=== PATIENT | male | born 1955 | race Caucasian/White ===

== ENCOUNTER 2021-01-31 15:08 | Inpatient (IN) | payer MEDICARE, MEDICAID, SELFPAY ==
[2021-01-31] VITALS (23 sets, daily range): BP systolic 93–140; BP diastolic 60–86; PULSE 80–113; RESP 17–23; TEMP 36.5–36.7; O2SAT 96–100; BMI 35.9
--- NOTE | 2021-01-31 15:14 | XRR_ITS ---
PROCEDURE INFORMATION: Exam: XR Chest Exam date and time: 01/31/2021 3:14 PM Age: 65 years old Clinical indication: Other: Nausea; Additional info: Weakness, nausea TECHNIQUE: Imaging protocol: XR of the chest. Views: 1 view. Total images: 1 COMPARISON: No relevant prior studies available. FINDINGS: Lungs: No visible active interstitial or alveolar airspace disease. Pleural spaces: Unremarkable. No pleural effusion. No pneumothorax. Heart/Mediastinum: Cardiac structures and configuration unremarkable for age. Bones/joints: Mild scoliotic curvature of the spine with degenerative disease and degenerative disc disease of mild severity. XR/XR chest 1V portable [id number] IMPRESSION: Nonacute.
--- NOTE | 2021-01-31 15:15 | ECG_ITS ---
[facility] Test Date: 2021-01-31 Pat Name: Andrew Pabon Department: Room: Gender: Male Continuity Manager: : 1955 Requested By: Mavis Herrera Order Number: [id number] Claudette MD: Luis E Hooks M.D. Measurements Intervals [place] Rate: 113 P: 43 WY: 172 QRS: -71 QRSD: 120 T: 74 QT: 344 QTc: 472 Interpretive Statements SINUS TACHYCARDIA POSSIBLE LEFT ATRIAL ENLARGEMENT [-0.1mV P WAVE IN V1/V2] POSSIBLE RIGHT VENTRICULAR CONDUCTION DELAY [RSR (QR) IN V1/V2] LEFT ANTERIOR FASCICULAR BLOCK [QRS AXIS <= -45, QR IN I, RS IN II] LEFT VENTRICULAR HYPERTROPHY AND ST-T CHANGE [VOLTAGE CRITERIA PLUS ST/T ABNORMALITY] POSSIBLE SEPTAL MYOCARDIAL INFARCTION [30 ms Q WAVE IN V1/V2], OF INDETERMINATE AGE No previous ECG available for comparison Electronically Signed On 02-02-2021 17:16:53 CDT by Luis E Hooks M.D. [id number]
[2021-01-31 15:42] LABS: Glucose Point of Care > 600 mg/dL (70-110)
--- NOTE | 2021-01-31 15:54 | ED_ITS ---
HPI - Male Genitourinary General: Chief complaint: Urogenital-Male Stated complaint: Weakness, N/V Time Seen by Provider: 01/31/21 15:43 Source: patient Mode of arrival: ambulatory Limitations: no limitations History of Present Illness: HPI Narrative: Patient is a 65-year-old male who presents to the emergency department with his . Neither of them is a good historian and it is difficult to obtain an accurate history from them. As far as I can gather he has had scrotal swelling for several months that they want evaluated. They states that it is getting worse. also states that he has been running a fever although they cannot tell me how high. She also states that he has urinary incontinence and is being managed for a urinary tract infection. He was initially given nitrofurantoin and it has been changed to Augmentin. He also has some fluconazole on topical antifungal and topical steroids to be applied to his scrotum. The patient is a diabetic, however the states that he was taken off his antidiabetic medications and only restarted yesterday. They have not picked up the prescription. MD Complaint: testicle swelling Onset (ago): month(s) (2) Duration: constant Location: penis, right testicle and left testicle Associated symptoms: Reports fevers/chills and urinary incontinence; Deny discharge, dysuria, hematuria, nausea, rash, swelling, urinary retention, mass or vomiting Review of Systems General: Reports: 10 or more systems reviewed and unremarkable except in HPI and below GI: Denies: nausea or vomiting : Reports: urinary incontinence; Denies: dysuria or hematuria [facility] ED PFSH: Medical History (Updated 01/31/21 @ 20:20 by Esthela Salcedo MD, [facility] [place]) Diabetes Hypertension Obesity Surgical History Status post hernia repair Family History Other CAD (coronary artery disease) Cancer Denies family history of Anesthesia complication Bleeding disorder Social History (Updated 01/31/21 @ 20:02 by Lynnette Moya MD) Smoking and tobacco status: former smoker Alcohol intake: never Substance/Drug Use: never Household members: spouse Physical Exam Const: COMMON NORMALS: no acute distress, average body habitus, patient oriented x3, no limitations, healthy appearing, alert and well nourished Neck/C-Spine: COMMON NORMALS: full ROM, supple, no meningeal signs, no JVD and No carotid bruits Resp: COMMON NORMALS: normal respiratory effort, No retractions, No use of accessory muscles, clear to auscultation bilaterally and percussion normal EFFORT & INSPECTION: Yes abnormal respiratory pattern Kussmaul breathing and Yes tachypneic AUSCULTATION: clear to auscultation bilaterally PERCUSSION: percussion normal Cardio: COMMON NORMALS: no JVD, regular rate, regular rhythm, S1 normal heart sound present, S2 normal heart sound present, No gallops present (Cardio), No clicks present (Cardio), No murmurs present (Cardio), No rub (Cardio) and Peripheral pulses 2+ throughout RATE: regular rate RHYTHM: regular rhythm HEART SOUNDS: S1 normal heart sound present and S2 normal heart sound present PERIPHERAL PULSES: Peripheral pulses 2+ throughout GI: COMMON NORMALS: Normal to inspection, nondistended, normoactive bowel sounds present, Soft to palpation, non-tender, No hepatosplenomegaly present, no masses and no bruits PALPATION: Yes Soft to palpation and Yes No hepatosplenomegaly present : COMMON NORMALS: Yes no CVA tenderness BLADDER/KIDNEY EXAM: Yes no CVA tenderness SCROTUM: Yes erythematous and Yes scrotal swelling Back/Pelvis: COMMON NORMALS: no CVA tenderness Extremity: COMMON NORMALS: normal to inspection, full ROM, capillary refill normal and no calf tenderness OTHER: left leg swelling. and patient state that this is chronic Neuro: COMMON NORMALS: patient oriented x3 SENSORIUM/ORIENTATION: Yes alert MENINGEAL SIGNS: Yes no meningeal signs Skin: COMMON NORMALS: no rashes or lesions noted, no wounds, turgor normal, no jaundice, no petechiae and no mottling GENERAL SKIN EXAM: no rashes or lesions noted and turgor normal Course Consultations: Consultation #1: Discussed the patient with Dr. Moreau, urologist. He will take the patient to the OR emergently. Time: 18:40 Consultation #2: Discussed the patient with Dr. Ruiz, hospitalist and she kindly accepted the patient to her service. Time: 19:05 Vital Signs: Vital signs: Vital Signs Temperature 98 F 01/31/21 19:48 Pulse Rate 80 07/09/21 19:48 Respiratory Rate 18 01/31/21 19:48 Blood Pressure 140/86 01/31/21 19:48 Pulse Oximetry 98 01/31/21 19:48 MDM - Male MDM Narrative: Medical decision making narrative: 65-year-old male diabetic who is currently not on any medication for diabetes, presents to the emergency department with a 2-month history of scrotal swelling. Evaluation in the emergency department shows that the patient is in diabetic ketoacidosis, has a Yovanny's gangrene and also has a urinary tract infection. He will be taken emergently to the OR for surgical debridement and then will be admitted to the intensive care unit following this. He also has some hyperkalemia which is likely secondary to DKA and hyponatremia, corrected sodium is still mildly low. He was given calcium gluconate in the emergency department and started on an insulin drip. He was also given IV fluids and IV antibiotics. Medical Records: Attestation: I reviewed the patient's medical records. Lab Data: Attestation: I reviewed the patient's lab results. Labs: Lab Results 01/31/21 01/31/21 01/31/21 Range/Units 15:39 16:36 16:46 WBC (4.0-10.0) 10^3/ uL RBC (4.1-5.3) 10^6/u L Hgb (11.7-16.6) g/dL Hct (42.0-52.0) % MCV (80-94) fL MCH (28.0-34.0) pg MCHC (30.0-36.0) g/dL RDW (12.1-15.1) % Plt Count (130-400) 10^3/c mm MPV (7.4-10.4) fL Neut % (Auto) % Lymph % (Auto) % [place] % (Auto) % Eos % (Auto) % Baso % (Auto) % Neut # (Auto) (1.8-7.7) 10^3/u L Lymph # (Auto) (0.8-4.8) 10^3/u L [place] # (Auto) (0.2-0.9) 10^3/u L Eos # (Auto) (0.0-0.8) 10^3/u L Baso # (Auto) (0.0-0.1) 10^3/u L Nucleated RBC % (a uto) % Nucleated RBCs # /100WBC Specimen Type Arterial Sample Site Radial, right ABG pH 7.42 (7.35-7.45) ABG pCO2 15.6 L* (35-45) mmHg ABG pO2 108.0 H (80.0-100.0) mmH g ABG HCO3 10.0 L (22-26) mmol/L ABG Base Excess -11.8 L (-2.0-2.0) mmol/ L Jann Test Pos Hematocrit 39.1 L (42-52) % O2 Delivery Device Room air FiO2 21.0 % Supervisor [employer] ID glc Sodium (136-145) mmol/L Potassium (3.5-5.1) mmol/L Chloride (98-107) mmol/L Carbon Dioxide (22-29) mmol/L Anion Gap (5-19) BUN (8-23) mg/dL Creatinine (0.7-1.2) mg/dL GFR Calculation (90-130) mL/min Glucose (65-115) mg/dL POC Glucose > 600 H* (70-110) mg/dL Calculated Osmolal ity (285-295) mOsm/k g Calcium (8.5-10.5) mg/dL Total Bilirubin (0.15-1.2) mg/dL AST (0-40) U/L ALT (0-41) U/L Alkaline Phosphata se (40-130) IU/L Troponin T Baselin e (0-15) ng/L Troponin T 120 Min [facility] (0-15) ng/L Delta Troponin T (0-10) ABS# Total Protein (6.6-8.7) g/dL Albumin (3.5-5.2) g/dL Globulin (1.3-4.6) g/dL Urine Color (Yellow) Urine Appearance (CLEAR) Urine pH (5-7) Ur Specific Gravit y (1.005-1.030) Urine Protein (Negative) Urine Glucose (UA) (Normal) Urine Ketones (Negative) Urine Blood (Negative) Urine Nitrate (Negative) Urine Bilirubin (Negative) Urine Urobilinogen (Negative) mg/dL Ur Leukocyte Kristen ase (Negative) Urine RBC (0-2) /hpf Urine WBC (0-5) /hpf Ur Squamous Epith Cells (0-5) /hpf Amorphous Sediment Urine Bacteria (NONE) /hpf Urine Yeast /hpf Serum Ketones Positive H (Negative) 01/31/21 01/31/21 01/31/21 Range/Units 16:56 16:56 16:56 WBC 18.1 H (4.0-10.0) 10^3/ uL RBC 4.69 (4.1-5.3) 10^6/u L Hgb 12.5 (11.7-16.6) g/dL Hct 40.9 L (42.0-52.0) % MCV 87.2 (80-94) fL MCH 26.7 L (28.0-34.0) pg MCHC 30.6 (30.0-36.0) g/dL RDW 13.3 (12.1-15.1) % Plt Count 465 H (130-400) 10^3/c mm MPV 9.0 (7.4-10.4) fL Neut % (Auto) 85.7 % Lymph % (Auto) 7.4 % [place] % (Auto) 4.3 % Eos % (Auto) 0.1 % Baso % (Auto) 0.4 % Neut # (Auto) 15.50 H (1.8-7.7) 10^3/u L Lymph # (Auto) 1.3 (0.8-4.8) 10^3/u L [place] # (Auto) 0.8 (0.2-0.9) 10^3/u L Eos # (Auto) 0.0 (0.0-0.8) 10^3/u L Baso # (Auto) 0.1 (0.0-0.1) 10^3/u L Nucleated RBC % (a uto) 0 % Nucleated RBCs # 0.0 /100WBC Specimen Type Sample Site ABG pH (7.35-7.45) ABG pCO2 (35-45) mmHg ABG pO2 (80.0-100.0) mmH g ABG HCO3 (22-26) mmol/L ABG Base Excess (-2.0-2.0) mmol/ L Jann Test Hematocrit (42-52) % O2 Delivery Device FiO2 % [employer] ID Sodium 110 L* (136-145) mmol/L Potassium 6.6 H* (3.5-5.1) mmol/L Chloride 71 L (98-107) mmol/L Carbon Dioxide 12 L (22-29) mmol/L Anion Gap 33.6 H (5-19) BUN 51 H (8-23) mg/dL Creatinine 1.9 H (0.7-1.2) mg/dL GFR Calculation 35.5 L (90-130) mL/min Glucose 836 H* (65-115) mg/dL POC Glucose (70-110) mg/dL Calculated Osmolal ity 285 (285-295) mOsm/k g Calcium 8.9 (8.5-10.5) mg/dL Total Bilirubin 0.3 (0.15-1.2) mg/dL AST 10 (0-40) U/L ALT 11 (0-41) U/L Alkaline Phosphata se 190 H (40-130) IU/L Troponin T Baselin e 21 H (0-15) ng/L Troponin T 120 Min [facility] (0-15) ng/L Delta Troponin T (0-10) ABS# Total Protein 7.3 (6.6-8.7) g/dL Albumin 3.0 L (3.5-5.2) g/dL Globulin 4.3 (1.3-4.6) g/dL Urine Color (Yellow) Urine Appearance (CLEAR) Urine pH (5-7) Ur Specific Gravit y (1.005-1.030) Urine Protein (Negative) Urine Glucose (UA) (Normal) Urine Ketones (Negative) Urine Blood (Negative) Urine Nitrate (Negative) Urine Bilirubin (Negative) Urine Urobilinogen (Negative) mg/dL Ur Leukocyte Kristen ase (Negative) Urine RBC (0-2) /hpf Urine WBC (0-5) /hpf Ur Squamous Epith Cells (0-5) /hpf Amorphous Sediment Urine Bacteria (NONE) /hpf Urine Yeast /hpf Serum Ketones (Negative) 01/31/21 01/31/21 01/31/21 Range/Units 17:42 18:52 19:56 WBC (4.0-10.0) 10^3/ uL RBC (4.1-5.3) 10^6/u L Hgb (11.7-16.6) g/dL Hct (42.0-52.0) % MCV (80-94) fL MCH (28.0-34.0) pg MCHC (30.0-36.0) g/dL RDW (12.1-15.1) % Plt Count (130-400) 10^3/c mm MPV (7.4-10.4) fL Neut % (Auto) % Lymph % (Auto) % [place] % (Auto) % Eos % (Auto) % Baso % (Auto) % Neut # (Auto) (1.8-7.7) 10^3/u L Lymph # (Auto) (0.8-4.8) 10^3/u L [place] # (Auto) (0.2-0.9) 10^3/u L Eos # (Auto) (0.0-0.8) 10^3/u L Baso # (Auto) (0.0-0.1) 10^3/u L Nucleated RBC % (a uto) % Nucleated RBCs # /100WBC Specimen Type Sample Site ABG pH (7.35-7.45) ABG pCO2 (35-45) mmHg ABG pO2 (80.0-100.0) mmH g ABG HCO3 (22-26) mmol/L ABG Base Excess (-2.0-2.0) mmol/ L Jann Test Hematocrit (42-52) % O2 Delivery Device FiO2 % Super[employer] ID Sodium (136-145) mmol/L Potassium (3.5-5.1) mmol/L Chloride (98-107) mmol/L Carbon Dioxide (22-29) mmol/L Anion Gap (5-19) BUN (8-23) mg/dL Creatinine (0.7-1.2) mg/dL GFR Calculation (90-130) mL/min Glucose (65-115) mg/dL POC Glucose > 600 H* (70-110) mg/dL Calculated Osmolal ity (285-295) mOsm/k g Calcium (8.5-10.5) mg/dL Total Bilirubin (0.15-1.2) mg/dL AST (0-40) U/L ALT (0-41) U/L Alkaline Phosphata se (40-130) IU/L Troponin T Baselin e (0-15) ng/L Troponin T 120 Min [facility] 20.70 H (0-15) ng/L Delta Troponin T -0.30 L (0-10) ABS# Total Protein (6.6-8.7) g/dL Albumin (3.5-5.2) g/dL Globulin (1.3-4.6) g/dL Urine Color Straw (Yellow) Urine Appearance Cloudy (CLEAR) Urine pH 5 (5-7) Ur Specific Gravit y 1.005 (1.005-1.030) Urine Protein 1+ H (Negative) Urine Glucose (UA) 4+ H (Normal) Urine Ketones 1+ H (Negative) Urine Blood 3+ H (Negative) Urine Nitrate Negative (Negative) Urine Bilirubin Neg (Negative) Urine Urobilinogen Norm (Negative) mg/dL Ur Leukocyte Kristen ase 2+ H (Negative) Urine RBC 5-10 H (0-2) /hpf Urine WBC 55-80 H (0-5) /hpf Ur Squamous Epith Cells 0-4 H (0-5) /hpf Amorphous Sediment Not Reportable Urine Bacteria 1+ H (NONE) /hpf Urine Yeast 3+ H /hpf Serum Ketones (Negative) Critical Care Time Critical Care Time: Critical Care Time: Yes Total Critical Care Time: 60 Attestation: This case had a high probability of a clinically significant, sudden, or life threatening deterioration of this patient's condition which required my full and direct attention, intervention and personal management. Discharge Plan Discharge Patient Disposition: Admitted As Inpatient Clinical Impression: Yovanny's gangrene of scrotum, Diabetic ketoacidosis, UTI (urinary tract infection), Acute hyperkalemia, Hyponatremia Condition: Stable Coding Level of Care Code ED Grill Associate for Dean Fwd Exam Comprehensive
[2021-01-31 16:58] LABS: ABG PH Result 7.42 (7.35-7.45); Arterial Blood Gas Hematocrit 39.1 % (42-52); Base Excess ABG -11.8 mmol/L (-2.0-2.0); Blood Gas Allen Test Pos; Blood Gas Operator Identificat glc; Blood Gas Sample Site Radial, right; Blood Gas Sample Type Arterial; Oxygen Device ROOM AIR
[2021-01-31 16:59] LABS: ABG PCO2 15.6 mmHg (35-45)
--- NOTE | 2021-01-31 17:17 | CTR_ITS ---
PROCEDURE INFORMATION: Exam: CT Abdomen And Pelvis With Contrast Exam date and time: 01/31/2021 5:17 PM Age: 65 years old Clinical indication: Abdominal pain; Generalized; Prior surgery; Surgery type: Hernia; Additional info: Abdominal pain, scrotal swelling, fever TECHNIQUE: Imaging protocol: Computed tomography of the abdomen and pelvis with contrast. Total images: 301 Radiation optimization: All CT scans at this facility use at least one of these dose optimization techniques: automated exposure control; mA and/or kV adjustment per patient size (includes targeted exams where dose is matched to clinical indication); or iterative reconstruction. Contrast material: VISI 320; Contrast volume: 95 ml; Contrast route: INTRAVENOUS (IV); COMPARISON: CR XR chest 1V portable [id number] 01/31/2021 4:34 PM RADIATION DOSE METRICS: Total DLP (mGy-cm): 2388.89 FINDINGS: Lungs: Limited assessment of the lung bases fails to reveal evidence for active cardiopulmonary process. Liver: No visible hepatic mass or cystic structure. Gallbladder and bile ducts: Unremarkable. No calcified stones. No ductal dilation. Pancreas: Pancreas is unremarkable. No visible pancreatic ductal ectasia. Spleen: Rare calcified splenic granuloma. Tiny splenule. Spleen otherwise unremarkable. Adrenal glands: Adrenal glands unremarkable. Kidneys and ureters: Bilateral moderate severe hydronephrosis and hydroureter to the urinary bladder without visible ureterolithiasis. Solitary tiny focus of nonobstructing calyceal nephrolithiasis inferior pole left kidney measuring under 2 mm. No nephrolithiasis right kidney. Small 13 mm simple cyst superior pole right kidney. No follow-up recommended. Stomach and bowel: Diverticulosis coli without visible evidence for acute diverticulitis. Nonobstructive bowel pattern. No visible adynamic or reactive ileus. Appendix: The appendix is visualized and appears noninflamed. Intraperitoneal space: No visible pneumoperitoneum or intraperitoneal ascites. Vasculature: The abdominal aorta is nonaneurysmal. Mild arterial sclerotic disease. Lymph nodes: No visible enlarged lymph nodes. Urinary bladder: Markedly distended urinary bladder measuring 18.7 cm x 10.5 cm x 11.6 cm. Free air within the lumen the urinary bladder. No visible bladder stone. Reproductive: Prostate hypertrophy. Marked scrotal edema with evidence of extensive and advanced diffuse emphysema tracking along the base of the penis to the level of the prostate. Cellulitis and soft tissue emphysema of the right perineum. Soft tissue emphysema extends into the right inguinal canal to the level of the inguinal ligament. Small amount of emphysema left distal inguinal canal. Free air within the urinary bladder. Findings consistent with severe Yovanny's gangrene. Bilateral hydroceles, right volume greater than left. Bones/joints: No visible acute osseous abnormality. Advanced degenerative disc disease of the lumbosacral spine most advanced L4/L5 with complete disc space height loss. Facet arthrosis. No visible osteolytic or osteoblastic destructive process. Levoscoliosis of the lumbar spine. Soft tissues: Severe and extensive Yovanny's gangrene. Other findings: Marked obesity. Motion artifact CT/CT abdomen pelvis w con* [id number] IMPRESSION: 1. Severe and extensive Yovanny's gangrene as detailed in text above. 2. Free air within a distended urinary bladder. 3. Bilateral moderate severe hydronephrosis and hydroureter to the urinary bladder without visible ureterolithiasis. 4. Solitary tiny focus of nephrolithiasis left kidney. 5. Other nonurgent, nonemergent, chronic, and age related findings as detailed in text above. COMMENTS: Consistent with the [employer]'s Incidental Findings Committee white paper (J Am Hebert Radiol 2018): Any incidental renal lesion less than 1 cm or classified as too small to characterize, or any incidental cystic renal lesion characterized as simple-appearing, is likely benign. No follow-up imaging is recommended for these lesions per consensus recommendations based on imaging criteria. Radiation Dose CTDIVOL = (mGy): DLP = 2388.89 (mGy-cm)
[2021-01-31 17:23] LABS: Basophils # 0.1 10^3/uL (0.0-0.1); Basophils % 0.4 %; Eosinophils % 0.1 %; Hematocrit 40.9 % (42.0-52.0); Hemoglobin 12.5 g/dL (11.7-16.6); Lymphocytes # 1.3 10^3/uL (0.8-4.8); Lymphocytes % 7.4 %; Mean Corpuscular HGB Conc 30.6 g/dL (30.0-36.0); Mean Corpuscular Hemoglobin 26.7 pg (28.0-34.0); Mean Corpuscular Volume 87.2 fL (80-94); Monocytes # 0.8 10^3/uL (0.2-0.9); Monocytes % 4.3 %; Neutrophils % 85.7 %; Nucleated Red Blood Cells % 0 %; Platelet Count 465 10^3/cmm (130-400); Red Blood Count 4.69 10^6/uL (4.1-5.3); Red Cell Distribution Width 13.3 % (12.1-15.1); White Blood Count 18.1 10^3/uL (4.0-10.0)
[2021-01-31 17:34] LABS: Ketone (Acetest) Serum Positive (Negative)
[2021-01-31] MEDS: sodium chloride 0.9% 1,000 ML 999 ML IV (17:45)
[2021-01-31 17:49] LABS: Troponin(5th) Baseline 21 ng/L (0-15)
[2021-01-31 17:50] LABS: Alanine Aminotransferase 11 U/L (0-41); Alkaline Phosphatase 190 IU/L (40-130); Anion Gap 33.6 (5-19); Aspartate Amino Transferase 10 U/L (0-40); Blood Urea Nitrogen 51 mg/dL (8-23); Calcium 8.9 mg/dL (8.5-10.5); Carbon Dioxide 12 mmol/L (22-29); Chloride 71 mmol/L (98-107); Globulin 4.3 g/dL (1.3-4.6); Glomerular Filtration Rate 35.5 mL/min (90-130); Total Bilirubin 0.3 mg/dL (0.15-1.2); Total Protein 7.3 g/dL (6.6-8.7)
--- NOTE | 2021-01-31 17:54 | PC.NURSE ---
upon admission to ED, triage nurse noticed a sweet smell and kussmaul breathing. upon BG test, meter just read HI.
[2021-01-31 17:56] LABS: Sodium 110 mmol/L (136-145)
[2021-01-31 17:57] LABS: Potassium 6.6 mmol/L (3.5-5.1)
[2021-01-31 18:06] LABS: Osmolality Calculated 285 mOsm/kg (285-295)
[2021-01-31 18:07] LABS: Glucose 836 mg/dL (65-115)
[2021-01-31] MEDS: iodixanol 320 mg/mL 100mL Btl IV (18:11)
[2021-01-31 18:19] LABS: Add Urine Microscopic? YES; Bilirubin Urine Neg (Negative); Blood Urine 3+ (Negative); Glucose Urine UA 4+ (Normal); Ketones Urine 1+ (Negative); Leukocyte Esterase Urine 2+ (Negative); Nitrate Urine Negative (Negative); Protein Urine 1+ (Negative); Specific Gravity, Urine 1.005 (1.005-1.030); Urine Appearance Cloudy (CLEAR); Urine Color Straw (Yellow); Urobilinogen Urine Norm (Negative); pH Urine 5 (5-7)
[2021-01-31 18:20] LABS: Add Urine Culture? Yes; Bacteria Urine 1+ /hpf; Squamous Epithelial Cell Urine 0-4 /hpf (0-5); WBC Urine 55-80 /hpf (0-5)
[2021-01-31] MEDS: calcium gluconate 0.1 gm/mL 10% SDV 10mL 1 GM IVP (19:17)
[2021-01-31] MEDS: piperacillin-tazobactam 3.375 GM in sodium chloride 0.9% (plus) 50 ML IV (19:18)
--- NOTE | 2021-01-31 19:21 | PM.CONSULT ---
Providers/Reason For Consult Consulting Physician/Specialty*: Urology/Lizzeth Reason for Consult*: Yovanny's/necrotizing fasciitis Attending Physician: Tom Moreau MD Primary Care Provider: Dr. Irizarry History of Present Illness History of Present Illness Andrew Pabon is a 65 year old male first evaluated by me wallis in the emergency department at [facility] for what appears to be necrotizing fasciitis complicated by DKA. Noncompliant with healthcare but was recently seen at [facility]. Has not filled his prescriptions yet for his diabetic treatment. Complains of apparently longstanding scrotal swelling with much worsening of swelling and pain over the last several days. Subjective fever. Some somnolence. Reports a longstanding rash in the lower abdomen and groin. CT scan demonstrated extensive air in the scrotal tissues and skin extending into the perineum and toward the base of the penis. Bladder was distended. He has bilateral hydroureteronephrosis with some focal renal cortical atrophy. There is also air in the bladder but there does not appear to be any interstitial air in the bladder wall. There does appear to be air extending down toward the rectum in the deep perineum, up toward the groins and it also appears that there is a tracking of air along the anterior abdominal wall close to the junction of his pannus and lower abdominal wall which measures out at about 6 cm above the symphysis pubis in a cephalad direction. Urinalysis showed 55-80 white cells. 5-10 RBCs. Nitrite negative. White count was elevated 18,000 Blood gas showed a pH of 7.42, CO2 of 15.6, PO2 of 108. Chemistry showed a sodium of 110, potassium 6.6, glucose of 836, creatinine 1.9. Hospitalist service has been consulted for preop evaluation. Anesthesia consult has been made as well. Plan will be to taken to the operating room emergently as soon as he is stable enough to undergo the procedure. We will speak with general surgery for their opinion regarding the findings outside of the genitourinary area. Reviewed with the family that he is at extraordinarily high risk for mortality from multiple sources as described above. Broad-spectrum antibiotics have been ordered. Dr. Moya and Dr. Bee are assessing him for medical management preop, Intra-Op, and postop. Review of Systems Const: Reports: fever(s), chills and malaise Eyes: Denies: change in vision or blurry vision Card: Denies: chest pain or palpitations Resp: Denies: productive cough GI: Denies: hematemesis : Reports: difficulty urinating, urinary dribbling and urinary incontinence Musc: Reports: extremity swelling Skin/Breast: Reports: rash, skin pain and changes in skin color Neuro: Denies: Slurred speech present or seizure-like activity Psych: Reports: depression Endo: Denies: excessive sweating Haroldo/Lymph: Denies: easy bruising or easy bleeding All/Imm: Denies: acute wheezing Meds/Allergies Home Medications and Allergies Home Medications Medication Instructions Recorded Confirmed Last Taken Type amoxicillin-pot clavulanate 1 tab PO BID 01/31/21 01/31/21 Unknown History [Augmentin] fluconazole [Diflucan] 200 mg PO DAILY 01/31/21 01/31/21 Unknown History ketoconazole See Rx Instructions .ROUTE .COMPLEX 01/31/21 01/31/21 01/31/21 History lisinopril 5 mg PO DAILY 01/31/21 01/31/21 01/31/21 History metformin 500 mg PO BID 01/31/21 01/31/21 01/30/21 History nystatin See Rx Instructions .ROUTE .COMPLEX 01/31/21 01/31/21 Unknown History sulfamethoxazole-trimethoprim 1 tab PO BID 01/31/21 01/31/21 01/31/21 History triamcinolone acetonide See Rx Instructions .ROUTE .COMPLEX 01/31/21 01/31/21 01/31/21 History Allergies Allergy/AdvReac Type Severity Reaction Status Date / Time nitrofurantoin Allergy Unknown Verified 01/31/21 16:16 PFSH Acute PFSH: Medical History (Updated 01/31/21 @ 20:55 by Lynnette Moya MD) Diabetes Hypertension Obesity Surgical History Status post hernia repair Family History Other CAD (coronary artery disease) Cancer Denies family history of Anesthesia complication Bleeding disorder Social History (Updated 01/31/21 @ 20:02 by Lynnette Moya MD) Smoking and tobacco status: former smoker Alcohol intake: never Substance/Drug Use: never Household members: spouse Supplemental [facility] Information: He denies any knowledge of cardiac disease or respiratory disease. Has been previously on diabetic meds but quit because the doctor said he did not need them any longer Vitals/I&O/Wt Last Vital Signs Temp 98.1 F 01/31/21 15:19 Pulse 112 H 01/31/21 15:19 Resp 17 01/31/21 15:19 BP 135/80 01/31/21 15:19 Pulse Ox 96 01/31/21 15:19 Weight last 48 hrs Weight 250 lb Physical Exam Const: COMMON NORMALS: no acute distress, alert and well nourished GENERAL APPEARANCE: well developed HENMT: COMMON NORMALS: normocephalic and atraumatic HEAD & SCALP: normocephalic and atraumatic Neck/C-Spine: COMMON NORMALS: full ROM Resp: COMMON NORMALS: normal respiratory effort EFFORT & INSPECTION: No labored and No Actively coughing GI: COMMON NORMALS: Soft to palpation, non-tender and no masses PALPATION: Yes Soft to palpation : OTHER: Grossly abnormal exam with scrotal enlargement, extending up into the groin or significant changes of erythema. He has draining urine from the urethra. The swelling extends down into the perineum as well. I could not feel any obvious crepitus there is no eschar that I could see. Could not palpate his testicles due to the degree of swelling Neuro: SENSORIUM/ORIENTATION: Yes alert Psych: ATTITUDE: Yes calm Skin: COMMON NORMALS: no jaundice NARRATIVE SKIN EXAM: Extensive rash in his lower abdomen extending down his his groins. Scrotal and genital skin is erythematous. A&P Assessment and plan (1) Yovanny's gangrene of scrotum: To the operating room emergently after evaluation by hospitalist service and anesthesia. Status: Acute (2) Diabetic ketoacidosis: Status: Acute (3) Diabetes: Status: Chronic (4) Obesity: Status: Chronic Consult Attestations Medical Necessity Statement: Critically ill patient. High mortality risk for multiple reasons including infectious as well as the uncontrolled diabetes. ICU care planned postoperatively if he survives. Coding Level of Care Code Acute [employer] Machine [employer]eder for [facility] Fwd Exam Detailed Diagnoses Yovanny's gangrene of scrotum N49.3 Diabetic ketoacidosis E11.10 Diabetes E11.9 Obesity E66.9
[2021-01-31] MEDS: insulin regular-human 250 UNIT in sodium chloride 0.9% 250 ML 23.28 UNIT IV (19:22)
--- NOTE | 2021-01-31 19:38 | ANES.PREANE2 ---
Pre-Anesthetic Assessment Pre-Anesthetic Assessment: Height/Weight: Height 1.78 m Weight 113.398 kg Temp Pulse Resp BP Pulse Ox 98.1 F 112 H 17 135/80 96 01/31/21 15:19 01/31/21 15:19 01/31/21 15:19 01/31/21 15:19 01/31/21 15:19 Preop Diagnosis: Necrotizing fasciiitis Proposed Procedure: Operation Date: 01/31/21 19:30 Proposed Procedures p Incision And Drainage(Not Applicable) - Tom Moreau MD Familial anesthetic complications: none Last intake: SOlids > 8 hrs Seven up 1-2 hrs ago Social: Social History: No alcohol and No tobacco Exam: Pre-Anes Outpt Exam: alert, oriented x 3, clear to auscultation bilaterally and regular rate & rhythm Airway: Cervical ROM: WNL Dentition: False CV/HEM: CV/HEM: HTN Metabolic: Metabolic: DM and Morbid obesity Comments: DKA Anesthetic Plan: ASA status: 4E Anesthesia: General Risk of > 500 ml blood loss (7ml/kg in children): No Meds/Allergies Current Medications: Current Medications Generic Name Dose Route Start Last Admin Trade Name Freq PRN Reason Stop Dose Admin Insulin Human Regu lar 250 unit 252.5 mls @ 0 mls /hr 01/31/21 18:30 01/31/21 19:22 / Sodium Chlorid e IV 23.28 ml/hr .Q0M JENISE 23.28 mls/hr Administration Protocol Per Protocol PFSH Anesthesia PFSH: Surgical History (Updated 01/31/21 @ 19:35 by Tom Moreau MD) Status post hernia repair Family History (Updated 01/31/21 @ 19:36 by Tom Moreau MD) Other CAD (coronary artery disease) Cancer Denies family history of Anesthesia complication Bleeding disorder Data Anesthesia CBC & Chem 7: 01/31/21 16:56 01/31/21 16:56 Other Labs: Laboratory Results - last 48 hr 01/31/21 01/31/21 01/31/21 15:39 16:36 16:46 WBC RBC Hgb Hct MCV MCH MCHC RDW Plt Count MPV Neut % (Auto) Lymph % (Auto) Sebastian % (Auto) Eos % (Auto) Baso % (Auto) Neut # (Auto) Lymph # (Auto) Sebastian # (Auto) Eos # (Auto) Baso # (Auto) Nucleated RBC % (auto) Nucleated RBCs # Specimen Type Arterial Sample Site Radial, right ABG pH 7.42 ABG pCO2 15.6 L* ABG pO2 108.0 H ABG HCO3 10.0 L ABG Base Excess -11.8 L Jann Test Pos Hematocrit 39.1 L O2 Delivery Device Room air FiO2 21.0 Petrophysical Engineer ID glc Sodium Potassium Chloride Carbon Dioxide Anion Gap BUN Creatinine GFR Calculation Glucose POC Glucose > 600 H* Calculated Osmolality Calcium Total Bilirubin AST ALT Alkaline Phosphatase Troponin T Baseline Troponin T 120 Minute Delta Troponin T Total Protein Albumin Globulin Urine Color Urine Appearance Urine pH Ur Specific [place] Urine Protein Urine Glucose (UA) Urine Ketones Urine Blood Urine Nitrate Urine Bilirubin Urine Urobilinogen Ur Leukocyte Esterase Urine RBC Urine WBC Ur Squamous Epith Cells Amorphous Sediment Urine Bacteria Urine Yeast Serum Ketones Positive H 01/31/21 01/31/21 01/31/21 16:56 16:56 16:56 WBC 18.1 H RBC 4.69 Hgb 12.5 Hct 40.9 L MCV 87.2 MCH 26.7 L MCHC 30.6 RDW 13.3 Plt Count 465 H MPV 9.0 Neut % (Auto) 85.7 Lymph % (Auto) 7.4 Sebastian % (Auto) 4.3 Eos % (Auto) 0.1 Baso % (Auto) 0.4 Neut # (Auto) 15.50 H Lymph # (Auto) 1.3 Sebastian # (Auto) 0.8 Eos # (Auto) 0.0 Baso # (Auto) 0.1 Nucleated RBC % (auto) 0 Nucleated RBCs # 0.0 Specimen Type Sample Site ABG pH ABG pCO2 ABG pO2 ABG HCO3 ABG Base Excess Jann Test Hematocrit O2 Delivery Device FiO2 Petrophysical Engineer ID Sodium 110 L* Potassium 6.6 H* Chloride 71 L Carbon Dioxide 12 L Anion Gap 33.6 H BUN 51 H Creatinine 1.9 H GFR Calculation 35.5 L Glucose 836 H* POC Glucose Calculated Osmolality 285 Calcium 8.9 Total Bilirubin 0.3 AST 10 ALT 11 Alkaline Phosphatase 190 H Troponin T Baseline 21 H Troponin T 120 Minute Delta Troponin T Total Protein 7.3 Albumin 3.0 L Globulin 4.3 Urine Color Urine Appearance Urine pH Ur Specific [place] Urine Protein Urine Glucose (UA) Urine Ketones Urine Blood Urine Nitrate Urine Bilirubin Urine Urobilinogen Ur Leukocyte Esterase Urine RBC Urine WBC Ur Squamous Epith Cells Amorphous Sediment Urine Bacteria Urine Yeast Serum Ketones 01/31/21 01/31/21 17:42 18:52 WBC RBC Hgb Hct MCV MCH MCHC RDW Plt Count MPV Neut % (Auto) Lymph % (Auto) Sebastian % (Auto) Eos % (Auto) Baso % (Auto) Neut # (Auto) Lymph # (Auto) Sebastian # (Auto) Eos # (Auto) Baso # (Auto) Nucleated RBC % (auto) Nucleated RBCs # Specimen Type Sample Site ABG pH ABG pCO2 ABG pO2 ABG HCO3 ABG Base Excess Jann Test Hematocrit O2 Delivery Device FiO2 Petrophysical Engineer ID Sodium Potassium Chloride Carbon Dioxide Anion Gap BUN Creatinine GFR Calculation Glucose POC Glucose Calculated Osmolality Calcium Total Bilirubin AST ALT Alkaline Phosphatase Troponin T Baseline Troponin T 120 Minute 20.70 H Delta Troponin T -0.30 L Total Protein Albumin Globulin Urine Color Straw Urine Appearance Cloudy Urine pH 5 Ur Specific [place] 1.005 Urine Protein 1+ H Urine Glucose (UA) 4+ H Urine Ketones 1+ H Urine Blood 3+ H Urine Nitrate Negative Urine Bilirubin Neg Urine Urobilinogen Norm Ur Leukocyte Esterase 2+ H Urine RBC 5-10 H Urine WBC 55-80 H Ur Squamous Epith Cells 0-4 H Amorphous Sediment Not Reportable Urine Bacteria 1+ H Urine Yeast 3+ H Serum Ketones Cardiac Studies: No Data to Display
--- NOTE | 2021-01-31 19:46 | P.HP_ITS ---
Providers/Chief Complaint Admitting Physician: Lynnette Moya MD Primary Care Provider: Dr. Merritt Irizarry Chief Complaint: Weakness, N/V History of Present Illness Andrew Pabon is a 65 year old male who presented to the emergency room with increasing weakness to the point that he was not able to move around. He has a history of diabetes and hypertension but some time ago a doctor took him off of his medications saying that he did not need it anymore, according to the . A month or so ago he started having swelling and rash in his groin. He saw somebody who gave him a prescription for Macrobid and some creams. Despite this the swelling and rash continued. He saw a new doctor thisweek who started him on lisinopril and Metformin. In addition to this he was given fluconazole, Bactrim, nystatin and triamcinolone cream, or amoxicillin. A couple of the medications were actually filled today and he has not taken them yet. Over the last 48 hours or so he has become so weak that he cannot move around, he has been urinating frequently. He has been very thirsty but not feeling like drinking very much. He has had incontinence and increased swelling and pain in the groin extending to his scrotum. Describes the pain as severe. His rash is also extended to cover the entire genital area. No bleeding has been noted. Over the last few months he has had increasing edema. He has some dyspnea with exertion. He has had some episodes of chest pain. The dyspnea and chest pain is not escalated today. Prior to the onset of overall issues a month or 2 ago he states that he was able to ambulate without dyspnea and chest pain. He has had prior inguinal hernia repairs without any anesthesia complications. Denies any chronic lung disease or smoking. No history of bleeding disorders. No known history of coronary artery disease. 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 In addition he has respiratorily compensated metabolic acidosis and multiple laboratory abnormalities consistent with DKA. Measured sodium is 110, corrected to the 120s based on glucose of 800s. His potassium is 6.7. Twelve- lead EKG shows sinus tachycardia, peaked T waves and nonspecific changes. 2- hour troponin delta is unremarkable. Chest x-ray shows no acute cardiopulmonary process. He received some calcium, initiation of insulin drip, IV fluids, Zosyn, vancomycin, Rocephin and clindamycin. Dr. Moreau was consulted the [facility] to take patient emergently to surgery this evening. I have conferred with both Dr. Moreau and Dr. Bee on plan of care. History is obtained predominantly from the with the patient answering some review of systems questions. Review of Systems Const: Reports: fever(s) (Subjective), chills, change in appetite, change in weight (Weight gain), fatigue and malaise Eyes: Reports: blurry vision ENMT: Reports: dry mouth; Denies: throat pain or nasal congestion Card: Reports: chest pain, edema and dyspnea on exertion; Denies: palpitations or orthopnea Resp: Denies: productive cough or non-productive cough GI: Reports: abdominal pain, nausea, vomiting and other (last BM this am no blood); Denies: diarrhea or constipation : Reports: urinary frequency, urinary dribbling, urinary incontinence, testicular pain and scrotal swelling; Denies: hematuria Musc: Reports: back pain and extremity pain Skin/Breast: Reports: rash (groin) and skin pain; Denies: sores (Other than what is in the groin) Neuro: Reports: numbness in extremities (Numbness and tingling upper since Macrodantin started), weakness in extremities (Generalized generalized) and difficulty walking (Due to weakness) Endo: Reports: polyuria, polydipsia and tired all the time Haroldo/Lymph: Denies: easy bruising or easy bleeding Medications/Allergies Home Medications Medication Instructions Recorded Confirmed Last Taken Type amoxicillin-pot clavulanate 1 tab PO BID 01/31/21 01/31/21 Unknown History [Augmentin] fluconazole [Diflucan] 200 mg PO DAILY 01/31/21 01/31/21 Unknown History ketoconazole See Rx Instructions .ROUTE .COMPLEX 01/31/21 01/31/21 01/31/21 History lisinopril 5 mg PO DAILY 01/31/21 01/31/21 01/31/21 History metformin 500 mg PO BID 01/31/21 01/31/21 01/30/21 History nystatin See Rx Instructions .ROUTE .COMPLEX 01/31/21 01/31/21 Unknown History sulfamethoxazole-trimethoprim 1 tab PO BID 01/31/21 01/31/21 01/31/21 History triamcinolone acetonide See Rx Instructions .ROUTE .COMPLEX 01/31/21 01/31/21 01/31/21 History Allergies Allergy/AdvReac Type Severity Reaction Status Date / Time nitrofurantoin Allergy Unknown Verified 01/31/21 16:16 PFSH Acute PFSH: Medical History (Updated 01/31/21 @ 20:55 by Lynnette Moya MD) Diabetes Hypertension Obesity Surgical History Status post hernia repair Family History Other CAD (coronary artery disease) Cancer Denies family history of Anesthesia complication Bleeding disorder Social History (Updated 01/31/21 @ 20:02 by Lynnette Moya MD) Smoking and tobacco status: former smoker Alcohol intake: never Substance/Drug Use: never Household members: spouse Vitals/I&O/Wt Last Vital Signs Temp 98.1 F 01/31/21 15:19 Pulse 112 H 01/31/21 15:19 Resp 17 01/31/21 15:19 BP 135/80 01/31/21 15:19 Pulse Ox 96 01/31/21 15:19 Weight last 48 hrs Weight 113.398 kg Physical Exam Narrative: EXAM NARRATIVE: Constitutional: awake, able to answer questions but quite ill-appearing HEENT: normocephalic, pupils equal, oropharyn dry, dentures noted Neck: large but supple Respiratory: tachypnic, clear, decreased chest expansion Cardiovascular: regular rhythm, distant heart sounds, cap refill 3 seconds Abdomen: soft, rotund, tender lower quadrants, decreased bowel sounds : extensive excoriation, swelling and intense erythema of scrotum, intertriginous areas, dribbling clear urine, satellite lesions to thighs Extremities: 3+ edema, chronic stasis changes Skin: dry, chronic changes, beyond the groin do not see other acute skin changes but have not examined back or feet at this time Neuro:oriented to person and place, situation, speech clear, face symmetric, moves all extremities Psych: cooperative Data : 01/31/21 16:56 01/31/21 16:56 Other data: Laboratory Results WBC 18.1 10^3/uL (4.0-10.0) H 01/31/21 16:56 RBC 4.69 10^6/uL (4.1-5.3) 01/31/21 16:56 Hgb 12.5 g/dL (11.7-16.6) 01/31/21 16:56 Hct 40.9 % (42.0-52.0) L 01/31/21 16:56 MCV 87.2 fL (80-94) 01/31/21 16:56 MCH 26.7 pg (28.0-34.0) L 01/31/21 16:56 MCHC 30.6 g/dL (30.0-36.0) 01/31/21 16:56 RDW 13.3 % (12.1-15.1) 01/31/21 16:56 Plt Count 465 10^3/cmm (130-400) H 01/31/21 16:56 MPV 9.0 fL (7.4-10.4) 01/31/21 16:56 Neut % (Auto) 85.7 % 01/31/21 16:56 Lymph % (Auto) 7.4 % 01/31/21 16:56 Bacon % (Auto) 4.3 % 01/31/21 16:56 Eos % (Auto) 0.1 % 01/31/21 16:56 Baso % (Auto) 0.4 % 01/31/21 16:56 Neut # (Auto) 15.50 10^3/uL (1.8-7.7) H 01/31/21 16:56 Lymph # (Auto) 1.3 10^3/uL (0.8-4.8) 01/31/21 16:56 Bacon # (Auto) 0.8 10^3/uL (0.2-0.9) 01/31/21 16:56 Eos # (Auto) 0.0 10^3/uL (0.0-0.8) 01/31/21 16:56 Baso # (Auto) 0.1 10^3/uL (0.0-0.1) 01/31/21 16:56 Nucleated RBC % (auto) 0 % 01/31/21 16:56 Nucleated RBCs # 0.0 /100WBC 01/31/21 16:56 Specimen Type Arterial 01/31/21 16:46 Sample Site Radial, right 01/31/21 16:46 ABG pH 7.42 (7.35-7.45) 01/31/21 16:46 ABG pCO2 15.6 mmHg (35-45) L* 01/31/21 16:46 ABG pO2 108.0 mmHg (80.0-100.0) H 01/31/21 16:46 ABG HCO3 10.0 mmol/L (22-26) L 01/31/21 16:46 ABG Base Excess -11.8 mmol/L (-2.0-2.0) L 01/31/21 16:46 Jann Test Pos 01/31/21 16:46 Hematocrit 39.1 % (42-52) L 01/31/21 16:46 O2 Delivery Device Room air 01/31/21 16:46 FiO2 21.0 % 01/31/21 16:46 Stripper And Taper ID glc 01/31/21 16:46 Sodium 110 mmol/L (136-145) L* 01/31/21 16:56 Potassium 6.6 mmol/L (3.5-5.1) H* 01/31/21 16:56 Chloride 71 mmol/L (98-107) L 01/31/21 16:56 Carbon Dioxide 12 mmol/L (22-29) L 01/31/21 16:56 Anion Gap 33.6 (5-19) H 01/31/21 16:56 BUN 51 mg/dL (8-23) H 01/31/21 16:56 Creatinine 1.9 mg/dL (0.7-1.2) H 01/31/21 16:56 GFR Calculation 35.5 mL/min (90-130) L 01/31/21 16:56 Glucose 836 mg/dL (65-115) H* 01/31/21 16:56 POC Glucose > 600 mg/dL (70-110) H* 01/31/21 19:56 Calculated Osmolality 285 mOsm/kg (285-295) 01/31/21 16:56 Calcium 8.9 mg/dL (8.5-10.5) 01/31/21 16:56 Total Bilirubin 0.3 mg/dL (0.15-1.2) 01/31/21 16:56 AST 10 U/L (0-40) 01/31/21 16:56 ALT 11 U/L (0-41) 01/31/21 16:56 Alkaline Phosphatase 190 IU/L (40-130) H 01/31/21 16:56 Troponin T Baseline 21 ng/L (0-15) H 01/31/21 16:56 Troponin T 120 Minute 20.70 ng/L (0-15) H 01/31/21 18:52 Delta Troponin T -0.30 ABS# (0-10) L 01/31/21 18:52 Total Protein 7.3 g/dL (6.6-8.7) 01/31/21 16:56 Albumin 3.0 g/dL (3.5-5.2) L 01/31/21 16:56 Globulin 4.3 g/dL (1.3-4.6) 01/31/21 16:56 Urine Color Straw (Yellow) 01/31/21 17:42 Urine Appearance Cloudy (CLEAR) 01/31/21 17:42 Urine pH 5 (5-7) 01/31/21 17:42 Ur Specific [place] 1.005 (1.005-1.030) 01/31/21 17:42 Urine Protein 1+ (Negative) H 01/31/21 17:42 Urine Glucose (UA) 4+ (Normal) H 01/31/21 17:42 Urine Ketones 1+ (Negative) H 01/31/21 17:42 Urine Blood 3+ (Negative) H 01/31/21 17:42 Urine Nitrate Negative (Negative) 01/31/21 17:42 Urine Bilirubin Neg (Negative) 01/31/21 17:42 Urine Urobilinogen Norm mg/dL (Negative) 01/31/21 17:42 Ur Leukocyte Esterase 2+ (Negative) H 01/31/21 17:42 Urine RBC 5-10 /hpf (0-2) H 01/31/21 17:42 Urine WBC 55-80 /hpf (0-5) H 01/31/21 17:42 Ur Squamous Epith Cells 0-4 /hpf (0-5) H 01/31/21 17:42 Amorphous Sediment Not Reportable 01/31/21 17:42 Urine Bacteria 1+ /hpf (NONE) H 01/31/21 17:42 Urine Yeast 3+ /hpf H 01/31/21 17:42 Serum Ketones Positive (Negative) H 01/31/21 16:36 Impressions Chest X-Ray 01/31/21 15:14 IMPRESSION: Nonacute. Abdomen/Pelvis CT 01/31/21 17:17 FINDINGS: Lungs: Limited assessment of the lung bases fails to reveal evidence for active cardiopulmonary process. Liver: No visible hepatic mass or cystic structure. Gallbladder and bile ducts: Unremarkable. No calcified stones. No ductal dilation. Pancreas: Pancreas is unremarkable. No visible pancreatic ductal ectasia. Spleen: Rare calcified splenic granuloma. Tiny splenule. Spleen otherwise unremarkable. Adrenal glands: Adrenal glands unremarkable. Kidneys and ureters: Bilateral moderate severe hydronephrosis and hydroureter to the urinary bladder without visible ureterolithiasis. Solitary tiny focus of nonobstructing calyceal nephrolithiasis inferior pole left kidney measuring under 2 mm. No nephrolithiasis right kidney. Small 13 mm simple cyst superior pole right kidney. No follow-up recommended. Stomach and bowel: Diverticulosis coli without visible evidence for acute diverticulitis. Nonobstructive bowel pattern. No visible adynamic or reactive ileus. Appendix: The appendix is visualized and appears noninflamed. Intraperitoneal space: No visible pneumoperitoneum or intraperitoneal ascites. Vasculature: The abdominal aorta is nonaneurysmal. Mild arterial sclerotic disease. Lymph nodes: No visible enlarged lymph nodes. Urinary bladder: Markedly distended urinary bladder measuring 18.7 cm x 10.5 cm x 11.6 cm. Free air within the lumen the urinary bladder. No visible bladder stone. Reproductive: Prostate hypertrophy. Marked scrotal edema with evidence of extensive and advanced diffuse emphysema tracking along the base of the penis to the level of the prostate. Cellulitis and soft tissue emphysema of the right perineum. Soft tissue emphysema extends into the right inguinal canal to the level of the inguinal ligament. Small amount of emphysema left distal inguinal canal. Free air within the urinary bladder. Findings consistent with severe Yovanny's gangrene. Bilateral hydroceles, right volume greater than left. Bones/joints: No visible acute osseous abnormality. Advanced degenerative disc disease of the lumbosacral spine most advanced L4/L5 with complete disc space height loss. Facet arthrosis. No visible osteolytic or osteoblastic destructive process. Levoscoliosis of the lumbar spine. Soft tissues: Severe and extensive Yovanny's gangrene. Other findings: Marked obesity. Motion artifact IMPRESSION: 1. Severe and extensive Yovanny's gangrene as detailed in text above. 2. Free air within a distended urinary bladder. 3. Bilateral moderate severe hydronephrosis and hydroureter to the urinary bladder without visible ureterolithiasis. 4. Solitary tiny focus of nephrolithiasis left kidney. 5. Other nonurgent, nonemergent, chronic, and age related findings as detailed in text above. COMMENTS: Consistent with the [employer]'s Incidental Findings Committee white paper (J Am Hebert Radiol 2018): Any incidental renal lesion less than 1 cm or classified as too small to characterize, or any incidental cystic renal lesion characterized as simple-appearing, is likely benign. No follow-up imaging is recommended for these lesions per consensus recommendations based on imaging criteria. Radiation Dose CTDIVOL = (mGy): DLP = 2388.89 (mGy-cm) ADDENDUM: 01/31/211922 THIS REPORT CONTAINS FINDINGS THAT MAY BE CRITICAL TO PATIENT CARE. The findings were verbally communicated via telephone conference with DONALD SAMANO at 7:15 PM CDT on 01/31/2021. The findings were acknowledged and understood. Radiation Dose CTDIVOL = (mGy): DLP = 2388.89 (mGy-cm) A&P Assessment and plan (1) Yovanny's gangrene of scrotum: Has what sounds like a yeast infection in the groin area for some time leading to opening from skin wounds for infection, ultimately stemming from untreated diabetes. Has associated leukocytosis, mild tachycardia that thus far has responded to fluids and currently maintaining pressures. Status: Acute (2) Diabetic ketoacidosis: In a patient with untreated diabetes, suspect type II. Currently has hyponatremia measuring markedly lower due to hyperglycemia, hyperkalemia, elevated BUN and creatinine, serum ketones, metabolic acidosis with respiratory compensation Status: Acute Qualifiers: Diabetes mellitus complication detail: without coma Diabetes mellitus type: type 2 Qualified Code(s): E11.10 - Type 2 diabetes mellitus with ketoacidosis without coma (3) Acute kidney injury: Multifactorial DKA, infection, potentially also from lisinopril and Bact rim recently prescribed Status: Acute (4) Hypertension: Recently started on lisinopril Status: Chronic (5) Obesity: BMI of 35.9 Status: Chronic Additional A&P Information Edema Tinea corporis Chest pain and dyspnea on exertion Inpatient admission Emergent OR Broad-spectrum antibiotics to include anaerobic coverage Antifungal IV fluids Insulin drip Serial laboratory studies Address electrolytes as needed Repeat EKGs and 6 hr troponin Maintain Campuzano catheter secondary to surgery and need to keep groin dry on top of monitoring close urine output Get blood cultures and lactic acid prior to surgery Monitor blood pressures Strict I&Os Echo in am PPI Lactobacillus Discussed with anesthesia possibility of maintaining ventilator, arterial and central line placement - reviewed all of this with , risks and benefits related to need to aggressively treat current condition. She was given an opportunity to ask focused questions regarding these procedures Supportive care otherwise Consultants: Dr. Moreau Pending/ordered tests/procedures to follow:blood cultures, urine cultures, wound cultures Lines/tubes: will have campuzano, possible central line, arterial line and ETT post op DVT prophylaxis: SCD Plans, findings and concerns discussed with and she was given an opportunity to ask questions. Anticipated Disposition: Ultimately depends on clinical course, but anticipate need for skilled placement Code Status: Full code Attestations Medical Necessity Statement*: Anticipated stay greater than two midnights in critically ill patient with DKA and Yovanny's gangrene. Requiring emergent surgery, DKA management and ICU admission for close monitoring and treamtent. At high risk of rapid clinical decline and without aggressive intervention. Critical Care Time: The high probability of a clinically significant, sudden or life threatening deterioration of the patient's renal, endocrine, genitourinary and cardiovascular system(s) in the setting of acute organ threatening infection required my full and direct attention, intervention and personal management. The critical care time is as shown. This time is in addition to time spent performing any reported procedures but includes the following: [x] Data and vital sign review and interpretation [x] Patient assessment, examination and intervention [x] Documentation [x] Medication orders and management [x] Discussing with ER, urology, anesthesia and patient's Critical Care Time (min): 65 Coding Level of Care Code Acute Hvac Project Manager for g Fwd Diagnoses Yovanny's gangrene of scrotum N49.3 Diabetic ketoacidosis E11.10 Diabetes mellitus complication detail: without coma Diabetes mellitus type: type 2 Acute kidney injury N17.9 Hypertension I10 Obesity E66.9
[2021-01-31 20:03] LABS: Glucose Point of Care > 600 mg/dL (70-110)
[2021-01-31 21:27] LABS: Blood Urea Nitrogen 52 mg/dL (8-23); Calcium 7.9 mg/dL (8.5-10.5); Carbon Dioxide 12 mmol/L (22-29); Chloride 82 mmol/L (98-107); Glomerular Filtration Rate 37.8 mL/min (90-130); Magnesium 1.8 mg/dL (1.7-2.3); Osmolality Calculated 293 mOsm/kg (285-295); Phosphorus 3.5 mg/dL (2.5-4.5); Sodium 121 mmol/L (136-145); Uric Acid 11.2 mg/dL (3.4-7.0)
[2021-01-31 21:28] LABS: Anion Gap 32.1 (5-19); Potassium 5.1 mmol/L (3.5-5.1)
[2021-01-31 21:29] LABS: Lactic Sepsis W/Reflex 2.4 mmol/L (0.5-2.2)
[2021-01-31 21:36] LABS: Glucose 587 mg/dL (65-115)
--- NOTE | 2021-01-31 21:53 | XRR_ITS ---
PROCEDURE INFORMATION: Exam: XR Chest Exam date and time: 01/31/2021 9:53 PM Age: 65 years old Clinical indication: Device placement; Other: Central line; Additional info: Post-intubation TECHNIQUE: Imaging protocol: XR of the chest. Views: 1 view. Total images: 1 COMPARISON: CR XR chest 1V portable [id number] 01/31/2021 4:34 PM FINDINGS: Tubes, catheters and devices: Interval placement of an endotracheal tube with tip in satisfactory position above the lucy. Right jugular central venous catheter tip right atrium. Lungs: No visible active interstitial or alveolar airspace disease. Pleural spaces: No pleural effusion. No pneumothorax. Heart/Mediastinum: Cardiac structures and configuration unremarkable for age. Bones/joints: Mild scoliotic curvature of the spine with degenerative disease and degenerative disc disease of mild severity. XR/XR chest 1V portable [id number] IMPRESSION: 1. Interval placement of an endotracheal tube with tip in satisfactory position above the lucy. 2. Right jugular central venous catheter tip right atrium. 3. No radiographic evidence of complicating features.
--- NOTE | 2021-01-31 21:56 | P.OP_ITS ---
Operative Report Date of procedure: January 31, 2021 Pre-op Diagnosis: Yovanny's gangrene/necrotizing fasciiitis Post-op diagnosis: same Procedure Done: 1. Incision and drainage of multiple deep scrotal abscesses 2. Partial scrotectomy 3. Debridement of necrotic intrascrotal, inguinal canal, perianal, perineum tissue 4. Dorsal slit circumcision Specimens removed/disposition: 1. Deep scrotal necrotic tissue 2. Scrotal wall Pathology: See above Surgeon: Lizzeth Industrial Ecologist: Pako Anesthesia: General Estimated blood loss: 250 cc estimated Urine output: Approximately 600 cc of urine drained with Stovall catheter placement Complications: None Findings: 1. Approximately 6 inch diameter plus scrotal wall with necrosis. Excised 2. Multiple layered deep scrotal tissue necrosis with extension into the perineum and into the perianal tissues bilaterally. 3. Extension of necrosis and abscesses posterior to the root of the penis and into the inguinal canal on the right. 4. Tight phimosis requiring dorsal slit circumcision for exposure of the meatus Condition: critical Disposition: ICU Brief History: Mr. Pabon is a 65-year-old man who I evaluated for the first time tonight in the emergency department for suspicion of Yovanny's gangrene. CT scan showed multiple air pockets and tissue interstitial air. Infection extended into the right groin along the inguinal canal onto the anterior abdominal wall above the right inguinal canal, down into the perianal space bila terally, posterior to the root of the penis, and diffuse throughout both hemiscrotal spaces. Clinical evidence supported necrotizing fasciitis and he was taken to the operating room emergently for surgical debridement. Complicating this was severe DKA which required some degree of resuscitation prior to surgical intervention. Procedure: After emergent evaluation examination and obtaining of informed consent he was taken to the operating suite on 01/31/2021 where general anesthesia was administered without difficulty. He was hemodynamically stable but did require some pressure support throughout the procedure. Examination under anesthesia revealed a tense erythematous scrotum with poor perfusion of the skin and beginning of skin breakdown mostly posteriorly. There is induration extending down into the perineum and then down primarily on the right side of the perianal area. I could not feel any crepitus in the groin. A vertical incision was made in the scrotum and the skin itself looked very poorly perfused and there was distinctly necrotic tissue underneath. The incision was extended widely including the followin. Into the right inguinal area following the cord and extending the incision as far as purulence was determined. Mild debridement was conducted in that area. 2. Extending down into the perineum and in the right perianal space and into the left perianal area as well as far as the purulence extended. 3. The initial incision extended into the right hemiscrotum and the testicle was dissected free from the adhesion on the tunica vaginalis to the surrounding tissue. The left hemiscrotum was then entered sharply in the same kind of findings seen in the right with necrosis involving essentially all of the inter nal tissues of the left hemiscrotum other than the testicle itself were discovered. This incision extended further as well toward the extension of the proximal left spermatic cord but did not extend as far as on the right side regarding the degree of purulence. 4. Blunt dissection continued along the base of the penis into the purulent pockets identified on the CT scan. Necrotic tissue was debrided from all of these areas. It was fairly extensive. 5. All pockets of purulence were bluntly and sharply as well as electrocautery unroofed and debridement conducted to the extent of necrotic tissue identified. A power lavage was then utilized with 6 L of saline solution to further clean out the wound and all the different areas described above. Electrocautery was utilized where appropriate to control hemostasis. Attention was directed to the penis in order to place a catheter. Despite multiple blunt and clamp stretching the meatus could not be identified due to tight phimosis and a dorsal slit circumcision was performed with a crush clamp on the 12 o'clock position and electrocautery incision extending to the henriquez on the internal aspect of the preputial skin and to just below the henriquez on the external aspect of the preputial skin. Pinpoint hemostasis was obtained on the incision and the lateral wings were approximated to create a break in the tight fibrotic band and easily exposing the head of the penis. The skin edges were approximated loosely with 3-0 chromic. Functional result was good An 18 [place] Stovall catheter was then placed in about 600 cc of yellow urine was drained. This was estimated by merrily based on the findings on the CT scan. He had a very distended bladder on the CT scan along with bilateral hydroureteronephrosis presumed from bladder obstruction versus diabetic cystopathy. Prior to placing a dressing electrocautery was utilized multiple areas for hemostasis. Surgicel was then applied to the base of the wound and covered with rolled moist Kerlix x2 extending and packing deeply into the wounds and the cavities created in the dissection above. Multiple ABD pads were placed over the Kerlix and a maternity brief was placed over that. Stovall catheter was placed to dependent drainage. He remained stable throughout the procedure. He was taken to the ICU intubated with plans for keeping him on the ventilator overnight. Dr. Moya was briefed on the findings and she had already begun plans for ICU critical care. Family was updated as well. TENTATIVE PLANS: 1. If he remains stable with no significant deterioration we will plan our first wound exploration on Wednesday the in the morning for further excision is indicated. 2. He will be an inpatient ICU status presumably for an extended period
--- NOTE | 2021-01-31 22:21 | ANES.PROC ---
Anesthesia Procedures Procedure/Date: 01/31/21 Arterial Line: Time Out Performed: Yes Consent: risks and benefits reviewed and patient agrees to proceed Size (Gauge): 20 Technique Used: guide wire technique Post-Procedure: dry sterile dressing placed Patient Tolerated Procedure: well and no complications Complications: none Site: right and radial Central Venous Insert: Central Venous Line: R IJ Time Out Performed: Yes Consent: requested by attending/covering physician, from patient and risks and benefits reviewed Central Line: New Anesthesia monitors: pulse oximetry, EKG, BP cuff and oxygen Vein cannulated: right internal jugular Ultrasound used: to identify patency to vessel and to visualize needle entry to vein Post procedure: Obtain Chest X-Ray
--- NOTE | 2021-01-31 22:30 | PC.NURSE ---
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 patient is currently intubated, a central line is present with IVF and insulin running, and an ART line is present at this time. The patient seems mildly agitated and unable to be reoriented, Orders received for sedation. A BSG was obtained, physician notified of results. all vital signs appear within normal limits upon admission. physician at bedside. plan of care discussed. orders received.
[2021-01-31] MEDS: propofol 1,000 MG/100 ML INJ 3.4 MG IV (22:45)
--- NOTE | 2021-01-31 23:00 | PC.NURSE ---
at bedside for update at this time. All belongings, including dentures and medications, sent home at this time. patients stated she will be back during visiting hours tomorrow.
[2021-01-31 23:02] LABS: Reflex Lactate Order REFLEX LACTIC ORDERD
[2021-01-31 23:07] LABS: Basophils # 0.2 10^3/uL (0.0-0.1); Basophils % 0.7 %; Hemoglobin 10.8 g/dL (11.7-16.6); Lymphocytes # 1.8 10^3/uL (0.8-4.8); Lymphocytes % 7.9 %; Mean Corpuscular HGB Conc 32.7 g/dL (30.0-36.0); Mean Corpuscular Hemoglobin 26.8 pg (28.0-34.0); Mean Corpuscular Volume 81.9 fL (80-94); Mean Platelet Volume 9.2 fL (7.4-10.4); Monocytes # 1.5 10^3/uL (0.2-0.9); Monocytes % 6.7 %; Neutrophils # 18.39 10^3/uL (1.8-7.7); Neutrophils % 82.3 %; Nucleated Red Blood Cells % 0 %; Platelet Count 473 10^3/cmm (130-400); Red Blood Count 4.03 10^6/uL (4.1-5.3); Red Cell Distribution Width 13.1 % (12.1-15.1); White Blood Count 22.4 10^3/uL (4.0-10.0)
--- NOTE | 2021-01-31 23:22 | PC.PHAR ---
Vancomycin is dosed at 1500mg IVPB every 24 hours to produce a predicted trough level of 12.48 (population based pharmacokinetic analysis). A trough level has been ordered from the lab to be obtained before the fourth dose to confirm and adjust if needed.
[2021-01-31 23:26] LABS: Blood Urea Nitrogen 51 mg/dL (8-23); Calcium 8.2 mg/dL (8.5-10.5); Carbon Dioxide 13 mmol/L (22-29); Chloride 85 mmol/L (98-107); Glomerular Filtration Rate 33.5 mL/min (90-130); Glucose 468 mg/dL (65-115); Magnesium 1.7 mg/dL (1.7-2.3); Osmolality Calculated 282 mOsm/kg (285-295)
[2021-01-31 23:30] LABS: Sodium 119 mmol/L (136-145)
[2021-01-31 23:43] LABS: Troponin 5 6HR 26.43 ng/L (0-15); Troponin 5 6HR Delta 5.43 ng/L (0-12)
[2021-01-31 23:48] LABS: Lactic Acid level (Lactate) 1.8 mmol/L (0.5-2.2)
[2021-01-31] MEDS: sodium chloride 0.9% 1,000 ML 150 ML IV (23:51)
[2021-01-31] MEDS: fluconazole premix 200 MG/100 ML PREMIX 100 MG IV (23:57)
[2021-02-01] VITALS (125 sets, daily range): BP systolic 67–134; BP diastolic 41–84; PULSE 64–101; RESP 18–27; TEMP 36.6–37.1; O2SAT 75–100
[2021-02-01 00:51] LABS: ABG PCO2 24.5 mmHg (35-45); ABG PH Result 7.38 (7.35-7.45); Arterial Blood Gas Hematocrit 33.3 % (42-52); Blood Gas Sample Type Arterial; HCO3 ABG 14.6 mmol/L (22-26)
[2021-02-01 00:53] LABS: Glucose Point of Care 596 mg/dL (70-110)
[2021-02-01 00:53] LABS: Glucose Point of Care 515 mg/dL (70-110)
[2021-02-01 00:53] LABS: Oxygen Device VENT
--- NOTE | 2021-02-01 02:25 | XRR_ITS ---
PROCEDURE INFORMATION: Exam: XR Chest Exam date and time: 02/01/2021 2:25 AM Age: 65 years old Clinical indication: Device placement; Ng tube; Patient HX: Check for ng placement; Additional info: Ngt placement TECHNIQUE: Imaging protocol: XR of the chest. Views: 1 view. COMPARISON: CR XR chest 1V portable [id number] 01/31/2021 10:39 PM FINDINGS: Tubes, catheters and devices: An endotracheal tube is placed with its tip approximately 3.6 cm from lucy. Right internal jugular vein central venous line is placed with its tip at the level of the right atrium. Lungs: Unremarkable. No consolidation. Pleural spaces: Unremarkable. No pleural effusion. No pneumothorax. Heart/Mediastinum: A nasogastric tube is present, its tip is at the gastroesophageal junction and the proximal side port is within the distal esophagus. Bones/joints: Unremarkable. XR/XR chest 1V portable [id number] IMPRESSION: 1. Nasogastric tube tip is at the gastroesophageal junction with the proximal side port seen within the distal esophagus. 2. Endotracheal tube tip 3.6 cm from the lucy. 3. Right internal jugular vein central venous line placed with tip in right atrium.
[2021-02-01] MEDS: piperacillin-tazobactam 3.375 GM in sodium chloride 0.9% (plus) 50 ML IV ×3 (03:07→18:04)
[2021-02-01 04:56] LABS: Basophils # 0.1 10^3/uL (0.0-0.1); Basophils % 0.6 %; Hematocrit 29.9 % (42.0-52.0); Hemoglobin 9.9 g/dL (11.7-16.6); Lymphocytes # 2.3 10^3/uL (0.8-4.8); Lymphocytes % 10.8 %; Mean Corpuscular HGB Conc 33.1 g/dL (30.0-36.0); Mean Corpuscular Hemoglobin 26.8 pg (28.0-34.0); Mean Platelet Volume 8.9 fL (7.4-10.4); Monocytes # 1.3 10^3/uL (0.2-0.9); Neutrophils # 17.49 10^3/uL (1.8-7.7); Neutrophils % 81.3 %; Nucleated Red Blood Cells % 0 %; Platelet Count 349 10^3/cmm (130-400); Red Blood Count 3.69 10^6/uL (4.1-5.3); Red Cell Distribution Width 12.9 % (12.1-15.1); White Blood Count 21.5 10^3/uL (4.0-10.0)
[2021-02-01 05:00] LABS: INR 1.21 (0.8-1.2)
[2021-02-01 05:09] LABS: Lactate (Lactic Acid level) 2.3 mmol/L (0.5-2.2)
[2021-02-01 05:11] LABS: Alanine Aminotransferase 9 U/L (0-41); Albumin Level 2.1 g/dL (3.5-5.2); Alkaline Phosphatase 130 IU/L (40-130); Aspartate Amino Transferase 13 U/L (0-40); Blood Urea Nitrogen 59 mg/dL (8-23); Calcium 7.7 mg/dL (8.5-10.5); Carbon Dioxide 19 mmol/L (22-29); Chloride 88 mmol/L (98-107); Chol HDL Ratio 5.56 mg/dL (1.0-5.00); Cholesterol 100 mg/dL (0-200); Globulin 3.6 g/dL (1.3-4.6); Glomerular Filtration Rate 28.5 mL/min (90-130); Glucose 192 mg/dL (65-115); HDL Cholesterol 18 mg/dL (60-100); LDL Cholesterol Calculated 41 mg/dL (50-129); LDL HDL Ratio 2.28 RATIO (0.00-3.22); Magnesium 1.7 mg/dL (1.7-2.3); Osmolality Calculated 276 mOsm/kg (285-295); Phosphorus 3.4 mg/dL (2.5-4.5); Sodium 122 mmol/L (136-145); Total Bilirubin 0.2 mg/dL (0.15-1.2); Total Protein 5.7 g/dL (6.6-8.7); Triglycerides 204 mg/dL (0-150)
[2021-02-01] MEDS: propofol 1,000 MG/100 ML INJ 13.61 MG IV (05:11)
[2021-02-01 05:22] LABS: Estmated Average Glucose 458; Hemoglobin A1C 17.6 % (4.0-6.0)
[2021-02-01] MEDS: midazolam 1 mg/mL INJ 5 ML 5 MG (05:23)
[2021-02-01] MEDS: dextrose 5%-sod chloride 0.45% 1,000 ML 125 ML IV ×2 (05:32→15:54)
[2021-02-01 05:58] LABS: Glucose Point of Care 193 mg/dL (70-110)
[2021-02-01 05:58] LABS: Glucose Point of Care 421 mg/dL (70-110)
[2021-02-01 05:58] LABS: Glucose Point of Care 330 mg/dL (70-110)
[2021-02-01 05:58] LABS: Glucose Point of Care 282 mg/dL (70-110)
[2021-02-01 05:58] LABS: Glucose Point of Care 166 mg/dL (70-110)
[2021-02-01 05:58] LABS: Glucose Point of Care 216 mg/dL (70-110)
[2021-02-01] MEDS: clindamycin 900 MG/50 ML PREMIX 100 MG IV ×2 (06:00→15:10)
--- NOTE | 2021-02-01 06:00 | USCV_ITS ---
Andrew Pabon Age: 65 Gender: M : 1955 Exam Date: 02/01/2021 10:00 Ordering Phys: Lynnette Moya MD Technologist: Cheyenne Saha [place] [facility] [place]: Untreated HTN, DM, edema BP: 90 / 44 HR: 89 Rhythm: Sinus Technical Quality: Very technically difficult study MEASUREMENTS (Male / Female) Normal Values 2D ECHO LV Chamber Size 4.3 cm RV Chamber Size 2.4 cm LVOT Diameter 2.0 cm LA Diameter 3.1 cm LA Width 2.9 cm LA Height 4.4 cm RA Width 2.5 cm RA Height 5.1 cm Aorta at Sinotubular Diameter 3.2 cm DOPPLER AV Peak Velocity 120.0 cm/s LVOT Peak Velocity 79.0 cm/s AV Area Cont Eq vti 2.1 cm squared AV Area Cont Eq pk 2.1 cm squared MV Area PHT 3.1 cm squared Mitral E to A Ratio 0.7 MV E' Velocity 55.0 cm/s TV Peak E Velocity 45.0 cm/s Right Atrial Pressure 3.0 mmHg FINDINGS Left Ventricle Limited echocardiogram because of poor ultrasonic windows. Can not assess LV systolic function. Right Ventricle Grossly RV function is normal Right Atrium Left Atrium Mitral Valve Aortic Valve Tricuspid Valve Pulmonic Valve Pericardium Aorta Ascending aorta appears to be normal in size CONCLUSIONS This is a limited quality echocardiogram. Cardiac structures are not well visualized because of poor ultrasonic windows. Cannot assess LV function and valves Grossly RV function is normal Recommend repeating study with contrast to assess for LV function Luis E Hooks MD (Electronically Signed) Final Date: 01 February 2021 15:29 S
--- NOTE | 2021-02-01 06:09 | PC.NURSE ---
Shift summary: patient received from OR last night post I&D. Patient was and is currently still in DKA on an insulin gtt. patient remains intubated and on the ventilator at this time-weaned to minimal settings. patient restrained and remains on fent and propofol gtts. patient does continue to be agitated at times, requiring a one time dose of versed. patients blood pressure continues to be map of 60 to 65. will continue to monitor. increased bleeding of OGT and campuzano catheter, findings reported to physician. obtained a PT/PTT this AM. minimal UOP noted and relayed to physician. OR dressing remains in place. lines and tubes include: ETT, central line, Arterial line, OGT, and campuzano catheter gtts include: prop, fent, insulin, d51/2ns will continue BSG checks q1H will continue to monitor surgical dressing and change as needed.
[2021-02-01] MEDS: midazolam 1 mg/mL INJ 2 mL IVP ×2 (08:02→13:29)
[2021-02-01] MEDS: sodium chloride 0.9% 250 ML 999 ML IV (08:03)
[2021-02-01 08:46] LABS: Glucose Point of Care 188 mg/dL (70-110)
--- NOTE | 2021-02-01 09:00 | PC.NURSE ---
Patient has been hooked up to low intermittent suction since returning from surgery. Large amounts of gastric content in canister.
--- NOTE | 2021-02-01 09:35 | P.PN_ITS ---
Subjective Subjective: Interval history: Urology follow-up: Postop day #1 Genital, perineal, abdominal wall debridement for Yovanny's gangrene Drainage of multiple scrotal and deep tissue abscesses Dorsal slit circumcision Ventilated. Labs reviewed. Discussed with hospitalist regarding expectations and plans. Nothing more to add at this point. Plan for repeat surgical debridement wound exploration potentially partial approximation of edges tomorrow morning at 8:00. Medications: Reviewed: Yes Vitals/I&O/Wt Last Vital Signs Temp 97.9 F 02/01/21 04:05 Pulse 88 02/01/21 06:00 Resp 20 H 02/01/21 08:55 BP 90/44 02/01/21 06:00 Pulse Ox 98 02/01/21 08:55 01/31/21 02/01/21 02/01/21 22:59 06:59 14:59 Intake Total 2433.670 / 2433.670 71.864 / 71.864 Output Total 700 / 700 Balance 1733.670 / 1733.670 71.864 / 71.864 Weight last 48 hrs Weight 271 lb 1 oz Weight 250 lb Physical Exam Const: OTHER: Intubated. Sedated. Nonresponsive GI: COMMON NORMALS: Soft to palpation and no masses PALPATION: Yes Soft to palpation : OTHER: No evidence of any significant bleeding. The ABD pads are moist. No foul smell. Skin edges look good. Reviewed wound care with nursing staff. Hematuria. Likely multifactorial: Post drainage of distended bladder, UTI, catheter irritation. 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 Status post extensive debridement of all of these areas Status: Acute (2) Necrotizing fasciitis of multiple sites: Reviewed with nursing staff. Moist Kerlix around the skin edges to prevent drying. Change out ABD pads as needed Surgical debridement again tomorrow and as needed thereafter. Status: Acute (3) Scrotal abscess: Status: Acute (4) Gross hematuria: Manually irrigate as needed. Status: Acute (5) Phimosis: Required emergent dorsal slit circumcision to access urethral meatus for Stovall catheter placement. Instructed to dress the incision site with Vaseline gauze Status: Acute (6) Urinary retention: Demonstrated on CT scan with distended bladder resulting in bilateral hydronephrosis. Maintain Stovall catheter. Likely will require BPH type medications later Status: Acute (7) Bilateral hydronephrosis: Consistent with bladder outlet obstruction secondary complication. No evidence of ureteral intraluminal process. Status: Acute (8) Diabetic ketoacidosis: Status: Acute Qualifiers: Diabetes mellitus complication detail: without coma Diabetes mellitus type: type 2 Qualified Code(s): E11.10 - Type 2 diabetes mellitus with ketoacidosis without coma (9) Diabetes: Status: Chronic (10) Fungal rash of torso: Status: Acute Attestations Medical Necessity Statement*: Critically ill. 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
[2021-02-01 12:07] LABS: Glucose Point of Care 175 mg/dL (70-110)
[2021-02-01] MEDS: pantoprazole DR 40 mg Tablet PO (12:18)
[2021-02-01] MEDS: docusate sodium 100 mg Capsule PO ×2 (12:18→17:48)
[2021-02-01] MEDS: nystatin cream 30 gm 1 APPLIC TOPICAL ×2 (12:21→18:03)
[2021-02-01] MEDS: insulin glargine 100 units/1 mL 10 UNIT SUBCUT (12:21)
[2021-02-01] MEDS: lactobacillus 1 Tablet 1 TAB PO ×2 (12:21→17:48)
[2021-02-01] MEDS: dexmedetomidine 400 MCG in sodium chloride 0.9% (100 ml) 100 ML IV (13:29)
[2021-02-01 14:16] LABS: Blood Gas Sample Site ART
--- NOTE | 2021-02-01 14:54 | PC.NURSE ---
Rounding was done with all physicians this shift. Dr. Moreau gave verbal orders to reinforce dressing on scrotum and flush catheter as needed for clots. Flushing has been done once this shift with cloudy, red drainage and few clots were noted. Dr. Ware came by and gave new orders to shut off insulin drip,start sliding scale and keep d5% running at 50ml/hr.
--- NOTE | 2021-02-01 15:27 | P.PN_ITS ---
Subjective Subjective: Interval history: Patient was seen and examined this morning . currently he is intubated and sedated, off sedation GCS is 10 T . He has remained afebrile, anion gap has closed, other Vitals and labs have been reviewed. Medications: Reviewed: Yes Vitals/I&O/Wt Last Vital Signs Temp 98.7 F 02/01/21 08:30 Pulse 94 02/01/21 14:00 Resp 21 H 02/01/21 14:58 BP 125/65 02/01/21 14:00 Pulse Ox 98 02/01/21 14:58 02/01/21 02/01/21 02/01/21 06:59 14:59 22:59 Intake Total 2433.670 / 2433.670 141.034 / 141.034 0.541 / 141.575 Output Total 700 / 700 350 / 350 Balance 1733.670 / 1733.670 -208.966 / -208.966 0.541 / -208.425 Weight last 48 hrs Weight 122.952 kg Weight 113.398 kg Physical Exam Narrative: EXAM NARRATIVE: Intubated and sedated. Off sedation GCS is 10 T HENMT: COMMON NORMALS: normocephalic and atraumatic HEAD & SCALP: normocephalic and atraumatic Chest: CHEST: Yes Symmetrical chest wall rise Resp: COMMON NORMALS: clear to auscultation bilaterally AUSCULTATION: clear to auscultation bilaterally Cardio: COMMON NORMALS: regular rate, regular rhythm, S1 normal heart sound present, S2 normal heart sound present, No gallops present (Cardio), No murmurs present (Cardio), No rub (Cardio) and Peripheral pulses 2+ throughout RATE: regular rate RHYTHM: regular rhythm HEART SOUNDS: S1 normal heart sound present and S2 normal heart sound present PERIPHERAL PULSES: Peripheral pulses 2+ throughout GI: COMMON NORMALS: Normal to inspection, nondistended, normoactive bowel umberto nds present, Soft to palpation, non-tender, No hepatosplenomegaly present and no masses AUSCULTATION: Yes normoactive bowel sounds PALPATION: Yes Soft to palpation and Yes No hepatosplenomegaly present RECTAL EXAM: Yes deferred : OTHER: ABD pads are moist. No Foul smell. Groin erythema noted. Extremity: COMMON NORMALS: no clubbing, cyanosis or edema and no pedal edema Urinary Catheter Management^: Campuzano: Cath Placed During This Visit: yes Reason for Continuing Indwelling Catheter: Accurate Measurement of Urinary Output in Critically Ill Patients Urinary Catheter Date of Insertion: 01/31/21 Data : 02/01/21 04:25 02/01/21 16:24 Micro: Microbiology 01/31/21 20:36 Gram Stain - Final Scrotum 01/31/21 20:36 Gram Stain - Final Scrotum 02/01/21 00:50 Gram Stain - Final Sputum - Endotracheal Tube Aspirate 02/01/21 00:45 Blood Culture - Preliminary Blood SPECIMEN COLLECTED 01/31/21 23:25 Blood Culture - Preliminary Blood SPECIMEN COLLECTED A&P Assessment and plan (1) Yovanny's gangrene of scrotum: Has what sounds like a yeast infection in the groin area for some time leading to opening from skin wounds for infection, ultimately stemming from untreated diabetes. Has associated leukocytosis, mild tachycardia that thus far has responded to fluids and currently maintaining pressures. Status: Deleted (2) Diabetic ketoacidosis: Anion GAP has closed. Switched to Lantus 15 U SC at night LDSSI Monitor FSG Status: Acute Qualifiers: Diabetes mellitus complication detail: without coma Diabetes mellitus type: type 2 Qualified Code(s): E11.10 - Type 2 diabetes mellitus with ketoacidosis without coma (3) Acute kidney injury: Multifactorial DKA, infection, potentially also from lisinopril and Bactrim recently prescribed Status: Acute (4) Hypertension: Recently started on lisinopril Status: Chronic (5) Obesity: BMI of 35.9 Status: Chronic Additional A&P Information Edema Tinea corporis Chest pain and dyspnea on exertion Inpatient admission Emergent OR Broad-spectrum antibiotics to include anaerobic coverage Antifungal IV fluids Insulin drip Serial laboratory studies Address electrolytes as needed Repeat EKGs and 6 hr troponin Maintain Campuzano catheter secondary to surgery and need to keep groin dry on top of monitoring close urine output Get blood cultures and lactic acid prior to surgery Monitor blood pressures Strict I&Os Echo in am PPI Lactobacillus Discussed with anesthesia possibility of maintaining ventilator, arterial and central line placement - reviewed all of this with , risks and benefits related to need to aggressively treat current condition. She was given an opportunity to ask focused questions regarding these procedures Supportive care otherwise Consultants: Dr. Moreau Pending/ordered tests/procedures to follow:blood cultures, urine cultures, wound cultures Lines/tubes: will have campuzano, possible central line, arterial line and ETT post op DVT prophylaxis: SCD Plans, findings and concerns discussed with and she was given an opportunity to ask questions. Anticipated Disposition: Ultimately depends on clinical course, but anticipate need for skilled placement Code Status: Full code Attestations Medical Necessity Statement*: Patient needs to be in hospital for the armando gment of DKA, Fourniers Gangrene of scrotum. Procedures Arterial Line Size (Gauge): 20 Coding Level of Care Code Acute Client Manager for g Fwd Diagnoses Yovanny's gangrene of scrotum N49.3 Diabetic ketoacidosis E11.10 Diabetes mellitus complication detail: without coma Diabetes mellitus type: type 2 Acute kidney injury N17.9 Hypertension I10 Obesity E66.9
[2021-02-01 16:52] LABS: Anion Gap 18.5 (5-19); Blood Urea Nitrogen 60 mg/dL (8-23); Calcium 7.3 mg/dL (8.5-10.5); Carbon Dioxide 21 mmol/L (22-29); Chloride 90 mmol/L (98-107); Glomerular Filtration Rate 33.5 mL/min (90-130); Glucose 312 mg/dL (65-115); Osmolality Calculated 289 mOsm/kg (285-295); Potassium 4.5 mmol/L (3.5-5.1); Sodium 125 mmol/L (136-145)
[2021-02-01 17:54] LABS: Glucose Point of Care 302 mg/dL (70-110)
[2021-02-01] MEDS: sodium chloride 0.9% 1,000 ML 100 ML IV (20:10)
[2021-02-01] MEDS: vancomycin 1,500 MG/300 ML PIGGYBACK 150 MG IV (20:11)
[2021-02-01 22:01] LABS: Glucose Point of Care 322 mg/dL (70-110)
[2021-02-01] MEDS: insulin glargine 100 units/1 mL 15 UNIT SUBCUT (22:06)
[2021-02-01] MEDS: fluconazole premix 200 MG/100 ML PREMIX 100 MG IV (22:30)
[2021-02-02] VITALS (77 sets, daily range): BP systolic 83–136; BP diastolic 44–113; PULSE 61–96; RESP 16–21; TEMP 36.6–37.7; O2SAT 96–100
[2021-02-02] MEDS: dexmedetomidine 400 MCG in sodium chloride 0.9% (100 ml) 100 ML 12.79 MCG IV (02:02)
[2021-02-02 04:36] LABS: Basophils % 0.3 %; Eosinophils # 0.1 10^3/uL (0.0-0.8); Eosinophils % 0.5 %; Hematocrit 28.2 % (42.0-52.0); Hemoglobin 9.3 g/dL (11.7-16.6); Lymphocytes % 14.3 %; Mean Corpuscular Hemoglobin 27.2 pg (28.0-34.0); Mean Corpuscular Volume 82.5 fL (80-94); Mean Platelet Volume 8.8 fL (7.4-10.4); Monocytes # 0.7 10^3/uL (0.2-0.9); Monocytes % 4.9 %; Neutrophils % 78.6 %; Nucleated Red Blood Cells % 0 %; Platelet Count 295 10^3/cmm (130-400); Red Blood Count 3.42 10^6/uL (4.1-5.3); Red Cell Distribution Width 13.2 % (12.1-15.1); White Blood Count 14.1 10^3/uL (4.0-10.0)
[2021-02-02 04:59] LABS: Anion Gap 16.4 (5-19); Blood Urea Nitrogen 51 mg/dL (8-23); Calcium 7.2 mg/dL (8.5-10.5); Carbon Dioxide 23 mmol/L (22-29); Chloride 96 mmol/L (98-107); Glomerular Filtration Rate 43.3 mL/min (90-130); Glucose 274 mg/dL (65-115); Magnesium 1.7 mg/dL (1.7-2.3); Osmolality Calculated 295 mOsm/kg (285-295); Potassium 4.4 mmol/L (3.5-5.1); Sodium 131 mmol/L (136-145)
[2021-02-02] MEDS: sodium chloride 0.9% 1,000 ML 100 ML IV (06:06)
--- NOTE | 2021-02-02 06:22 | PC.NURSE ---
Shift Summary Patient wakes up to stimulation follows all commands, is in a lot of pain with repositioning so have the fentanyl still on. Patient is NPO for surgery today and not on any blood thinners, at [address] Dubois about low blood pressure and art line not working she gave me orders for levo, and to pull the art line. Patient has rested well throughout the night, he is on minimal vent settings and received a bath with linen change last night. Patient also self dieresed and had over 3L out of his Stovall last night.
--- NOTE | 2021-02-02 07:25 | PM.PN ---
Subjective Subjective: Interval history: Urology follow-up: Postop day #2 excision of Yovanny's gangrene involving abdominal wall, scrotal structures, perineum as well as drainage of multiple deep tissue abscesses and dorsal slit circumcision. White count is improved this morning. Creatinine has decreased. Did require Levophed restarting last night. Temperature has been about 99.3 this morning. Plan has been to taken back this morning for wound debridement as indicated possibly partial closure. Patient is intubated and sedated. I reviewed the procedure in detail with the . She has given informed consent to proceed. Witnessed by nurse. Consent is obtained for ongoing debridement sessions. Vitals/I&O/Wt Last Vital Signs Temp 98.4 F 02/02/21 04:15 Pulse 63 02/02/21 06:00 Resp 19 H 02/02/21 06:45 BP 114/63 02/02/21 06:00 Pulse Ox 99 02/02/21 06:45 02/01/21 02/02/21 02/02/21 22:59 06:59 14:59 Intake Total 525.289 / 9559.864 2923.414 / 3108.737 Output Total 1700 / 0 1999 / 4050 Balance -1174.711 / -383.677 -557.586 / -941.263 Weight last 48 hrs Weight 262 lb Weight 271 lb 1 oz Weight 250 lb Physical Exam Narrative: EXAM NARRATIVE: Intubated, sedated. Abdomen is soft. Wounds to be examined in the operating room. 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 Status post extensive debridement of all of these areas To the operating room this morning for further debridement possible partial closure Status: Acute (2) Necrotizing fasciitis of multiple sites: Surgical debridement this morning Status: Acute (3) Gross hematuria: Still pink. No progression Status: Acute (4) Scrotal abscess: Status: Acute (5) UTI (urinary tract infection): Status: Acute Qualifiers: Hematuria presence: without hematuria Urinary tract infection type: acute cystitis Qualified Code(s): N30.00 - Acute cystitis without hematuria Attestations Medical Necessity Statement*: Critically ill in ICU with life-threatening illness. Not an option for anything other than inpatient care. 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
--- NOTE | 2021-02-02 07:50 | ANES.PAUD2 ---
Pre-Anesthetic Update Pre-Anesthetic Assessment: Date of Surgery/Procedure: 02/02/21 Preop Diagnosis: Necrotizing fasciiitis Proposed Procedure: Operation Date: 01/31/21 19:30 Proposed Procedures p Incision And Drainage(Not Applicable) - Tom Moreau MD Operation Date: 02/02/21 08:20 Proposed Procedures p Wound Exploration(Not Applicable) - Anjum Min MD Any changes to Pre-Anesthetic Assessment?: Yes Changes from Pre-Anesthetic Assessment: Resolving DKA, on levo gtt Last Intake: > 8 hrs Labs Last 48hrs: Laboratory Results - last 48 hr 01/31/21 01/31/21 01/31/21 15:39 16:36 16:46 WBC RBC Hgb Hct MCV MCH MCHC RDW Plt Count MPV Neut % (Auto) Lymph % (Auto) [place] % (Auto) Eos % (Auto) Baso % (Auto) Neut # (Auto) Lymph # (Auto) [place] # (Auto) Eos # (Auto) Baso # (Auto) Nucleated RBC % (a uto) Nucleated RBCs # PT INR Specimen Type Arterial Sample Site Radial, right ABG pH 7.42 ABG pCO2 15.6 L* ABG pO2 108.0 H ABG HCO3 10.0 L ABG Base Excess -11.8 L Jann Test Pos Hematocrit 39.1 L O2 Delivery Device Room air FiO2 21.0 Tidal Volume PEEP Mill[employer] Supervisor ID glc Sodium Potassium Chloride Carbon Dioxide Anion Gap BUN Creatinine GFR Calculation Glucose POC Glucose > 600 H* Estimat Average Gl ucose Hemoglobin A1c Calculated Osmolal ity Lactic Acid Lactic Acid (Sepsi s) Lactate Uric Acid Calcium Phosphorus Magnesium Total Bilirubin AST ALT Alkaline Phosphata se Troponin T Baselin e Troponin T 120 Min [place] Troponin T Troponin T Hi Sens 6Hr Troponin T Hi Sens 6Hr Delta Total Protein Albumin Globulin Triglycerides Cholesterol LDL Cholesterol, C alc HDL Cholesterol LDL/HDL Ratio Cholesterol/HDL Ra dominic Urine Color Urine Appearance Urine pH Ur Specific Gravit y Urine Protein Urine Glucose (UA) Urine Ketones Urine Blood Urine Nitrate Urine Bilirubin Urine Urobilinogen Ur Leukocyte Kristen ase Urine RBC Urine WBC Ur Squamous Epith Cells Amorphous Sediment Urine Bacteria Urine Yeast Serum Ketones Positive H Blood Type Rho(D) Type Antibody Screen 01/31/21 01/31/21 01/31/21 16:56 16:56 16:56 WBC 18.1 H RBC 4.69 Hgb 12.5 Hct 40.9 L MCV 87.2 MCH 26.7 L MCHC 30.6 RDW 13.3 Plt Count 465 H MPV 9.0 Neut % (Auto) 85.7 Lymph % (Auto) 7.4 [place] % (Auto) 4.3 Eos % (Auto) 0.1 Baso % (Auto) 0.4 Neut # (Auto) 15.50 H Lymph # (Auto) 1.3 [place] # (Auto) 0.8 Eos # (Auto) 0.0 Baso # (Auto) 0.1 Nucleated RBC % (a uto) 0 Nucleated RBCs # 0.0 PT INR Specimen Type Sample Site ABG pH ABG pCO2 ABG pO2 ABG HCO3 ABG Base Excess Jann Test Hematocrit O2 Delivery Device FiO2 Tidal Volume PEEP [employer] Supervisor ID Sodium 110 L* Potassium 6.6 H* Chloride 71 L Carbon Dioxide 12 L Anion Gap 33.6 H BUN 51 H Creatinine 1.9 H GFR Calculation 35.5 L Glucose 836 H* POC Glucose Estimat Average Gl ucose Hemoglobin A1c Calculated Osmolal ity 285 Lactic Acid Lactic Acid (Sepsi s) Lactate Uric Acid Calcium 8.9 Phosphorus Magnesium Total Bilirubin 0.3 AST 10 ALT 11 Alkaline Phosphata se 190 H Troponin T Baselin e 21 H Troponin T 120 Min [place] Troponin T Troponin T Hi Sens 6Hr Troponin T Hi Sens 6Hr [place] Total Protein 7.3 Albumin 3.0 L Globulin 4.3 Triglycerides Cholesterol LDL Cholesterol, C alc HDL Cholesterol LDL/HDL Ratio Cholesterol/HDL Ra dominic Urine Color Urine Appearance Urine pH Ur Specific Gravit y Urine Protein Urine Glucose (UA) Urine Ketones Urine Blood Urine Nitrate Urine Bilirubin Urine Urobilinogen Ur Leukocyte Kristen ase Urine RBC Urine WBC Ur Squamous Epith Cells Amorphous Sediment Urine Bacteria Urine Yeast Serum Ketones Blood Type Rho(D) Type Antibody Screen 01/31/21 01/31/21 01/31/21 17:42 18:52 19:56 WBC RBC Hgb Hct MCV MCH MCHC RDW Plt Count MPV Neut % (Auto) Lymph % (Auto) [place] % (Auto) Eos % (Auto) Baso % (Auto) Neut # (Auto) Lymph # (Auto) [place] # (Auto) Eos # (Auto) Baso # (Auto) Nucleated RBC % (a uto) Nucleated RBCs # PT INR Specimen Type Sample Site ABG pH ABG pCO2 ABG pO2 ABG HCO3 ABG Base Excess Jann Test Hematocrit O2 Delivery Device FiO2 Tidal Volume PEEP [place] Supervisor ID Sodium Potassium Chloride Carbon Dioxide Anion Gap BUN Creatinine GFR Calculation Glucose POC Glucose > 600 H* Estimat Average Gl ucose Hemoglobin A1c Calculated Osmolal ity Lactic Acid Lactic Acid (Sepsi s) Lactate Uric Acid Calcium Phosphorus Magnesium Total Bilirubin AST ALT Alkaline Phosphata se Troponin T Baselin e Troponin T 120 Min [place] 20.70 H Delta Troponin T -0.30 L Troponin T Hi Sens 6Hr Troponin T Hi Sens 6Hr [place] Total Protein Albumin Globulin Triglycerides Cholesterol LDL Cholesterol, C alc HDL Cholesterol LDL/HDL Ratio Cholesterol/HDL Ra dominic Urine Color Straw Urine Appearance Cloudy Urine pH 5 Ur Specific Gravit y 1.005 Urine Protein 1+ H Urine Glucose (UA) 4+ H Urine Ketones 1+ H Urine Blood 3+ H Urine Nitrate Negative Urine Bilirubin Neg Urine Urobilinogen Norm Ur Leukocyte Kristen ase 2+ H Urine RBC 5-10 H Urine WBC 55-80 H Ur Squamous Epith Cells 0-4 H Amorphous Sediment Not Reportable Urine Bacteria 1+ H Urine Yeast 3+ H Serum Ketones Blood Type Rho(D) Type Antibody Screen 01/31/21 01/31/21 01/31/21 20:34 20:34 20:34 WBC RBC Hgb Hct MCV MCH MCHC RDW Plt Count MPV Neut % (Auto) Lymph % (Auto) [place] % (Auto) Eos % (Auto) Baso % (Auto) Neut # (Auto) Lymph # (Auto) [place] # (Auto) Eos # (Auto) Baso # (Auto) Nucleated RBC % (a uto) Nucleated RBCs # PT INR Specimen Type Sample Site ABG pH ABG pCO2 ABG pO2 ABG HCO3 ABG Base Excess Jann Test Hematocrit O2 Delivery Device FiO2 Tidal Volume PEEP [place] Supervisor ID Sodium 121 L Potassium 5.1 Chloride 82 L Carbon Dioxide 12 L Anion Gap 32.1 H BUN 52 H Creatinine 1.8 H GFR Calculation 37.8 L Glucose 587 H* POC Glucose Estimat Average Gl ucose Hemoglobin A1c Calculated Osmolal ity 293 Lactic Acid 2.4 H Lactic Acid (Sepsi s) Lactate Uric Acid 11.2 H Calcium 7.9 L Phosphorus 3.5 Magnesium 1.8 Total Bilirubin AST ALT Alkaline Phosphata se Troponin T Baselin e Troponin T 120 Min [place] Troponin T Troponin T Hi Sens 6Hr Troponin T Hi Sens 6Hr [place] Total Protein Albumin Globulin Triglycerides Cholesterol LDL Cholesterol, C alc HDL Cholesterol LDL/HDL Ratio Cholesterol/HDL Ra dominic Urine Color Urine Appearance Urine pH Ur Specific Gravit y Urine Protein Urine Glucose (UA) Urine Ketones Urine Blood Urine Nitrate Urine Bilirubin Urine Urobilinogen Ur Leukocyte Kristen ase Urine RBC Urine WBC Ur Squamous Epith Cells Amorphous Sediment Urine Bacteria Urine Yeast Serum Ketones Blood Type A Positive Rho(D) Type Positive / 4+ Antibody Screen Negative 01/31/21 01/31/21 01/31/21 22:58 23:00 23:00 WBC 22.4 H RBC 4.03 L Hgb 10.8 L Hct 33.0 L MCV 81.9 D MCH 26.8 L MCHC 32.7 D RDW 13.1 Plt Count 473 H MPV 9.2 Neut % (Auto) 82.3 Lymph % (Auto) 7.9 [place] % (Auto) 6.7 Eos % (Auto) 0.0 Baso % (Auto) 0.7 Neut # (Auto) 18.39 H Lymph # (Auto) 1.8 [place] # (Auto) 1.5 H Eos # (Auto) 0.0 Baso # (Auto) 0.2 H Nucleated RBC % (a uto) 0 Nucleated RBCs # 0.0 PT INR Specimen Type Sample Site ABG pH ABG pCO2 ABG pO2 ABG HCO3 ABG Base Excess Jann Test Hematocrit O2 Delivery Device FiO2 Tidal Volume PEEP [place] Supervisor ID Sodium Potassium Chloride Carbon Dioxide Anion Gap BUN Creatinine GFR Calculation Glucose POC Glucose 596 H* Estimat Average Gl ucose Hemoglobin A1c Calculated Osmolal ity Lactic Acid Lactic Acid (Sepsi s) Lactate Uric Acid Calcium Phosphorus Magnesium Total Bilirubin AST ALT Alkaline Phosphata se Troponin T Baselin e Troponin T 120 Min [place] Troponin T Troponin T Hi Sens 6Hr 26.43 H Troponin T Hi Sens 6Hr Delta 5.43 Total Protein Albumin Globulin Triglycerides Cholesterol LDL Cholesterol, C alc HDL Cholesterol LDL/HDL Ratio Cholesterol/HDL Ra dominic Urine Color Urine Appearance Urine pH Ur Specific Gravit y Urine Protein Urine Glucose (UA) Urine Ketones Urine Blood Urine Nitrate Urine Bilirubin Urine Urobilinogen Ur Leukocyte Kristen ase Urine RBC Urine WBC Ur Squamous Epith Cells Amorphous Sediment Urine Bacteria Urine Yeast Serum Ketones Blood Type Rho(D) Type Antibody Screen 01/31/21 01/31/21 02/01/21 23:00 23:25 00:02 WBC RBC Hgb Hct MCV MCH MCHC RDW Plt Count MPV Neut % (Auto) Lymph % (Auto) [place] % (Auto) Eos % (Auto) Baso % (Auto) Neut # (Auto) Lymph # (Auto) [place] # (Auto) Eos # (Auto) Baso # (Auto) Nucleated RBC % (a uto) Nucleated RBCs # PT INR Specimen Type Sample Site ABG pH ABG pCO2 ABG pO2 ABG HCO3 ABG Base Excess Jann Test Hematocrit O2 Delivery Device FiO2 Tidal Volume PEEP [employer] Supervisor ID Sodium 119 L* Potassium 6.0 H Chloride 85 L Carbon Dioxide 13 L Anion Gap 27.0 H BUN 51 H Creatinine 2.0 H GFR Calculation 33.5 L Glucose 468 H POC Glucose 515 H* Estimat Average Gl ucose Hemoglobin A1c Calculated Osmolal ity 282 L Lactic Acid Lactic Acid (Sepsi s) 1.8 Lactate Uric Acid Calcium 8.2 L Phosphorus Magnesium 1.7 Total Bilirubin AST ALT Alkaline Phosphata se Troponin T Baselin e Troponin T 120 Min [place] Troponin T Troponin T Hi Sens 6Hr Troponin T Hi Sens 6Hr [place] Total Protein Albumin Globulin Triglycerides Cholesterol LDL Cholesterol, C alc HDL Cholesterol LDL/HDL Ratio Cholesterol/HDL Ra dominic Urine Color Urine Appearance Urine pH Ur Specific Gravit y Urine Protein Urine Glucose (UA) Urine Ketones Urine Blood Urine Nitrate Urine Bilirubin Urine Urobilinogen Ur Leukocyte Kristen ase Urine RBC Urine WBC Ur Squamous Epith Cells Amorphous Sediment Urine Bacteria Urine Yeast Serum Ketones Blood Type Rho(D) Type Antibody Screen 02/01/21 02/01/21 02/01/21 00:50 00:59 01:58 WBC RBC Hgb Hct MCV MCH MCHC RDW Plt Count MPV Neut % (Auto) Lymph % (Auto) [place] % (Auto) Eos % (Auto) Baso % (Auto) Neut # (Auto) Lymph # (Auto) [place] # (Auto) Eos # (Auto) Baso # (Auto) Nucleated RBC % (a uto) Nucleated RBCs # PT INR Specimen Type Arterial Sample Site Art ABG pH 7.38 ABG pCO2 24.5 L ABG pO2 191.0 H ABG HCO3 14.6 L ABG Base Excess -9.0 L Jann Test N/a Hematocrit 33.3 L O2 Delivery Device Vent FiO2 45.0 Tidal Volume 0.50 PEEP 6.0 [place] Supervisor ID Hinja Sodium Potassium Chloride Carbon Dioxide Anion Gap BUN Creatinine GFR Calculation Glucose POC Glucose 421 H 330 H Estimat Average Gl ucose Hemoglobin A1c Calculated Osmolal ity Lactic Acid Lactic Acid (Sepsi s) Lactate Uric Acid Calcium Phosphorus Magnesium Total Bilirubin AST ALT Alkaline Phosphata se Troponin T Baselin e Troponin T 120 Min [place] Troponin T Troponin T Hi Sens 6Hr Troponin T Hi Sens 6Hr [place] Total Protein Albumin Globulin Triglycerides Cholesterol LDL Cholesterol, C alc HDL Cholesterol LDL/HDL Ratio Cholesterol/HDL Ra dominic Urine Color Urine Appearance Urine pH Ur Specific Gravit y Urine Protein Urine Glucose (UA) Urine Ketones Urine Blood Urine Nitrate Urine Bilirubin Urine Urobilinogen Ur Leukocyte Kristen ase Urine RBC Urine WBC Ur Squamous Epith Cells Amorphous Sediment Urine Bacteria Urine Yeast Serum Ketones Blood Type Rho(D) Type Antibody Screen 02/01/21 02/01/21 02/01/21 03:02 04:05 04:25 WBC 21.5 H RBC 3.69 L Hgb 9.9 L Hct 29.9 L MCV 81.0 MCH 26.8 L MCHC 33.1 RDW 12.9 Plt Count 349 MPV 8.9 Neut % (Auto) 81.3 Lymph % (Auto) 10.8 [place] % (Auto) 6.0 Eos % (Auto) 0.0 Baso % (Auto) 0.6 Neut # (Auto) 17.49 H Lymph # (Auto) 2.3 [place] # (Auto) 1.3 H Eos # (Auto) 0.0 Baso # (Auto) 0.1 Nucleated RBC % (a uto) 0 Nucleated RBCs # 0.0 PT INR Specimen Type Sample Site ABG pH ABG pCO2 ABG pO2 ABG HCO3 ABG Base Excess Jann Test Hematocrit O2 Delivery Device FiO2 Tidal Volume PEEP [employer] Supervisor ID Sodium Potassium Chloride Carbon Dioxide Anion Gap BUN Creatinine GFR Calculation Glucose POC Glucose 282 H 216 H Estimat Average Gl ucose Hemoglobin A1c Calculated Osmolal ity Lactic Acid Lactic Acid (Sepsi s) Lactate Uric Acid Calcium Phosphorus Magnesium Total Bilirubin AST ALT Alkaline Phosphata se Troponin T Baselin e Troponin T 120 Min [place] Troponin T Troponin T Hi Sens 6Hr Troponin T Hi Sens 6Hr [place] Total Protein Albumin Globulin Triglycerides Cholesterol LDL Cholesterol, C alc HDL Cholesterol LDL/HDL Ratio Cholesterol/HDL Ra dominic Urine Color Urine Appearance Urine pH Ur Specific Gravit y Urine Protein Urine Glucose (UA) Urine Ketones Urine Blood Urine Nitrate Urine Bilirubin Urine Urobilinogen Ur Leukocyte Kristen ase Urine RBC Urine WBC Ur Squamous Epith Cells Amorphous Sediment Urine Bacteria Urine Yeast Serum Ketones Blood Type Rho(D) Type Antibody Screen 02/01/21 02/01/21 02/01/21 04:25 04:25 04:25 WBC RBC Hgb Hct MCV MCH MCHC RDW Plt Count MPV Neut % (Auto) Lymph % (Auto) [place] % (Auto) Eos % (Auto) Baso % (Auto) Neut # (Auto) Lymph # (Auto) [place] # (Auto) Eos # (Auto) Baso # (Auto) Nucleated RBC % (a uto) Nucleated RBCs # PT INR Specimen Type Sample Site ABG pH ABG pCO2 ABG pO2 ABG HCO3 ABG Base Excess Jann Test Hematocrit O2 Delivery Device FiO2 Tidal Volume PEEP [employer] Supervisor ID Sodium 122 L Potassium 5.0 Chloride 88 L Carbon Dioxide 19 L Anion Gap 20.0 H BUN 59 H Creatinine 2.3 H GFR Calculation 28.5 L Glucose 192 H POC Glucose Estimat Average Gl ucose 458 Hemoglobin A1c 17.6 H Calculated Osmolal ity 276 L Lactic Acid Lactic Acid (Sepsi s) Lactate 2.3 H Uric Acid Calcium 7.7 L Phosphorus 3.4 Magnesium 1.7 Total Bilirubin 0.2 AST 13 ALT 9 Alkaline Phosphata se 130 Troponin T Baselin e Troponin T 120 Min [place] Troponin T Troponin T Hi Sens 6Hr Troponin T Hi Sens 6Hr [place] Total Protein 5.7 L D Albumin 2.1 L Globulin 3.6 Triglycerides 204 H Cholesterol 100 LDL Cholesterol, C alc 41 L HDL Cholesterol 18 L LDL/HDL Ratio 2.28 Cholesterol/HDL Ra dominic 5.56 H Urine Color Urine Appearance Urine pH Ur Specific Gravit y Urine Protein Urine Glucose (UA) Urine Ketones Urine Blood Urine Nitrate Urine Bilirubin Urine Urobilinogen Ur Leukocyte Kristen ase Urine RBC Urine WBC Ur Squamous Epith Cells Amorphous Sediment Urine Bacteria Urine Yeast Serum Ketones Blood Type Rho(D) Type Antibody Screen 02/01/21 02/01/21 02/01/21 04:25 04:57 05:56 WBC RBC Hgb Hct MCV MCH MCHC RDW Plt Count MPV Neut % (Auto) Lymph % (Auto) [place] % (Auto) Eos % (Auto) Baso % (Auto) Neut # (Auto) Lymph # (Auto) [place] # (Auto) Eos # (Auto) Baso # (Auto) Nucleated RBC % (a uto) Nucleated RBCs # PT 15.60 H INR 1.21 H Specimen Type Sample Site ABG pH ABG pCO2 ABG pO2 ABG HCO3 ABG Base Excess Jann Test Hematocrit O2 Delivery Device FiO2 Tidal Volume PEEP [employer] Supervisor ID Sodium Potassium Chloride Carbon Dioxide Anion Gap BUN Creatinine GFR Calculation Glucose POC Glucose 193 H 166 H Estimat Average Gl ucose Hemoglobin A1c Calculated Osmolal ity Lactic Acid Lactic Acid (Sepsi s) Lactate Uric Acid Calcium Phosphorus Magnesium Total Bilirubin AST ALT Alkaline Phosphata se Troponin T Baselin e Troponin T 120 Min [place] Troponin T Troponin T Hi Sens 6Hr Troponin T Hi Sens 6Hr [place] Total Protein Albumin Globulin Triglycerides Cholesterol LDL Cholesterol, C alc HDL Cholesterol LDL/HDL Ratio Cholesterol/HDL Ra dominic Urine Color Urine Appearance Urine pH Ur Specific Gravit y Urine Protein Urine Glucose (UA) Urine Ketones Urine Blood Urine Nitrate Urine Bilirubin Urine Urobilinogen Ur Leukocyte Kristen ase Urine RBC Urine WBC Ur Squamous Epith Cells Amorphous Sediment Urine Bacteria Urine Yeast Serum Ketones Blood Type Rho(D) Type Antibody Screen 02/01/21 02/01/21 02/01/21 08:43 12:04 16:24 WBC RBC Hgb Hct MCV MCH MCHC RDW Plt Count MPV Neut % (Auto) Lymph % (Auto) [place] % (Auto) Eos % (Auto) Baso % (Auto) Neut # (Auto) Lymph # (Auto) [place] # (Auto) Eos # (Auto) Baso # (Auto) Nucleated RBC % (a uto) Nucleated RBCs # PT INR Specimen Type Sample Site ABG pH ABG pCO2 ABG pO2 ABG HCO3 ABG Base Excess Jann Test Hematocrit O2 Delivery Device FiO2 Tidal Volume PEEP [employer] Supervisor ID Sodium 125 L Potassium 4.5 Chloride 90 L Carbon Dioxide 21 L Anion Gap 18.5 BUN 60 H Creatinine 2.0 H GFR Calculation 33.5 L Glucose 312 H POC Glucose 188 H 175 H Estimat Average Gl ucose Hemoglobin A1c Calculated Osmolal ity 289 Lactic Acid Lactic Acid (Sepsi s) Lactate Uric Acid Calcium 7.3 L Phosphorus Magnesium Total Bilirubin AST ALT Alkaline Phosphata se Troponin T Baselin e Troponin T 120 Min [place] Troponin T Troponin T Hi Sens 6Hr Troponin T Hi Sens 6Hr [place] Total Protein Albumin Globulin Triglycerides Cholesterol LDL Cholesterol, C alc HDL Cholesterol LDL/HDL Ratio Cholesterol/HDL Ra dominic Urine Color Urine Appearance Urine pH Ur Specific Gravit y Urine Protein Urine Glucose (UA) Urine Ketones Urine Blood Urine Nitrate Urine Bilirubin Urine Urobilinogen Ur Leukocyte Kristen ase Urine RBC Urine WBC Ur Squamous Epith Cells Amorphous Sediment Urine Bacteria Urine Yeast Serum Ketones Blood Type Rho(D) Type Antibody Screen 02/01/21 02/01/21 02/02/21 17:50 21:57 04:20 WBC 14.1 H RBC 3.42 L Hgb 9.3 L Hct 28.2 L MCV 82.5 MCH 27.2 L MCHC 33.0 RDW 13.2 Plt Count 295 MPV 8.8 Neut % (Auto) 78.6 Lymph % (Auto) 14.3 [place] % (Auto) 4.9 Eos % (Auto) 0.5 Baso % (Auto) 0.3 Neut # (Auto) 11.10 H Lymph # (Auto) 2.0 [place] # (Auto) 0.7 Eos # (Auto) 0.1 Baso # (Auto) 0.0 Nucleated RBC % (a uto) 0 Nucleated RBCs # 0.0 PT INR Specimen Type Sample Site ABG pH ABG pCO2 ABG pO2 ABG HCO3 ABG Base Excess Jann Test Hematocrit O2 Delivery Device FiO2 Tidal Volume PEEP [employer] Supervisor ID Sodium Potassium Chloride Carbon Dioxide Anion Gap BUN Creatinine GFR Calculation Glucose POC Glucose 302 H 322 H Estimat Average Gl ucose Hemoglobin A1c Calculated Osmolal ity Lactic Acid Lactic Acid (Sepsi s) Lactate Uric Acid Calcium Phosphorus Magnesium Total Bilirubin AST ALT Alkaline Phosphata se Troponin T Baselin e Troponin T 120 Min [place] Troponin T Troponin T Hi Sens 6Hr Troponin T Hi Sens 6Hr [place] Total Protein Albumin Globulin Triglycerides Cholesterol LDL Cholesterol, C alc HDL Cholesterol LDL/HDL Ratio Cholesterol/HDL Ra dominic Urine Color Urine Appearance Urine pH Ur Specific Gravit y Urine Protein Urine Glucose (UA) Urine Ketones Urine Blood Urine Nitrate Urine Bilirubin Urine Urobilinogen Ur Leukocyte Kristen ase Urine RBC Urine WBC Ur Squamous Epith Cells Amorphous Sediment Urine Bacteria Urine Yeast Serum Ketones Blood Type Rho(D) Type Antibody Screen 02/02/21 02/02/21 04:20 07:48 WBC RBC Hgb Hct MCV MCH MCHC RDW Plt Count MPV Neut % (Auto) Lymph % (Auto) [place] % (Auto) Eos % (Auto) Baso % (Auto) Neut # (Auto) Lymph # (Auto) [place] # (Auto) Eos # (Auto) Baso # (Auto) Nucleated RBC % (a uto) Nucleated RBCs # PT INR Specimen Type Sample Site ABG pH ABG pCO2 ABG pO2 ABG HCO3 ABG Base Excess Jann Test Hematocrit O2 Delivery Device FiO2 Tidal Volume PEEP Millwright Supervisor ID Sodium 131 L Potassium 4.4 Chloride 96 L Carbon Dioxide 23 Anion Gap 16.4 BUN 51 H Creatinine 1.6 H GFR Calculation 43.3 L Glucose 274 H POC Glucose 321 H Estimat Average Gl ucose Hemoglobin A1c Calculated Osmolal ity 295 Lactic Acid Lactic Acid (Sepsi s) Lactate Uric Acid Calcium 7.2 L Phosphorus Magnesium 1.7 Total Bilirubin AST ALT Alkaline Phosphata se Troponin T Baselin e Troponin T 120 Min [place] Troponin T Troponin T Hi Sens 6Hr Troponin T Hi Sens 6Hr [place] Total Protein Albumin Globulin Triglycerides Cholesterol LDL Cholesterol, C alc HDL Cholesterol LDL/HDL Ratio Cholesterol/HDL Ra dominic Urine Color Urine Appearance Urine pH Ur Specific Gravit y Urine Protein Urine Glucose (UA) Urine Ketones Urine Blood Urine Nitrate Urine Bilirubin Urine Urobilinogen Ur Leukocyte Kristen ase Urine RBC Urine WBC Ur Squamous Epith Cells Amorphous Sediment Urine Bacteria Urine Yeast Serum Ketones Blood Type Rho(D) Type Antibody Screen Vitals: Temperature 98.4 F 02/02/21 04:15 Temperature Source Oral 02/02/21 04:15 Pulse Rate 63 02/02/21 06:00 Pulse Rhythm 02/02/21 04:00 Pulse Strength 2+ Slightly Dimin ished 02/02/21 04:00 Respiratory Rate 16 02/02/21 07:52 Respiratory Effort 02/02/21 04:00 Respiratory Depth Normal 02/02/21 04:00 Respiratory Patter n 01/31/21 22:35 Blood Pressure 114/63 02/02/21 06:00 Blood Pressure Nathalia n 80 02/02/21 06:00 Blood Pressure Pos ition Semi Fowlers 02/01/21 08:30 Pulse Oximetry 97 02/02/21 07:52 Oxygen Delivery Me thod 02/01/21 08:30 Fraction of Inspir ed Oxygen 35 02/02/21 07:52 Sepsis Recent Feve r Within 48 Hours Yes 01/31/21 15:19 Sepsis New/Unexpla ined Change in Men evonne Status Yes 01/31/21 15:19 Sepsis Action Take n by Nursing Physician Notifie d 01/31/21 15:19 Exam: Pre-Anes Outpt Exam: regular rate & rhythm Cardiac Studies: Echocardiogram 02/01/21
[2021-02-02 07:52] LABS: Glucose Point of Care 321 mg/dL (70-110)
--- NOTE | 2021-02-02 08:05 | PC.NURSE ---
Patient left with OR staff at 0800 with levophed running at 4. All other drips left in room.
--- NOTE | 2021-02-02 10:04 | P.OP_ITS ---
Operative Report Date of procedure: February 02, 2021 Pre-op Diagnosis: Necrotizing fasciiitis Post-op diagnosis: same Procedure Done: 1. Debridement of necrotic tissue (scrotum/genitalia/perineum) 2. Delayed closure of the large groin, perineal, scrotal wounds Pathology: none sent Surgeon: Lizzeth Anesthesia: General Estimated blood loss: Less than 25 cc Urine output: Not measured Complications: None Findings: 1. Overall the base of the wound looked very healthy. There was some scattered necrotic tissue that was debrided from multiple areas within the wound. There was no further fluctuance or purulence. Surfaces that remained were appropriately friable. 2. The wound was loosely closed with 2-0 Prolene approximating several flaps to reconstruct the scrotum. 3. A deep [place] drain was left in place beneath the closure and multiple small ribbon gauze strips were placed in between sutures to help whisk away any accumulated fluid or purulence. 4. Stovall catheter replaced at the completion of procedure with clear urine obtained Condition: critical Disposition: ICU Brief History: Mr. 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 He also had multiple levels of deep abscess in the scrotum and perineal areas extending into the groin. He underwent extensive debridement, packing of the wound, and is back now for wound inspection, debridement as necessary, possible closure. Procedure: After routine preoperative evaluation examination and obtaining of informed consent he was taken to the operating suite on 02/02/2021 where general anesthesia was administered without difficulty. He was already intubated from his ICU care. The Stovall catheter was removed and the wound exposed with the patient in dorsolithotomy position. There were multiple areas of relatively thin necrosis. A couple strips of skin appeared to be devascularized. There was no purulence noted. No foul smell. All the previously defined pockets of purulence were inspected with no reaccumulation. After extensive debridement of necrotic tissue the wound was treated with lavage therapy with the power lavage. This exposed a few more areas of less than adequate vascularized tissue and these were trimmed as necessary. Flap advancement was then conducted in order to reconstruct the scrotum with the remaining tissue. Both testicles were brought down into anatomic position within the reconstructed scrotum and it appeared that everything would close well enough with loosely approximated permanent sutures. Several tacking sutures were utilized to bring the flaps together and appropriate repeat constructed position. Multiple vertical mattress sutures with the same suture o f 2-0 Prolene were loosely placed in order to approximate the incision from the groin all the way down to the wings of the incision lateral to the anus. A large [place] drain was split in the proximal end and passed into the 2 hemiscrotal areas. It was exited through the lowest aspect of the right perianal incision line. Roughly 3/4 to 1 inch spacing was utilized for the remainder of the sutures. Prior to the final placement of sutures the wound was lavaged yet again. 1 inch ribbon gauze strips were made and these were passed in between most of the sutures to allow adequate drainage. All edges brought together appeared to be healthy. There was an area of probable partially devascularized tissue on the skin of the penis near the dorsal slit circumcision. This was left intact and will be treated with wound care as appropriate. Stovall catheter (16 [place]ese) was placed without difficulty with clear drainage. He tolerated procedure well without complications and was awakened in the ope rating room and then transported to ICU intubated PLANS: 1. Continue critical care via hospitalist 2. Hopefully can avoid repeat surgical intervention if the wound maintains healthy edges and no recurrent purulence 3. Continue IV antibiotics
--- NOTE | 2021-02-02 10:30 | PC.NURSE ---
Patient returned to ICU at 1004 with OR staff with with levophed running. Patient sedated and on ventilator. Dressing on groin is dry and intact. Fentanyl and precedex started upon assessing patient along with with levophed running. Stovall patent and draining.
[2021-02-02 11:40] LABS: Glucose Point of Care 265 mg/dL (70-110)
[2021-02-02] MEDS: lactobacillus 1 Tablet 1 TAB PO ×2 (11:43→17:33)
[2021-02-02] MEDS: docusate sodium 100 mg Capsule PO ×2 (11:43→17:33)
[2021-02-02] MEDS: pantoprazole DR 40 mg Tablet PO (11:43)
[2021-02-02] MEDS: nystatin cream 30 gm 1 APPLIC TOPICAL ×2 (11:43→17:33)
[2021-02-02] MEDS: midazolam 1 mg/mL INJ 2 mL IVP ×2 (12:42→14:56)
[2021-02-02] MEDS: sodium chloride 0.9% 1,000 ML 125 ML IV ×2 (13:26→21:18)
--- NOTE | 2021-02-02 14:25 | ANE.PACU2 ---
Inpatient post-anesthesia follow up: Airway intact: Yes Vital signs: Temperature 97.8 F Pulse Rate [Monito r] 112 Pulse Rate 88 Respiratory Rate 19 Blood Pressure [Le ft Arm] 135/80 Blood Pressure 106/75 Pulse Oximetry 97 Oxygen Delivery Me thod Mechanical Ventila tion Oxygen Flow Rate Fraction of Inspir ed Oxygen 35 Hydration adequate: Yes Nausea and vomiting: No Pain level: 2 Mental status: Baseline
[2021-02-02] MEDS: propofol 1,000 MG/100 ML INJ 6.8 MG IV ×2 (15:55→22:33)
--- NOTE | 2021-02-02 16:07 | P.PN_ITS ---
Subjective Subjective: Interval history: Patient was seen and examined this morning .Currently he is intubated and sedated, off sedation GCS is 10 T . He has remained afebrile. WBC count is trending down, BUN and serum creatinine is improving. He is a still requiring little bit of Levophed. Medications: Reviewed: Yes Vitals/I&O/Wt Last Vital Signs Temp 97.8 F 02/02/21 12:30 Pulse 87 02/02/21 15:30 Resp 19 H 02/02/21 11:41 BP 84/57 02/02/21 15:30 Pulse Ox 99 02/02/21 15:30 02/02/21 02/02/21 02/02/21 06:59 14:59 22:59 Intake Total 1542.414 / 3208.737 980.945 / 980.945 Output Total 1999 / 4050 800 / 800 Balance -457.586 / -841.263 180.945 / 180.945 Weight last 48 hrs Weight 118.841 kg Weight 122.952 kg Physical Exam Narrative: EXAM NARRATIVE: Intubated and sedated. Off sedation GCS is 10 T HENMT: COMMON NORMALS: normocephalic and atraumatic HEAD & SCALP: normocephalic and atraumatic Chest: CHEST: Yes Symmetrical chest wall rise Resp: COMMON NORMALS: clear to auscultation bilaterally AUSCULTATION: clear to auscultation bilaterally Cardio: COMMON NORMALS: regular rate, regular rhythm, S1 normal heart sound present, S2 normal heart sound present, No gallops present (Cardio), No murmurs present (Cardio), No rub (Cardio) and Peripheral pulses 2+ throughout RATE: regular rate RHYTHM: regular rhythm HEART SOUNDS: S1 normal heart sound present and S2 normal heart sound present PERIPHERAL PULSES: Peripheral pulses 2+ throughout GI: COMMON NORMALS: Normal to inspection, nondistended, normoactive bowel sounds present, Soft to palpation, non-tender, No hepatosplenomegaly present and no masses AUSCULTATION: Yes normoactive bowel sounds PALPATION: Yes Soft to palpation and Yes No hepatosplenomegaly present RECTAL EXAM: Yes deferred : OTHER: ABD pads are moist. No Foul smell. Groin erythema noted. Extremity: COMMON NORMALS: no clubbing, cyanosis or edema and no pedal edema Urinary Catheter Management^: Campuzano: Cath Placed During This Visit: yes, but has since been removed by the nurse Reason for Continuing Indwelling Catheter: Accurate Measurement of Urinary Output in Critically Ill Patients Urinary Catheter Date of Insertion: 01/31/21 Date Urinary Catheter Removed: 02/02/21 Time Urinary Catheter Discontinued: 08:27 Campuzano Latex: Cath Placed During This Visit: yes Urinary Catheter Date of Insertion: 02/02/21 Urinary Catheter Time of Insertion: 08:35 Data : 02/02/21 04:20 02/02/21 04:20 Micro: Microbiology 01/31/21 20:36 Anaerobic Culture - Preliminary Groin 02/01/21 00:50 Gram Stain - Final Sputum - Endotracheal Tube Aspirate Sputum Culture - Preliminary Yeast 01/31/21 20:36 Gram Stain - Final Scrotum Abscess Culture - Preliminary 01/31/21 20:36 Gram Stain - Final Scrotum Tissue Culture - Preliminary 01/31/21 17:42 Urine Culture - Preliminary Urine,Clean Catch 02/01/21 00:45 Blood Culture - Preliminary Blood NEGATIVE TO DATE 01/31/21 23:25 Blood Culture - Preliminary Blood NEGATIVE TO DATE A&P Assessment and plan (1) Septic shock: Septic shock secondary to Yovanny's gangrene of scrotum: As evidenced by, leukocytosis, hypotension, MIRYAM, elevated lactic acid, need for pressors, following adequate IV resuscitation. Follow blood culture: Urine culture: Scrotal abscess culture Anaerobic culture. MRSA PCR. CT abdomen and pelvis without contrast:Severe and extensive Yovanny's gangrene.Bilateral moderate severe hydronephrosis and hydroureter to the urinary bladder without visible ureterolithiasis. On Primaxin On vancomycin Status: Acute (2) Yovanny's gangrene of scrotum: For his gangrene of scrotum in the presence of uncontrolled diabetes. S/p: excision of Yovanny's gangrene involving abdominal wall, scrotal s tructures, perineum as well as drainage of multiple deep tissue abscesses and dorsal slit circumcision. Urology on board Status: Deleted (3) Diabetic ketoacidosis: Anion GAP has closed. Switched to Lantus 15 U SC at night LDSSI HbA1c:17.6 Monitor FSG Status: Acute Qualifiers: Diabetes mellitus complication detail: without coma Diabetes mellitus type: type 2 Qualified Code(s): E11.10 - Type 2 diabetes mellitus with k etoacidosis without coma (4) Acute kidney injury: Acute kidney injury: Multifactorial: Prerenal as well as ATN: Baseline serum creatinine: Unknown Admission serum creatinine 1.9 Current serum creatinine is 1.6 Monitor BMP Monitor intake output Continue IV hydration with normal saline 125 cc an hour Renally dose medication Avoid nephrotoxic's Status: Acute (5) Hypertension: Recently started on lisinopril Status: Chronic (6) Obesity: BMI of 35.9 Status: Chronic Additional A&P Information Edema Tinea corporis Chest pain and dyspnea on exertion Inpatient admission Emergent OR Broad-spectrum antibiotics to include anaerobic coverage Antifungal IV fluids Insulin drip Serial laboratory studies Address electrolytes as needed Repeat EKGs and 6 hr troponin Maintain Campuzano catheter secondary to surgery and need to keep groin dry on top of monitoring close urine output Get blood cultures and lactic acid prior to surgery Monitor blood pressures Strict I&Os Echo in am PPI Lactobacillus Discussed with anesthesia possibility of maintaining ventilator, arterial and central line placement - reviewed all of this with , risks and benefits related to need to aggressively treat current condition. She was given an opportunity to ask focused questions regarding these procedures Supportive care otherwise Consultants: Dr. Moreau Pending/ordered tests/procedures to follow:blood cultures, urine cultures, wound cultures Lines/tubes: will have campuzano, possible central line, arterial line and ETT post op DVT prophylaxis: SCD Plans, findings and concerns discussed with and she was given an opportunit y to ask questions. Anticipated Disposition: Ultimately depends on clinical course, but anticipate need for skilled placement Code Status: Full code Attestations Medical Necessity Statement*: Patient needs to be in the hospital for management of septic shock. 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
[2021-02-02] MEDS: dexmedetomidine 400 MCG in sodium chloride 0.9% (100 ml) 100 ML IV (17:32)
[2021-02-02 20:19] LABS: Glucose Point of Care 297 mg/dL (70-110)
[2021-02-02 21:16] LABS: Glucose Point of Care 234 mg/dL (70-110)
[2021-02-02] MEDS: vancomycin 1,500 MG/300 ML PIGGYBACK 150 MG IV (21:17)
[2021-02-02] MEDS: insulin glargine 100 units/1 mL 15 UNIT SUBCUT (21:18)
[2021-02-02] MEDS: fluconazole premix 200 MG/100 ML PREMIX 100 MG IV (22:31)
[2021-02-03] VITALS (66 sets, daily range): BP systolic 81–142; BP diastolic 52–79; PULSE 60–92; RESP 15–19; TEMP 36.7–37.2; O2SAT 92–100
[2021-02-03] MEDS: dexmedetomidine 400 MCG in sodium chloride 0.9% (100 ml) 100 ML 12.79 MCG IV ×3 (02:24→20:59)
[2021-02-03 03:39] LABS: Basophils % 0.2 %; Eosinophils # 0.1 10^3/uL (0.0-0.8); Eosinophils % 0.9 %; Hematocrit 31.1 % (42.0-52.0); Hemoglobin 9.6 g/dL (11.7-16.6); Lymphocytes # 1.8 10^3/uL (0.8-4.8); Lymphocytes % 14.3 %; Mean Corpuscular HGB Conc 30.9 g/dL (30.0-36.0); Mean Corpuscular Hemoglobin 26.8 pg (28.0-34.0); Mean Corpuscular Volume 86.9 fL (80-94); Mean Platelet Volume 8.7 fL (7.4-10.4); Monocytes # 0.6 10^3/uL (0.2-0.9); Neutrophils # 9.88 10^3/uL (1.8-7.7); Neutrophils % 78.2 %; Nucleated Red Blood Cells % 0.2 %; Platelet Count 262 10^3/cmm (130-400); Red Blood Count 3.58 10^6/uL (4.1-5.3); Red Cell Distribution Width 13.8 % (12.1-15.1); White Blood Count 12.6 10^3/uL (4.0-10.0)
[2021-02-03 04:05] LABS: Anion Gap 15.2 (5-19); Blood Urea Nitrogen 28 mg/dL (8-23); Carbon Dioxide 24 mmol/L (22-29); Chloride 108 mmol/L (98-107); Glomerular Filtration Rate 74.5 mL/min (90-130); Glucose 249 mg/dL (65-115); Magnesium 1.6 mg/dL (1.7-2.3); Osmolality Calculated 310 mOsm/kg (285-295); Potassium 4.2 mmol/L (3.5-5.1); Sodium 143 mmol/L (136-145)
--- NOTE | 2021-02-03 06:10 | PC.NURSE ---
Shift Summaryi Patient is sedated and on vent, had surgery yesterday and everything went well, patient is still on levo, and sedated, he wakes up and reaches for ET tube when not sedated well, patient has stable vital signs and had an uneventful night, still on low vent settings.
[2021-02-03] MEDS: sodium chloride 0.9% 1,000 ML 125 ML IV ×3 (06:19→21:06)
--- NOTE | 2021-02-03 07:40 | P.PN_ITS ---
Subjective Subjective: Interval history: Urology follow-up: Postop day #3 and #1 for debridement related to Yovanny's gangrene of the abdominal wall, genitalia, perineum. Yesterday surgery went well with most of the debridement being in the genital and perineal areas Loosely approximated closure with [place] drain placement and intermittent wick drains between sutures. No temperature spike overnight. Hemodynamically stable. Still on the ventilator but appears to be easily wean able. No additional issues. White count has decreased further to 12.6. Creatinine now is normal. Stovall functioning well. Vitals/I&O/Wt Last Vital Signs Temp 98.1 F 02/03/21 04:00 Pulse 75 02/03/21 06:00 Resp 18 02/03/21 07:27 BP 103/58 02/03/21 06:00 Pulse Ox 99 02/03/21 07:27 02/02/21 02/03/21 02/03/21 22:59 06:59 14:59 Intake Total 1308.513 / 2289.458 1612.207 / 3901.665 Output Total 3000 / 3800 1800 / 5600 Balance -1691.487 / -1510.542 -187.793 / -1698.335 Weight last 48 hrs Weight 263 lb Weight 262 lb Physical Exam Narrative: EXAM NARRATIVE: Intubated, minimally responsive due to propofol. Abdomen is soft. Dressings show no blood or drainage other than serous. No foul odor. Urinary Catheter Management^: Stovall: Cath Placed During This Visit: yes, but has since been removed by the nurse Reason for Continuing Indwelling Catheter: Accurate Measurement of Urinary Output in Critically Ill Patients Urinary Catheter Date of Insertion: 01/31/21 Date Urinary Catheter Removed: 02/02/21 Time Urinary Catheter Discontinued: 08:27 Stovall Latex: Cath Placed During This Visit: yes Reason for Continuing Indwelling Catheter: Accurate Measurement of Urinary Output in Critically Ill Patients Urinary Catheter Date of Insertion: 02/02/21 Urinary Catheter Time of Insertion: 08:35 Data : 02/03/21 03:25 02/03/21 03:25 Micro: Microbiology 01/31/21 20:36 Gram Stain - Final Scrotum Tissue Culture - Preliminary Yeast 01/31/21 20:36 Gram Stain - Final Scrotum Abscess Culture - Preliminary Yeast 01/31/21 20:36 Anaerobic Culture - Preliminary Groin 02/01/21 00:50 Gram Stain - Final Sputum - Endotracheal Tube Aspirate Sputum Culture - Preliminary Yeast 01/31/21 17:42 Urine Culture - Preliminary Urine,Clean Catch A&P Assessment and plan (1) 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 Groins look clear. Partial closure. Lennox drain left in multiple ana Cultures grew only yeast so far. He is covered with broad-spectrum antibiotics as well as fluconazole. Status: Acute (2) Necrotizing fasciitis of multiple sites: Surgical debridement this morning Status: Acute (3) Gross hematuria: Clearing Status: Acute (4) Scrotal abscess: No evidence of reaccumulation on examination yesterday. No foul odor today. 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
[2021-02-03 07:42] LABS: Glucose Point of Care 309 mg/dL (70-110)
[2021-02-03] MEDS: midazolam 1 mg/mL INJ 2 mL IVP (08:05)
[2021-02-03] MEDS: docusate sodium 100 mg Capsule PO ×2 (08:20→17:52)
[2021-02-03] MEDS: lactobacillus 1 Tablet 1 TAB PO ×2 (08:21→17:52)
[2021-02-03] MEDS: nystatin cream 30 gm 1 APPLIC TOPICAL ×2 (08:21→18:13)
[2021-02-03] MEDS: pantoprazole DR 40 mg Tablet PO (08:21)
[2021-02-03] MEDS: propofol 1,000 MG/100 ML INJ 13.61 MG IV (09:40)
--- NOTE | 2021-02-03 09:58 | PM.PN ---
Subjective Subjective: Interval history: Overnight, according to the patient's nurse, the patient was in so much pain, that he woke up while intubated and on defibrillator and sedated with propofol. He required Versed pushes to calm him down. Otherwise no other acute events overnight. ROS: The patient remains intubated and sedated Vitals/I&O/Wt Last Vital Signs Temp 98.8 F 02/03/21 08:00 Pulse 66 02/03/21 09:00 Resp 18 02/03/21 09:12 BP 100/62 02/03/21 09:00 Pulse Ox 99 02/03/21 09:12 02/02/21 02/03/21 02/03/21 22:59 06:59 14:59 Intake Total 1308.513 / 2289.458 1612.207 / 3901.665 544.343 / 544.343 Output Total 3000 / 3800 1800 / 5600 Balance -1691.487 / -1510.542 -187.793 / -1698.335 544.343 / 544.343 Weight last 48 hrs Weight 119.295 kg Weight 118.841 kg Physical Exam HENMT: COMMON NORMALS: normocephalic, atraumatic, external ears normal and Normal external nose present HEAD & SCALP: normocephalic and atraumatic FACE & SINUS: normal facial exam NOSE: Normal external nose present EXTERNAL EAR: Yes external ears normal Eye: PUPIL: Yes Pinpoint pupils bilaterally (on fentanyl) Resp: COMMON NORMALS: clear to auscultation bilaterally AUSCULTATION: clear to auscultation bilaterally GI: COMMON NORMALS: Soft to palpation PALPATION: Yes Soft to palpation, No Tenderness to palpation present (GI), No Guarding due to palpation present (GI) and No Rigid due to palpation : MALE GROIN/PERINEUM EXAM: Yes other (s/p I&D due to everton's gangrene) Extremity: GENERAL: No clubbing, No cyanosis and No edema Neuro: DEEPAK COMA SCALE: document GCS findings (3T - he is intubated and sedated) Deepak coma scale eye opening: None [place] coma scale verbal response: None [place]ak coma scale motor response: None [place] coma scale total score: 3 Psych: OTHER: Unable to assess given that he is intubated and sedated. Skin: WOUNDS: Yes surgical site (To be evaluated with Urology on 02/04. ) Urinary Catheter Management^: Stovall: Cath Placed During This Visit: yes, but has since been removed by the nurse Reason for Continuing Indwelling Catheter: Accurate Measurement of Urinary Output in Critically Ill Patients Urinary Catheter Date of Insertion: 01/31/21 Date Urinary Catheter Removed: 02/02/21 Time Urinary Catheter Discontinued: 08:27 Stovall Latex: Cath Placed During This Visit: yes Reason for Continuing Indwelling Catheter: Accurate Measurement of Urinary Output in Critically Ill Patients Urinary Catheter Date of Insertion: 02/02/21 Urinary Catheter Time of Insertion: 08:35 Data : 02/03/21 03:25 02/03/21 03:25 Micro: Microbiology 02/01/21 00:45 Blood Culture - Preliminary Blood 01/31/21 17:42 Urine Culture - Preliminary Urine,Clean Catch Yeast species 01/31/21 20:36 Gram Stain - Final Scrotum Tissue Culture - Preliminary Yeast 01/31/21 20:36 Gram Stain - Final Scrotum Abscess Culture - Preliminary Yeast 01/31/21 20:36 Anaerobic Culture - Preliminary Groin 02/01/21 00:50 Gram Stain - Final Sputum - Endotracheal Tube Aspirate Sputum Culture - Preliminary Yeast A&P Assessment and plan (1) Septic shock: Status: Acute (2) Necrotizing fasciitis of multiple sites: Status: Acute (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 (4) Urinary retention: Status: Acute (5) Acute kidney injury: Status: Acute (6) UTI (urinary tract infection): Status: Acute Qualifiers: Hematuria presence: without hematuria Urinary tract infection type: acute cystitis Qualified Code(s): N30.00 - Acute cystitis without hematuria (7) Hypertension: Status: Chronic (8) Diabetes: Status: Chronic (9) Diabetic ketoacidosis: Status: Acute Qualifiers: Diabetes mellitus complication detail: without coma Diabetes mellitus type: type 2 Qualified Code(s): E11.10 - Type 2 diabetes mellitus with ketoacidosis without coma (10) Scrotal abscess: Status: Acute (11) Bilateral hydronephrosis: Status: Acute Mr. Morales is a 65yo man w/ HTN, DM, who was admitted on 01/31/2021 for Septic shock, necrotizing gascitis, everton's gangrene of the scrotum, genitalia and perineum, diabetic ketoacidosis. He remains intubated. There is plans to do a wound change on 02/04/2021. Neuro/Psych: Intubated and Sedated on Propofol, Versed pushes. Will wean. CV: HTN- Monitor BP. Requiring Levophed - goal is to wean. Maintain MAPS > 65. Respiratory: Wean vent settings on 02/03. GI: NGT. PPI Renal/ID:On Vanc/Imipenem for UTI, Necrotizing fascitis, everton's gangrene. He needs to complete 14 days. Replace abnormal electrolytes. On systemic fluconzaole. F/u Cx. Endo: Diabetic ketoacidosis resolved. Increased Lantus. : Urology to change wounds. DVT ppx: Will discuss w/ surgery and likely start 02/04. Attestations Medical Necessity Statement*: Patient requires continued hospitalization due to still remaining intubated and sedated. 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
[2021-02-03] MEDS: magnesium sulfate premix 4 GM/100 ML PREMIX IV (10:19)
--- NOTE | 2021-02-03 10:39 | PC.SOCIAL ---
IMM Update Pg. 2 of IMM updated and reviewed with patient's at bedside, who verbalized understanding. Copy provided.
[2021-02-03 11:02] LABS: Phosphorus 2.1 mg/dL (2.5-4.5)
[2021-02-03 12:04] LABS: Glucose Point of Care 239 mg/dL (70-110)
[2021-02-03 12:55] LABS: SARS Covid-2 Antigen Negative (Negative)
--- NOTE | 2021-02-03 15:21 | PC.NURSE ---
Dressing was changed per orders. Moderate amounts of serosanguineous drainage was noted. Some skin around modified circumcision is espinal and slough was noted. Dr. Lizzeth sahu.
[2021-02-03 17:45] LABS: Glucose Point of Care 211 mg/dL (70-110)
[2021-02-03] MEDS: propofol 1,000 MG/100 ML INJ 15 MG IV ×2 (18:44→23:27)
[2021-02-03 20:08] LABS: Glucose Point of Care 218 mg/dL (70-110)
[2021-02-03] MEDS: insulin glargine 100 units/1 mL 15 UNIT SUBCUT (20:22)
[2021-02-03 20:55] LABS: Vancomycin Trough 9.6 ug/mL (10-15)
[2021-02-03] MEDS: vancomycin 1,500 MG/300 ML PIGGYBACK 150 MG IV (21:02)
[2021-02-03] MEDS: fluconazole premix 200 MG/100 ML PREMIX 100 MG IV (21:52)
[2021-02-03] MEDS: insulin glargine 100 units/1 mL 5 UNIT SUBCUT (22:49)
[2021-02-04] VITALS (62 sets, daily range): BP systolic 91–168; BP diastolic 51–97; PULSE 50–87; RESP 12–53; TEMP 35.7–36.4; O2SAT 94–100
--- NOTE | 2021-02-04 00:36 | PC.PHAR ---
Pharmacokinetic dosing service Date: 02/04/21 Time: 29 Patient: Floor: Weight: 119.295 Kilograms Vancomycin single level analysis: Current dose being given: mg Current dosing interval: hrs Current infusion time (hrs): 1 Single level Trough Data: Trough level obtained: 9.6 mcg/ml Timing of trough - # of hrs before next dose: 0.75 Hrs Desired peak: 40 mcg/ml Desired trough: 15 mcg/ml Diagnosis: Relevant medical/social history: Cultures and sensitivities: Other labs: Estimated PK Parameters: New rate constant (yoana): 0.039 hr-1 Half-life: 17.77 Hours Vd from levels: 107.37 Liters (0.7 L/kg) CLvanco= 4.187 L/hr Estimated New Dose and Interval Recommended dose: 2796.7 mg Recommended interval: 26.1 Hrs Patient response: Patient is responding to treatment [yes/no] wbc decreasing, S/SX reduced [yes/no] Renal function is stable/unstable Recommendations: Give Vancomycin 1500 mg q 18 hrs. Infuse over 1.5 hrs Expected Cpeak: 26.9 mcg/mL Expected Ctrough: 14.1 mcg/mL AUC 0-24 /RG Data: RG 0.5 mcg/mL: AUC/RG: 955.3 RG 1.0 mcg/mL: AUC/RG: 477.7 Recommended labs and intervals: Measure Bun and Scr 3 times/week. Renal dosing of other antibiotics (review renal dosing of other medications and list guidelines here): Thank you for the consult, will continue to follow. Signature:
Jessica Ocasio [facility]
[2021-02-04] MEDS: norepinephrine 8 MG in dextrose 5 % 500 ML 15.24 MG IV (02:42)
[2021-02-04] MEDS: propofol 1,000 MG/100 ML INJ 15 MG IV (03:31)
[2021-02-04 04:04] LABS: Basophils % 0.4 %; Eosinophils # 0.3 10^3/uL (0.0-0.8); Eosinophils % 2.3 %; Hematocrit 30.7 % (42.0-52.0); Hemoglobin 9.3 g/dL (11.7-16.6); Lymphocytes # 2.6 10^3/uL (0.8-4.8); Lymphocytes % 23.1 %; Mean Corpuscular HGB Conc 30.3 g/dL (30.0-36.0); Mean Corpuscular Hemoglobin 26.8 pg (28.0-34.0); Mean Corpuscular Volume 88.5 fL (80-94); Mean Platelet Volume 8.8 fL (7.4-10.4); Monocytes # 0.6 10^3/uL (0.2-0.9); Monocytes % 5.2 %; Neutrophils # 7.52 10^3/uL (1.8-7.7); Neutrophils % 67.2 %; Nucleated Red Blood Cells % 0 %; Platelet Count 241 10^3/cmm (130-400); Red Blood Count 3.47 10^6/uL (4.1-5.3); Red Cell Distribution Width 14.5 % (12.1-15.1); White Blood Count 11.2 10^3/uL (4.0-10.0)
[2021-02-04 04:35] LABS: Anion Gap 13.9 (5-19); Blood Urea Nitrogen 19 mg/dL (8-23); Calcium 7.2 mg/dL (8.5-10.5); Carbon Dioxide 23 mmol/L (22-29); Chloride 115 mmol/L (98-107); Glomerular Filtration Rate 84.2 mL/min (90-130); Glucose 184 mg/dL (65-115); Magnesium 2.1 mg/dL (1.7-2.3); Osmolality Calculated 313 mOsm/kg (285-295); Potassium 3.9 mmol/L (3.5-5.1); Sodium 148 mmol/L (136-145)
[2021-02-04] MEDS: sodium chloride 0.9% 1,000 ML 125 ML IV ×2 (04:49→11:53)
[2021-02-04] MEDS: dexmedetomidine 400 MCG in sodium chloride 0.9% (100 ml) 100 ML IV (05:31)
[2021-02-04 07:44] LABS: Glucose Point of Care 206 mg/dL (70-110)
--- NOTE | 2021-02-04 08:47 | P.PN_ITS ---
Subjective Subjective: Interval history: No acute events overnight. This morning, the urologist saw the patient, and evaluated his surgical incisions and sutures. The surgical site in the groin and perineum looked clean dry and intact. Efforts to wean the patient from the ventilator settings has been initiated, but the patient is in a lot of pain, and due to the pain, he becomes tachypneic. When the propofol was decreased, the patient immediately awakened, and responded to commands, and indicated that he was in a lot of pain. The anesthesiologist public information relations manager was consulted, and bupivacaine/ropivacaine was suggested, but it is contraindicated, because it will require an epidural which is contraindicated in this patient at this time, given the perineal surgery that he has had. Low doses of ketamine was suggested on the patient. Vitals/I&O/Wt Last Vital Signs Temp 96.3 F L 02/04/21 08:00 Pulse 56 L 02/04/21 08:00 Resp 12 02/04/21 08:00 BP 98/61 02/04/21 08:00 Pulse Ox 100 02/04/21 07:46 02/03/21 02/04/21 02/04/21 22:59 06:59 14:59 Intake Total 1508.714 / 2542.063 2213.747 / 4755.810 Output Total 1000 / 1850 2000 / 3850 Balance 508.714 / 692.063 213.747 / 905.810 Weight last 48 hrs Weight 119.89 kg Weight 119.295 kg Physical Exam HENMT: COMMON NORMALS: normocephalic, atraumatic, external ears normal and Normal external nose present HEAD & SCALP: normocephalic and atraumatic FACE & SINUS: normal facial exam NOSE: Normal external nose present EXTERNAL EAR: Yes external ears normal MOUTH: Normal oral and palatal mucosa present Eye: COMMON NORMALS: conjunctivae normal CONJUNCTIVA: Yes conjunctivae normal PUPIL: Yes Pinpoint pupils EOM: No EOM abnormal Resp: COMMON NORMALS: clear to auscultation bilaterally AUSCULTATION: clear to auscultation bilaterally, no rales, no rhonchi and no wheezes Cardio: COMMON NORMALS: regular rate and regular rhythm RATE: regular rate RHYTHM: regular rhythm GI: COMMON NORMALS: Soft to palpation AUSCULTATION: Yes normoactive bowel sounds PALPATION: Yes Soft to palpation, No Tenderness to palpation present (GI), No Guarding due to palpation present (GI) and No Rigid due to palpation : MALE GROIN/PERINEUM EXAM: Yes other (s/p I&D due to everton's gangrene) Extremity: COMMON NORMALS: negative for no clubbing, cyanosis or edema GENERAL: No clubbing, No cyanosis and No edema Neuro: DEEPAK COMA SCALE: document GCS findings [place] coma scale eye opening: Spontaneous [place] coma scale verbal response: Sounds [place] coma scale motor response: Obey commands [place] coma scale total score: 12 Psych: OTHER: Unable to assess given that the patient is intubated. Skin: WOUNDS: Yes surgical site (Clean dry and intact) Urinary Catheter Management^: Stovall: Cath Placed During This Visit: yes, but has since been removed by the nurse Reason for Continuing Indwelling Catheter: Accurate Measurement of Urinary Output in Critically Ill Patients Urinary Catheter Date of Insertion: 01/31/21 Date Urinary Catheter Removed: 02/02/21 Time Urinary Catheter Discontinued: 08:27 Stovall Latex: Cath Placed During This Visit: yes Reason for Continuing Indwelling Catheter: Accurate Measurement of Urinary Output in Critically Ill Patients Urinary Catheter Date of Insertion: 02/02/21 Urinary Catheter Time of Insertion: 08:35 Data : 02/04/21 03:25 02/04/21 03:25 Micro: Microbiology 01/31/21 20:36 Anaerobic Culture - Preliminary Groin 02/02/21 18:45 MRSA Culture - Final Nose 01/31/21 20:36 Gram Stain - Final Scrotum Abscess Culture - Preliminary Yeast 01/31/21 20:36 Gram Stain - Final Scrotum Tissue Culture - Preliminary Yeast 02/01/21 00:45 Blood Culture - Preliminary Blood 01/31/21 17:42 Urine Culture - Preliminary Urine,Clean Catch Yeast species A&P Assessment and plan (1) Septic shock: Status: Acute (2) Necrotizing fasciitis of multiple sites: Status: Acute (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 (4) Urinary retention: Status: Acute (5) Acute kidney injury: Status: Acute (6) UTI (urinary tract infection): Status: Acute Qualifiers: Hematuria presence: without hematuria Urinary tract infection type: acute cystitis Qualified Code(s): N30.00 - Acute cystitis without hematuria (7) Hypertension: Status: Chronic (8) Diabetes: Status: Chronic (9) Diabetic ketoacidosis: Status: Acute Qualifiers: Diabetes mellitus complication detail: without coma Diabetes mellitus type: type 2 Qualified Code(s): E11.10 - Type 2 diabetes mellitus with ketoacidosis without coma (10) Scrotal abscess: Status: Acute (11) Bilateral hydronephrosis: Status: Acute Mr. Morales is a 65yo man w/ HTN, DM, who was admitted on 01/31/2021 for Septic shock, necrotizing gascitis, everton's gangrene of the scrotum, genitalia and perineum, diabetic ketoacidosis. He remains intubated. The wounds were evaluated by Urology on 02/04/2021. At this time, the barrier to extubation is pain control. Without adequate pain control, he breathes 50times a minute and becomes hypoxic. Neuro/Psych: Intubated and Sedated on Propofol, Dexmedetomidine, Versed pushes. Will wean Propofol and attempt versed drip. Also ordered Ketamine 10mg IVP and Dilaudid 1mg q4h prn in anticipation of extubation. CV: Septic shock: Requiring low dose Levophed - goal is to wean. Maintain MAPS > 65. HTN- Monitor BP. Respiratory: #Acute hypoxic respiratory failure - Wean vent settings on 02/03. GI: NGT. PPI Renal/ID: #Necrotizing fascitis, everton's gangrene. - On Vanc/Imipenem for UTI. He needs to complete 14 days.On systemic fluconzaole also for 14 days. Continued Cx. #Abnormal electrolytes - replace prn. Endo: #Diabetic ketoacidosis resolved. Increased Lantus. #Diabetes : Urology to change wounds. DVT ppx: Start Lovenox Attestations Medical Necessity Statement*: The patient requires continued hospitalization, because he is intubated, and there is difficulty in extubating due to difficult pain control. 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
--- NOTE | 2021-02-04 09:40 | PC.NURSE ---
PO medication not given due to OG tube being pulled out. Planning to extubate this shift so will not replace at this time. Will inform Dr. Parker.
[2021-02-04 11:26] LABS: Glucose Point of Care 245 mg/dL (70-110)
[2021-02-04] MEDS: clotrimazole 1% cream 30 gm 1 APPLIC TOPICAL ×2 (11:52→17:49)
[2021-02-04] MEDS: enoxaparin 40 mg/0.4 mL Syringe SUBCUT (11:52)
[2021-02-04] MEDS: HYDROmorphone 1 mg/mL INJ 1 mL IVP ×2 (12:12→17:22)
[2021-02-04] MEDS: vancomycin 1,500 MG/300 ML PIGGYBACK 150 MG IV (14:33)
[2021-02-04] MEDS: LORazepam 2 mg/mL INJ 1 mL 1 MG IVP (14:33)
[2021-02-04 17:34] LABS: Glucose Point of Care 190 mg/dL (70-110)
--- NOTE | 2021-02-04 17:39 | XRR_ITS ---
PROCEDURE INFORMATION: Exam: XR Chest Exam date and time: 02/04/2021 5:39 PM Age: 65 years old Clinical indication: Device placement; Ng tube; Additional info: Og placement TECHNIQUE: Imaging protocol: XR of the chest. Views: 1 view. COMPARISON: CR (CHEST, ) 02/01/2021 2:25 AM FINDINGS: Tubes, catheters and devices: Right neck central venous catheter terminates distal superior vena cava. Endotracheal tube terminates 5.5 cm above lucy. NG tube terminates gastric fundus. Lungs: Unremarkable. No consolidation. Pleural spaces: Unremarkable. No pleural effusion. No pneumothorax. Heart/Mediastinum: Unremarkable. No cardiomegaly. Bones/joints: Unremarkable. XR/XR chest 1V portable [id number] IMPRESSION: Proximal stomach position of the enteric tube. Tube is advanced about 7 cm since prior.
[2021-02-04] MEDS: lactobacillus 1 Tablet 1 TAB PO (18:34)
[2021-02-04] MEDS: docusate sodium 100 mg Capsule PO (18:34)
--- NOTE | 2021-02-04 18:46 | PC.NURSE ---
Patient remains intubated this shift. multiple episodes of tachypnea noted. Patient continues to get Dilaudid and Ativan pushes per orders and is now resting comfortably. Respirations at 16.
[2021-02-04 22:14] LABS: Glucose Point of Care 146 mg/dL (70-110)
[2021-02-04] MEDS: insulin glargine 100 units/1 mL 25 UNIT SUBCUT (22:14)
[2021-02-04] MEDS: fluconazole premix 200 MG/100 ML PREMIX 100 MG IV (22:16)
--- NOTE | 2021-02-04 23:38 | PC.PHAR ---
renal dosing for Vancomycin, changed dose to q12h based on continual improvement of crcl
[2021-02-05] VITALS (57 sets, daily range): BP systolic 86–169; BP diastolic 50–115; PULSE 53–123; RESP 8–55; TEMP 36.7–37.2; O2SAT 82–100
[2021-02-05] MEDS: dexmedetomidine 400 MCG in sodium chloride 0.9% (100 ml) 100 ML 9.59 MCG IV (01:23)
[2021-02-05] MEDS: vancomycin 1,500 MG/300 ML PIGGYBACK 150 MG IV ×2 (03:39→14:10)
--- NOTE | 2021-02-05 04:00 | XR_ITS ---
WS: [id number] Portable AP semiupright chest, 02/05/2021 Clinical Data: hypoxia Comparison: Portable chest, 02/04/2021 Findings: The endotracheal tube, nasogastric tube and right subclavian catheter remain in good positi on. No nodules, masses or effusions are seen. The heart is normal. No pneumonia or pneumothorax is pr esent. The aortic arch and descending aorta are tortuous. Monitor leads are on the chest wall. XR/XR chest 1V portable [id number] Impression: 1. No change in position of multiple tubes. 2. Atherosclerosis.
[2021-02-05 04:54] LABS: ABG PCO2 37.1 mmHg (35-45); ABG PH Result 7.41 (7.35-7.45); Alveolar-Arterial Oxygen Gradi 5.5 mmHg (5-10); Base Excess ABG -0.8 mmol/L (-2.0-2.0); Blood Gas Allen Test Pos; Blood Gas Sample Site Radial, right; Blood Gas Sample Type Arterial; Blood Gas Tidal Volume 0.45; Carboxyhemoglobin 0.8 %THgb (0.4-20.1); HCO3 ABG 23.6 mmol/L (22-26); HGB O2 Sat 99.2 % (95-100); Ionized Calcium Level - ABG 1.1 mmol/L (1.1-1.4); Methemoglobin < 0.0 % (0.4-1.5); Oxygen Device VENT; Oxygen Saturation ABG 99.7; Potassium Level - ABG 3.9 mmol/L (3.5-5.0); Total Hemoglobin 9.4 g/dL (14-18)
[2021-02-05 05:29] LABS: Basophils % 0.3 %; Eosinophils # 0.2 10^3/uL (0.0-0.8); Eosinophils % 2.6 %; Hematocrit 30.3 % (42.0-52.0); Hemoglobin 8.8 g/dL (11.7-16.6); Lymphocytes # 2.2 10^3/uL (0.8-4.8); Lymphocytes % 24.9 %; Mean Corpuscular Hemoglobin 26.6 pg (28.0-34.0); Mean Corpuscular Volume 91.5 fL (80-94); Mean Platelet Volume 8.9 fL (7.4-10.4); Monocytes # 0.5 10^3/uL (0.2-0.9); Monocytes % 5.7 %; Neutrophils # 5.82 10^3/uL (1.8-7.7); Neutrophils % 65.6 %; Nucleated Red Blood Cells % 0 %; Platelet Count 227 10^3/cmm (130-400); Red Blood Count 3.31 10^6/uL (4.1-5.3); Red Cell Distribution Width 15.1 % (12.1-15.1); White Blood Count 8.9 10^3/uL (4.0-10.0)
--- NOTE | 2021-02-05 05:45 | PC.NURSE ---
Dr. Moctezuma called and gave orders to turn precedex off, wean fentanyl down, and have RT place patient on breathing trail for extubation today.
[2021-02-05 05:48] LABS: Alanine Aminotransferase 7 U/L (0-41); Albumin Level 2.2 g/dL (3.5-5.2); Alkaline Phosphatase 100 IU/L (40-130); Aspartate Amino Transferase 15 U/L (0-40); Blood Urea Nitrogen 17 mg/dL (8-23); Calcium 7.2 mg/dL (8.5-10.5); Carbon Dioxide 24 mmol/L (22-29); Chloride 121 mmol/L (98-107); Globulin 2.9 g/dL (1.3-4.6); Glomerular Filtration Rate 84.2 mL/min (90-130); Glucose 131 mg/dL (65-115); Magnesium 1.9 mg/dL (1.7-2.3); Osmolality Calculated 319 mOsm/kg (285-295); Phosphorus 2.7 mg/dL (2.5-4.5); Sodium 153 mmol/L (136-145); Total Bilirubin 0.2 mg/dL (0.15-1.2); Total Protein 5.1 g/dL (6.6-8.7)
[2021-02-05 06:20] LABS: NT Pro B Type Natriuretic Pept 407 pg/mL (0-125)
[2021-02-05] MEDS: HYDROmorphone 1 mg/mL INJ 1 mL IVP ×6 (07:26→23:59)
--- NOTE | 2021-02-05 07:31 | PC.NURSE ---
Report received, pt lying in bed. ETT remains in place, vent settings per flowsheet. PT follows commands. Fentanyl at 75mcg/hr and NS at 125ml/h. Pt tachypneic and hypertensive. C/O pain. Dilaudid given per orders. MD at bedside. Stovall cath draining freely to BSD. Dressings to groin C/D/I. Will monitor.
[2021-02-05 07:34] LABS: Glucose Point of Care 134 mg/dL (70-110)
[2021-02-05] MEDS: lactobacillus 1 Tablet 1 TAB PO (08:12)
[2021-02-05] MEDS: pantoprazole DR 40 mg Tablet PO (08:12)
[2021-02-05] MEDS: clotrimazole 1% cream 30 gm 1 APPLIC TOPICAL ×2 (08:12→18:01)
[2021-02-05] MEDS: docusate sodium 100 mg Capsule PO (08:12)
[2021-02-05] MEDS: lactulose oral liq 20 gm/30 mL UDC 30 GM PO (08:56)
--- NOTE | 2021-02-05 09:08 | PM.CONSULT ---
Providers/Reason For Consult Consulting Physician/Specialty*: Jose Moctezuma MD/ Pulmonary Critical Care Reason for Consult*: Difficulty extubation Requesting Physician: Eunice Barrett MD Attending Physician: uEnice Barrett MD Primary Care Provider: Franklin Aguilar MD History of Present Illness History of Present Illness Andrew Pabon is a 65 year old male w/ HTN, DM, who was admitted on 01/31/2021 for Septic shock, necrotizing gascitis, everton's gangrene of the scrotum, genitalia and perineum, diabetic ketoacidosis. Dr. Moreau was consulted the plan to take patient emergently the same evening and underwent excision of Everton's gangrene involving abdominal wall, scrotal structures, perineum as well as drainage of multiple deep tissue abscesses and dorsal slit circumcision.and later repeat surgical debridement wound exploration potentially partial approximation of edges. On post op day 3 underwent more debridement of necrotic tissue (scrotum/genitalia/perineum) and delayed closure of the large groin, perineal, scrotal wounds. Attempts to wean the patient from the ventilator complicated by severe pain and resulting tachypnea. Pulmonary consult to evaluate for possible extubation. -Seen patient at bedside today morning -Following commands appropriately -currently only on fentanyl 75 MCG per hour and Dilaudid 1 mg every 4 as needed for pain -Held propofol and Precedex -ABG reviewed 7.4 137/125/23/99% saturation on PEEP 5 FiO2 30% and tidal volume 450 on CMV -Chest x-ray is normal -Proceed with extubation and currently patient is on 3 L saturating 100% -Had episodes of tachypnea especially when pain medication wears off -plan is to continue Dilaudid 1 mg every 4 as needed and taper down fentanyl - start Wilmore 10-325 every 6 hour as needed once patient starts tolerating oral feeds -My understanding the anesthesiologist x ray control equipment repairer was consulted, and bupivacaine/ropivacaine was suggested, but it is contraindicated, because it will require an epidural which is contraindicated in this patient at this time, given the perineal surgery that he has had. Review of Systems General: Reports: 10 or more systems reviewed and unremarkable except in HPI and below, ROS unobtainable due to medical condition and ROS unobtainable due to mental status Meds/Allergies Home Medications and Allergies Home Medications Medication Instructions Recorded Confirmed Last Taken Type amoxicillin-pot clavulanate 1 tab PO BID 01/31/21 01/31/21 Unknown History [Augmentin] fluconazole [Diflucan] 200 mg PO DAILY 01/31/21 01/31/21 Unknown History ketoconazole See Rx Instructions .ROUTE .COMPLEX 01/31/21 01/31/21 01/31/21 History lisinopril 5 mg PO DAILY 01/31/21 01/31/21 01/31/21 History metformin 500 mg PO BID 01/31/21 01/31/21 01/30/21 History nystatin See Rx Instructions .ROUTE .COMPLEX 01/31/21 01/31/21 Unknown History sulfamethoxazole-trimethoprim 1 tab PO BID 01/31/21 01/31/21 01/31/21 History triamcinolone acetonide See Rx Instructions .ROUTE .COMPLEX 01/31/21 01/31/21 01/31/21 History Allergies Allergy/AdvReac Type Severity Reaction Status Date / Time nitrofurantoin Allergy Unknown Verified 01/31/21 16:16 Current Medications Current Medications Generic Name Dose Route Start Last Admin Trade Name Freq PRN Reason Stop Dose Admin Clotrimazole 1 applic 02/04/21 09:00 02/05/21 08:12 Clotrimazole 1% Cream 30 Gm TOPICAL 1 applic BID JENISE Administration Docusate Sodium 100 mg 02/01/21 09:00 02/05/21 08:12 Docusate Sodium 100 Mg Capsule PO 100 mg BID JENISE Administration Enoxaparin Sodium 40 mg 02/04/21 09:45 02/04/21 11:52 Enoxaparin 40 Mg/0.4 Ml Syringe SUBCUT 40 mg Q24H JENISE Administration Hydromorphone HCl 1 mg 02/04/21 08:50 02/05/21 07:26 Hydromorphone 1 Mg/Ml Inj 1 Ml IVP 1 mg Q4H PRN Administration PAIN Insulin Human Regular 250 unit 252.5 mls @ 0 mls/hr 01/31/21 18:30 02/01/21 15:08 / Sodium Chloride IV Infused .Q0M JENISE Titration Protocol Per Protocol Fluconazole 200 mg in 100 mls @ 100 mls/hr 01/31/21 22:37 02/05/21 01:24 Diflucan Premix IV Infused Q24H JENISE Infusion Propofol 1,000 mg in 100 mls @ 0 mls/hr 01/31/21 22:37 02/04/21 14:00 Diprivan IV Infused .Q0M JENISE Titration Protocol Per Protocol Dexmedetomidine HCl 400 mcg/ 104 mls @ 0 mls/hr 02/01/21 13:00 02/05/21 06:15 Sodium Chloride IV 0 mcg/kg/hr .Q0M JENISE 0 mls/hr Titration Protocol Per Protocol Imipenem/Cilastatin Sodium 500 100 mls @ 200 mls/hr 02/01/21 19:15 02/05/21 06:17 mg/ Sodium Chloride IV 200 mls/hr Q6H JENISE Administration Protocol Norepinephrine Bitartrate 4 mg 254 mls @ 0 mls/hr 02/01/21 22:15 02/04/21 03:23 / Dextrose IV Infused .Q0M JENISE Titration Protocol Per Protocol Vancomycin/PEG/NADA/Lysine/Water 1,500 mg in 300 mls @ 150 mls/hr 02/05/21 03:00 02/05/21 06:15 Vancocin IV Infused Q12H JENISE Infusion Fentanyl 1,000 mcg/ Sodium 100 mls @ 0 mls/hr 02/05/21 04:15 02/05/21 06:00 Chloride IV 75 mcg/hr .Q0M JENISE 7.5 mls/hr Titration Protocol Per Protocol Insulin Aspart 0 unit 02/01/21 12:00 02/05/21 07:36 Insulin Aspart 100 Unit/1 Ml SUBCUT Not Given WM&BEDTIME JENISE Protocol Insulin Glargine 25 unit 02/04/21 21:00 02/04/21 22:14 Insulin Glargine 100 Units/1 Ml SUBCUT 25 unit BEDTIME JENISE Administration Lactobacillus Acidophilus 1 tab 02/01/21 09:00 02/05/21 08:12 Lactobacillus 1 Tablet PO 1 tab BID JENISE Administration Lorazepam 1 mg 02/04/21 13:42 02/04/21 14:33 Lorazepam 2 Mg/Ml Inj 1 Ml IVP 1 mg Q2H PRN Administration ANXIETY Pantoprazole Sodium 40 mg 02/01/21 09:00 02/05/21 08:[address] 40 Mg Tablet PO 40 mg DAILY JENISE Administration PFSH Acute PFSH: Medical History Diabetes Hypertension Necrotizing fasciitis of multiple sites Obesity Surgical History Status post hernia repair Family History Other CAD (coronary artery disease) Cancer Denies family history of Anesthesia complication Bleeding disorder Social History Smoking and tobacco status: former smoker Alcohol intake: never Substance/Drug Use: never Household members: spouse Vitals/I&O/Wt Last Vital Signs Temp 98.9 F 02/05/21 08:00 Pulse 99 02/05/21 08:00 Resp 52 H 02/05/21 08:31 BP 123/76 02/05/21 08:00 Pulse Ox 82 L 02/05/21 08:00 02/04/21 02/05/21 02/05/21 22:59 06:59 14:59 Intake Total 500 / 1700.175 724.454 / 2424.629 Output Total 1100 / 2700 Balance 500 / 100.175 -375.546 / -275.371 Weight last 48 hrs Weight 264 lb 5 oz Physical Exam Narrative: EXAM NARRATIVE: General: alert, NAD HEENT: conj clear, EOMI, PERRL, mmm, Neck: supple, no meningismus Heme: no cervical LAP Pulmonary: CTAB, no wheezing, rhonchi, crackles Cardiovascular: rrr, nl s1s2, no mrg Abdomen: soft, nt, nd, no r/g, bs+ Extremities: pulses +, no edema, no c/c : no CVA tenderness Skin: intact, no rash MSK: no back or neck pain Neurologic: grossly intact Urinary Catheter Management^: Stovall: Cath Placed During This Visit: yes, but has since been removed by the nurse Reason for Continuing Indwelling Catheter: Accurate Measurement of Urinary Output in Critically Ill Patients Urinary Catheter Date of Insertion: 01/31/21 Date Urinary Catheter Removed: 02/02/21 Time Urinary Catheter Discontinued: 08:27 Stovall Latex: Cath Placed During This Visit: yes Reason for Continuing Indwelling Catheter: Accurate Measurement of Urinary Output in Critically Ill Patients Urinary Catheter Date of Insertion: 02/02/21 Urinary Catheter Time of Insertion: 08:35 Data Labs: Other Labs: Laboratory Results WBC 8.9 10^3/uL (4.0- 10.0) 02/05/21 05:02 RBC 3.31 10^6/uL (4.1 -5.3) L 02/05/21 05:02 Hgb 8.8 g/dL (11.7-16 .6) L 02/05/21 05:02 Hct 30.3 % (42.0-52.0 ) L 02/05/21 05:02 MCV 91.5 fL (80-94) 02/05/21 05:02 MCH 26.6 pg (28.0-34. 0) L 02/05/21 05:02 MCHC 29.0 g/dL (30.0-3 6.0) L 02/05/21 05:02 RDW 15.1 % (12.1-15.1 ) 02/05/21 05:02 Plt Count 227 10^3/cmm (130 -400) 02/05/21 05:02 MPV 8.9 fL (7.4-10.4) 02/05/21 05:02 Neut % (Auto) 65.6 % 02/05/21 05:02 Lymph % (Auto) 24.9 % 02/05/21 05:02 [place] % (Auto) 5.7 % 02/05/21 05:02 Eos % (Auto) 2.6 % 02/05/21 05:02 Baso % (Auto) 0.3 % 02/05/21 05:02 Neut # (Auto) 5.82 10^3/uL (1.8 -7.7) 02/05/21 05:02 Lymph # (Auto) 2.2 10^3/uL (0.8- 4.8) 02/05/21 05:02 [place] # (Auto) 0.5 10^3/uL (0.2- 0.9) 02/05/21 05:02 Eos # (Auto) 0.2 10^3/uL (0.0- 0.8) 02/05/21 05:02 Baso # (Auto) 0.0 10^3/uL (0.0- 0.1) 02/05/21 05:02 Nucleated RBC % (a uto) 0 % 02/05/21 05:02 Nucleated RBCs # 0.0 /100WBC 02/05/21 05:02 PT 15.60 SECONDS (12 .1-14.9) H 02/01/21 04:25 INR 1.21 (0.8-1.2) H 02/01/21 04:25 Specimen Type Arterial 02/05/21 04:50 Sample Site Radial, right 02/05/21 04:50 ABG pH 7.41 (7.35-7.45) 02/05/21 04:50 ABG pCO2 37.1 mmHg (35-45) 02/05/21 04:50 ABG pO2 125.0 mmHg (80.0- 100.0) H 02/05/21 04:50 ABG HCO3 23.6 mmol/L (22-2 6) 02/05/21 04:50 ABG O2 Saturation 99.7 02/05/21 04:50 ABG Base Excess -0.8 mmol/L (-2.0 -2.0) 02/05/21 04:50 Jann Test Pos 02/05/21 04:50 A-a O2 Gradient 5.5 mmHg (5-10) 02/05/21 04:50 Hematocrit 29.0 % (42-52) L 02/05/21 04:50 Hgb O2 Saturation 99.2 % (95-100) 02/05/21 04:50 Carboxyhemoglobin 0.8 %THgb (0.4-20 .1) 02/05/21 04:50 Methemoglobin < 0.0 % (0.4-1.5) L 02/05/21 04:50 Total Hemoglobin 9.4 g/dL (14-18) L 02/05/21 04:50 Sodium 154.0 mmol/L (131 -143) H 02/05/21 04:50 Potassium 3.9 mmol/L (3.5-5 .0) 02/05/21 04:50 Glucose 140.0 mg/dL (70-1 15) H 02/05/21 04:50 Ionized Calcium 1.1 mmol/L (1.1-1 .4) 02/05/21 04:50 O2 Delivery Device Vent 02/05/21 04:50 FiO2 30.0 % 02/05/21 04:50 Tidal Volume 0.45 02/05/21 04:50 PEEP 5.0 cmH20 02/05/21 04:50 Is Support Analyst ID Asher 02/05/21 04:50 Sodium 153 mmol/L (136-1 45) H 02/05/21 05:02 Potassium 4.0 mmol/L (3.5-5 .1) 02/05/21 05:02 Chloride 121 mmol/L (98-10 7) H 02/05/21 05:02 Carbon Dioxide 24 mmol/L (22-29) 02/05/21 05:02 Anion Gap 12.0 (5-19) 02/05/21 05:02 BUN 17 mg/dL (8-23) 02/05/21 05:02 Creatinine 0.9 mg/dL (0.7-1. 2) 02/05/21 05:02 GFR Calculation 84.2 mL/min (90-1 30) L 02/05/21 05:02 Glucose 131 mg/dL (65-115 ) H 02/05/21 05:02 POC Glucose 224 mg/dL (70-110 ) H 02/05/21 10:55 Estimat Average Gl ucose 458 02/01/21 04:25 Hemoglobin A1c 17.6 % (4.0-6.0) H 02/01/21 04:25 Calculated Osmolal ity 319 mOsm/kg (285- 295) H 02/05/21 05:02 Lactic Acid 2.4 mmol/L (0.5-2 .2) H 01/31/21 20:34 Lactic Acid (Sepsi s) 1.8 mmol/L (0.5-2 .2) 01/31/21 23:25 Lactate 2.3 mmol/L (0.5-2 .2) H 02/01/21 04:25 Uric Acid 11.2 mg/dL (3.4-7 .0) H 01/31/21 20:34 Calcium 7.2 mg/dL (8.5-10 .5) L 02/05/21 05:02 Phosphorus 2.7 mg/dL (2.5-4. 5) 02/05/21 05:02 Magnesium 1.9 mg/dL (1.7-2. 3) 02/05/21 05:02 Total Bilirubin 0.2 mg/dL (0.15-1 .2) 02/05/21 05:02 AST 15 U/L (0-40) 02/05/21 05:02 ALT 7 U/L (0-41) 02/05/21 05:02 Alkaline Phosphata se 100 IU/L (40-130) 02/05/21 05:02 Troponin T Baselin e 21 ng/L (0-15) H 01/31/21 16:56 Troponin T 120 Min [place] 20.70 ng/L (0-15) H 01/31/21 18:52 Delta Troponin T -0.30 ABS# (0-10) L 01/31/21 18:52 Troponin T Hi Sens 6Hr 26.43 ng/L (0-15) H 01/31/21 23:00 Troponin T Hi Sens 6Hr Delta 5.43 ng/L (0-12) 01/31/21 23:00 NT-Pro-B Natriuret Pep 407 pg/mL (0-125) H 02/05/21 05:02 Total Protein 5.1 g/dL (6.6-8.7 ) L 02/05/21 05:02 Albumin 2.2 g/dL (3.5-5.2 ) L 02/05/21 05:02 Globulin 2.9 g/dL (1.3-4.6 ) 02/05/21 05:02 Triglycerides 204 mg/dL (0-150) H 02/01/21 04:25 Cholesterol 100 mg/dL (0-200) 02/01/21 04:25 LDL Cholesterol, C alc 41 mg/dL (50-129) L 02/01/21 04:25 HDL Cholesterol 18 mg/dL (60-100) L 02/01/21 04:25 LDL/HDL Ratio 2.28 RATIO (0.00- 3.22) 02/01/21 04:25 Cholesterol/HDL Ra dominic 5.56 mg/dL (1.0-5 .00) H 02/01/21 04:25 Urine Color Straw (Yellow) 01/31/21 17:42 Urine Appearance Cloudy (CLEAR) 01/31/21 17:42 Urine pH 5 (5-7) 01/31/21 17:42 Ur Specific Gravit y 1.005 (1.005-1.0 30) 01/31/21 17:42 Urine Protein 1+ (Negative) H 01/31/21 17:42 Urine Glucose (UA) 4+ (Normal) H 01/31/21 17:42 Urine Ketones 1+ (Negative) H 01/31/21 17:42 Urine Blood 3+ (Negative) H 01/31/21 17:42 Urine Nitrate Negative (Negati ve) 01/31/21 17:42 Urine Bilirubin Neg (Negative) 01/31/21 17:42 Urine Urobilinogen Norm mg/dL (Negat deric) 01/31/21 17:42 Ur Leukocyte Kristen ase 2+ (Negative) H 01/31/21 17:42 Urine RBC 5-10 /hpf (0-2) H 01/31/21 17:42 Urine WBC 55-80 /hpf (0-5) H 01/31/21 17:42 Ur Squamous Epith Cells 0-4 /hpf (0-5) H 01/31/21 17:42 Amorphous Sediment Not Reportable 01/31/21 17:42 Urine Bacteria 1+ /hpf (NONE) H 01/31/21 17:42 Urine Yeast 3+ /hpf H 01/31/21 17:42 Vancomycin Trough 9.6 ug/mL (10-15) L 02/03/21 20:10 Serum Ketones Positive (Negati ve) H 01/31/21 16:36 SARS-CoV-2 Ag (Rap id) Negative (Negati ve) 02/03/21 11:20 Blood Type A Positive 01/31/21 20:34 Rho(D) Type Positive / 4+ 01/31/21 20:34 Antibody Screen Negative 01/31/21 20:34 Impressions Abdomen/Pelvis CT 01/31/21 17:17 IMPRESSION: 1. Severe and extensive Everton's gangrene as detailed in text above. 2. Free air within a distended urinary bladder. 3. Bilateral moderate severe hydronephrosis and hydroureter to the urinary bladder without visible ureterolithiasis. 4. Solitary tiny focus of nephrolithiasis left kidney. 5. Other nonurgent, nonemergent, chronic, and age related findings as detailed in text above. COMMENTS: Consistent with the [employer]'s Incidental Findings Committee white paper (J Am Hebert Radiol 2018): Any incidental renal lesion less than 1 cm or classified as too small to characterize, or any incidental cystic renal lesion characterized as simple-appearing, is likely benign. No follow-up imaging is recommended for these lesions per consensus recommendations based on imaging criteria. Radiation Dose CTDIVOL = (mGy): DLP = 2388.89 (mGy-cm) ADDENDUM: 01/31/21 192 THIS REPORT CONTAINS FINDINGS THAT MAY BE CRITICAL TO PATIENT CARE. The findings were verbally communicated via telephone conference with DONALD SAMANO at 7:15 PM CDT on 01/31/2021. The findings were acknowledged and understood. Radiation Dose CTDIVOL = (mGy): DLP = 2388.89 (mGy-cm) Chest X-Ray 02/05/21 04:00 Impression: 1. No change in position of multiple tubes. 2. Atherosclerosis. Micro: Micro: Microbiology 01/31/21 20:36 Gram Stain - Final Scrotum Tissue Culture - F inal Yessenia glabrat a 02/01/21 00:50 Gram Stain - Final Sputum - Endotrac heal Tube Aspirate Sputum Culture - F inal Yessenia glabrat a 01/31/21 20:36 Gram Stain - Final Scrotum Abscess Culture - Final Yessenia glabrat a 01/31/21 20:36 Anaerobic Culture - Preliminary Groin A&P Assessment and plan (1) Difficult ventilator weaning: Status: Acute (2) Septic shock: Status: Acute (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 (4) Necrotizing fasciitis of multiple sites: Status: Acute (5) Diabetic ketoacidosis: Status: Acute Qualifiers: Diabetes mellitus complication detail: without coma Diabetes mellitus type: type 2 Qualified Code(s): E11.10 - Type 2 diabetes mellitus with ketoacidosis without coma (6) Postoperative pain: Status: Acute (7) Hypernatremia: Status: Acute (8) Yessenia glabrata infection: Status: Acute #Consulted to help with extubation #Acute respiratory failure secondary to septic shock due to Everton's gangrene and necrotizing fasciitis-intubated on the day of admission 01/31/2021 #Septic shock-resolved #DKA on admission-resolved #Postoperative pain #Hypernatremia 153- On admission hyponatremia and patient was on NS -ABG today morning 7.4 1/37/125/20 3/99% on CMV 450/5/30 percent FiO2 -Chest x-ray: Unremarkable lungs -Extubated successfully to 3 L nasal cannula -Still has intermittent episodes of tachypnea secondary to postop pain -My understanding the anesthesiologist x ray control equipment repairer was consulted, and bupivacaine/ropivacaine was suggested, but it is contraindicated, because it will require an epidural which is contraindicated in this patient at this time, given the perineal surgery that he has had. -currently only on fentanyl 75 MCG per hour and Dilaudid 1 mg every 4 as needed for pain -plan is to continue Dilaudid 1 mg every 4 as needed and taper down fentanyl drip - start [place] 10-325 every 6 hour as needed once patient starts tolerating oral feeds -Afebrile, normal WBC; off pressor, hemodynamically stable -Urine culture, scrotum abscess culture, scrotum tissue culture, sputum Gram stain culture, all positive for Yessenia glabrata -blood culture positive for yeast species-identification pending -MRSA nares positive -Place patient on contact isolation -Currently on vancomycin, imipenem, fluconazole, clotrimazole topical -recommended to DC fluconazole and start on micafungin -DKA resolved; sugars controlled with Lantus 25 units at bedtime and scale coverage -On Colace 100 mg p.o. twice daily -Discontinue normal saline and repeat BMP in the evening if sodium still high-recommended D51/2 NS with target sodium 145 in 24 hours; monitor sugars while on D51\2NS -Renal functions and electrolytes are normal Recommendations conveyed to hospitalist, RN, RT covering the patient I will sign off the case at this point as I was consulted to help with extubation. Thank you for the consult and please feel free to reconsult if you need me. Procedures Arterial Line Size (Gauge): 20 Coding Level of Care Code Acute Robotics Mechanic for Chg Fwd Diagnoses Difficult ventilator weaning Z99.11 Septic shock A41.9; R65.21 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 N49.3 Necrotizing fasciitis of multiple sites M72.6 Diabetic ketoacidosis E11.10 Diabetes mellitus complication detail: without coma Diabetes mellitus type: type 2 Postoperative pain G89.18 Hypernatremia E87.0 Yessenia glabrata infection B37.9
--- NOTE | 2021-02-05 09:25 | PC.CHAP ---
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 roller print tender visit [] Patient/Family/Request visit [] Outpatient visit [] Follow-up visit [] Physician referral [] Code/Alert [x] Routine visit [] Staff referral [] Actively dying [] Patient sleeping [x] Family support [] [] Out of room [] Palliative care [] [] Receiving care in room [] Pre-surgical visit [] Trauma [] Long length of stay [x] ICU visit [x] Other: ventilator Relational/Emotional Strength [] Patient feels connected with others/family/visitors/staff [] Distress [] Loneliness/isolation [] Abandonment Spirituality of Patient [] Person of [place] [] Attends Mu-Ism of their [place] [] Believes in Prayer [] Reads Bible or Adventist materials [] There are Spiritual issues to be addressed Grade Tamper Interventions [x] Prayer [x] Active listening [x] Non-anxious presence [x] Spiritual/emotional support [] Crisis/trauma care [] Spiritual counseling [] Bereavement support [] Provided bereavement packet [] Provided Bible/devotional materials [] Provided toy/stuffed animal, coloring book to patient or family member [] Provided Communion [] Anointing/[place] [] Salvation [x] Completed spiritual assessment [] Other: Impact on Illness or Injury [] Angry [] Fearful [] Anxious [] Often cries [] Exhaustion [] Unable to work [] Unable to attend religious [] Unable to walk/stand [] Unable to read [] Unable to drive [] Unable to eat/drink [] Unable to sleep [] Unable to be with family [] Patient intubated [] Other: Summary sets 12 hours a day with patient... so very tired.. prayed with her for strength and his healing.. offered roller print tender services 15/02 just request... Time spent with patient 10 min
[2021-02-05] MEDS: enoxaparin 40 mg/0.4 mL Syringe SUBCUT (09:35)
--- NOTE | 2021-02-05 09:42 | PC.NURSE ---
RT extubated Pt to 3LNC per MD order. Tolerated well. Pain management seems to be main issue. Dilaudid 1mg given x3 doses this AM. Will monitor.
--- NOTE | 2021-02-05 09:43 | PC.RESP ---
extubated pt extubated and placed on 3lpm nc
--- NOTE | 2021-02-05 10:08 | PC.SOCIAL ---
IMM UPDATED Gave patient's IMM update at bedside. She verbalized understanding. 02/05/21 @ 0856. Initialed, dated, timed and placed in chart.
[2021-02-05] MEDS: LORazepam 2 mg/mL INJ 1 mL 1 MG IVP ×3 (10:16→20:34)
--- NOTE | 2021-02-05 10:17 | PC.NURSE ---
Pt unwilling to speak, refuses to follow my commands. Will leave wrist restraints in place until pt cooperative and does not pose risk of pulling out CVL.
[2021-02-05 11:07] LABS: Glucose Point of Care 224 mg/dL (70-110)
--- NOTE | 2021-02-05 11:08 | PC.NUTR ---
Nutrition assessment completed for LOS. Recommend advance diet as tolerated pending REFRIGERATOR REPAIRMAN evaluation of swallowing ability. If unable to consume oral diet with 3-5 more days (10 days total), recommend consideration of nutrition support if consistent with pt's plan of care. Nutrition support recommendations as follows: TPN: Clinimix 5/20, start at 10 ml/hr and increase by 10 ml/hr q 8 hours to goal rate of 83 ml/hr with 250 ml lipids per day, to provide 2260 kcal, 100 g protein. Consider addition of insulin to TPN. Tube feeding: Glucerna 1.2, start at 10 ml/hr and increase by 10 ml/hr q6 hours to goal rate of 80 ml/hr, with 100 ml H2O flushes q 4 hours to provide 2304 kcal, 116 g protein, 2146 ml H2O. Flushes to be adjusted per MD discretion given other fluid provision. Noted recommendations to be adjusted if re-intubation is required, as estimated needs will change. See RD assessment for further details.
[2021-02-05 17:01] LABS: ABG PCO2 32.7 mmHg (35-45); ABG PH Result 7.43 (7.35-7.45); Alveolar-Arterial Oxygen Gradi 14.3 mmHg (5-10); Arterial Blood Gas Hematocrit 32.7 % (42-52); Base Excess ABG -2.2 mmol/L (-2.0-2.0); Blood Gas Allen Test Pos; Blood Gas Operator Identificat MONRO; Blood Gas Sample Site Radial, right; Blood Gas Sample Type Arterial; Carboxyhemoglobin 1.1 %THgb (0.4-20.1); HCO3 ABG 21.6 mmol/L (22-26); HGB O2 Sat 95.7 % (95-100); Ionized Calcium Level - ABG 1.1 mmol/L (1.1-1.4); Methemoglobin 0.7 % (0.4-1.5); Oxygen Device NC; Oxygen Saturation ABG 97.4; PO2 ABG 77.2 mmHg (80.0-100.0); Potassium Level - ABG 3.7 mmol/L (3.5-5.0); Total Hemoglobin 10.7 g/dL (14-18)
[2021-02-05 18:11] LABS: Blood Urea Nitrogen 19 mg/dL (8-23); Calcium 7.7 mg/dL (8.5-10.5); Carbon Dioxide 22 mmol/L (22-29); Chloride 121 mmol/L (98-107); Glomerular Filtration Rate 74.5 mL/min (90-130); Glucose 148 mg/dL (65-115); Osmolality Calculated 325 mOsm/kg (285-295); Sodium 155 mmol/L (136-145)
--- NOTE | 2021-02-05 18:25 | PC.NURSE ---
PT lying in bed, still wont answer questions appropriately. Pain management has been difficult, unable to perform bedside swallow study. Will notify oncoming nurse. Fentanyl decreased to 50mcg. Will monitor.
[2021-02-05 18:26] LABS: Glucose Point of Care 161 mg/dL (70-110)
--- NOTE | 2021-02-05 19:00 | PC.NURSE ---
ASSUMING CARE Patient resting in bed on 3L nasal cannula. is at bedside. Patient will nod head appropriately and follow simple commands, but does not verbally respond. Fentanyl drip is running at 50 mcg/hour, per report, to begin decreasing fentanyl rate throughout the night. Stovall catheter in place and draining. Sutures and perineum packing in place. Right IJ CVL in place with blood return.
--- NOTE | 2021-02-05 20:38 | P.PN_ITS ---
Subjective Subjective: Interval history: Urology follow-up postoperative day #4 and #2 Patient was extubated today. No respiratory compromise since that time. He has been quite weak and sedated. Does respond to some commands but is been nonverbal. White count has normalized Creatinine is well at 1.0 He is hypernatremic. Hemoglobin 8.8 with no active bleeding. Wound inspection: No purulence draining. Skin edges look good with no necrosis. 3 of the ana were removed all of them advanced slightly. No accumulated fluid behind. Redressed with dry gauze sponges on top of the incision line. Wet to dry dressing ordered for penile skin. Reposition Stovall with catheter going toward the abdomen. Plan will be to continue removal of the wick dressings slowly, maintain Lennox for now. Chart reviewed. Appreciate hospitalist and critical care corporate bond trader assistance Vitals/I&O/Wt Last Vital Signs Temp 98.1 F 02/05/21 16:00 Pulse 112 H 02/05/21 18:00 Resp 19 H 02/05/21 19:37 BP 153/89 02/05/21 18:00 Pulse Ox 100 02/05/21 19:37 02/05/21 02/05/21 02/05/21 06:59 14:59 22:59 Intake Total 724.454 / 2424.629 186.125 / 186.125 516.50 / 702.625 Output Total 1100 / 2700 850 / 850 Balance -375.546 / -275.371 -663.875 / -663.875 516.50 / -147.375 Weight last 48 hrs Weight 264 lb 5 oz Physical Exam Narrative: EXAM NARRATIVE: Lethargic. Heavily sedated appearance Abdomen is soft. No palpable masses. Lower abdominal skin rash appears to be improving. Incision line looks healthy. A few of the ana were removed others advanced. No apparent skin breakdown on flap repair. Urinary Catheter Management^: Stovall: Cath Placed During This Visit: yes, but has since been removed by the nurse Reason for Continuing Indwelling Catheter: Accurate Measurement of Urinary Output in Critically Ill Patients Urinary Catheter Date of Insertion: 01/31/21 Date Urinary Catheter Removed: 02/02/21 Time Urinary Catheter Discontinued: 08:27 Stovall Latex: Cath Placed During This Visit: yes Reason for Continuing Indwelling Catheter: Accurate Measurement of Urinary Output in Critically Ill Patients Urinary Catheter Date of Insertion: 02/02/21 Urinary Catheter Time of Insertion: 08:35 Data : 02/05/21 05:02 02/05/21 17:28 Micro: Microbiology 01/31/21 20:36 Anaerobic Culture - Preliminary Groin 02/01/21 00:45 Blood Culture - Preliminary Blood Yeast species 01/31/21 17:42 Urine Culture - Final Urine,Clean Catch Yessenia glabrata 01/31/21 20:36 Gram Stain - Final Scrotum Tissue Culture - Final Yessenia glabrata 02/01/21 00:50 Gram Stain - Final Sputum - Endotracheal Tube Aspirate Sputum Culture - Final Yessenia glabrata 01/31/21 20:36 Gram Stain - Final Scrotum Abscess Culture - Final Yessenia glabrata A&P Assessment and plan (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 Wound closure looks good. Week dressings being slowly withdrawn. Status: Acute (2) Necrotizing fasciitis of multiple sites: Surgical debridement this morning Status: Acute (3) Gross hematuria: Resolved Status: Acute (4) Scrotal abscess: No evidence of reaccumulation on examination ye today sterday. 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
--- NOTE | 2021-02-05 20:45 | PC.NURSE ---
DR. MARTINES AT BEDSIDE Dr. Martines at bedside assessing perineal wound and redressing. Sutures in place and packing in place. Clean 4x4 placed over wound and to put wet to dry around head of penis. Physician to pull out some packing and reassess on 02/06.
[2021-02-05] MEDS: insulin glargine 100 units/1 mL 25 UNIT SUBCUT (21:11)
--- NOTE | 2021-02-05 23:12 | PM.PN ---
Subjective Subjective: Interval history: The patient was extubated today w/ Pulm/Crit's assistance. Pain control remains difficult to achieve. His blood cultures are positive for Yessenia Glabrata. Medications: Reviewed: Yes Vitals/I&O/Wt Last Vital Signs Temp 98.1 F 02/05/21 16:00 Pulse 112 H 02/05/21 18:00 Resp 19 H 02/05/21 19:37 BP 153/89 02/05/21 18:00 Pulse Ox 100 02/05/21 19:37 02/05/21 02/05/21 02/06/21 14:59 22:59 06:59 Intake Total 186.125 / 186.125 516.50 / 702.625 Output Total 850 / 850 Balance -663.875 / -663.875 516.50 / -147.375 Weight last 48 hrs Weight 119.89 kg Physical Exam HENMT: COMMON NORMALS: normocephalic, atraumatic, external ears normal and Normal external nose present HEAD & SCALP: normocephalic and atraumatic FACE & SINUS: normal facial exam NOSE: Normal external nose present EXTERNAL EAR: Yes external ears normal MOUTH: Normal oral and palatal mucosa present Eye: COMMON NORMALS: conjunctivae normal CONJUNCTIVA: Yes conjunctivae normal PUPIL: Yes Pinpoint pupils bilaterally (on fentanyl) EOM: No EOM abnormal Resp: COMMON NORMALS: clear to auscultation bilaterally AUSCULTATION: clear to auscultation bilaterally, no rales, no rhonchi and no wheezes Cardio: COMMON NORMALS: regular rate and regular rhythm RATE: regular rate RHYTHM: regular rhythm GI: COMMON NORMALS: Soft to palpation AUSCULTATION: Yes normoactive bowel sounds PALPATION: Yes Soft to palpation, No Tenderness to palpation present (GI), No Guarding due to palpation present (GI) and No Rigid due to palpation : MALE GROIN/PERINEUM EXAM: Yes other (s/p I&D due to everton's gangrene) Extremity: COMMON NORMALS: negative for no clubbing, cyanosis or edema GENERAL: No clubbing, No cyanosis and No edema Neuro: HENRI COMA SCALE: document GCS findings Henri coma scale eye opening: Spontaneous Henri coma scale verbal response: Sounds Henri coma scale motor response: Obey commands Henri coma scale total score: 12 Psych: OTHER: Unable to assess given that the patient is intubated. Urinary Catheter Management^: Stovall: Cath Placed During This Visit: yes, but has since been removed by the nurse Reason for Continuing Indwelling Catheter: Accurate Measurement of Urinary Output in Critically Ill Patients Urinary Catheter Date of Insertion: 01/31/21 Date Urinary Catheter Removed: 02/02/21 Time Urinary Catheter Discontinued: 08:27 Stovall Latex: Cath Placed During This Visit: yes Reason for Continuing Indwelling Catheter: Accurate Measurement of Urinary Output in Critically Ill Patients Urinary Catheter Date of Insertion: 02/02/21 Urinary Catheter Time of Insertion: 08:35 Data : 02/05/21 05:02 02/05/21 17:28 Micro: Microbiology 01/31/21 20:36 Anaerobic Culture - Preliminary Groin 02/01/21 00:45 Blood Culture - Preliminary Blood Yeast species 01/31/21 17:42 Urine Culture - Final Urine,Clean Catch Yessenia glabrata A&P Assessment and plan (1) Septic shock: Status: Acute (2) Necrotizing fasciitis of multiple sites: Status: Acute (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 (4) Urinary retention: Status: Acute (5) Acute kidney injury: Status: Acute (6) UTI (urinary tract infection): Status: Acute Qualifiers: Hematuria presence: without hematuria Urinary tract infection type: acute cystitis Qualified Code(s): N30.00 - Acute cystitis without hematuria (7) Hypertension: Status: Chronic (8) Diabetes: Status: Chronic (9) Diabetic ketoacidosis: Status: Acute Qualifiers: Diabetes mellitus complication detail: without coma Diabetes mellitus type: type 2 Qualified Code(s): E11.10 - Type 2 diabetes mellitus with ketoacidosis without coma (10) Scrotal abscess: Status: Acute (11) Bilateral hydronephrosis: Status: Acute Mr. Morales is a 65yo man w/ HTN, DM, who was admitted on 01/31/2021 for Septic shock, necrotizing gascitis, everton's gangrene of the scrotum, genitalia and perineum, diabetic ketoacidosis. He remains intubated. The wounds were evaluated by Urology on 02/04/2021. At this time, the barrier to extubation is pain control. Without adequate pain control, he breathes 50times a minute and becomes hypoxic. Neuro/Psych: Intubated and Sedated on Propofol, Dexmedetomidine, Versed pushes. Will wean Propofol and attempt versed drip. Also ordered Ketamine 10mg IVP and Dilaudid 1mg q4h prn in anticipation of extubation. CV: Septic shock: Off Levophed on 02/04 - goal is to wean. Maintain MAPS > 65. HTN- Monitor BP. Respiratory: #Acute hypoxic respiratory failure - Extubated GI: NGT. PPI. Roll Trucker consult in the AM. Renal/ID: #Necrotizing fascitis, everton's gangrene. - On Vanc/Imipenem for UTI. He needs to complete 14 days. # Candidemia: - Yessenia glabrata. ID consulted - Appreciate involvement. Caspofungin started 02/04. #Abnormal electrolytes - replace prn. # Hypernatremia: Will consider d5W in the AM vs having him drink water. Endo: #Diabetic ketoacidosis resolved. Increased Lantus. #Diabetes : Urology to change wounds. DVT ppx: Start Lovenox Attestations Medical Necessity Statement*: Continued hospitalization required for patient's septic shock, candidemia, necrotizing fasciitis and Everton's gangrene. 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
[2021-02-06] VITALS (49 sets, daily range): BP systolic 109–175; BP diastolic 64–131; PULSE 69–122; RESP 10–51; TEMP 36.6–36.9; O2SAT 88–100
[2021-02-06 02:37] LABS: Basophils # 0.1 10^3/uL (0.0-0.1); Basophils % 0.4 %; Eosinophils # 0.3 10^3/uL (0.0-0.8); Eosinophils % 2.2 %; Hematocrit 33.4 % (42.0-52.0); Hemoglobin 9.7 g/dL (11.7-16.6); Lymphocytes # 2.1 10^3/uL (0.8-4.8); Mean Corpuscular Hemoglobin 26.8 pg (28.0-34.0); Mean Corpuscular Volume 92.3 fL (80-94); Mean Platelet Volume 8.5 fL (7.4-10.4); Monocytes # 0.7 10^3/uL (0.2-0.9); Monocytes % 6.3 %; Neutrophils # 8.02 10^3/uL (1.8-7.7); Neutrophils % 71.7 %; Nucleated Red Blood Cells % 0 %; Platelet Count 246 10^3/cmm (130-400); Red Blood Count 3.62 10^6/uL (4.1-5.3); Red Cell Distribution Width 15.8 % (12.1-15.1); White Blood Count 11.2 10^3/uL (4.0-10.0)
[2021-02-06 03:09] LABS: Alanine Aminotransferase 10 U/L (0-41); Albumin Level 2.3 g/dL (3.5-5.2); Alkaline Phosphatase 162 IU/L (40-130); Aspartate Amino Transferase 22 U/L (0-40); Blood Urea Nitrogen 20 mg/dL (8-23); Calcium 7.5 mg/dL (8.5-10.5); Carbon Dioxide 23 mmol/L (22-29); Chloride 123 mmol/L (98-107); Globulin 3.2 g/dL (1.3-4.6); Glomerular Filtration Rate 66.8 mL/min (90-130); Glucose 136 mg/dL (65-115); Osmolality Calculated 329 mOsm/kg (285-295); Sodium 157 mmol/L (136-145); Total Bilirubin 0.2 mg/dL (0.15-1.2); Total Protein 5.5 g/dL (6.6-8.7)
[2021-02-06 03:10] LABS: Phosphorus 3.5 mg/dL (2.5-4.5)
[2021-02-06] MEDS: LORazepam 2 mg/mL INJ 1 mL 1 MG IVP ×2 (03:34→08:28)
--- NOTE | 2021-02-06 03:45 | PC.PHAR ---
RENAL DOSING FOR VANCOMYCIN, CRITICAL TROUGH 31, HOLD DOSE FOR 12 MORE HOURS AND DECREASE TO Q18H.
[2021-02-06] MEDS: HYDROmorphone 1 mg/mL INJ 1 mL IVP ×2 (05:54→12:58)
--- NOTE | 2021-02-06 06:55 | PC.NURSE ---
SHIFT SUMMARY Patients pain difficult to control throughout the night. Fentanyl drip slowly decreased to 20 mcg/hour and dilaudid and ativan given throughout the night. 1400 mL urine output.
--- NOTE | 2021-02-06 07:57 | PM.PN ---
Subjective Subjective: Interval history: Patient's pain was very difficult to control despite the Ativan pushes and Dilaudid pushes. The decision was made to try Precedex and gabapentin. Patient was also increasingly hypernatremic, and a form of feeding him was also a challenge. I consulted nutrition who put in recommendations for TPN, PPN and tube feeds. He was started on PPN. NGT was placed. He was also hyperglycemic and needed initiation of an insulin drip. Vitals/I&O/Wt Last Vital Signs Temp 98.5 F 02/06/21 06:25 Pulse 101 H 02/06/21 06:00 Resp 20 H 02/06/21 05:54 BP 140/86 02/06/21 04:30 Pulse Ox 95 02/06/21 05:54 02/05/21 02/06/21 02/06/21 22:59 06:59 14:59 Intake Total 766.50 / 952.625 140.183 / 1092.808 Output Total 1400 / 2250 Balance 766.50 / 102.625 -1259.817 / -1157.192 Weight last 48 hrs Weight 113.988 kg Physical Exam Const: GENERAL APPEARANCE: anxious, ill appearing and other (Distressed and uncomfortable due to pain) NUTRITIONAL APPEARANCE: overweight ORIENTATION/CONSCIOUSNESS: Yes Other orientation findings (Sedated but easily arousable) HENMT: COMMON NORMALS: normocephalic, atraumatic, hearing grossly normal bilaterally, external ears normal, moist oral mucous membranes and oropharynx normal HEAD & SCALP: normocephalic and atraumatic EXTERNAL EAR: Yes external ears normal THROAT: posterior oropharynx normal Eye: COMMON NORMALS: Equal, round and reactive pupils present, conjunctivae normal and no scleral icterus CONJUNCTIVA: Yes conjunctivae normal PUPIL: Yes Equal, round and reactive pupils present Neck/C-Spine: COMMON NORMALS: no lymphadenopathy, Thyroid normal and No carotid bruits GENERAL: No anterior neck swelling THYROID: Thyroid normal Resp: AUSCULTATION: crackles, no rales, no rhonchi and no wheezes Cardio: COMMON NORMALS: regular rate and regular rhythm RATE: regular rate RHYTHM: regular rhythm HEART SOUNDS: no click, no gallops, no murmurs and no rubs GI: COMMON NORMALS: Soft to palpation, non-tender, No hepatosplenomegaly present, no masses and no bruits PALPATION: Yes Soft to palpation, No Firmness to palpation present (GI), No Guarding due to palpation present (GI), No Rigid due to palpation, Yes No hepatosplenomegaly present and No Rebound tenderness present : OTHER: Surgical incision on the scrotum penis and perineum. Extremity: COMMON NORMALS: normal to inspection and full ROM GENERAL: No clubbing, No cyanosis and Yes edema (mild b/l pedal edema) Neuro: HENRI COMA SCALE: document GCS findings Henri coma scale eye opening: Spontaneous Henri coma scale verbal response: Confused [place] coma scale motor response: Obey commands [place] coma scale total score: 14 Urinary Catheter Management^: Stovall: Cath Placed During This Visit: yes, but has since been removed by the nurse Reason for Continuing Indwelling Catheter: Accurate Measurement of Urinary Output in Critically Ill Patients Urinary Catheter Date of Insertion: 01/31/21 Date Urinary Catheter Removed: 02/02/21 Time Urinary Catheter Discontinued: 08:27 Stovall Latex: Cath Placed During This Visit: yes Reason for Continuing Indwelling Catheter: Assist healing open wound Urinary Catheter Date of Insertion: 02/02/21 Urinary Catheter Time of Insertion: 08:35 Data : 02/07/21 08:29 02/07/21 08:29 Micro: Microbiology 01/31/21 23:25 Blood Culture - Final Blood NO GROWTH AFTER 5 DAYS 01/31/21 20:36 Anaerobic Culture - Preliminary Groin 02/01/21 00:45 Blood Culture - Preliminary Blood Yeast species 01/31/21 17:42 Urine Culture - Final Urine,Clean Catch Yessenia glabrata A&P Assessment and plan (1) Septic shock: Status: Acute (2) Necrotizing fasciitis of multiple sites: Status: Acute (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 (4) Urinary retention: Status: Acute (5) Acute kidney injury: Status: Acute (6) UTI (urinary tract infection): Status: Acute Qualifiers: Hematuria presence: without hematuria Urinary tract infection type: acute cystitis Qualified Code(s): N30.00 - Acute cystitis without hematuria (7) Hypertension: Status: Chronic (8) Diabetes: Status: Chronic (9) Diabetic ketoacidosis: Status: Acute Qualifiers: Diabetes mellitus complication detail: without coma Diabetes mellitus type: type 2 Qualified Code(s): E11.10 - Type 2 diabetes mellitus with ketoacidosis without coma (10) Scrotal abscess: Status: Acute (11) Bilateral hydronephrosis: Status: Acute Mr. Morales is a 65yo man w/ HTN, DM, who was admitted on 01/31/2021 for Septic shock, necrotizing gascitis, everton's gangrene of the scrotum, genitalia and perineum, diabetic ketoacidosis. He remains intubated. The wounds were evaluated by Urology on 02/04/2021. At this time, the barrier to extubation is pain control. Without adequate pain control, he breathes 50times a minute and becomes hypoxic. Neuro/Psych: Extubated on 02/05/2021. On Dexmedetomidine, fentanyl and gabapentin for pain. d/c'ed Ketamine 10mg IVP, Dilaudid 1mg q4h prn in anticipation of extubation. CV: Septic shock: Off Levophed on 02/04. Maintain MAPS > 65. HTN- Monitor BP. Respiratory: #Acute hypoxic respiratory failure - Extubated GI: NGT. PPI. Residential Field Manager consulted who placed, PPN and tube feed recs. Renal/ID: #Necrotizing fascitis, everton's gangrene. - On Vanc/Imipenem for UTI. He needs to complete 14 days. - Wound changes per Urology # Candidemia: - Yessenia glabrata. ID consulted - Appreciate involvement. Caspofungin started 02/04. - Remove R. IJ central line. #Abnormal electrolytes - replace prn. # Hypernatremia: On D5W w/ insulin drip initiated . Endo: #Diabetic ketoacidosis resolved. #Diabetes - On Insulin drip : Urology to change wounds. DVT ppx: Start Lovenox Attestations Medical Necessity Statement*: Patient requires continued hospitalization in the ICU due to electrolyte abnormalities that include hyponatremia, hyperglycemia, candidemia, in the setting of pain that is difficult to control due to his surgery. Critical Care Time: Greater than 60minutes of face to face time was spent taking care of this patient. 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
[2021-02-06] MEDS: dextrose 5% 1,000 ML 125 ML IV ×2 (08:38→16:53)
[2021-02-06] MEDS: insulin regular-human 250 UNIT in sodium chloride 0.9% 250 ML IV (08:50)
--- NOTE | 2021-02-06 09:07 | XR_ITS ---
WS: [id number] Portable AP semiupright chest, 02/06/2021 Clinical Data: NGT placement Comparison: Portable chest, 02/05/2021 Findings: The right subclavian catheter and nasogastric tube are in good position. The nasogastric tu be ends in the body of stomach. The endotracheal tube has been removed. There is minimal atelectasis over the surface of the left diaphragm. No nodules, masses or effusions are seen. The heart size is t he same. The aortic arch and descending aorta show tortuosity. XR/XR chest 1V portable [id number] Impression: 1. Satisfactory position of right subclavian catheter and nasogastric tube. 2. Atherosclerosis and minimal atelectasis in the left lower lobe.
[2021-02-06 09:12] LABS: Glucose Point of Care 143 mg/dL (70-110)
--- NOTE | 2021-02-06 09:15 | PM.CONSULT ---
Providers/Reason For Consult Consulting Physician/Specialty*: Anusha Booth MD/Infectious disease Reason for Consult*: Candidemia Attending Physician: Eunice Barrett MD Primary Care Provider: Franklin Aguilar MD History of Present Illness History of Present Illness Andrew Pabon is a 65 year old male who presented to the emergency room on January 31, 2021 with chief complains of fatigue lethargy, groin rash that he had been trying to treat for the past 1 month with topical antifungals and antibacterial agents and also p.o. Bactrim. He became weak to the point that he could not move around and was very dehydrated. 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 He also developed severe metabolic complications as a result of diabetic ketoacidosis. He was taken urgently to the OR on the same day for debridement of necrotizing fasciitis involving the genitalia perineum and abdominal wall. He underwent incision and drainage of multiple deep scrotal perineal perianal and inguinal abscesses. Taken back to the OR on February 02, 2021 for wound recheck at which point the base looked healthy. No further fluctuance or purulence was noted on this date. Scrotum was reconstructed using several flaps. Postop course was notable for prolonged intubation, ultimately extubated on February 05 with input from pulmonary. Since debridement his white blood cell count has trended down from 22-11. He has remained afebrile. Currently off pressors. Microbiology data significant for urine and wound cultures with Yessenia glabrata. Additionally blood culture from February 01, 2021 also resulted with Yessenia glabrata. Patient is currently on treatment with imipenem, vancomycin and caspofungin. Since extubation yesterda he remains lethargic, somnolent. RIJ catheter placed 01/31 Caspofungin started 02/05- current Imipenem 02/01-current vancomycin 02/01-current Review of Systems General: Reports: ROS unobtainable due to mental status Meds/Allergies Home Medications and Allergies Home Medications Medication Instructions Recorded Confirmed Last Taken Type amoxicillin-pot clavulanate 1 tab PO BID 01/31/21 01/31/21 Unknown History [Augmentin] fluconazole [Diflucan] 200 mg PO DAILY 01/31/21 01/31/21 Unknown History ketoconazole See Rx Instructions .ROUTE .COMPLEX 01/31/21 01/31/2121 History lisinopril 5 mg PO DAILY 01/31/21 01/31/21 01/31/21 History metformin 500 mg PO BID 01/31/21 01/31/21 01/30/21 History nystatin See Rx Instructions .ROUTE .COMPLEX 01/31/21 01/31/21 Unknown History sulfamethoxazole-trimethoprim 1 tab PO BID 01/31/21 01/31/21 01/31/21 History triamcinolone acetonide See Rx Instructions .ROUTE .COMPLEX 01/31/21 01/31/21 01/31/21 History Allergies Allergy/AdvReac Type Severity Reaction Status Date / Time nitrofurantoin Allergy Unknown Verified 01/31/21 16:16 Current Medications Current Medications Generic Name Dose Route Start Last Admin Trade Name Freq PRN Reason Stop Dose Admin Clotrimazole 1 applic 02/04/21 09:00 02/05/21 18:01 Clotrimazole 1% Cream 30 Gm TOPICAL 1 applic BID JENISE Administration Docusate Sodium 100 mg 02/01/21 09:00 02/05/21 17:09 Docusate Sodium 100 Mg Capsule PO Not Given BID JENISE Enoxaparin Sodium 40 mg 02/04/21 09:45 02/05/21 09:35 Enoxaparin 40 Mg/0.4 Ml Syringe SUBCUT 40 mg Q24H JENISE Administration Hydromorphone HCl 1 mg 02/04/21 08:50 02/06/21 05:54 Hydromorphone 1 Mg/Ml Inj 1 Ml IVP 1 mg Q4H PRN Administration PAIN Fentanyl 1,000 mcg/ Sodium 100 mls @ 0 mls/hr 02/05/21 04:15 02/06/21 06:06 Chloride IV 20 mcg/hr .Q0M JENISE 2 mls/hr Titration Protocol Per Protocol Insulin Human Regular 250 unit 252.5 mls @ 0 mls/hr 02/06/21 08:00 02/06/21 08:50 / Sodium Chloride IV 2.8 unit/hr .Q0M JENISE 2.83 mls/hr Administration Protocol Per Protocol Dextrose 1,000 mls @ 125 mls/hr 02/06/21 08:00 02/06/21 08:38 D5w IV 125 mls/hr .Q8H JENISE Administration Ketamine HCl 10 mg 02/04/21 09:00 07/14/21 10:10 Ketamine 50 Mg/Ml Inj 10 Ml IV 10 mg Q4H PRN Administration SEVERE ACUTE BREAKTHROUGH PAIN Lactobacillus Acidophilus 1 tab 02/01/21 09:00 02/05/21 17:10 Lactobacillus 1 Tablet PO Not Given BID JENISE Lorazepam 1 mg 02/04/21 13:42 02/06/21 08:28 Lorazepam 2 Mg/Ml Inj 1 Ml IVP 1 mg Q2H PRN Administration ANXIETY Pantoprazole Sodium 40 mg 02/01/21 09:00 02/05/21 08:[address] 40 Mg Tablet PO 40 mg DAILY JENISE Administration PFSH Acute PFSH: Medical History Diabetes Hypertension Necrotizing fasciitis of multiple sites Obesity Surgical History Status post hernia repair Family History Other CAD (coronary artery disease) Cancer Denies family history of Anesthesia complication Bleeding disorder Social History Smoking and tobacco status: former smoker Alcohol intake: never Substance/Drug Use: never Household members: spouse Vitals/I&O/Wt Last Vital Signs Temp 98.5 F 02/06/21 06:25 Pulse 101 H 02/06/21 06:00 Resp 20 H 02/06/21 05:54 BP 140/86 02/06/21 04:30 Pulse Ox 95 02/06/21 05:54 02/05/21 02/06/21 02/06/21 22:59 06:59 14:59 Intake Total 766.50 / 952.625 140.183 / 1092.808 Output Total 1400 / 2250 Balance 766.50 / 102.625 -1259.817 / -1157.192 Weight last 48 hrs Weight 113.988 kg Physical Exam Narrative: EXAM NARRATIVE: GEN: somnolent, lethargic, follows commands to information technology intern fingers, move fingers and toes CVS: S1S2 N, no MRG RS: CTA B/L anteriorly Abd: Soft, nt/nd , bs+ CUFF FOLDER: no focal neuro deficits Urinary Catheter Management^: Stovall: Cath Placed During This Visit: yes, but has since been removed by the nurse Reason for Continuing Indwelling Catheter: Accurate Measurement of Urinary Output in Critically Ill Patients Urinary Catheter Date of Insertion: 01/31/21 Date Urinary Catheter Removed: 02/02/21 Time Urinary Catheter Discontinued: 08:27 Stovall Latex: Cath Placed During This Visit: yes Reason for Continuing Indwelling Catheter: Assist healing open wound Urinary Catheter Date of Insertion: 02/02/21 Urinary Catheter Time of Insertion: 08:35 Data Micro: Micro: Microbiology 01/31/21 23:25 Blood Culture - Fi nal Blood NO GROWTH AFTER 5 DAYS 01/31/21 20:36 Anaerobic Culture - Preliminary Groin 02/01/21 00:45 Blood Culture - Pr eliminary Blood Yeast species 01/31/21 17:42 Urine Culture - Fi nal Urine,Clean Catch Yessenia glabrat a Other Data: Attestation for Other Data: I personally reviewed and interpreted the following: Other data: Laboratory Results WBC 11.2 10^3/uL (4.0 -10.0) H 02/06/21 02:21 RBC 3.62 10^6/uL (4.1 -5.3) L 02/06/21 02:21 Hgb 9.7 g/dL (11.7-16 .6) L 02/06/21 02:21 Hct 33.4 % (42.0-52.0 ) L 02/06/21 02:21 MCV 92.3 fL (80-94) 02/06/21 02:21 MCH 26.8 pg (28.0-34. 0) L 02/06/21 02:21 MCHC 29.0 g/dL (30.0-3 6.0) L 02/06/21 02:21 RDW 15.8 % (12.1-15.1 ) H 02/06/21 02:21 Plt Count 246 10^3/cmm (130 -400) 02/06/21 02:21 MPV 8.5 fL (7.4-10.4) 02/06/21 02:21 Neut % (Auto) 71.7 % 02/06/21 02:21 Lymph % (Auto) 19.0 % 02/06/21 02:21 Oliver % (Auto) 6.3 % 02/06/21 02:21 Eos % (Auto) 2.2 % 02/06/21 02:21 Baso % (Auto) 0.4 % 02/06/21 02:21 Neut # (Auto) 8.02 10^3/uL (1.8 -7.7) H 02/06/21 02:21 Lymph # (Auto) 2.1 10^3/uL (0.8- 4.8) 02/06/21 02:21 Oliver # (Auto) 0.7 10^3/uL (0.2- 0.9) 02/06/21 02:21 Eos # (Auto) 0.3 10^3/uL (0.0- 0.8) 02/06/21 02:21 Baso # (Auto) 0.1 10^3/uL (0.0- 0.1) 02/06/21 02:21 Nucleated RBC % (a uto) 0 % 02/06/21 02:21 Nucleated RBCs # 0.0 /100WBC 02/06/21 02:21 PT 15.60 SECONDS (12 .1-14.9) H 02/01/21 04:25 INR 1.21 (0.8-1.2) H 02/01/21 04:25 Specimen Type Arterial 02/05/21 16:49 Sample Site Radial, right 02/05/21 16:49 ABG pH 7.43 (7.35-7.45) 02/05/21 16:49 ABG pCO2 32.7 mmHg (35-45) L 02/05/21 16:49 ABG pO2 77.2 mmHg (80.0-1 00.0) L 02/05/21 16:49 ABG HCO3 21.6 mmol/L (22-2 6) L 02/05/21 16:49 ABG O2 Saturation 97.4 02/05/21 16:49 ABG Base Excess -2.2 mmol/L (-2.0 -2.0) L 02/05/21 16:49 Jann Test Pos 02/05/21 16:49 A-a O2 Gradient 14.3 mmHg (5-10) H 02/05/21 16:49 Hematocrit 32.7 % (42-52) L 02/05/21 16:49 Hgb O2 Saturation 95.7 % (95-100) 02/05/21 16:49 Carboxyhemoglobin 1.1 %THgb (0.4-20 .1) 02/05/21 16:49 Methemoglobin 0.7 % (0.4-1.5) 02/05/21 16:49 Total Hemoglobin 10.7 g/dL (14-18) L 02/05/21 16:49 Sodium 157.0 mmol/L (131 -143) H 02/05/21 16:49 Potassium 3.7 mmol/L (3.5-5 .0) 02/05/21 16:49 Glucose 149.0 mg/dL (70-1 15) H 02/05/21 16:49 Ionized Calcium 1.1 mmol/L (1.1-1 .4) 02/05/21 16:49 O2 Delivery Device Nc 02/05/21 16:49 O2 Liters/Min 3.0 % 02/05/21 16:49 FiO2 32.0 % 02/05/21 16:49 Tidal Volume 0.45 02/05/21 04:50 PEEP 5.0 cmH20 02/05/21 04:50 Switch Inspector ID Monro 02/05/21 16:49 Sodium 154 mmol/L (136-1 45) H 02/06/21 15:01 Potassium 4.0 mmol/L (3.5-5 .1) 02/06/21 15:01 Chloride 123 mmol/L (98-10 7) H 02/06/21 15:01 Carbon Dioxide 19 mmol/L (22-29) L 02/06/21 15:01 Anion Gap 16.0 (5-19) 02/06/21 15:01 BUN 18 mg/dL (8-23) 02/06/21 15:01 Creatinine 1.0 mg/dL (0.7-1. 2) 02/06/21 15:01 GFR Calculation 74.5 mL/min (90-1 30) L 02/06/21 15:01 Glucose 131 mg/dL (65-115 ) H 02/06/21 15:01 POC Glucose 121 mg/dL (70-110 ) H 02/06/21 20:34 Estimat Average Gl ucose 458 02/01/21 04:25 Hemoglobin A1c 17.6 % (4.0-6.0) H 02/01/21 04:25 Calculated Osmolal ity 322 mOsm/kg (285- 295) H 02/06/21 15:01 Lactic Acid 2.4 mmol/L (0.5-2 .2) H 01/31/21 20:34 Lactic Acid (Sepsi s) 1.8 mmol/L (0.5-2 .2) 01/31/21 23:25 Lactate 2.3 mmol/L (0.5-2 .2) H 02/01/21 04:25 Uric Acid 11.2 mg/dL (3.4-7 .0) H 01/31/21 20:34 Calcium 7.5 mg/dL (8.5-10 .5) L 02/06/21 15:01 Phosphorus 3.5 mg/dL (2.5-4. 5) 02/06/21 02:21 Magnesium 2.0 mg/dL (1.7-2. 3) 02/06/21 02:21 Total Bilirubin 0.2 mg/dL (0.15-1 .2) 02/06/21 02:21 AST 22 U/L (0-40) 02/06/21 02:21 ALT 10 U/L (0-41) 02/06/21 02:21 Alkaline Phosphata se 162 IU/L (40-130) H 02/06/21 02:21 Troponin T Baselin e 21 ng/L (0-15) H 01/31/21 16:56 Troponin T 120 Min irvin 20.70 ng/L (0-15) H 01/31/21 18:52 Delta Troponin T -0.30 ABS# (0-10) L 01/31/21 18:52 Troponin T Hi Sens 6Hr 26.43 ng/L (0-15) H 01/31/21 23:00 Troponin T Hi Sens 6Hr Delta 5.43 ng/L (0-12) 01/31/21 23:00 NT-Pro-B Natriuret Pep 407 pg/mL (0-125) H 02/05/21 05:02 Total Protein 5.5 g/dL (6.6-8.7 ) L 02/06/21 02:21 Albumin 2.3 g/dL (3.5-5.2 ) L 02/06/21 02:21 Globulin 3.2 g/dL (1.3-4.6 ) 02/06/21 02:21 Triglycerides 204 mg/dL (0-150) H 02/01/21 04:25 Cholesterol 100 mg/dL (0-200) 02/01/21 04:25 LDL Cholesterol, C alc 41 mg/dL (50-129) L 02/01/21 04:25 HDL Cholesterol 18 mg/dL (60-100) L 02/01/21 04:25 LDL/HDL Ratio 2.28 RATIO (0.00- 3.22) 02/01/21 04:25 Cholesterol/HDL Ra dominic 5.56 mg/dL (1.0-5 .00) H 02/01/21 04:25 Urine Color Straw (Yellow) 01/31/21 17:42 Urine Appearance Cloudy (CLEAR) 01/31/21 17:42 Urine pH 5 (5-7) 01/31/21 17:42 Ur Specific Gravit y 1.005 (1.005-1.0 30) 01/31/21 17:42 Urine Protein 1+ (Negative) H 01/31/21 17:42 Urine Glucose (UA) 4+ (Normal) H 01/31/21 17:42 Urine Ketones 1+ (Negative) H 01/31/21 17:42 Urine Blood 3+ (Negative) H 01/31/21 17:42 Urine Nitrate Negative (Negati ve) 01/31/21 17:42 Urine Bilirubin Neg (Negative) 01/31/21 17:42 Urine Urobilinogen Norm mg/dL (Negat deric) 01/31/21 17:42 Ur Leukocyte Kristen ase 2+ (Negative) H 01/31/21 17:42 Urine RBC 5-10 /hpf (0-2) H 01/31/21 17:42 Urine WBC 55-80 /hpf (0-5) H 01/31/21 17:42 Ur Squamous Epith Cells 0-4 /hpf (0-5) H 01/31/21 17:42 Amorphous Sediment Not Reportable 01/31/21 17:42 Urine Bacteria 1+ /hpf (NONE) H 01/31/21 17:42 Urine Yeast 3+ /hpf H 01/31/21 17:42 Vancomycin Trough 31.0 ug/mL (10-15 ) H* 02/06/21 02:21 Serum Ketones Positive (Negati ve) H 01/31/21 16:36 SARS-CoV-2 Ag (Rap id) Negative (Negati ve) 02/03/21 11:20 Blood Type A Positive 01/31/21 20:34 Rho(D) Type Positive / 4+ 01/31/21 20:34 Antibody Screen Negative 01/31/21 20:34 Impressions Abdomen/Pelvis CT 01/31/21 17:17 IMPRESSION: 1. Severe and extensive Yovanny's gangrene as detailed in text above. 2. Free air within a distended urinary bladder. 3. Bilateral moderate severe hydronephrosis and hydroureter to the urinary bladder without visible ureterolithiasis. 4. Solitary tiny focus of nephrolithiasis left kidney. 5. Other nonurgent, nonemergent, chronic, and age related findings as detailed in text above. Chest X-Ray 02/06/21 09:07 Impression: 1. Satisfactory position of right subclavian catheter and nasogastric tube. 2. Atherosclerosis and minimal atelectasis in the left lower lobe. 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 (3) Necrotizing fasciitis of multiple sites: Status: Acute (4) UTI (urinary tract infection): Status: Acute Qualifiers: Hematuria presence: without hematuria Urinary tract infection type: acute cystitis Qualified Code(s): N30.00 - Acute cystitis without hematuria (5) Diabetes: Status: Chronic (6) Scrotal abscess: Status: Acute (7) Candidemia: Status: Acute (8) Intertrigo: Status: Acute Additional A&P Information 65-year-old male admitted on January 31, 2021 after presenting with DKA and Yovanny's gangrene likely precipitated by severe intertrigo which she had been trying to treat as outpatient for the past several weeks. CT upon admission consistent with severe emphysematous changes involving the soft tissues of the scrotum extending up to the level of the prostate. Multiple abscesses encountered intraoperatively. He is status post I&D on 01/31 and closure on . As of the most recent OR wound bed appeared to be clean. Urine, wound,respiratory cultures with Yessenia glabrata. Blood culture additionally positive for yeast, most likely to be Yessenia glabrata. #Septic shock as a result of Yovanny's gangrene, shock now resolved #Severe intertrigo #Candidemia/disseminated candidiasis Continue caspofungin, received 70 mg loading dose on February 05, now currently on 50 mg IV every 24 hours. Blood isolate identified as the species, presumably also Yessenia glabrata given colonization at all other sites. Discussed with micro lab to send out susceptibilities to outside lab. Recommend to continue caspofungin until susceptibilities are available as glabrata species may have variable susceptibility to fluconazole. Recheck blood culture today and tomorrow. Recommend removal of right IJ CVC and switch to peripheral access. Hold off on any PICC line or midlines until blood culture clearance demonstrated for at least 72 to 96 hours. Yovanny's gangrene most often tends to be a polymicrobial infection therefore recommend continuing antibiotics. Absence of bacterial growth from wound cultures may be as a result of outpatient antibiotic use prior to admission. Patient was on Bactrim and per H&P also possibly a beta-lactam. Vancomycin trough at 31, hold for today, recheck trough with a.m. labs and redose. MRSA nasal screen is positive. Change imipenem to piperacillin tazobactam as no evidence of ESBL bacteria on cultures. Continue to monitor fever curve, leukocytosis Patient appears to be clinically improving Recommend ophthalmology exam in about 2 weeks to rule out fungal endophthalmitis. His exam to be completed sooner if patient starts developing visual disturbances. Altered mental status most likely related to metabolic encephalopathy which is multifactorial from sepsis, hypernatremia, recent intubation. If continues to be encephalopathic in another 48 hours, recommend obtaining CT head to rule out septic embolization. 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
--- NOTE | 2021-02-06 09:24 | PC.CHAP ---
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 cardiology technologist visit [] Patient/Family/Request visit [] Outpatient visit [] Follow-up visit [] Physician referral [] Code/Alert [x] Routine visit [] Staff referral [] Actively dying [] Patient sleeping [x] Family support [] [] Out of room [] Palliative care [] [x] Receiving care in room [] Pre-surgical visit [] Trauma [] Long length of stay [x] ICU visit [] Other: Relational/Emotional Strength [] Patient feels connected with others/family/visitors/staff [] Distress [] Loneliness/isolation [] Abandonment Spirituality of Patient [] Person of [place] [] Attends Religious of their [place] [] Believes in Prayer [] Reads Bible or Yazdanism materials [] There are Spiritual issues to be addressed Hook And Eye Machine Operator Interventions [x] Prayer [x] Active listening [x] Non-anxious presence [x] Spiritual/emotional support [] Crisis/trauma care [] Spiritual counseling [] Bereavement support [] Provided bereavement packet [] Provided Bible/devotional materials [] Provided toy/stuffed animal, coloring book to patient or family member [] Provided Communion [] Anointing/[place] [] Salvation [x] Completed spiritual assessment [] Other: Impact on Illness or Injury [] Angry [] Fearful [] Anxious [] Often cries [] Exhaustion [] Unable to work [] Unable to attend mormon [] Unable to walk/stand [] Unable to read [] Unable to drive [] Unable to eat/drink [] Unable to sleep [] Unable to be with family [] Patient intubated [] Other: Summary patient not able to respond to conversation, but coloring was better today ... spoke with ... prayed for strength Time spent with patient 10 mn
[2021-02-06 10:09] LABS: Glucose Point of Care 152 mg/dL (70-110)
[2021-02-06 10:13] LABS: Glucose Point of Care 171 mg/dL (70-110)
--- NOTE | 2021-02-06 10:13 | PC.NUTR ---
PPN consult: Recommend Clinimix 4.25/10, start at 10 ml/hr and increase by 10 ml/hr q 8 hours until goal rate of 83 ml/hr, with 125 ml lipids per day, to provide 1270 kcal, 85 g protein, 200 g dextrose. Will not add insulin at this time per MD. Recommend gradually decrease D5W per MD discretion with increase in PPN for glucose control, as current D5W providing 510 kcal and 150 g CHO. Noted PPN will not meet estimated nutritional needs. If to be received greater than 3-5 days, recommend consideration of TPN for increased kcal/protein provision. See RD assessment for further details.
[2021-02-06] MEDS: clotrimazole 1% cream 30 gm 1 APPLIC TOPICAL ×2 (10:17→18:43)
[2021-02-06] MEDS: enoxaparin 40 mg/0.4 mL Syringe SUBCUT (10:31)
[2021-02-06 11:06] LABS: Glucose Point of Care 197 mg/dL (70-110)
[2021-02-06 12:19] LABS: Glucose Point of Care 142 mg/dL (70-110)
[2021-02-06 13:23] LABS: Glucose Point of Care 144 mg/dL (70-110)
[2021-02-06 14:26] LABS: Glucose Point of Care 142 mg/dL (70-110)
[2021-02-06] MEDS: HYDROcodone-acetaminophen 10-325 mg Tablet PO (14:40)
[2021-02-06 15:31] LABS: Blood Urea Nitrogen 18 mg/dL (8-23); Calcium 7.5 mg/dL (8.5-10.5); Carbon Dioxide 19 mmol/L (22-29); Chloride 123 mmol/L (98-107); Glomerular Filtration Rate 74.5 mL/min (90-130); Glucose 131 mg/dL (65-115); Osmolality Calculated 322 mOsm/kg (285-295); Sodium 154 mmol/L (136-145)
[2021-02-06 15:34] LABS: Glucose Point of Care 152 mg/dL (70-110)
--- NOTE | 2021-02-06 17:30 | PC.NURSE ---
call placed to Dr lees about patients increased respirations at bedside verbal instructions to start precedex per protocol and gabapentin 300 mg TID
[2021-02-06 17:58] LABS: Glucose Point of Care 102 mg/dL (70-110)
[2021-02-06 17:58] LABS: Glucose Point of Care 120 mg/dL (70-110)
[2021-02-06] MEDS: dexmedetomidine 400 MCG in sodium chloride 0.9% (100 ml) 100 ML IV (18:42)
[2021-02-06] MEDS: nystatin powder 15 gm Btl 1 APPLIC TOPICAL (18:43)
--- NOTE | 2021-02-06 19:07 | P.PN_ITS ---
Subjective Subjective: Interval history: Urology follow-up. More arousable today. Confused. Responds to stimuli. Wound check: A few more ana were removed. Skin looks healthy. There was some purulence in the very distal/posterior portion of the incision with pressure on the wound. [place] drain in place. Reviewed dressing and protection technique with nursing staff. Will replace the maternity briefs. Vitals/I&O/Wt Last Vital Signs Temp 98.5 F 02/06/21 06:25 Pulse 98 02/06/21 18:00 Resp 19 H 02/06/21 18:00 BP 170/118 02/06/21 18:00 Pulse Ox 93 02/06/21 18:00 02/06/21 02/06/21 02/06/21 06:59 14:59 22:59 Intake Total 140.183 / 1092.808 119.646 / 983.122 7480.261 / 2247.907 Output Total 1400 / 2250 900 / 900 Balance -1259.817 / -1157.192 119.646 / 191.775 6468.261 / 1347.907 Weight last 48 hrs Weight 251 lb 4.8 oz Physical Exam Narrative: EXAM NARRATIVE: Altered mental status. Lymph: LYMPHATIC: no lymphadenopathy noted : OTHER: Skin margins look healthy. No purulence in the upper portion of the wound. There is some in the lower portion. Urinary Catheter Management^: Stovall: Cath Placed During This Visit: yes, but has since been removed by the nurse Reason for Continuing Indwelling Catheter: Accurate Measurement of Urinary Output in Critically Ill Patients Urinary Catheter Date of Insertion: 01/31/21 Date Urinary Catheter Removed: 02/02/21 Time Urinary Catheter Discontinued: 08:27 Stovall Latex: Cath Placed During This Visit: yes Reason for Continuing Indwelling Catheter: Accurate Measurement of Urinary Output in Critically Ill Patients Urinary Catheter Date of Insertion: 02/02/21 Urinary Catheter Time of Insertion: 08:35 Data : 02/06/21 02:21 02/06/21 15:01 Micro: Microbiology 01/31/21 20:36 Anaerobic Culture - Preliminary Groin 02/01/21 00:45 Blood Culture - Preliminary Blood Yessenia glabrata 02/06/21 10:15 Blood Culture - Preliminary Blood SPECIMEN COLLECTED 02/06/21 10:15 Blood Culture - Preliminary Blood SPECIMEN COLLECTED 01/31/21 23:25 Blood Culture - Final Blood NO GROWTH AFTER 5 DAYS A&P Assessment and plan (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 Wound closure looks good. A couple more wick dressings removed. [place] drain in place. Some purulence from the lower aspect of the wound. Skin edges look good Status: Acute (2) Necrotizing fasciitis of multiple sites: Surgical debridement this morning Status: Acute (3) Gross hematuria: Resolved Status: Acute (4) Scrotal abscess: No evidence of reaccumulation on examination ye today sterday. Some purulent drainage today from the most posterior aspect of the incision. 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
[2021-02-06 20:04] LABS: Glucose Point of Care 112 mg/dL (70-110)
[2021-02-06 21:14] LABS: Glucose Point of Care 121 mg/dL (70-110)
[2021-02-06] MEDS: gabapentin 300 mg Capsule PO (22:24)
[2021-02-06 23:21] LABS: Glucose Point of Care 124 mg/dL (70-110)
[2021-02-06 23:21] LABS: Glucose Point of Care 118 mg/dL (70-110)
[2021-02-07] VITALS (48 sets, daily range): BP systolic 83–155; BP diastolic 46–111; PULSE 59–92; RESP 7–38; TEMP 36.5–36.8; O2SAT 92–100; BMI 36.0
[2021-02-07 01:15] LABS: Glucose Point of Care 134 mg/dL (70-110)
[2021-02-07 01:15] LABS: Glucose Point of Care 113 mg/dL (70-110)
[2021-02-07 01:15] LABS: Glucose Point of Care 253 mg/dL (70-110)
[2021-02-07] MEDS: dextrose 5% 1,000 ML 125 ML IV ×2 (01:44→09:49)
[2021-02-07 03:09] LABS: Glucose Point of Care 108 mg/dL (70-110)
[2021-02-07 04:22] LABS: Glucose Point of Care 119 mg/dL (70-110)
[2021-02-07 06:26] LABS: Glucose Point of Care 106 mg/dL (70-110)
[2021-02-07] MEDS: dexmedetomidine 400 MCG in sodium chloride 0.9% (100 ml) 100 ML IV (07:26)
[2021-02-07 08:29] LABS: Glucose Point of Care 100 mg/dL (70-110)
[2021-02-07 08:46] LABS: Basophils % 0.3 %; Eosinophils # 0.2 10^3/uL (0.0-0.8); Eosinophils % 2.1 %; Hematocrit 27.6 % (42.0-52.0); Hemoglobin 8.1 g/dL (11.7-16.6); Lymphocytes % 22.4 %; Mean Corpuscular HGB Conc 29.3 g/dL (30.0-36.0); Mean Corpuscular Hemoglobin 27.2 pg (28.0-34.0); Mean Corpuscular Volume 92.6 fL (80-94); Monocytes # 0.4 10^3/uL (0.2-0.9); Monocytes % 4.9 %; Neutrophils # 6.12 10^3/uL (1.8-7.7); Neutrophils % 69.8 %; Nucleated Red Blood Cells % 0 %; Platelet Count 166 10^3/cmm (130-400); Red Blood Count 2.98 10^6/uL (4.1-5.3); Red Cell Distribution Width 15.5 % (12.1-15.1); White Blood Count 8.8 10^3/uL (4.0-10.0)
[2021-02-07 09:01] LABS: Magnesium 2.3 mg/dL (1.7-2.3); Phosphorus 2.3 mg/dL (2.5-4.5)
[2021-02-07 09:17] LABS: Vancomycin Random 12.7 ug/mL (20.0-40.0)
[2021-02-07] MEDS: docusate sodium 100 mg Capsule PO (09:17)
[2021-02-07] MEDS: gabapentin 300 mg Capsule PO ×3 (09:17→20:43)
[2021-02-07] MEDS: lactobacillus 1 Tablet 1 TAB PO ×2 (09:17→18:11)
[2021-02-07] MEDS: enoxaparin 40 mg/0.4 mL Syringe SUBCUT (09:17)
[2021-02-07] MEDS: pantoprazole DR 40 mg Tablet PO (09:17)
--- NOTE | 2021-02-07 09:41 | PC.SOCIAL ---
IMM UPDATE Gave patient's IMM update. Left copy of pg 2 at bedside. 02/07/21 @ 0935. Initialed, dated, timed, and placed in chart.
[2021-02-07 11:03] LABS: Anion Gap 10.4 (5-19); Blood Urea Nitrogen 16 mg/dL (8-23); Calcium 7.1 mg/dL (8.5-10.5); Carbon Dioxide 22 mmol/L (22-29); Chloride 112 mmol/L (98-107); Glomerular Filtration Rate 74.5 mL/min (90-130); Glucose 93 mg/dL (65-115); Osmolality Calculated 293 mOsm/kg (285-295); Potassium 3.4 mmol/L (3.5-5.1); Sodium 141 mmol/L (136-145)
[2021-02-07 11:12] LABS: Glucose Point of Care 95 mg/dL (70-110)
[2021-02-07 11:12] LABS: Glucose Point of Care 111 mg/dL (70-110)
--- NOTE | 2021-02-07 11:52 | PC.NURSE ---
[id number]. calm with precedex. at bedside.
[2021-02-07] MEDS: potassium chloride premix 100 ML 25 MEQ IV (12:39)
[2021-02-07] MEDS: dextrose 5%-sod chloride 0.9% 1,000 ML 125 ML IV ×2 (12:40→20:53)
--- NOTE | 2021-02-07 13:53 | PC.NURSE ---
1045 pt. name called , opened eyes. pt shaved with wifes permission.
--- NOTE | 2021-02-07 16:09 | PC.PT ---
PT note; discussed patient with referring physician, Eunice Parker, physician recommends hold physical therapy until patient lethargy improves and patient able to participate; will follow
[2021-02-07 16:16] LABS: Blood Urea Nitrogen 16 mg/dL (8-23); Calcium 7.3 mg/dL (8.5-10.5); Carbon Dioxide 22 mmol/L (22-29); Chloride 111 mmol/L (98-107); Glomerular Filtration Rate 74.5 mL/min (90-130); Glucose 113 mg/dL (65-115); Osmolality Calculated 294 mOsm/kg (285-295); Sodium 141 mmol/L (136-145)
--- NOTE | 2021-02-07 16:29 | PM.PN ---
Subjective Subjective: Interval history: Case mgmt is concerned that the patient's wants to take the patient home instead of going to a [facility] facility. Reason, physical therapy was consulted to evaluate him. Upon speaking with the patient's , the patient's states that she would like to take him home with her. She states that she believes that she has a help in her [id number], to help her with the patient. She states that the patient would not be happy with her if she sent him to a [facility]. I was very clear in explaining that the [facility] stay is not a permanent situation, but a temporary situation for wound care until he is able to return home to her. Patient is easily arousable, and will respond to questions, such as endorsing that he is in pain.. Medications: Reviewed: Yes Vitals/I&O/Wt Last Vital Signs Temp 97.8 F 02/07/21 09:00 Pulse 72 02/07/21 13:30 Resp 14 02/07/21 13:30 BP 93/46 02/07/21 13:30 Pulse Ox 95 02/07/21 13:30 02/07/21 02/07/21 02/07/21 06:59 14:59 22:59 Intake Total 1467.2 / 4015.107 1088.990 / 1088.990 Output Total 850 / 3750 Balance 617.2 / 685.967 9873.990 / 1088.990 Weight last 48 hrs Weight 113.988 kg Weight 113.988 kg Physical Exam Const: GENERAL APPEARANCE: anxious, ill appearing and other (Distressed and uncomfortable due to pain) NUTRITIONAL APPEARANCE: overweight ORIENTATION/CONSCIOUSNESS: Yes Other orientation findings (Sedated but easily arousable) HENMT: COMMON NORMALS: normocephalic, atraumatic, hearing grossly normal bilaterally, external ears normal, moist oral mucous membranes and oropharynx normal HEAD & SCALP: normocephalic and atraumatic EXTERNAL EAR: Yes external ears normal THROAT: posterior oropharynx normal Eye: COMMON NORMALS: Equal, round and reactive pupils present, conjunctivae normal and no scleral icterus CONJUNCTIVA: Yes conjunctivae normal PUPIL: Yes Equal, round and reactive pupils present Neck/C-Spine: COMMON NORMALS: no lymphadenopathy, Thyroid normal and No carotid bruits GENERAL: No anterior neck swelling THYROID: Thyroid normal Resp: AUSCULTATION: crackles, no rales, no rhonchi and no wheezes Cardio: COMMON NORMALS: regular rate and regular rhythm RATE: regular rate RHYTHM: regular rhythm HEART SOUNDS: no click, no gallops, no murmurs and no rubs GI: COMMON NORMALS: Soft to palpation, non-tender, No hepatosplenomegaly present, no masses and no bruits PALPATION: Yes Soft to palpation, No Firmness to palpation present (GI), No Guarding due to palpation present (GI), No Rigid due to palpation, Yes No hepatosplenomegaly present and No Rebound tenderness present : OTHER: Surgical incision on the scrotum penis and perineum. Extremity: COMMON NORMALS: normal to inspection and full ROM GENERAL: No clubbing, No cyanosis and Yes edema (mild b/l pedal edema) Neuro: HENRI COMA SCALE: document GCS findings Henri coma scale eye opening: Spontaneous [place] coma scale verbal response: Confused [place] coma scale motor response: Obey commands [place] coma scale total score: 14 Urinary Catheter Management^: Stovall: Cath Placed During This Visit: yes, but has since been removed by the nurse Reason for Continuing Indwelling Catheter: Accurate Measurement of Urinary Output in Critically Ill Patients Urinary Catheter Date of Insertion: 01/31/21 Date Urinary Catheter Removed: 02/02/21 Time Urinary Catheter Discontinued: 08:27 Stovall Latex: Cath Placed During This Visit: yes Reason for Continuing Indwelling Catheter: Accurate Measurement of Urinary Output in Critically Ill Patients Urinary Catheter Date of Insertion: 02/02/21 Urinary Catheter Time of Insertion: 08:35 Data : 02/07/21 08:29 02/07/21 14:54 Micro: Microbiology 02/01/21 00:45 Blood Culture - Final Blood Yessenia glabrata 02/06/21 10:15 Blood Culture - Preliminary Blood NEGATIVE TO DATE 02/06/21 10:15 Blood Culture - Preliminary Blood NEGATIVE TO DATE 02/07/21 08:20 Blood Culture - Preliminary Blood SPECIMEN COLLECTED 02/07/21 08:29 Blood Culture - Preliminary Blood SPECIMEN COLLECTED 01/31/21 20:36 Anaerobic Culture - Preliminary Groin A&P Assessment and plan (1) Septic shock: Status: Acute (2) Necrotizing fasciitis of multiple sites: Status: Acute (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 (4) Urinary retention: Status: Acute (5) Acute kidney injury: Status: Acute (6) UTI (urinary tract infection): Status: Acute Qualifiers: Hematuria presence: without hematuria Urinary tract infection type: acute cystitis Qualified Code(s): N30.00 - Acute cystitis without hematuria (7) Hypertension: Status: Chronic (8) Diabetes: Status: Chronic (9) Diabetic ketoacidosis: Status: Acute Qualifiers: Diabetes mellitus complication detail: without coma Diabetes mellitus type: type 2 Qualified Code(s): E11.10 - Type 2 diabetes mellitus with ketoacidosis without coma (10) Scrotal abscess: Status: Acute (11) Bilateral hydronephrosis: Status: Acute Mr. Morales is a 65yo man w/ HTN, DM, who was admitted on 01/31/2021 for Septic shock, necrotizing gascitis, everton's gangrene of the scrotum, genitalia and perineum, diabetic ketoacidosis. He remains intubated. The wounds were evaluated by Urology on 02/04/2021. At this time, the barrier to extubation is pain control. Without adequate pain control, he breathes 50times a minute and becomes hypoxic. Neuro/Psych: Extubated on 02/05/2021. On Dexmedetomidine, fentanyl and gabapentin for pain. D/c'ed Ketamine 10mg IVP, Dilaudid 1mg q4h prn in anticipation of extubation. CV: Septic shock: Off Levophed on 02/04. Maintain MAPS > 65. HTN- Monitor BP. Respiratory: #Acute hypoxic respiratory failure - Extubated GI: NGT. PPI. Patient is on PPN, but also has Tube feed recs. Renal ID: #Abnormal electrolytes - replace prn. # Acute Hypernatremia: On D5W w/ insulin drip w/ free water flushes initiated on 02/06, but patient corrected, so d/c'ed D5W and started . #Necrotizing fascitis, everton's gangrene. - On Vanc/Imipenem for UTI since admission. Imipenem was switched to Zosyn on 02/06. He needs to complete 14 days for the Everton's Gangrene. - Wound changes per Urology # Candidemia: - Yessenia glabrata on all 4 sets of BCx as well as wound cx. - ID consulted - Appreciate involvement. Caspofungin started 02/04. - Left EJ peripheral IV to be placed on 02/07 by Anesthesiology then remove R. IJ central line. Endo: #Diabetic ketoacidosis resolved. #Diabetes - On Insulin drip started on 02/06. To be d/c'ed and switched to insulin glargine. : Urology to change wounds. DVT ppx: Start Lovenox Attestations Medical Necessity Statement*: The patient requires continued hospitalization for his candidemia, surgical wounds, and septic shock. Critical Care Time: critical care acute I focused on GI, Renal, ID, and Neurological organs. I spent > 40minutes of face to fact time with this patient. 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
[2021-02-07] MEDS: magnesium citrate Btl 296 mL PO (16:36)
[2021-02-07] MEDS: bisacodyl 5 mg Tablet 10 MG PO (16:36)
[2021-02-07] MEDS: clotrimazole 1% cream 30 gm 1 APPLIC TOPICAL (16:39)
--- NOTE | 2021-02-07 17:53 | PM.PN ---
Subjective Subjective: Interval history: Urology follow-up: Patient is more alert. Responds more appropriately. Having less pain apparently. White count is up slightly. Chart reviewed. Hospitalist plans reviewed as well. Physical findings show that the wound has less purulence today. I could not get any express purulence by pressing on the lower portion of the incision. Lennox drain had some drainage but not severe. All the skin edges look healthy. The remaining ana were removed today. Dressings reapplied over the incision. Reviewed with nursing staff expectations regarding wound care. Patient can be submitted to what ever care is currently necessary regarding PT, sitting up etc. At this point wound care is going to be minimized to a [place] drain which will start removing soon. No indications for exploration etc. Vitals/I&O/Wt Last Vital Signs Temp 97.8 F 02/07/21 09:00 Pulse 81 02/07/21 16:30 Resp 16 02/07/21 16:30 BP 118/53 02/07/21 14:30 Pulse Ox 94 02/07/21 16:30 02/07/21 02/07/21 02/07/21 06:59 14:59 22:59 Intake Total 1467.2 / 4015.107 1088.990 / 1088.990 140.083 / 1229.073 Output Total 850 / 3750 Balance 617.2 / 059.348 1597.990 / 1088.990 140.083 / 1229.073 Weight last 48 hrs Weight 251 lb 4.8 oz Weight 251 lb 4.8 oz Physical Exam Narrative: EXAM NARRATIVE: Looks sedated but is responsive. Abdomen is soft. Urine is clearing Wound inspection shows healthy edges of the skin. There is no purulence draining from the upper portion of the wound the only area that shows a little bit of purulence is the very distal posterior aspect with a [place] drain. Could not express any more purulence as I did yesterday with pressure on the lower half of the incision. The final 2 ana removed. Urinary Catheter Management^: Stovall: Cath Placed During This Visit: yes, but has since been removed by the nurse Reason for Continuing Indwelling Catheter: Accurate Measurement of Urinary Output in Critically Ill Patients Urinary Catheter Date of Insertion: 01/31/21 Date Urinary Catheter Removed: 02/02/21 Time Urinary Catheter Discontinued: 08:27 Stovall Latex: Cath Placed During This Visit: yes Reason for Continuing Indwelling Catheter: Accurate Measurement of Urinary Output in Critically Ill Patients Urinary Catheter Date of Insertion: 02/02/21 Urinary Catheter Time of Insertion: 08:35 Data : 02/07/21 08:29 02/07/21 14:54 Micro: Microbiology 01/31/21 20:36 Anaerobic Culture - Preliminary Groin 02/01/21 00:45 Blood Culture - Final Blood Yessenia glabrata 02/06/21 10:15 Blood Culture - Preliminary Blood NEGATIVE TO DATE 02/06/21 10:15 Blood Culture - Preliminary Blood NEGATIVE TO DATE 02/07/21 08:20 Blood Culture - Preliminary Blood SPECIMEN COLLECTED 02/07/21 08:29 Blood Culture - Preliminary Blood SPECIMEN COLLECTED A&P Assessment and plan (1) 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 There is less purulence. The final ana were removed. Has now only a [place] drain. Drainage has decreased from that as well Status: Acute (2) Necrotizing fasciitis of multiple sites: No further resection necessary. 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
[2021-02-07] MEDS: docusate sodium 10 mg/mL (5ml) Liq 100 MG PO (18:42)
[2021-02-07 18:58] LABS: Glucose Point of Care 136 mg/dL (70-110)
[2021-02-07 18:58] LABS: Glucose Point of Care 102 mg/dL (70-110)
[2021-02-07 20:05] LABS: Glucose Point of Care 126 mg/dL (70-110)
[2021-02-07 22:19] LABS: Glucose Point of Care 153 mg/dL (70-110)
[2021-02-08] VITALS (51 sets, daily range): BP systolic 94–163; BP diastolic 56–117; PULSE 73–106; RESP 8–52; TEMP 36.1–37.7; O2SAT 91–100; BMI 36.0
[2021-02-08 00:06] LABS: Glucose Point of Care 190 mg/dL (70-110)
[2021-02-08 00:06] LABS: Glucose Point of Care 124 mg/dL (70-110)
[2021-02-08 00:06] LABS: Glucose Point of Care 205 mg/dL (70-110)
[2021-02-08 01:22] LABS: Glucose Point of Care 122 mg/dL (70-110)
[2021-02-08 02:07] LABS: Glucose Point of Care 103 mg/dL (70-110)
[2021-02-08 03:05] LABS: Glucose Point of Care 100 mg/dL (70-110)
[2021-02-08] MEDS: dexmedetomidine 400 MCG in sodium chloride 0.9% (100 ml) 100 ML 5.93 MCG IV (03:22)
[2021-02-08 04:10] LABS: Glucose Point of Care 84 mg/dL (70-110)
[2021-02-08 04:23] LABS: Magnesium 1.8 mg/dL (1.7-2.3); Phosphorus 2.7 mg/dL (2.5-4.5)
[2021-02-08 07:58] LABS: Glucose Point of Care 115 mg/dL (70-110)
--- NOTE | 2021-02-08 08:10 | PM.PN ---
Subjective Subjective: Interval history: Urology follow-up: No significant changes overnight. Wound inspected. No increase purulence. Dressings changed. Reviewed with nursing staff for appropriate management. Patient still sedated. No particular urologic reason especially related to the wound to avoid routine patient care activities including physical therapy up in chair etc. Would push toward resumption of as much normal activity as possible. Vitals/I&O/Wt Last Vital Signs Temp 97.7 F 02/08/21 06:00 Pulse 92 02/08/21 06:00 Resp 13 02/08/21 06:00 BP 94/60 02/08/21 06:00 Pulse Ox 95 02/08/21 06:00 02/07/21 02/08/21 02/08/21 22:59 06:59 14:59 Intake Total 1440.083 / 2529.073 253.951 / 2783.024 Output Total 2850 / 2850 1800 / 4650 Balance -1409.917 / -320.927 -1546.049 / -1866.976 Weight last 48 hrs Weight 251 lb 4.8 oz Weight 251 lb 4.8 oz Physical Exam Narrative: EXAM NARRATIVE: Sedated. Abdomen is soft. Skin condition is improving on the lower abdomen with routine care. Incision and hand skin edges look healthy. There is some mild amount of purulence in the posterior aspect of the incision but nothing significant. Dressings are changed today. Urinary Catheter Management^: Stovall: Cath Placed During This Visit: yes, but has since been removed by the nurse Reason for Continuing Indwelling Catheter: Accurate Measurement of Urinary Output in Critically Ill Patients Urinary Catheter Date of Insertion: 01/31/21 Date Urinary Catheter Removed: 02/02/21 Time Urinary Catheter Discontinued: 08:27 Stovall Latex: Cath Placed During This Visit: yes Reason for Continuing Indwelling Catheter: Accurate Measurement of Urinary Output in Critically Ill Patients Urinary Catheter Date of Insertion: 02/02/21 Urinary Catheter Time of Insertion: 08:35 Data : 02/07/21 08:29 02/07/21 14:54 Micro: Microbiology 01/31/21 20:36 Anaerobic Culture - Preliminary Groin 02/01/21 00:45 Blood Culture - Final Blood Yessenia glabrata 02/06/21 10:15 Blood Culture - Preliminary Blood NEGATIVE TO DATE 02/06/21 10:15 Blood Culture - Preliminary Blood NEGATIVE TO DATE 02/07/21 08:20 Blood Culture - Preliminary Blood SPECIMEN COLLECTED 02/07/21 08:29 Blood Culture - Preliminary Blood SPECIMEN COLLECTED A&P Assessment and plan (1) 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 Skin edges look healthy. No further loss of tissue Status: Acute (2) Necrotizing fasciitis of multiple sites: No further resection necessary. 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
--- NOTE | 2021-02-08 08:39 | XRR_ITS ---
PROCEDURE INFORMATION: Exam: XR Chest Exam date and time: 02/08/2021 8:39 AM Age: 65 years old Clinical indication: Tachypnea; Additional info: Tachypnic TECHNIQUE: Imaging protocol: XR of the chest. Views: 1 view. COMPARISON: CR XR chest 1V portable [id number] 02/06/2021 9:20 AM FINDINGS: Tubes, catheters and devices: A nasogastric tube extends down to the stomach. The tip of a right internal jugular venous catheter projects on the SVC. Lungs: There is improving minimal atelectasis along the left hemidiaphragm. The right lung is clear. Pleural spaces: Unremarkable. No pleural effusion. No pneumothorax. Heart/Mediastinum: Unremarkable. No cardiomegaly. Bones/joints: Unremarkable. XR/XR chest 1V portable [id number] IMPRESSION: There is minimal remaining atelectasis along the left hemidiaphragm.
--- NOTE | 2021-02-08 08:40 | PC.NURSE ---
Nishant in this a.m.
[2021-02-08] MEDS: docusate sodium 10 mg/mL (5ml) Liq 100 MG PO ×2 (09:06→19:03)
[2021-02-08] MEDS: lactobacillus 1 Tablet 1 TAB PO ×2 (09:06→18:21)
[2021-02-08] MEDS: gabapentin 300 mg Capsule PO ×3 (09:06→20:53)
[2021-02-08] MEDS: pantoprazole DR 40 mg Tablet PO (09:07)
[2021-02-08] MEDS: clotrimazole 1% cream 30 gm 1 APPLIC TOPICAL (09:07)
[2021-02-08] MEDS: enoxaparin 40 mg/0.4 mL Syringe SUBCUT (09:07)
[2021-02-08] MEDS: dextrose 5%-sod chloride 0.9% 1,000 ML 125 ML IV (09:08)
[2021-02-08 09:43] LABS: Basophils # 0.1 10^3/uL (0.0-0.1); Basophils % 0.6 %; Eosinophils # 0.2 10^3/uL (0.0-0.8); Eosinophils % 1.4 %; Hematocrit 29.1 % (42.0-52.0); Hemoglobin 8.9 g/dL (11.7-16.6); Lymphocytes # 2.3 10^3/uL (0.8-4.8); Lymphocytes % 20.8 %; Mean Corpuscular HGB Conc 30.6 g/dL (30.0-36.0); Mean Corpuscular Hemoglobin 27.2 pg (28.0-34.0); Mean Platelet Volume 8.9 fL (7.4-10.4); Monocytes # 0.6 10^3/uL (0.2-0.9); Monocytes % 5.4 %; Neutrophils # 7.78 10^3/uL (1.8-7.7); Neutrophils % 71.3 %; Nucleated Red Blood Cells % 0 %; Platelet Count 182 10^3/cmm (130-400); Red Blood Count 3.27 10^6/uL (4.1-5.3); Red Cell Distribution Width 15.3 % (12.1-15.1); White Blood Count 10.9 10^3/uL (4.0-10.0)
[2021-02-08 10:02] LABS: D Dimer 18.33 ug/mIFEU (0-0.59)
--- NOTE | 2021-02-08 10:55 | PC.NURSE ---
nystatin powder not used d/t using creams
--- NOTE | 2021-02-08 11:36 | PC.NURSE ---
0800. precedex to 0.1 in attempt to get pt more awake. does respond to commands at 0.2
--- NOTE | 2021-02-08 11:41 | PC.NURSE ---
0830. dr. bull in, dressing change done. pt denies pain, but c/o not getting enough air resp. rate up to 80 bpm. encouraged to slow breathing down.
--- NOTE | 2021-02-08 11:43 | PC.NURSE ---
0900 continue to enc. to slow breathing down. precedex back to 0.2
--- NOTE | 2021-02-08 11:44 | PC.NURSE ---
0930 resting quieter now. at bedside.
--- NOTE | 2021-02-08 11:59 | PM.PN ---
Subjective Subjective: Interval history: Infectious disease progress note. Mental status slightly better compared to last exam. Per his at bedside she reports patient has been more awake, speaks few short sentences that make sense. Has not been out of bed yet. Medications: Reviewed: Yes Vitals/I&O/Wt Last Vital Signs Temp 97 F L 02/08/21 08:00 Pulse 80 02/08/21 11:11 Resp 33 H 02/08/21 08:30 BP 143/77 02/08/21 08:30 Pulse Ox 96 02/08/21 11:11 02/07/21 02/08/21 02/08/21 22:59 06:59 14:59 Intake Total 1690.083 / 2779.073 1253.951 / 4033.024 143.783 / 143.783 Output Total 2850 / 2850 1800 / 4650 Balance -1159.917 / -70.927 -546.049 / -616.976 143.783 / 143.783 Weight last 48 hrs Weight 113.988 kg Weight 113.988 kg Physical Exam Narrative: EXAM NARRATIVE: GEN: somnolent, lethargic, speaks few short sentences CVS: S1S2 N, no MRG RS: CTA B/L anteriorly Abd: Soft, nt/nd , bs+ ROAD CONTRACTOR: no focal neuro deficits Urinary Catheter Management^: Stovall: Cath Placed During This Visit: yes, but has since been removed by the nurse Reason for Continuing Indwelling Catheter: Accurate Measurement of Urinary Output in Critically Ill Patients Urinary Catheter Date of Insertion: 01/31/21 Date Urinary Catheter Removed: 02/02/21 Time Urinary Catheter Discontinued: 08:27 Stovall Latex: Cath Placed During This Visit: yes Reason for Continuing Indwelling Catheter: Accurate Measurement of Urinary Output in Critically Ill Patients Urinary Catheter Date of Insertion: 02/02/21 Urinary Catheter Time of Insertion: 08:35 Data : 02/08/21 09:32 02/07/21 14:54 Micro: Microbiology 02/07/21 08:20 Blood Culture - Preliminary Blood NEGATIVE TO DATE 02/07/21 08:29 Blood Culture - Preliminary Blood NEGATIVE TO DATE 01/31/21 20:36 Anaerobic Culture - Preliminary Groin 02/01/21 00:45 Blood Culture - Final Blood Yessenia glabrata 02/06/21 10:15 Blood Culture - Preliminary Blood NEGATIVE TO DATE 02/06/21 10:15 Blood Culture - Preliminary Blood NEGATIVE TO DATE 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 (3) Necrotizing fasciitis of multiple sites: Status: Acute (4) UTI (urinary tract infection): Status: Acute Qualifiers: Hematuria presence: without hematuria Urinary tract infection type: acute cystitis Qualified Code(s): N30.00 - Acute cystitis without hematuria (5) Diabetes: Status: Chronic (6) Scrotal abscess: Status: Acute (7) Candidemia: Status: Acute (8) Intertrigo: Status: Acute Additional A&P Information 65-year-old male admitted on January 31, 2021 after presenting with DKA and Yovanny's gangrene likely precipitated by severe intertrigo which she had been trying to treat as outpatient for the past several weeks. CT upon admission consistent with severe emphysematous changes involving the soft tissues of the scrotum extending up to the level of the prostate. Multiple abscesses encountered intraoperatively. He is status post I&D on 01/31 and closure on . As of the most recent OR wound bed appeared to be clean. Blood, urine, wound,respiratory cultures with Yessenia glabrata. #Septic shock as a result of Yovanny's gangrene, shock now resolved #Severe intertrigo #Candidemia/disseminated candidiasis Continue caspofungin, received 70 mg loading dose on February 05, now currently on 50 mg IV every 24 hours. Blood isolate identified as Yessenia glabrata from 02/01, blood cx 02/06 thus far negative Discussed with micro lab to send out susceptibilities to outside lab. Recommend to continue caspofungin until susceptibilities are available as glabrata species may have variable susceptibility to fluconazole. Right IJ CVC has been removed. Continue peripheral access for now Yovanny's gangrene most often tends to be a polymicrobial infection therefore recommend continuing antibiotics. Absence of bacterial growth from wound cultures may be as a result of outpatient antibiotic use prior to admission. Patient was on Bactrim and per H&P also possibly a beta-lactam. Continue Zosyn, resume vancomycin MRSA nasal screen is positive. Continue to monitor fever curve, leukocytosis Patient appears to be clinically improving Recommend ophthalmology exam in about 2 weeks to rule out fungal endophthalmitis. His exam to be completed sooner if patient starts developing visual disturbances. TTE was unable to be completed due to poor ultrasonic windows. Defer BARI for now given that patient is showing clinical improvement, blood cultures appear to have cleared thus far from 02/06. If remains persistently candidemia, may need BARI. Otherwise we will plan to treat with at least 4 weeks of antifungals. Altered mental status most likely related to metabolic encephalopathy which is multifactorial from sepsis, hypernatremia, recent intubation. 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
--- NOTE | 2021-02-08 14:49 | CTR_ITS ---
PROCEDURE INFORMATION: Exam: CTA Chest With Contrast Exam date and time: 02/08/2021 2:49 PM Age: 65 years old Clinical indication: Tachypnea; Patient HX: Tachy w elev d-dimer and known ble dvts S/P orchiectomy for nec fasciitis; Additional info: Tachycardia and rr 30s TECHNIQUE: Imaging protocol: Computed tomographic angiography of the chest with contrast. 3D rendering (Not supervised by radiologist): MIP and/or 3D reconstructed images were created by the technologist. Radiation optimization: All CT scans at this facility use at least one of these dose optimization techniques: automated exposure control; mA and/or kV adjustment per patient size (includes targeted exams where dose is matched to clinical indication); or iterative reconstruction. Contrast material: OMNI 350; Contrast volume: 78 ml; Contrast route: INTRAVENOUS (IV); COMPARISON: CR (CHEST, ) 02/08/2021 9:21 AM RADIATION DOSE METRICS: Total DLP (mGy-cm): 617.12 FINDINGS: Tubes, catheters and devices: NG tube with tip in the mid stomach. Pulmonary arteries: No filling defects identified within the pulmonary arteries. Evaluation of the smaller arteries is limited by breathing motion artifact. Aorta: Unremarkable. No aortic aneurysm. No aortic dissection. Lungs: Calcified granuloma in the lower lobes.. Small ground-glass opacities in the right lung apex and anterior left upper lobe. Dependent atelectasis in the lower lobes. 4 mm left upper lobe nodule, image 136. Pleural spaces: Unremarkable. No pneumothorax. No pleural effusion. Heart: Unremarkable. No cardiomegaly. No pericardial effusion. Lymph nodes: Unremarkable. No enlarged lymph nodes. Bones/joints: Unremarkable. No acute fracture. Soft tissues: Unremarkable. CT/CT angio chest PE protcl [id number] IMPRESSION: 1. No evidence for pulmonary embolus. Evaluation of the smaller arteries is limited by breathing motion artifact. 2. Ground-glass opacities in the upper lobes is suspicious for pneumonia. 3. 4 mm left pulmonary nodule. For patients at low risk (minimal or absent history of smoking and of other known risk factors), no routine follow-up is indicated. For patients at high risk (history of smoking or of other known risk factors), consider optional CT Chest at 12 months. (Reference: Sanjuana) References: Sanjuana Arias et al. Guidelines for Management of Incidental Pulmonary Nodules Detected on CT Images: From the Fleischner Society 2017. Radiology. 2017;284(1):228-243. Radiation Dose CTDIVOL = (mGy): DLP = 617.12 (mGy-cm)
--- NOTE | 2021-02-08 14:50 | USR_ITS ---
PROCEDURE INFORMATION: Exam: US Duplex Lower Extremity Veins, Bilateral Exam date and time: 02/08/2021 2:50 PM Age: 65 years old Clinical indication: Swelling (edema) of limb; Lower extremity, bilateral TECHNIQUE: Imaging protocol: Real-time duplex ultrasound of the extremities with 2-D maria scale, color Doppler flow and spectral waveform analysis with image documentation. Complete exam focused on the bilateral lower extremity veins. COMPARISON: CT abdomen pelvis w con* [id number] 01/31/2021 6:10 PM FINDINGS: Right deep veins: Partial thrombus in the right common femoral vein. Near occlusive thrombus in the right profunda femoral vein. No thrombus visible in the femoral, popliteal, peroneal, or posterior tibial veins. Right superficial veins: The greater saphenous vein is not visualized. Left deep veins: Occlusive thrombus in the left common femoral, profunda femoral, femoral, popliteal, and proximal peroneal veins. The left posterior tibial vein is free of clot. Left superficial veins: The greater saphenous vein is not visualized. Soft tissues: Unremarkable. US/CV venous duplex [facility] [id number] IMPRESSION: 1. Bilateral lower extremity deep vein thrombosis. 2. The bilateral greater saphenous veins were not well visualized. Thrombus within the superficial veins is not excluded.
[2021-02-08] MEDS: vancomycin 1,500 MG/300 ML PIGGYBACK 200 MG IV (15:07)
--- NOTE | 2021-02-08 15:20 | PC.NURSE ---
2nd dressing change for today. more drainage from posterior incisions. dr. bull did first change. kaity. fair. note jerking type movements with arms. responds appropriately. seems to happen with any exertion.
[2021-02-08] MEDS: dextrose 5%-sod chloride 0.9% 1,000 ML 60 ML IV (15:44)
[2021-02-08] MEDS: iohexol 350 mg/mL 100 mL Btl IV (17:47)
[2021-02-08 17:51] LABS: Glucose Point of Care 160 mg/dL (70-110)
[2021-02-08] MEDS: apixaban 5 mg Tablet 10 MG PO (18:21)
--- NOTE | 2021-02-08 18:31 | P.PN_ITS ---
Subjective Subjective: Interval history: No overnight event, patient was tachypneic and tachycardic when I evaluated him noticed left lower extremity swelling requested Doppler D-dimer which came back extremely high Requested CTA chest He was on fentanyl and Precedex for his analgesia Prior to my evaluation Dr. Moreau evaluated him as well, patient experienced a lot of pain during manipulation of his Stovall catheter Later on patient did work with physical therapy and got out of bed to chair Vitals/I&O/Wt Last Vital Signs Temp 97 F L 02/08/21 08:00 Pulse 85 02/08/21 16:30 Resp 13 02/08/21 16:30 BP 118/89 02/08/21 16:30 Pulse Ox 100 02/08/21 16:30 02/08/21 02/08/21 02/08/21 06:59 14:59 22:59 Intake Total 1253.951 / 4033.024 152.663 / 397.741 3931.583 / 1217.246 Output Total 1800 / 4650 1900 / 1900 Balance -546.049 / -616.976 -1747.337 / -3833.613 1734.583 / -682.754 Weight last 48 hrs Weight 113.988 kg Weight 113.988 kg Physical Exam Narrative: EXAM NARRATIVE: Patient was awake verbally redirectable was not e ndorsing active pain on Precedex and fentanyl drip Tachycardic sinus tachycardia Tachypneic in 30s Skin moist Not endorsing any active chest pain S1, S2 sinus tachycardia systolic murmur Abdomen soft nontender bowel sounds sluggish Bilateral breath sounds with rhonchi diminished on left as compared to right Left lower extremity swelling noticed as compared to right Pedal edema 3+ left side Stovall catheter draining yellow urine with presentations Urinary Catheter Management^: Stovall: Cath Placed During This Visit: yes, but has since been removed by the nurse Reason for Continuing Indwelling Catheter: Accurate Measurement of Urinary Output in Critically Ill Patients Urinary Catheter Date of Insertion: 01/31/21 Date Urinary Catheter Removed: 02/02/21 Time Urinary Catheter Discontinued: 08:27 Stovall Latex: Cath Placed During This Visit: yes Reason for Continuing Indwelling Catheter: Accurate Measurement of Urinary Output in Critically Ill Patients Urinary Catheter Date of Insertion: 02/02/21 Urinary Catheter Time of Insertion: 08:35 Data : 02/08/21 09:32 02/07/21 14:54 Micro: Microbiology 01/31/21 20:36 Anaerobic Culture - Final Groin 02/07/21 08:20 Blood Culture - Preliminary Blood NEGATIVE TO DATE 02/07/21 08:29 Blood Culture - Preliminary Blood NEGATIVE TO DATE A&P Assessment and plan (1) Septic shock: Status: Acute (2) Hypernatremia: Status: Acute (3) Yessenia glabrata infection: Status: Acute (4) Candidemia: Status: Acute (5) Intertrigo: Status: Acute (6) Scrotal abscess: Status: Acute (7) Diabetic ketoacidosis: Status: Acute Qualifiers: Diabetes mellitus complication detail: without coma Diabetes mellitus type: type 2 Qualified Code(s): E11.10 - Type 2 diabetes mellitus with ketoacidosis without coma Additional A&P Information Mr. Morales is a 65yo man w/ HTN, DM, who was admitted on 01/31/2021 for Septic shock, necrotizing gascitis, everton's gangrene of the scrotum, genitalia and perineum, diabetic ketoacidosis. Status post intervention 01/31, clinical course notable for difficult extubation secondary to intractable pain, extubated on 02/05 Necrotizing fasciitis status post debridement with delayed closure of large groin/perineal/scrotal wound Septic shock: Resolved, not requiring any vasopressor Continue broad-spectrum antibiotics and caspofungin Unfortunately patient has very poor IV access, we are still waiting on sensitivities to decide long-term antifungal regimen, depending upon his RG will devise a plan to place a midline after discussion with ID, Dr. Booth's recommendation appreciate He will also need outpatient ophthalmology exam to rule out fungal endophthalmitis We will remove central line once we have adequate peripheral IV access DKA: Resolved Most likely a contributing factor towards immunocompromise state and candidemia Acute hypoxic respiratory failure: Extubated on 02/05, currently requiring 2 L nasal cannula to keep O2 saturation above 95% OT/PT Tube feeds on hold secondary to increased gastric residual Full code Acute DVT Unfortunately because of poor IV access we cannot monitor APTT, I would avoid heparin GTT and use Eliquis loading dose for now CTA to rule out PE Keep an eye on platelet count as there is a downward trend from his day of admission, send HIT panel Attestations Medical Necessity Statement*: Continue ICU management for acute DVT, necrotizing fasciitis, candidemia Time Spent in Patient Care: 35mins Procedures Arterial Line Size (Gauge): 20 Coding Level of Care Code Acute Conference Concierge for Chg Fwd Diagnoses Septic shock A41.9; R65.21 Hypernatremia E87.0 Yessenia glabrata infection B37.9 Candidemia B37.7 Intertrigo L30.4 Scrotal abscess N49.2 Diabetic ketoacidosis E11.10 Diabetes mellitus complication detail: without coma Diabetes mellitus type: type 2
[2021-02-08 18:47] LABS: Glucose Point of Care 174 mg/dL (70-110)
[2021-02-08 20:59] LABS: Glucose Point of Care 169 mg/dL (70-110)
[2021-02-09] VITALS (25 sets, daily range): BP systolic 94–145; BP diastolic 60–88; PULSE 85–106; RESP 10–28; TEMP 36.7–37.1; O2SAT 95–99
--- NOTE | 2021-02-09 00:31 | PC.NURSE ---
Wasted 13mL of Fentanyl witnessed by Rosangela Jones RN.
[2021-02-09] MEDS: dextrose 5%-sod chloride 0.9% 1,000 ML 60 ML IV (02:50)
[2021-02-09] MEDS: vancomycin 1,500 MG/300 ML PIGGYBACK 200 MG IV (05:11)
[2021-02-09 05:31] LABS: Basophils % 0.5 %; Eosinophils # 0.1 10^3/uL (0.0-0.8); Eosinophils % 1.5 %; Hematocrit 29.5 % (42.0-52.0); Hemoglobin 8.7 g/dL (11.7-16.6); Lymphocytes # 2.2 10^3/uL (0.8-4.8); Lymphocytes % 25.5 %; Mean Corpuscular HGB Conc 29.5 g/dL (30.0-36.0); Mean Corpuscular Hemoglobin 27.1 pg (28.0-34.0); Mean Corpuscular Volume 91.9 fL (80-94); Mean Platelet Volume 9.1 fL (7.4-10.4); Monocytes # 0.6 10^3/uL (0.2-0.9); Monocytes % 6.6 %; Neutrophils # 5.57 10^3/uL (1.8-7.7); Neutrophils % 65.7 %; Nucleated Red Blood Cells % 0 %; Platelet Count 186 10^3/cmm (130-400); Red Blood Count 3.21 10^6/uL (4.1-5.3); Red Cell Distribution Width 15.9 % (12.1-15.1); White Blood Count 8.5 10^3/uL (4.0-10.0)
[2021-02-09 05:54] LABS: Anion Gap 12.9 (5-19); Blood Urea Nitrogen 16 mg/dL (8-23); Calcium 7.8 mg/dL (8.5-10.5); Carbon Dioxide 23 mmol/L (22-29); Chloride 115 mmol/L (98-107); Glomerular Filtration Rate 60.4 mL/min (90-130); Glucose 181 mg/dL (65-115); Osmolality Calculated 310 mOsm/kg (285-295); Potassium 3.9 mmol/L (3.5-5.1); Sodium 147 mmol/L (136-145)
[2021-02-09 07:38] LABS: Glucose Point of Care 215 mg/dL (70-110)
[2021-02-09] MEDS: HYDROmorphone 1 mg/mL INJ 1 mL IVP ×2 (08:47→16:47)
--- NOTE | 2021-02-09 08:48 | P.PN_ITS ---
Subjective Subjective: Interval history: Urology follow-up: More alert today. Still having some pain in his genital area. Low-grade temperature spike and increased tachycardia today. Reviewed with Dr. Booth and Dr. Dillard. Plans are to move him up to the floor and continue antifungal and antibacterial coverage. Wound inspection: Still some purulence from the posterior aspect of the incision. Top has healed well. Dressings changed on the external aspect. We will plan on advancing the [place] drain tomorrow. May need inspection under anesthesia with washout of lower aspect possibly packing. Vitals/I&O/Wt Last Vital Signs Temp 98.0 F 02/09/21 08:00 Pulse 97 02/09/21 08:00 Resp 28 H 02/09/21 08:00 BP 115/66 02/09/21 08:00 Pulse Ox 95 02/09/21 08:00 02/08/21 02/09/21 02/09/21 22:59 06:59 14:59 Intake Total 2260.916 / 2413.579 1066 / 3479.579 0 / 0 Output Total 300 / 2200 1200 / 3400 Balance 1960.916 / 213.579 -134 / 79.579 0 / 0 Weight last 48 hrs Weight 256 lb 8 oz Weight 251 lb 4.8 oz Physical Exam Narrative: EXAM NARRATIVE: More alert today. Responds appropriately. Still very ill appearing Abdomen soft nontender. Upper aspect of wounds look healthy with continued closure and healthy skin edges. Lower aspect still with some purulent discharge. Urinary Catheter Management^: Stovall: Cath Placed During This Visit: yes, but has since been removed by the nurse Reason for Continuing Indwelling Catheter: Accurate Measurement of Urinary Output in Critically Ill Patients Urinary Catheter Date of Insertion: 01/31/21 Date Urinary Catheter Removed: 02/02/21 Time Urinary Catheter Discontinued: 08:27 Stovall Latex: Cath Placed During This Visit: yes Reason for Continuing Indwelling Catheter: Accurate Measurement of Urinary Output in Critically Ill Patients Urinary Catheter Date of Insertion: 02/02/21 Urinary Catheter Time of Insertion: 08:35 Data : 02/09/21 04:14 02/09/21 04:14 Micro: Microbiology 01/31/21 20:36 Anaerobic Culture - Final Groin 02/07/21 08:20 Blood Culture - Preliminary Blood NEGATIVE TO DATE 02/07/21 08:29 Blood Culture - Preliminary Blood NEGATIVE TO DATE A&P Assessment and plan (1) 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 Skin edges look healthy. No further loss of tissue Status: Acute (2) Scrotal abscess: Begin backing out the [place] drain tomorrow. May explore the inferior aspect of the wound if he has increased drainage or evidence of progression of infection. Status: Acute (3) Necrotizing fasciitis of multiple sites: No further resection necessary. 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
[2021-02-09] MEDS: gabapentin 300 mg Capsule PO ×2 (09:11→16:16)
[2021-02-09] MEDS: pantoprazole DR 40 mg Tablet PO (09:11)
[2021-02-09] MEDS: lactobacillus 1 Tablet 1 TAB PO (09:11)
[2021-02-09] MEDS: docusate sodium 100 mg Capsule PO (09:11)
[2021-02-09] MEDS: apixaban 5 mg Tablet 10 MG PO (09:11)
[2021-02-09] MEDS: clotrimazole 1% cream 30 gm 1 APPLIC TOPICAL ×2 (10:37→18:20)
[2021-02-09] MEDS: nystatin powder 15 gm Btl 1 APPLIC TOPICAL ×2 (10:38→18:20)
[2021-02-09] MEDS: docusate sodium 10 mg/mL (5ml) Liq 100 MG PO (11:07)
--- NOTE | 2021-02-09 12:11 | PC.SOCIAL ---
IMM UPDATE Gave patient and family at bedside IMM update. Left copy of pg 2 at bedside. Initialed, dated, timed, and placed in chart.
[2021-02-09 12:30] LABS: Glucose Point of Care 232 mg/dL (70-110)
--- NOTE | 2021-02-09 16:25 | P.PN_ITS ---
Subjective Subjective: Interval history: Patient was seen at the bedside along Dr. Moreau Dressing was removed from scrotal area, mild yellow exudative discharge noticed from the inferior pole of the scrotum otherwise wound looks to be showing signs of healing, [place] drain in situ Consulted cardiology for IVC filter evaluation Plan to transfer him out of ICU to medical floor Remove NG tube and start speech evaluation Vitals/I&O/Wt Last Vital Signs Temp 98.2 F 02/09/21 12:00 Pulse 87 02/09/21 16:00 Resp 19 H 02/09/21 16:00 BP 102/60 02/09/21 16:00 Pulse Ox 97 02/09/21 16:00 02/09/21 02/09/21 02/09/21 06:59 14:59 22:59 Intake Total 1066 / 3479.579 255.625 / 255.625 Output Total 1200 / 3400 Balance -134 / 79.579 255.625 / 255.625 Weight last 48 hrs Weight 116.346 kg Weight 113.988 kg Physical Exam Narrative: EXAM NARRATIVE: Patient was laying in his bed without any active discomfort Scrotal area dressing were removed, noticed exudative purulent drainage from inferior pole of the scrotum otherwise wound showing signs of healing with pink granulation tissue, tender on palpation Stovall catheter draining concentrated yellow urine with sediments S1, S2 sinus rhythm Multiple skin tattoos Abdomen soft no signs of peritonitis Bilateral diminished breath sounds left greater than right EOMI, PERRLA patient is able to answer my questions appropriately, no new neurological deficits noted Bilateral lower extremity edema left greater than right No active hematuria noted Urinary Catheter Management^: Stovall: Cath Placed During This Visit: yes, but has since been removed by the nurse Reason for Continuing Indwelling Catheter: Accurate Measurement of Urinary Output in Critically Ill Patients Urinary Catheter Date of Insertion: 01/31/21 Date Urinary Catheter Removed: 02/02/21 Time Urinary Catheter Discontinued: 08:27 Stovall Latex: Cath Placed During This Visit: yes Reason for Continuing Indwelling Catheter: Accurate Measurement of Urinary Output in Critically Ill Patients Urinary Catheter Date of Insertion: 02/02/21 Urinary Catheter Time of Insertion: 08:35 Data : 02/09/21 04:14 02/09/21 04:14 Micro: Microbiology 01/31/21 20:36 Anaerobic Culture - Final Groin A&P Assessment and plan (1) Intertrigo: Status: Acute (2) Candidemia: Status: Acute (3) Yessenia glabrata infection: Status: Acute (4) Hypernatremia: Status: Acute (5) Scrotal abscess: Status: Acute (6) 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: Acute (7) Necrotizing fasciitis of multiple sites: Status: Acute (8) Diabetic ketoacidosis: Status: Acute Qualifiers: Diabetes mellitus complication detail: without coma Diabetes mellitus type: type 2 Qualified Code(s): E11.10 - Type 2 diabetes mellitus with ketoacidosis without coma (9) Acute kidney injury: Status: Acute Additional A&P Information Necrotizing fasciitis status post intervention [place] drain in situ Septic shock improved Currently on broad-spectrum antibiotics and antifungal, awaiting RG for antifungal before placement of PICC line Has been afebrile, low-grade temperature noted with tachypnea Dr. Moreau might advance [place] drain tomorrow, would hold off on Eliquis dose tonight and tomorrow morning dose Will need outpatient ophthalmology follow-up as well because of candidemia New onset DVT Bilateral extensive clot burden noted in lower extremities Requested cardiology consult for IVC filter evaluation No signs of PE on CTA however he is at high risk for development of PE considering clot burden, not a candidate to be on heparin products because of thrombocytopenia and poor IV access, HIT panel sent yesterday Started on Eliquis loading dose on 02/08 Acute hypernatremia: 3 L water deficit, NG tube to be removed and start his diet we will continue him on IV fluids as well and monitor sodium DKA and septic shock: Resolved PT/OT evaluation Hypoxic respiratory failure requiring 2.5 L nasal cannula which I believe is secondary to hypoventilation due to excessive pain no signs of PE or consolidation on chest imaging Full code Hemoglobin has stayed stable Transferring out of ICU to cardiac stepdown unit Attestations Medical Necessity Statement*: Anticipating prolonged hospitalization Time Spent in Patient Care: 35mins Procedures Arterial Line Size (Gauge): 20 Coding Level of Care Code Acute Security Systems Integrator for g Fwd Diagnoses Intertrigo L30.4 Candidemia B37.7 Yessenia glabrata infection B37.9 Hypernatremia E87.0 Scrotal abscess N49.2 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
[2021-02-09 19:46] LABS: Glucose Point of Care 256 mg/dL (70-110)
[2021-02-09 22:11] LABS: Glucose Point of Care 261 mg/dL (70-110)
[2021-02-10] VITALS (10 sets, daily range): BP systolic 111–135; BP diastolic 65–74; PULSE 78–87; RESP 12–18; TEMP 36.6–37.7; O2SAT 94–99; BMI 37.7
[2021-02-10] MEDS: ondansetron 2 mg/ML SDV 2 mL 4 MG IVP ×4 (00:25→19:03)
[2021-02-10] MEDS: HYDROmorphone 1 mg/mL INJ 1 mL IVP ×3 (00:26→16:57)
[2021-02-10] MEDS: vancomycin 1,500 MG/300 ML PIGGYBACK 200 MG IV ×2 (02:00→19:07)
[2021-02-10] MEDS: dextrose 5%-sod chloride 0.45% 1,000 ML 75 ML IV (02:00)
[2021-02-10 07:22] LABS: Glucose Point of Care 204 mg/dL (70-110)
--- NOTE | 2021-02-10 08:41 | PC.NURSE ---
Pain/Nausea Pt did not complain of pain last night, received a single dose of his pain medication at 0026 Dilaudid 1mg IVP, pt did have 2 episodes of vomiting, he received 2 doses of Zofran 4mg IVP throughout the night. Pts IV on the left side AC space became infiltrated, fluid filled tissue of the arm, IV removed from Left AC. Venagaurd reinforced he AC IV space on right side. Pt has had a weight gain of 4 lbs over night, both of his IV Fluids were stopped to ensure he would not become fluid ovreloaded. Jugular is NOT distended but his bilateral breath sounds are diminished. nausea directly followed ingestion of water each time, pt backed down to ice chips until Zofran, calms his stomach. Pt slept most of the night without any outward sign or pain or anxiety. Will continue to observe until the end of shift. At end of shift, pt has had an episode of pasty brown diarrhea, wound site, drain assessed, and campuzano drained. Pt did receive a dose of his pain medication, Dilauded 1mg IVP, prior to bed change to ensure pt comfort. Passed this information to dayshift.
[2021-02-10 11:15] LABS: Basophils % 0.5 %; Eosinophils # 0.1 10^3/uL (0.0-0.8); Eosinophils % 1.7 %; Hematocrit 26.1 % (42.0-52.0); Hemoglobin 7.8 g/dL (11.7-16.6); Lymphocytes # 1.7 10^3/uL (0.8-4.8); Lymphocytes % 21.2 %; Mean Corpuscular HGB Conc 29.9 g/dL (30.0-36.0); Mean Corpuscular Hemoglobin 27.3 pg (28.0-34.0); Mean Corpuscular Volume 91.3 fL (80-94); Mean Platelet Volume 9.1 fL (7.4-10.4); Monocytes # 0.4 10^3/uL (0.2-0.9); Monocytes % 5.3 %; Neutrophils # 5.52 10^3/uL (1.8-7.7); Nucleated Red Blood Cells % 0 %; Platelet Count 169 10^3/cmm (130-400); Red Blood Count 2.86 10^6/uL (4.1-5.3); Red Cell Distribution Width 15.9 % (12.1-15.1); White Blood Count 7.8 10^3/uL (4.0-10.0)
[2021-02-10] MEDS: docusate sodium 100 mg Capsule PO (11:29)
[2021-02-10] MEDS: pantoprazole DR 40 mg Tablet PO (11:31)
[2021-02-10] MEDS: nystatin powder 15 gm Btl 1 APPLIC TOPICAL ×2 (11:37→19:30)
[2021-02-10 11:46] LABS: Anion Gap 12.9 (5-19); Blood Urea Nitrogen 12 mg/dL (8-23); Calcium 7.7 mg/dL (8.5-10.5); Carbon Dioxide 23 mmol/L (22-29); Chloride 105 mmol/L (98-107); Glomerular Filtration Rate 66.8 mL/min (90-130); Glucose 249 mg/dL (65-115); Osmolality Calculated 292 mOsm/kg (285-295); Potassium 3.9 mmol/L (3.5-5.1); Sodium 137 mmol/L (136-145)
[2021-02-10 12:01] LABS: Glucose Point of Care 276 mg/dL (70-110)
[2021-02-10] MEDS: clotrimazole 1% cream 30 gm 1 APPLIC TOPICAL ×2 (12:15→19:30)
--- NOTE | 2021-02-10 16:13 | P.PN_ITS ---
Subjective Subjective: Interval history: Patient was seen and examined on medical floor, endorsing feeling better, tolerating solid diet, had 1 bowel movement, pain under control Talked with Dr. Hooks who is planning for IVC filter placement via IJ on Wednesday, Eliquis does not need to be held Vitals/I&O/Wt Last Vital Signs Temp 98.8 F 02/10/21 14:00 Pulse 87 02/10/21 14:00 Resp 12 02/10/21 14:00 BP 112/71 02/10/21 14:00 Pulse Ox 94 02/10/21 14:00 02/10/21 02/10/21 02/10/21 06:59 14:59 22:59 Intake Total 800 / 3817.292 1048.75 / 1048.75 1260.476 / 2309.226 Output Total 1950 / 1950 Balance 800 / -282.708 -901.25 / -901.25 1260.476 / 359.226 Weight last 48 hrs Weight 119.34 kg Weight 116.346 kg Physical Exam Narrative: EXAM NARRATIVE: Patient was laying comfortably in his bed at the bedside Scrotal dressing soaked with yellow-colored discharge No active bleeding Left extremity swollen as compared to right 2+ Awake alert oriented x3 GCS 15 Abdomen distended bowel sound present No acute respiratory distress S1, S2 No active signs of clinical dehydration Urinary Catheter Management^: Stovall: Cath Placed During This Visit: yes, but has since been removed by the nurse Reason for Continuing Indwelling Catheter: Accurate Measurement of Urinary Output in Critically Ill Patients Urinary Catheter Date of Insertion: 01/31/21 Date Urinary Catheter Removed: 02/02/21 Time Urinary Catheter Discontinued: 08:27 Stovall Latex: Cath Placed During This Visit: yes Reason for Continuing Indwelling Catheter: Accurate Measurement of Urinary Output in Critically Ill Patients Urinary Catheter Date of Insertion: 02/02/21 Urinary Catheter Time of Insertion: 08:35 Data : 02/10/21 10:50 02/10/21 10:50 A&P Assessment and plan (1) Candidemia: Status: Acute (2) Yessenia glabrata infection: Status: Acute (3) Hypernatremia: Status: Acute (4) Diabetic ketoacidosis: Status: Acute Qualifiers: Diabetes mellitus complication detail: without coma Diabetes mellitus type: type 2 Qualified Code(s): E11.10 - Type 2 diabetes mellitus with ketoacidosis without coma (5) Acute kidney injury: Status: Acute (6) 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 Moreau Dressing soaked with purulent discharge No active bleeding Candidemia, currently on caspofungin, will need 4 weeks of IV antibiotics once we have RG Bilateral DVTs Continue Eliquis Plan for IVC filter placement on Wednesday by Dr. Singh, Eliquis does not need to be held No signs of PE Secondary to thrombocytopenia heparin products were avoided, HIT panel is still pending Hyponatremia: Improved with fluid resuscitation, fluids discontinued this morning DKA resolved MIRYAM resolved PT/OT evaluation Hypoxic respiratory failure, wean off oxygen, no active signs of consolidation or pneumonia, this is secondary to hyperventilation Full code Hemoglobin trending down, hemodynamically stable Attestations Medical Necessity Statement*: Continue hospitalization for management of candidemia, bilateral DVTs requiring IVC filter Time Spent in Patient Care: (>than 50% of time spent in counselling and/or direct pt care on unit) . 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
--- NOTE | 2021-02-10 16:13 | P.CONIM_ITS ---
Providers/Reason For Consult Consulting Physician/Specialty*: Luis E Hooks MD/ Cardiology Reason for Consult*: DVT/ evaluation of IVC filter Requesting Physician: Dr Dillard Attending Physician: Paxton Dillard MD Primary Care Provider: Franklin Aguilar MD History of Present Illness History of Present Illness 65 year old male who presented to the emergency room on January 31, 2021 with chief complains of fatigue lethargy, groin rash that he had been trying to treat for the past 1 month with topical antifungals and antibacterial agents and also p.o. Bactrim. He became weak to the point that he could not move around and was very dehydrated. 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 He also developed severe metabolic complications as a result of diabetic ketoacidosis. He was taken urgently to the OR on the same day for debridement of necrotizing fasciitis involving the genitalia perineum and abdominal wall. He underwent incision and drainage of multiple deep scrotal perineal perianal and inguinal abscesses. Taken back to the OR on February 02, 2021 for wound recheck at which point the base looked healthy. Patient was found to have bilateral extensive DVTs. Cardiology is consulted to assess for IVC filter placement as his hemoglobin has been dropping and given the extent of DVTs, he is at high risk of developing pulmonary emboli. Patient denies any current symptoms of chest pain, shortness of breath or palpitations. Review of Systems Narrative: CONSTITUTIONAL: No fever chills weight loss or gain or night sweats. [] HEENT: Normocephalic, atraumatic.[] RESPIRATORY: No cough, sputum, hemoptysis or wheezing.[] CARDIOVASCULAR: No shortness of breath, chest pain, PND, orthopnea, lower extremity edema, presyncope or syncope. [] GI: no nausea vomiting diarrhea. [] MOLDER OPERATOR: No numbness, tingling, weakness or loss of function in any part of the body. [] MUSCULOSKELETAL: No knee or joint pain or rashes. [] Meds/Allergies Home Medications and Allergies Home Medications Medication Instructions Recorded Confirmed Last Taken Type amoxicillin-pot clavulanate 1 tab PO BID 01/31/21 01/31/21 Unknown History [Augmentin] fluconazole [Diflucan] 200 mg PO DAILY 01/31/21 01/31/21 Unknown History ketoconazole See Rx Instructions .ROUTE .COMPLEX 01/31/21 01/31/21 01/31/21 History lisinopril 5 mg PO DAILY 01/31/21 01/31/21 01/31/21 History metformin 500 mg PO BID 01/31/21 01/31/21 01/30/21 History nystatin See Rx Instructions .ROUTE .COMPLEX 01/31/21 01/31/21 Unknown History sulfamethoxazole-trimethoprim 1 tab PO BID 01/31/21 01/31/21 01/31/21 History triamcinolone acetonide See Rx Instructions .ROUTE .COMPLEX 01/31/21 01/31/21 01/31/21 History Allergies Allergy/AdvReac Type Severity Reaction Status Date / Time nitrofurantoin Allergy Unknown Verified 01/31/21 16:16 Current Medications Current Medications Generic Name Dose Route Start Last Admin Trade Name Freq PRN Reason Stop Dose Admin Hydrocodone Bitart/Acetaminophen 1 - 2 tab 02/05/21 16:33 02/06/21 14:40 Hydrocodone-Acetaminophen 10-325 Mg Tablet PO 1 tab Q4H PRN Administration MODERATE TO SEVERE PAIN Apixaban 10 mg 02/08/21 16:45 02/09/21 09:11 Apixaban 5 Mg Tablet PO 10 mg BID@0900,2100 [facility] Administration Clotrimazole 1 applic 02/04/21 09:00 02/10/21 12:15 Clotrimazole 1% Cream 30 Gm TOPICAL 1 applic BID JENISE Administration Docusate Sodium 100 mg 02/01/21 09:00 02/10/21 11:29 Docusate Sodium 100 Mg Capsule PO 100 mg BID JENISE Administration Hydromorphone HCl 1 mg 02/09/21 08:39 02/10/21 08:36 Hydromorphone 1 Mg/Ml Inj 1 Ml IVP 1 mg Q4H PRN Administration PAIN Caspofungin 50 mg/ Sodium 250 mls @ 250 mls/hr 02/06/21 17:00 02/09/21 21:46 Chloride IV Infused Q24H JENISE Infusion Piperacillin Sod/Tazobactam 100 mls @ 25 mls/hr 02/06/21 10:00 02/10/21 11:30 Sod 3.375 gm/ Dextrose IV 25 mls/hr Q8H JENISE Administration Protocol Amino Acids/Electrolytes 1,000 mls @ 0 mls/hr 02/06/21 10:15 02/08/21 18:30 Clinimix E 4.25%-10% IV 0 mls/hr .Q0M JENISE Infusion As Directed Fentanyl 1,000 mcg/ Sodium 100 mls @ 0 mls/hr 02/08/21 06:45 02/09/21 00:30 Chloride IV Infused .Q0M JENISE Titration Protocol Per Protocol Vancomycin/PEG/NADA/Lysine/Water 1,500 mg in 300 mls @ 200 mls/hr 02/08/21 12:00 02/10/21 06:25 Vancocin IV Infused Q18H JENISE Infusion Insulin Aspart 0 unit 02/09/21 20:27 02/10/21 13:29 Insulin Aspart 100 Unit/1 Ml SUBCUT 8 unit WM&BEDTIME JENISE Administration Protocol Nystatin 1 applic 02/06/21 18:00 02/10/21 11:37 Nystatin Powder 15 Gm Btl TOPICAL 1 applic BID JENISE Administration Ondansetron HCl 4 mg 01/31/21 22:37 02/10/21 10:25 Ondansetron 2 Mg/Ml Sdv 2 Ml IVP 4 mg Q6H PRN Administration NAUSEA AND VOMITING Pantoprazole Sodium 40 mg 02/01/21 09:00 02/10/21 11:[address] 40 Mg Tablet PO 40 mg DAILY JENISE Administration Zinc Oxide 1 applic 02/01/21 13:24 02/09/21 18:19 Zinc Oxide Oint 60 Gm TOPICAL 1 applic PRN PRN Administration SKIN PROTECTANT PFSH Acute PFSH: Medical History Diabetes Hypertension Necrotizing fasciitis of multiple sites Obesity Surgical History Status post hernia repair Family History Other CAD (coronary artery disease) Cancer Denies family history of Anesthesia complication Bleeding disorder Social History Smoking and tobacco status: former smoker Alcohol intake: never Substance/Drug Use: never Household members: spouse Vitals/I&O/Wt Last Vital Signs Temp 98.8 F 02/10/21 14:00 Pulse 87 02/10/21 14:00 Resp 12 02/10/21 14:00 BP 112/71 02/10/21 14:00 Pulse Ox 94 02/10/21 14:00 02/10/21 02/10/21 02/10/21 06:59 14:59 22:59 Intake Total 800 / 3817.292 1048.75 / 1048.75 1260.476 / 2309.226 Output Total 1950 / 1950 Balance 800 / -282.708 -901.25 / -901.25 1260.476 / 359.226 Weight last 48 hrs Weight 263 lb 1.6 oz Weight 256 lb 8 oz Physical Exam Narrative: EXAM NARRATIVE: GENERAL: Patient is alert, awake and oriented x3. [] NECK: No jugular vein distension. [] HEENT: No cyanosis. No icterus. No pallor. [] HEART: Regular S1 and S2. No murmur, rub or gallop. [] LUNGS: Clear to auscultate bilaterally. [] ABDOMEN: Soft, nontender and nondistended. Positive bowel sounds. No guarding, rebound or tenderness. [] CENTRAL NERVOUS SYSTEM: Grossly nonfocal. [] EXTREMITIES: Lower extremities with 1+ edema bilaterally. Pulses palpable in the lower extremities, both dorsalis pedis and posterior tibial. [] Urinary Catheter Management^: Stovall: Cath Placed During This Visit: yes, but has since been removed by the nurse Reason for Continuing Indwelling Catheter: Accurate Measurement of Urinary Output in Critically Ill Patients Urinary Catheter Date of Insertion: 01/31/21 Date Urinary Catheter Removed: 02/02/21 Time Urinary Catheter Discontinued: 08:27 Stovall Latex: Cath Placed During This Visit: yes Reason for Continuing Indwelling Catheter: Accurate Measurement of Urinary Output in Critically Ill Patients Urinary Catheter Date of Insertion: 02/02/21 Urinary Catheter Time of Insertion: 08:35 A&P Assessment and plan (1) Hypertension: Status: Chronic (2) Diabetes: Status: Chronic (3) 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 Patient has bilateral extensive DVTs extending up to common femoral veins. His hemoglobin is low. Continue Eliquis for now. Will reassess tomorrow if hemoglobin continues to drop, he may not tolerate long-term anticoagulation. As his risk of pulmonary embolism is high in case anticoagulation is held, we will proceed with IVC filter placement on Wednesday. Thank you for involving us with care of this patient. We will continue to follow. Please call with questions. 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
[2021-02-10 17:34] LABS: Glucose Point of Care 185 mg/dL (70-110)
--- NOTE | 2021-02-10 18:04 | PM.PN ---
Subjective Subjective: Interval history: Urology follow-up: Much more alert today. Has some soreness down below but nothing severe. Has been having a lot of stooling. Hard time keeping the posterior aspect of the wound clean. Temperature max was 99.8 at 1600 today. Physical examination: Anterior aspect of the wound looks healthy until about three [address] posteriorly. There is a gap between the sutures. [place] drain was advanced approximately 1 inch Reviewed possibly taking him back to the operating room to clean out the posterior aspect of the wound and begin a packing regimen. Reinspect tomorrow. We will probably open up some of the sutures for better evaluation. Vitals/I&O/Wt Last Vital Signs Temp 99.8 F H 02/10/21 16:00 Pulse 82 02/10/21 16:00 Resp 16 02/10/21 16:57 BP 120/65 02/10/21 16:00 Pulse Ox 95 02/10/21 16:00 02/10/21 02/10/21 02/10/21 06:59 14:59 22:59 Intake Total 800 / 3817.292 1048.75 / 1048.75 1360.476 / 2409.226 Output Total 1950 / 1950 Balance 800 / -282.708 -901.25 / -901.25 1360.476 / 459.226 Weight last 48 hrs Weight 263 lb 1.6 oz Weight 256 lb 8 oz Physical Exam Const: COMMON NORMALS: no acute distress, alert and well nourished GENERAL APPEARANCE: well kempt and well developed HENMT: COMMON NORMALS: normocephalic and atraumatic HEAD & SCALP: normocephalic and atraumatic Neck/C-Spine: COMMON NORMALS: full ROM Resp: COMMON NORMALS: normal respiratory effort EFFORT & INSPECTION: No labored and No Actively coughing : OTHER: Anterior aspect the wound is healing well. There is still some gapping between the sutures posteriorly. Complicated by stooling near the incisions. Clearwater drain advance. Neuro: SENSORIUM/ORIENTATION: Yes alert Psych: COMMON NORMALS: mental status grossly normal APPEARANCE: Yes grossly normal and Yes well kempt ATTITUDE: Yes calm and Yes engaged Urinary Catheter Management^: Stovall: Cath Placed During This Visit: yes, but has since been removed by the nurse Reason for Continuing Indwelling Catheter: Accurate Measurement of Urinary Output in Critically Ill Patients Urinary Catheter Date of Insertion: 01/31/21 Date Urinary Catheter Removed: 02/02/21 Time Urinary Catheter Discontinued: 08:27 Stovall Latex: Cath Placed During This Visit: yes Reason for Continuing Indwelling Catheter: Accurate Measurement of Urinary Output in Critically Ill Patients Urinary Catheter Date of Insertion: 02/02/21 Urinary Catheter Time of Insertion: 08:35 Data : 02/10/21 10:50 02/10/21 10:50 A&P Assessment and plan (1) Necrotizing fasciitis of multiple sites: Status: Acute (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
[2021-02-10 18:33] LABS: Vancomycin Trough 19.6 ug/mL (10-15)
[2021-02-10] MEDS: apixaban 5 mg Tablet 10 MG PO (21:13)
[2021-02-10] MEDS: insulin glargine 100 units/1 mL 10 UNIT SUBCUT (21:13)
[2021-02-10 21:19] LABS: Glucose Point of Care 197 mg/dL (70-110)
[2021-02-11] VITALS (9 sets, daily range): BP systolic 114–129; BP diastolic 68–75; PULSE 69–86; RESP 16–20; TEMP 36.5–37.1; O2SAT 94–99
[2021-02-11 06:20] LABS: Glucose Point of Care 201 mg/dL (70-110)
[2021-02-11 06:55] LABS: Basophils % 0.6 %; Eosinophils # 0.1 10^3/uL (0.0-0.8); Eosinophils % 1.9 %; Hemoglobin 7.4 g/dL (11.7-16.6); Lymphocytes # 1.4 10^3/uL (0.8-4.8); Lymphocytes % 19.8 %; Mean Corpuscular HGB Conc 29.6 g/dL (30.0-36.0); Mean Corpuscular Hemoglobin 27.1 pg (28.0-34.0); Mean Corpuscular Volume 91.6 fL (80-94); Mean Platelet Volume 9.5 fL (7.4-10.4); Monocytes # 0.3 10^3/uL (0.2-0.9); Monocytes % 3.9 %; Neutrophils # 5.31 10^3/uL (1.8-7.7); Neutrophils % 73.5 %; Nucleated Red Blood Cells % 0 %; Platelet Count 178 10^3/cmm (130-400); Red Blood Count 2.73 10^6/uL (4.1-5.3); White Blood Count 7.2 10^3/uL (4.0-10.0)
[2021-02-11] MEDS: HYDROmorphone 1 mg/mL INJ 1 mL IVP (07:54)
[2021-02-11] MEDS: apixaban 5 mg Tablet 10 MG PO ×2 (09:42→21:03)
[2021-02-11] MEDS: pantoprazole DR 40 mg Tablet PO (09:42)
[2021-02-11] MEDS: nystatin powder 15 gm Btl 1 APPLIC TOPICAL ×2 (09:43→17:51)
[2021-02-11] MEDS: clotrimazole 1% cream 30 gm 1 APPLIC TOPICAL ×2 (09:45→17:52)
--- NOTE | 2021-02-11 10:10 | PC.SOCIAL ---
IMM UPDATE Gave patient IMM update. Provided copy of pg 2. Verbalized understanding. 02/11/21 @ 0948. Initialed, dated, timed and placed in chart.
[2021-02-11 11:48] LABS: Glucose Point of Care 247 mg/dL (70-110)
[2021-02-11] MEDS: vancomycin 1,500 MG/300 ML PIGGYBACK 200 MG IV (12:21)
--- NOTE | 2021-02-11 12:32 | PM.PN ---
Subjective Subjective: Interval history: Patient is feeling better. His hemoglobin continues to drop and was 7.4 today. He is on Eliquis at this time. Vitals/I&O/Wt Last Vital Signs Temp 98.1 F 02/11/21 11:36 Pulse 77 02/11/21 11:36 Resp 18 02/11/21 11:36 BP 121/72 02/11/21 11:36 Pulse Ox 99 02/11/21 11:36 02/10/21 02/11/21 02/11/21 22:59 06:59 14:59 Intake Total 2250.476 / 3299.226 340 / 3639.226 340 / 340 Output Total 1575 / 3525 1500 / 5025 Balance 675.476 / -225.774 -1160 / -1385.774 340 / 340 Weight last 48 hrs Weight 262 lb 4.8 oz Weight 263 lb 1.6 oz Physical Exam Narrative: EXAM NARRATIVE: GENERAL: Patient is alert, awake and oriented x3. [] NECK: No jugular vein distension. [] HEENT: No cyanosis. No icterus. No pallor. [] HEART: Regular S1 and S2. No murmur, rub or gallop. [] LUNGS: Clear to auscultate bilaterally. [] ABDOMEN: Soft, nontender and nondistended. Positive bowel sounds. No guarding, rebound or tenderness. [] CENTRAL NERVOUS SYSTEM: Grossly nonfocal. [] EXTREMITIES: Lower extremities with 1+ edema bilaterally. Pulses palpable in the lower extremities, both dorsalis pedis and posterior tibial. [] Urinary Catheter Management^: Stovall: Cath Placed During This Visit: yes, but has since been removed by the nurse Reason for Continuing Indwelling Catheter: Accurate Measurement of Urinary Output in Critically Ill Patients Urinary Catheter Date of Insertion: 01/31/21 Date Urinary Catheter Removed: 02/02/21 Time Urinary Catheter Discontinued: 08:27 Stovall Latex: Cath Placed During This Visit: yes Reason for Continuing Indwelling Catheter: Accurate Measurement of Urinary Output in Critically Ill Patients Urinary Catheter Date of Insertion: 02/02/21 Urinary Catheter Time of Insertion: 08:35 Data : 02/11/21 06:09 02/10/21 10:50 Micro: Microbiology 02/06/21 10:15 Blood Culture - Final Blood NO GROWTH AFTER 5 DAYS 07/15/21 10:15 Blood Culture - Final Blood NO GROWTH AFTER 5 DAYS A&P Assessment and plan (1) Hypertension: Status: Chronic (2) Diabetes: Status: Chronic (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 Patient has extensive bilateral DVTs extending to common femoral veins. His hemoglobin has been dropping on Eliquis. High risk for developing pulmonary embolism as he is not tolerating anticoagulation well. We will plan on proceeding with placement of IVC filter tomorrow. N.p.o. past midnight. Thank you for involving us with care of this patient. We will continue to follow. Please call with questions. Attestations Medical Necessity Statement*: Care expected to cross 2 midnights. 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
[2021-02-11] MEDS: piperacillin-tazobactam 3.375 GM in dextrose 5% (plus) 50 ML IV ×2 (14:28→22:39)
[2021-02-11 16:43] LABS: Glucose Point of Care 343 mg/dL (70-110)
--- NOTE | 2021-02-11 17:48 | PM.PN ---
Subjective Subjective: Interval history: Patient was seen and examined this morning, patient is endorsing feeling abdominal cramps, according to the nurse was trying to overfeed him which made his stomach upset No overnight events noticed downtrending hemoglobin Vitals/I&O/Wt Last Vital Signs Temp 98.7 F 02/11/21 15:57 Pulse 86 02/11/21 15:57 Resp 16 02/11/21 15:57 BP 129/74 02/11/21 15:57 Pulse Ox 94 02/11/21 15:57 02/11/21 02/11/21 02/11/21 06:59 14:59 22:59 Intake Total 340 / 3639.226 880 / 880 Output Total 1500 / 5025 Balance -1160 / -1385.774 880 / 880 Weight last 48 hrs Weight 118.977 kg Weight 119.34 kg Physical Exam Narrative: EXAM NARRATIVE: Patient was supine however complaining abdominal cramps Left leg swelling greater than right Stovall catheter draining clear yellow urine Dressing dry from the outside however it was not removed to look at the wound today S1, S2 without any murmur Looks fluid overloaded No acute respiratory distress no signs of tachypnea No joint swelling Bilateral lower extremity edema Appropriate mood and affect Urinary Catheter Management^: Stovall: Cath Placed During This Visit: yes, but has since been removed by the nurse Reason for Continuing Indwelling Catheter: Accurate Measurement of Urinary Output in Critically Ill Patients Urinary Catheter Date of Insertion: 01/31/21 Date Urinary Catheter Removed: 02/02/21 Time Urinary Catheter Discontinued: 08:27 Stovall Latex: Cath Placed During This Visit: yes Reason for Continuing Indwelling Catheter: Accurate Measurement of Urinary Output in Critically Ill Patients Urinary Catheter Date of Insertion: 02/02/21 Urinary Catheter Time of Insertion: 08:35 Data : 02/11/21 06:09 02/10/21 10:50 Micro: Microbiology 02/06/21 10:15 Blood Culture - Final Blood NO GROWTH AFTER 5 DAYS 02/06/21 10:15 Blood Culture - Final Blood NO GROWTH AFTER 5 DAYS A&P Assessment and plan (1) Intertrigo: Status: Acute (2) DVT, bilateral lower limbs: Status: Acute (3) Hypernatremia: Status: Acute (4) Septic shock: Status: Acute (5) Diabetic ketoacidosis: Status: Acute Qualifiers: Diabetes mellitus complication detail: without coma Diabetes mellitus type: type 2 Qualified Code(s): E11.10 - Type 2 diabetes mellitus with ketoacidosis without coma (6) Necrotizing fasciitis of multiple sites: Status: Acute Additional A&P Information Yovanny's gangrene/necrotizing fasciitis Candidemia Candidemia, currently on caspofungin, will need 4 weeks of IV antibiotics once we have RG Bilateral DVTs Continue Eliquis Plan for IVC filter placement on Wednesday by Dr. Singh, Eliquis does not need to be held Platelet count stable 168, HIT panel pending Downtrending hemoglobin, will transfuse if hemoglobin less than 7, currently hemodynamically stable Hypernatremia: Improved DKA resolved MIRYAM resolved PT/OT evaluation: Patient wants home health services does not want to go to any [place] health care facility Hypoxic respiratory failure, wean off oxygen, no active signs of consolidation or pneumonia, this is secondary to hypoventilation Full code Make him n.p.o. after midnight for IVC filter placement tomorrow Attestations Medical Necessity Statement*: IVC filter placement tomorrow Time Spent in Patient Care: 30mins Procedures Arterial Line Size (Gauge): 20 Coding Level of Care Code Acute Weatherization And Housing Inspector for [facility] Fwd Diagnoses Intertrigo L30.4 DVT, bilateral lower limbs I82.403 Hypernatremia E87.0 Septic shock A41.9; R65.21 Diabetic ketoacidosis E11.10 Diabetes mellitus complication detail: without coma Diabetes mellitus type: type 2 Necrotizing fasciitis of multiple sites M72.6
--- NOTE | 2021-02-11 18:43 | PM.PN ---
Subjective Subjective: Interval history: Urology follow-up Patient feeling better, stronger, increasing appetite. Denies fever or chills. Lennox drain dislodged today. Some poor apposition of the wound edges posteriorly. Recommend exploration tomorrow under anesthesia with wound washout. Has been getting contaminated with stool. Anterior aspect still looks very good. We will see if I can get general surgery to look at it under anesthesia for advice regarding management with location so close to the rectum. Vitals/I&O/Wt Last Vital Signs Temp 98.7 F 02/11/21 15:57 Pulse 86 02/11/21 15:57 Resp 16 02/11/21 15:57 BP 129/74 02/11/21 15:57 Pulse Ox 94 02/11/21 15:57 02/11/21 02/11/21 02/11/21 06:59 14:59 22:59 Intake Total 340 / 3639.226 880 / 880 240 / 1120 Output Total 1500 / 5025 1900 / 1900 Balance -1160 / -1385.774 880 / 880 -1660 / -780 Weight last 48 hrs Weight 262 lb 4.8 oz Weight 263 lb 1.6 oz Physical Exam Const: COMMON NORMALS: no acute distress, alert and well nourished GENERAL APPEARANCE: well kempt and well developed ORIENTATION/CONSCIOUSNESS: not confused HENMT: COMMON NORMALS: normocephalic and atraumatic HEAD & SCALP: normocephalic and atraumatic Eye: COMMON NORMALS: conjunctivae normal and no scleral icterus CONJUNCTIVA: Yes conjunctivae normal Neck/C-Spine: GENERAL: Yes normal visual inspection Resp: COMMON NORMALS: normal respiratory effort EFFORT & INSPECTION: No labored and No Actively coughing Neuro: SENSORIUM/ORIENTATION: Yes alert Psych: APPEARANCE: Yes grossly normal and Yes well kempt ATTITUDE: Yes calm Urinary Catheter Management^: Stovall: Cath Placed During This Visit: yes, but has since been removed by the nurse Reason for Continuing Indwelling Catheter: Accurate Measurement of Urinary Output in Critically Ill Patients Urinary Catheter Date of Insertion: 01/31/21 Date Urinary Catheter Removed: 02/02/21 Time Urinary Catheter Discontinued: 08:27 Stovall Latex: Cath Placed During This Visit: yes Reason for Continuing Indwelling Catheter: Accurate Measurement of Urinary Output in Critically Ill Patients Urinary Catheter Date of Insertion: 02/02/21 Urinary Catheter Time of Insertion: 08:35 Data : 02/11/21 06:09 02/10/21 10:50 Micro: Microbiology 02/06/21 10:15 Blood Culture - Final Blood NO GROWTH AFTER 5 DAYS 02/06/21 10:15 Blood Culture - Final Blood NO GROWTH AFTER 5 DAYS A&P Assessment and plan (1) 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 Posterior aspect of the wound is exposed to stool contamination. We will plan on exploring tomorrow for wound washout, likely begin a wet-to-dry packing program depending upon the status. We will have general surgery evaluate for recommendations. 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
[2021-02-11 20:27] LABS: Glucose Point of Care 319 mg/dL (70-110)
[2021-02-11] MEDS: insulin glargine 100 units/1 mL 10 UNIT SUBCUT (21:04)
[2021-02-12] VITALS (27 sets, daily range): BP systolic 109–178; BP diastolic 54–97; PULSE 65–112; RESP 13–22; TEMP 36.2–37.3; O2SAT 90–99
[2021-02-12 02:55] LABS: Basophils % 0.3 %; Eosinophils # 0.1 10^3/uL (0.0-0.8); Eosinophils % 2.1 %; Hematocrit 23.7 % (42.0-52.0); Hemoglobin 7.2 g/dL (11.7-16.6); Lymphocytes # 1.8 10^3/uL (0.8-4.8); Lymphocytes % 30.1 %; Mean Corpuscular HGB Conc 30.4 g/dL (30.0-36.0); Mean Corpuscular Hemoglobin 27.2 pg (28.0-34.0); Mean Corpuscular Volume 89.4 fL (80-94); Mean Platelet Volume 9.4 fL (7.4-10.4); Monocytes # 0.4 10^3/uL (0.2-0.9); Monocytes % 6.7 %; Neutrophils # 3.69 10^3/uL (1.8-7.7); Neutrophils % 60.5 %; Nucleated Red Blood Cells % 0 %; Platelet Count 184 10^3/cmm (130-400); Red Blood Count 2.65 10^6/uL (4.1-5.3); Red Cell Distribution Width 16.3 % (12.1-15.1); White Blood Count 6.1 10^3/uL (4.0-10.0)
[2021-02-12 03:16] LABS: Anion Gap 13.6 (5-19); Blood Urea Nitrogen 9 mg/dL (8-23); Calcium 7.6 mg/dL (8.5-10.5); Carbon Dioxide 24 mmol/L (22-29); Chloride 105 mmol/L (98-107); Glomerular Filtration Rate 74.5 mL/min (90-130); Glucose 195 mg/dL (65-115); Osmolality Calculated 292 mOsm/kg (285-295); Potassium 3.6 mmol/L (3.5-5.1); Sodium 139 mmol/L (136-145)
--- NOTE | 2021-02-12 03:51 | PC.NURSE ---
After starting blood transfusion pt Vital signs began to vary slightly from baseline. Pt body temp elevated from baseline 97.6 to 98.9, blood pressure elevated from 109/59 to 132/64, pt began to cough and complained to nurse of his chest feeling funny Nurse stopped blood transfusion, flushed IV, Notified charge nurse Camilla, Nurse auscultated pt lung sounds noted to be clear, patient is on tele and NSR, night time hospitalist Dr. Lowery notified by phone and Doctors orders were to wait a few minutes and then restart transfusion, Dr. Lowery ordered nurse to run transfusion as slow as possible to get blood infused in 4 hours and stated he would be up to the floor to see patient soon.
[2021-02-12] MEDS: vancomycin 1,500 MG/300 ML PIGGYBACK 200 MG IV (06:07)
[2021-02-12 06:31] LABS: Glucose Point of Care 199 mg/dL (70-110)
--- NOTE | 2021-02-12 07:03 | XACV_ITS ---
Ht: 178 cm Wt: 122 kg BSA: 2.50 m2 Any Known Allergies: Other Gender: Male : 1955 Exam Type: Invasive Peripheral Vascular Procedure(s): Procedure Description: Peripheral vascular Intervention Procedure Description: PV IVC Filter Placement Exam Priority: Routine Abdominal Interventional Findings INDICATION: Patient has extensive bilateral lower extremity DVTs. He is currently on Eliquis however his hemoglobin is progressively declining and was 7.2 today. Internal medicine team has requested placement of IVC filter as likelihood that he may not tolerate Eliquis over the next few days is very high and given his extensive bilateral DVTs, he is at high risk of developing life-threatening pulmonary emboli. We will proceed with IVC filter from right internal jugular approach. Procedure detail: Using a micropuncture ,ultrasound-guided access was obtained in the right internal jugular vein. Through the long Cook sheath, venogram was performed to identify renal veins. IVC filter was deployed below the level of the renal veins (Cook Tulip Ozzy). Sheath was removed and manual pressure was held to obtain hemostasis. Conclusions Successful deployment of IVC filter. Recommendations Transfer back to floor. Continue anticoagulation if patient can tolerate. Plan for IVC filter removal in 3 months if he is able to tolerate anticoagulation. However, may have to aileen it if Hgb continues to drop. Outpatient cardiology follow up in 6 weeks. Procedure Details Findings Procedure Consent Obtained. Pre-Procedure Time Out. Identified patient by full name and date of as verbalized by the patient/guarantor. Does the consent match the physician's order: Yes. Accurate & Complete Informed Consent: Yes. Inpatient/Outpatient History & Physical on Chart: Yes. If H&P is completed, is and addenduem needed: No; If yes, is the addendum complete: N/A. Visualize and Verify Site with Patient/Guarantor: N/A. Relevant Radiology Images available: N/A. Pre-op teaching completed and patient verbalized understanding. The risks, benefits, and alternatives of sedation and/or procedure were discussed by physician. The patient agrees to continue. Procedure started. Correct patient, site and procedure confirmed by cath team. PERRLA. Strong, equal hand tank builder bilaterally. Lungs clear x 5 lobes. IV Site on Arrival: 20 gauge in the right bicep. IV Fluids: 0.9% NaCl at KVO. 0 mL infused prior to cath lab technologist. Pt arrived with campuzano catheter in place. Oxygen started at 2liters/min via nasal canula. bilateral jugular veins was prepped with chloroprep then draped in the usual sterile fashion. Physician arrived. Physician scrubbed in. Immediate Pre-Procedure Time Out. Correct Patient: Yes; Correct Procedure: Yes; Correct Site: Yes; Correct Patient Position: Yes; Correct Supplies: Yes; Dried Flammable Prep: Yes; Blood Products Available: N/A;. Lidocaine 1% infiltrated to the right jugular. Venous access obtained with a micropuncture set. Long wire inserted through micro dilator. 7 fr dilator inserted over wire. 7 fr dilator out. IVC filter sheath inserted. Abdominal aortogram performed in AP @ 10 mL/sec for a total of 30 mL. Wire out. Abdominal aortogram performed in AP @ 10 mL/sec for a total of 30 mL. Wire inserted. Wire and dilator out. Dilator inserted. Abdominal aortogram performed in AP @ 10 mL/sec for a total of 30 mL. Dilator and wire out. IVC filter inserted. IVC filter deployed. Deployment device removed. Sheath(s) removed and manual pressure held until hemostasis was achieved. Sterile 4x4 and Op-site applied to the puncture site. No oozing or hematoma noted. Post sheath removal instructions were given and the patient verbalized understanding. Post Procedure: Pulses reassessed and unchanged. PERRLA. Strong, equal hand tank builder bilaterally. No VTE prophylaxis required. Post-op diagnosis: IVC filter placement. Complications: none. Estimated blood loss: 5mL-10mL. Urine output 2 L. Medication's Wasted: Heparin = 1000 units. Total IV fluids: 150 mL. Contrast type used: Visipaque 320 mgI/mL, 500 mL bottle. Procedure completed. Patient transferred by bed to Outpatient Surgery. Vital chart was stopped. Procedure Medications Start: 11:07 AM Stop: 11: AM Medication: Versed Amount: 1 mg Route: I.V. Start: 11:07 AM Stop: 11: AM Medication: Fentanyl Amount: 50 mcg Route: I.V. Start: 11: AM Stop: 11: AM Medication: Versed Amount: 1 mg Route: I.V. Start: 11: AM Stop: : AM Medication: Fentanyl Amount: 50 mcg Route: I.V. I, the attending physician, have reviewed and verified all procedure medications. Yes, all medications given per verbal order History/Risk Factors Hypertension: Yes Dyslipidemia: No Peripheral Arterial Disease (PAD): No Obesity: No Renal Disease: No Prior Interventions PCI: No CABG: No Valve Surgery: No Report Signatures Finalized by Luis E Hooks MD on 02/21/2021 11:35 AM
[2021-02-12] MEDS: pantoprazole DR 40 mg Tablet PO (10:13)
[2021-02-12 10:32] LABS: Hematocrit 25.1 % (42.0-52.0); Hemoglobin 7.9 g/dL (11.7-16.6)
--- NOTE | 2021-02-12 10:56 | P.HPUD_ITS ---
Surgery/Procedure H&P Update DATE OF PROCEDURE: February 12, 2021 DATE H&P PERFORMED: 02/10/21 H&P UPDATE INFORMATION: I have reviewed H&P completed within last 30 days, I have examined patient prior to procedure, No changes to prior documentation and Changes to prior documentation as noted here CHANGES TO PREVIOUS DOCUMENTATION: Patient has extensive bilateral lower extremity DVTs. He is currently on Eliquis however his hemoglobin is progre ssively declining and was 7.2 today. Internal medicine team has requested placement of IVC filter as likelihood that he may not tolerate Eliquis over the next few days is very high and given his extensive bilateral DVTs, he is at high risk of developing life-threatening pulmonary emboli. We will proceed with IVC filter from right internal jugular approach. PREOP DIAGNOSIS: Bilateral extensive lower extremity DVT/ Anemia PRIMARY INDICATION FOR PROCEDURE: Bilateral extensive lower extremity edema/Anemia PLANNED PROCEDURE: Operation Date: 02/12/21 16:30 Proposed Procedures IVC filter placement PATIENT REASSESSED PRIOR TO SEDATION, WITH NO CHANGE NOTED: Yes PHYSICAL EXAM: alert, oriented x 3, clear to auscultation bilaterally and regular rate & rhythm AIRWAY EVAL/ANESTHESIA PLAN: ASA III, Monitored Anesthesia, Local Anesthesia, Risks, benefits & alternatives of sedation and/or procedure discussed and Patient agrees to continue as planned
--- NOTE | 2021-02-12 12:14 | SUR.PHASEI ---
1205 this is a IJ VENOUS ACCESS TO RT SIDE OF NECK SHEATH OUT SITE D/I, PT AWAKE ALERT HOB AT 30 DEGREES ON BEDREST.
[2021-02-12 13:18] LABS: Glucose Point of Care 184 mg/dL (70-110)
--- NOTE | 2021-02-12 13:23 | P.PN_ITS ---
Subjective Subjective: Interval history: Patient is feeling well. He underwent successful placement of IVC filter today. Vitals/I&O/Wt Last Vital Signs Temp 97.2 F L 02/12/21 12:40 Pulse 65 02/12/21 13:01 Resp 15 02/12/21 13:01 BP 117/64 02/12/21 13:01 Pulse Ox 98 02/12/21 13:01 02/11/21 02/12/21 02/12/21 22:59 06:59 14:59 Intake Total 660 / 1540 400 / 1940 300 / 300 Output Total 1999 / 1999 800 / 2800 0 / 0 Balance -1340 / -460 -400 / -860 300 / 300 Weight last 48 hrs Weight 268 lb 9.6 oz Weight 262 lb 4.8 oz Physical Exam Narrative: EXAM NARRATIVE: GENERAL: Patient is alert, awake and oriented x3. [] NECK: No jugular vein distension. [] HEENT: No cyanosis. No icterus. No pallor. [] HEART: Regular S1 and S2. No murmur, rub or gallop. [] LUNGS: Clear to auscultate bilaterally. [] ABDOMEN: Soft, nontender and nondistended. Positive bowel sounds. No guarding, rebound or tenderness. [] CENTRAL NERVOUS SYSTEM: Grossly nonfocal. [] EXTREMITIES: Lower extremities with 1+ edema bilaterally. Pulses palpable in the lower extremities, both dorsalis pedis and posterior tibial. [] Urinary Catheter Management^: Stovall: Cath Placed During This Visit: yes, but has since been removed by the nurse Reason for Continuing Indwelling Catheter: Accurate Measurement of Urinary Output in Critically Ill Patients Urinary Catheter Date of Insertion: 01/31/21 Date Urinary Catheter Removed: 02/02/21 Time Urinary Catheter Discontinued: 08:27 Stovall Latex: Cath Placed During This Visit: yes Reason for Continuing Indwelling Catheter: Assist healing open wound Urinary Catheter Date of Insertion: 02/02/21 Urinary Catheter Time of Insertion: 08:35 Data : 02/12/21 10:21 02/12/21 02:19 Micro: Microbiology 02/07/21 08:20 Blood Culture - Final Blood NO GROWTH AFTER 5 DAYS 02/07/21 08:29 Blood Culture - Final Blood NO GROWTH AFTER 5 DAYS 02/06/21 10:15 Blood Culture - Final Blood NO GROWTH AFTER 5 DAYS 02/06/21 10:15 Blood Culture - Final Blood NO GROWTH AFTER 5 DAYS A&P Assessment and plan (1) Hypertension: Status: Chronic (2) Diabetes: Status: Chronic (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 Patient has extensive bilateral DVTs extending to common femoral veins. His hemoglobin has been dropping on Eliquis. High risk for developing pulmonary embolism as he is not tolerating anticoagulation well. Underwent successful placement of IVC filter in inferior vena cava. We will recommend continuing on Eliquis unless significant bleeding issues. Thank you for involving us with care of this patient. We will continue to follow. Please call with questions. 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
[2021-02-12] MEDS: piperacillin-tazobactam 3.375 GM in dextrose 5% (plus) 50 ML IV ×2 (14:42→23:46)
--- NOTE | 2021-02-12 14:49 | P.PN_ITS ---
Subjective Subjective: Interval history: Secondary to low hemoglobin he received 1 unit PRBC today hemoglobin 7.9 Status post IVC filter placement via right IJ Dr. Moreau requesting general surgery to evaluate his wounds today Eliquis to be continued until significant bleeding noted, FOBT pending no hematuria Back Hemodynamically stable, his dressings are not covered with blood as well Patient endorsing feeling better than yesterday no abdominal cramps today no acute shortness of breath Vitals/I&O/Wt Last Vital Signs Temp 98.5 F 02/12/21 13:30 Pulse 67 02/12/21 13:30 Resp 14 02/12/21 13:30 BP 122/63 02/12/21 13:30 Pulse Ox 97 02/12/21 13:30 02/11/21 02/12/21 02/12/21 22:59 06:59 14:59 Intake Total 660 / 1540 400 / 1940 300 / 300 Output Total 2000 / 2000 800 / 2800 0 / 0 Balance -1340 / -460 -400 / -860 300 / 300 Weight last 48 hrs Weight 121.835 kg Weight 118.977 kg Physical Exam Narrative: EXAM NARRATIVE: Patient was laying comfortable/supine in his bed saturating well on room air Hemodynamically stable Dressing with serosanguineous fluid borrero No active bleeding noted Urine bag without hematuria S1, S2 with signs of fluid overload bilateral lower extremity edema Bilateral breath sounds diminished however no acute respiratory distress saturating well on room air Distended abdomen with obesity Concern for contamination of his wound with his feces Urinary Catheter Management^: Stovall: Cath Placed During This Visit: yes, but has since been removed by the nurse Reason for Continuing Indwelling Catheter: Accurate Measurement of Urinary Output in Critically Ill Patients Urinary Catheter Date of Insertion: 01/31/21 Date Urinary Catheter Removed: 02/02/21 Time Urinary Catheter Discontinued: 08:27 Stovall Latex: Cath Placed During This Visit: yes Reason for Continuing Indwelling Catheter: Assist healing open wound Urinary Catheter Date of Insertion: 02/02/21 Urinary Catheter Time of Insertion: 08:35 Data : 02/12/21 10:21 02/12/21 02:19 Micro: Microbiology 02/07/21 08:20 Blood Culture - Final Blood NO GROWTH AFTER 5 DAYS 02/07/21 08:29 Blood Culture - Final Blood NO GROWTH AFTER 5 DAYS 02/06/21 10:15 Blood Culture - Final Blood NO GROWTH AFTER 5 DAYS 02/06/21 10:15 Blood Culture - Final Blood NO GROWTH AFTER 5 DAYS A&P Assessment and plan (1) DVT, bilateral lower limbs: Status: Acute (2) Intertrigo: Status: Acute (3) Candidemia: Status: Acute (4) Yessenia glabrata infection: Status: Acute (5) Hypernatremia: Status: Acute (6) Septic shock: Status: Acute (7) Scrotal abscess: Status: Acute (8) 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 Booth to see if we could de-escalate his antimicrobial Bilateral DVT Camas post IVC filter placement today 02/12 we are right IJ, Eliquis to be continued unless significant bleeding noted, FOBT pending Acute on chronic blood loss anemia: Urine bag without hematuria FOBT pending Serosanguineous discharge around scrotal wound otherwise no significant bleeding Status post 1 unit PRBC on 02/11 Hemoglobin 7.9 HIT panel pending: Platelet count stable Hypernatremia: Improved DKA resolved MIRYAM resolved PT/OT evaluation: Patient wants home health services does not want to go to any detention Hypoxic respiratory failure, saturating well on room air Full code Resume diet if Dr. 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
--- NOTE | 2021-02-12 16:26 | P.ANESASSM_ITS ---
Pre-Anesthetic Assessment Pre-Anesthetic Assessment: Height/Weight: Height 1.78 m Weight 121.835 kg Temp Pulse Resp BP Pulse Ox 98.5 F 67 14 122/63 97 02/12/21 13:30 02/12/21 13:30 02/12/21 13:30 02/12/21 13:30 02/12/21 13:30 Preop Diagnosis: Bilateral extensive lower extremity DVT/ Anemia Proposed Procedure: Operation Date: 01/31/21 19:30 Proposed Procedures p Incision And Drainage(Not Applicable) - Tom Moreau MD Operation Date: 02/02/21 08:20 Proposed Procedures p Wound Exploration(Not Applicable) - Anjum Min MD Operation Date: 02/12/21 10:00 Proposed Procedures p IVC Filter Insertion(Not Applicable) - Luis E Hooks M.D Operation Date: 02/12/21 16:30 Proposed Procedures p Scrotal Debridement(Not Applicable) - Tom Moreau MD Familial anesthetic complications: none Last intake: > 8 hrs Social: Social History: No alcohol and No tobacco Exam: Pre-Anes Outpt Exam: alert, oriented x 3, clear to auscultation bilaterally and regular rate & rhythm Airway: Cervical ROM: WNL MP: 3 Dentition: False CV/HEM: CV/HEM: HTN Comments: s/p IVC filter today : Comments: MIRYAM Metabolic: Metabolic: DM and Morbid obesity Comments: REcent DKA Anesthetic Plan: ASA status: 3 Anesthesia: General Risk of > 500 ml blood loss (7ml/kg in children): No Meds/Allergies Current Medications: Current Medications Generic Name Dose Route Start Last Admin Trade Name Freq PRN Reason Stop Dose Admin Hydrocodone Bitart /Acetaminophen 1 - 2 tab 02/05/21 16:33 02/06/21 14:40 Hydrocodone-Acet aminophen 10-325 M g Tablet PO 1 tab Q4H PRN Administration MODERATE TO SEVER E PAIN Apixaban 10 mg 02/08/21 16:45 02/11/21 21:03 Apixaban 5 Mg Ta blet PO 10 mg BID@0900,2100 JENISE Administration Clotrimazole 1 applic 02/04/21 09:00 02/12/21 10:12 Clotrimazole 1% Cream 30 Gm TOPICAL Not Given BID JENISE Hydromorphone HCl 1 mg 02/09/21 08:39 02/11/21 07:54 Hydromorphone 1 Mg/Ml Inj 1 Ml IVP 1 mg Q4H PRN Administration PAIN Caspofungin 50 mg/ Sodium 250 mls @ 250 mls /hr 02/06/21 17:00 02/11/21 20:00 Chloride IV Infused Q24H JENISE Infusion Fentanyl 1,000 mcg / Sodium 100 mls @ 0 mls/h r 02/08/21 06:45 02/09/21 00:30 Chloride IV Infused .Q0M JENISE Titration Protocol Per Protocol Vancomycin/PEG/NAD A/Lysine/Water 1,500 mg in 300 m ls @ 200 mls/hr 02/08/21 12:00 02/12/21 10:15 Vancocin IV Infused Q18H JENISE Infusion Piperacillin Sod/T azobactam 50 mls @ 12.5 mls /hr 02/11/21 13:30 02/12/21 14:42 Sod 3.375 gm/ De xtrose IV 12.5 mls/hr Q8H JENISE Administration Protocol Insulin Aspart 0 unit 02/09/21 20:27 02/12/21 11:44 Insulin Aspart 1 00 Unit/1 Ml SUBCUT Not Given WM&BEDTIME JENISE Protocol Insulin Glargine 10 unit 02/10/21 21:00 02/11/21 21:04 Insulin Glargine 100 Units/1 Ml SUBCUT 10 unit BEDTIME JENISE Administration Nystatin 1 applic 02/06/21 18:00 02/12/21 10:12 Nystatin Powder 15 Gm Btl TOPICAL Not Given BID JENISE Ondansetron HCl 4 mg 01/31/21 22:37 02/10/21 19:03 Ondansetron 2 Mg /Ml Sdv 2 Ml IVP 4 mg Q6H PRN Administration NAUSEA AND VOMITI NG Zinc Oxide 1 applic 02/01/21 13:24 02/09/21 18:19 Zinc Oxide Oint 60 Gm TOPICAL 1 applic PRN PRN Administration SKIN PROTECTANT PFSH Anesthesia PFSH: Medical History Diabetes Hypertension Necrotizing fasciitis of multiple sites Obesity Surgical History Status post hernia repair Family History Other CAD (coronary artery disease) Cancer Denies family history of Anesthesia complication Bleeding disorder Social History Smoking and tobacco status: former smoker Alcohol intake: never Substance/Drug Use: never Household members: spouse Supplemental [facility] Information: He denies any knowledge of cardiac disease or respiratory disease. Has been previously on diabetic meds but quit because the doctor said he did not need them any longer Data Anesthesia CBC & Chem 7: 02/12/21 10:21 02/12/21 02:19 Other Labs: Laboratory Results - last 48 hr 02/10/21 02/10/21 02/10/21 17:32 17:36 20:39 WBC RBC Hgb Hct MCV MCH MCHC RDW Plt Count MPV Neut % (Auto) Lymph % (Auto) [place] % (Auto) Eos % (Auto) Baso % (Auto) Neut # (Auto) Lymph # (Auto) [place] # (Auto) Eos # (Auto) Baso # (Auto) Nucleated RBC % (auto) Nucleated RBCs # Sodium Potassium Chloride Carbon Dioxide Anion Gap BUN Creatinine GFR Calculation Glucose POC Glucose 185 H 197 H Calculated Osmolality Calcium Vancomycin Trough 19.6 H Blood Type Rho(D) Type Antibody Screen Crossmatch 02/11/21 02/11/21 02/11/21 06:03 06:09 11:35 WBC 7.2 RBC 2.73 L Hgb 7.4 L Hct 25.0 L MCV 91.6 MCH 27.1 L MCHC 29.6 L RDW 16.0 H Plt Count 178 MPV 9.5 Neut % (Auto) 73.5 Lymph % (Auto) 19.8 [place] % (Auto) 3.9 Eos % (Auto) 1.9 Baso % (Auto) 0.6 Neut # (Auto) 5.31 Lymph # (Auto) 1.4 [place] # (Auto) 0.3 Eos # (Auto) 0.1 Baso # (Auto) 0.0 Nucleated RBC % (auto) 0 Nucleated RBCs # 0.0 Sodium Potassium Chloride Carbon Dioxide Anion Gap BUN Creatinine GFR Calculation Glucose POC Glucose 201 H 247 H Calculated Osmolality Calcium Vancomycin Trough Blood Type Rho(D) Type Antibody Screen Crossmatch 02/11/21 02/11/2102/11/21 16:38 20:15 20:30 WBC RBC Hgb Hct MCV MCH MCHC RDW Plt Count MPV Neut % (Auto) Lymph % (Auto) [place] % (Auto) Eos % (Auto) Baso % (Auto) Neut # (Auto) Lymph # (Auto) [place] # (Auto) Eos # (Auto) Baso # (Auto) Nucleated RBC % (auto) Nucleated RBCs # Sodium Potassium Chloride Carbon Dioxide Anion Gap BUN Creatinine GFR Calculation Glucose POC Glucose 343 H 319 H Calculated Osmolality Calcium Vancomycin Trough Blood Type A Positive Rho(D) Type Positive / 4+ Antibody Screen Negative Crossmatch See Detail 02/12/21 02/12/21 02/12/21 02:19 02:19 06:21 WBC 6.1 RBC 2.65 L Hgb 7.2 L Hct 23.7 L MCV 89.4 MCH 27.2 L MCHC 30.4 RDW 16.3 H Plt Count 184 MPV 9.4 Neut % (Auto) 60.5 Lymph % (Auto) 30.1 [place] % (Auto) 6.7 Eos % (Auto) 2.1 Baso % (Auto) 0.3 Neut # (Auto) 3.69 Lymph # (Auto) 1.8 [place] # (Auto) 0.4 Eos # (Auto) 0.1 Baso # (Auto) 0.0 Nucleated RBC % (auto) 0 Nucleated RBCs # 0.0 Sodium 139 Potassium 3.6 Chloride 105 Carbon Dioxide 24 Anion Gap 13.6 BUN 9 Creatinine 1.0 GFR Calculation 74.5 L Glucose 195 H POC Glucose 199 H Calculated Osmolality 292 Calcium 7.6 L Vancomycin Trough Blood Type Rho(D) Type Antibody Screen Crossmatch 02/12/21 02/12/21 10:21 13:14 WBC RBC Hgb 7.9 L Hct 25.1 L MCV MCH MCHC RDW Plt Count MPV Neut % (Auto) Lymph % (Auto) [place] % (Auto) Eos % (Auto) Baso % (Auto) Neut # (Auto) Lymph # (Auto) [place] # (Auto) Eos # (Auto) Baso # (Auto) Nucleated RBC % (auto) Nucleated RBCs # Sodium Potassium Chloride Carbon Dioxide Anion Gap BUN Creatinine GFR Calculation Glucose POC Glucose 184 H Calculated Osmolality Calcium Vancomycin Trough Blood Type Rho(D) Type Antibody Screen Crossmatch Micro: Microbiology 02/07/21 08:20 Blood Culture - Final Blood NO GROWTH AFTER 5 DAYS 02/07/21 08:29 Blood Culture - Final Blood NO GROWTH AFTER 5 DAYS Cardiac Studies: Echocardiogram 02/01/21
[2021-02-12] MEDS: sodium chloride 0.9% 1,000 ML 30 ML IV (16:46)
--- NOTE | 2021-02-12 17:04 | PM.MISC ---
Miscellaneous Note Note: Urology follow-up: Still with issues of stool in the wound. Plan to take to the operating room today for wound washout and assess what options we have been regarding management either with packing partial closure etc. We will have general surgery look in from a perspective of wound management as well. Procedure reviewed in detail with the patient and his . Benefits risk potential complications alternatives expectations discussed. Informed consent was obtained.
[2021-02-12 17:08] LABS: Heparin Induced Platelet AB NEGATIVE (NEGATIVE); Patient O.D 0.023
--- NOTE | 2021-02-12 17:17 | P.PN_ITS ---
Subjective Subjective: Interval history: Infectious Disease progress note Since last being seen patient has been transitioned out of the ICU, mental status is improved, Afberile, hemodynamically stable, s/p IVC filter placement for LE DVT B/L. wounds contaminated with stool, planned for exploration in OR, additionally surgery consulted for wound care and additional exploration Medications: Reviewed: Yes Vitals/I&O/Wt Last Vital Signs Temp 98.5 F 02/12/21 13:30 Pulse 67 02/12/21 13:30 Resp 14 02/12/21 13:30 BP 122/63 02/12/21 13:30 Pulse Ox 97 02/12/21 13:30 02/12/21 02/12/21 02/12/21 06:59 14:59 22:59 Intake Total 400 / 1940 300 / 300 Output Total 800 / 2800 0 / 0 1200 / 1200 Balance -400 / -860 300 / 300 -1200 / -900 Weight last 48 hrs Weight 121.835 kg Weight 118.977 kg Physical Exam Urinary Catheter Management^: Stovall: Cath Placed During This Visit: yes, but has since been removed by the nurse Reason for Continuing Indwelling Catheter: Accurate Measurement of Urinary Output in Critically Ill Patients Urinary Catheter Date of Insertion: 01/31/21 Date Urinary Catheter Removed: 02/02/21 Time Urinary Catheter Discontinued: 08:27 Stovall Latex: Cath Placed During This Visit: yes Reason for Continuing Indwelling Catheter: Assist healing open wound Urinary Catheter Date of Insertion: 02/02/21 Urinary Catheter Time of Insertion: 08:35 Data : 02/12/21 10:21 02/12/21 02:19 Micro: Microbiology 02/07/21 08:20 Blood Culture - Final Blood NO GROWTH AFTER 5 DAYS 02/07/21 08:29 Blood Culture - Final Blood NO GROWTH AFTER 5 DAYS 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 (3) Necrotizing fasciitis of multiple sites: Status: Acute (4) UTI (urinary tract infection): Status: Acute Qualifiers: Hematuria presence: without hematuria Urinary tract infection type: acu te cystitis Qualified Code(s): N30.00 - Acute cystitis without hematuria (5) Diabetes: Status: Chronic (6) Scrotal abscess: Status: Acute (7) Candidemia: Status: Acute (8) Intertrigo: Status: Acute Additional A&P Information 65-year-old male admitted on January 31, 2021 after presenting with DKA and Yovanny's gangrene likely precipitated by severe intertrigo which she had been trying to treat as outpatient for the past several weeks. CT upon admission consistent with severe emphysematous changes involving the soft tissues of the scrotum extending up to the level of the prostate. Multiple abscesses encountered intraoperatively. He is status post I&D on 01/31 and closure on 02/02. As of the most recent OR wound bed appeared to be clean. Blood, urine, wound,r espiratory cultures with Yessenia glabrata. #Septic shock as a result of Yovanny's gangrene, shock now resolved #Severe intertrigo #Candidemia/disseminated candidiasis - Continue caspofungin, (started 02/05) Blood isolate identified as Yessenia glabrata from 02/01, blood cx 02/06 thus far negative Planned for an extended course of abx with antifungals for AT LEAST 4 weeks from last negative blood culture. Antifungal course may need to be extended based on clinical progression Still awaiting susceptibility from [facility] for Yessenia glabrata If isolate returns susceptible, plan to transition to oral voriconazole or Fluconazole if RG acceptable Okay to place PICC line for iv access at this time. Right IJ CVC has been removed. Currently only with peripheral iv access Recommend ophthalmology exam in about 2 weeks from cx clearance to rule out fungal endophthalmitis. His exam to be completed sooner if patient starts developing visual disturbances. TTE was unable to be completed due to poor ultrasonic windows. Defer BARI for now given that patient is showing clinical improvement, blood cultures appear to have cleared thus far from 02/06, already planned for prolonged antifungal t reatment, BARI unlikely to change clinical management. Low suspicion for infective endocarditis. # Yovanny's gangrene vs deep seated abscess extending into multiple planes Septic shock resolved, patient clinically improving however still problematic wound healing given fecal contamination due to location Planned for repeat exploration in the OR with urology and gen/surg Continue Zosyn and vancomycin for now Anticipate needing abx therapy until 2 weeks after last debridement Plan to tranition to po abx closer to discharge. Absence of bacterial growth from wound cultures may be as a result of outpatient antibiotic use prior to admission. MRSA nasal screen is positive. 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
--- NOTE | 2021-02-12 17:17 | P.PN_ITS ---
Subjective Subjective: Interval history: I am ready to get this done Medications: Reviewed: Yes Vitals/I&O/Wt Last Vital Signs Temp 98.5 F 02/12/21 13:30 Pulse 67 02/12/21 13:30 Resp 14 02/12/21 13:30 BP 122/63 02/12/21 13:30 Pulse Ox 97 02/12/21 13:30 02/12/21 02/12/21 02/12/21 06:59 14:59 22:59 Intake Total 400 / 1940 300 / 300 Output Total 800 / 2800 0 / 0 1200 / 1200 Balance -400 / -860 300 / 300 -1200 / -900 Weight last 48 hrs Weight 268 lb 9.6 oz Weight 262 lb 4.8 oz Physical Exam Narrative: EXAM NARRATIVE: Patient is conscious alert oriented X3 BMI 38.5 Head and neck examination PERRLA no masses no cervical lymphadenopathy no jaundice Abdomen nontender nondistended soft no organomegaly guarding or rigidity/no signs of peritonitis Morbidly obese and scrotal dressing in place Urinary Catheter Management^: Stovall: Cath Placed During This Visit: yes, but has since been removed by the nurse Reason for Continuing Indwelling Catheter: Accurate Measurement of Urinary O utput in Critically Ill Patients Urinary Catheter Date of Insertion: 01/31/21 Date Urinary Catheter Removed: 02/02/21 Time Urinary Catheter Discontinued: 08:27 Stovall Latex: Cath Placed During This Visit: yes Reason for Continuing Indwelling Catheter: Assist healing open wound Urinary Catheter Date of Insertion: 02/02/21 Urinary Catheter Time of Insertion: 08:35 Data : 02/12/21 10:21 02/12/21 02:19 Micro: Microbiology 02/07/21 08:20 Blood Culture - Final Blood NO GROWTH AFTER 5 DAYS 02/07/21 08:29 Blood Culture - Final Blood NO GROWTH AFTER 5 DAYS A&P Assessment and plan (1) 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 Moreau had asked me to join him today in the procedure for wound expiration for examination under anesthesia We will plan to perform exam and further debridement as needed Informed consent per chart Assurance and education All questions have been answered and all concerns have been addressed to patient's satisfaction. 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
[2021-02-12] MEDS: lidocaine 2% INJ 20 mL XX (18:00)
[2021-02-12] MEDS: neomycin-poly-bacitracin oint 28 gm 1 APPLIC TOPICAL (18:10)
--- NOTE | 2021-02-12 18:10 | PM.OP ---
Operative Report Date of procedure: February 12, 2021 Pre-op Diagnosis: Scrotal perineal wound Post-op diagnosis: same Post-op Findings: Post debridement measurements 12 x 9 x 6 cm Procedure Done: Exploration and sharp debridement of scrotal-perineal wound Implants: Large piece of Surgicel followed by Kerlix packing Surgeon: Vitor Benavides Surgeon: Billboard Installer surgeon Dr. Moreau Billboard Installer: finishing technician Mayelin Circulating nurse Rosangela Anesthesia: General (GETA AND RESCUE FIRE FIGHTER CRASH FIRE Bernardo) Estimated blood loss (mL): 20 Condition: stable Brief History: Status post debridement of Yovanny gangrene of the perineum and scrotum by urology service. Full H&P and informed consent per chart. Procedure: Packing with wet-to-dry Kerlix impregnated the lidocaine 2% On top of large piece of Surgicel After identifying the patient holding area, patient was then taken to the operative suite, was placed in supine position, patient was already on therapeutic antibiotics, got intubated by the anesthesia provider, patient was then placed in lithotomy position. Time-out was done verifying the patient's name/date of /planned procedure and destination after the procedure, all were in agreement. I started by Digital rectal examination showed anal canal intact and no communication with the wound bed Following that prep and drape of the wound region was done under the usual sterile technique. Dr. Moreau and myself were scrubbed in the case and started exploring the wound, where stitches were taken down from the previous surgical intervention. Started by excising the unhealthy necrotic indurated tissues of the wound particularly towards the edges of the skin.Incision was created at the skin level and went all the way down to the subcutaneous tissues, musculofascial compartment.The wound bed itself is clean and there were some residual necrotic tissues that was all debrided sharply. Wound measurements Post-debridement measurement;12x9x6 cm Debridement all the way to the healthier subcutaneous level and musculofascial compartment all the way to the base of the penis and scrotum. Copious and thorough irrigation of the wound was done with warm saline using pulsatile, followed by appropriate hemostasis, there was a small bleeder then a figure of 3-0 silk was placed, a large piece of Surgicel was applied followed by packing of the wound was done with Kerlix impregnated and lidocaine 2%, followed by, ABDs, Kerlix and surgical pants. Patient tolerated the procedure well, count of instruments,needles and sponges were completed at the end of the procedure. Patient was then taken to the recovery area in stable condition. I was present for the whole entire procedure
--- NOTE | 2021-02-12 18:20 | PM.OP ---
Operative Report Date of procedure: February 12, 2021 Pre-op Diagnosis: Penile eschar Post-op diagnosis: same Procedure Done: Debridement of penile eschar Pathology: none sent Surgeon: Lizzeth Anesthesia: General Estimated blood loss: Less than 5 cc Urine output: Not measured Complications: None Findings: 2 cm x 1 cm eschar on the phallus debrided completely and dressed sterilely Condition: stable Disposition: PACU Brief History: Mr. Pabon is a 65-year-old white male recently admitted for Yovanny's gangrene with concurrent scrotal, deep perineal, right groin, and perianal abscesses. He underwent extensive debridement of the scrotal necrotic tissue, unroofing of all the abscesses, debridement of deep tissue necrosis at initial evaluation. He later underwent partial closure of the wound from the top of the groin down to just above the anus. The upper portion of the wound has healed well lower portion has failed to close and he is brought back to the OR today for wound evacuation exploration debridement and wound cleansing. Dr. Benavides was consulted for assistance with the perineal wound extending down to the perianal area. From a urologic perspective he had an area of eschar on the penis. Procedure: After routine preoperative evaluation examination and obtaining of informed consent he was taken to the operating suite on 02/12/2021 where general anesthesia was administered without difficulty. Prepped and draped in usual sterile fashion in dorsolithotomy position paying careful attention to avoiding pressure points. Initial focus was on addressing the perineal wound. Please see Dr. Benavides's dictation regarding that. The eschar on the penis was well-defined. There is no evidence of deep cellulitis. The eschar on the penis measured about 2 cm x 1 cm and all of the eschar tissue was debrided down to healthy tissue. Skin edges were fulgurated gently for hemostasis and it was dressed with antibiotic ointment. Catheter was replaced. He tolerated procedure well without complications and was awakened in the operating room and returned to recovery room after his perineal dressings were placed.
--- NOTE | 2021-02-12 18:29 | P.PCN_ITS ---
PACU note PACU note: VSS, Good respiratory effort, report to FAMILY ENGAGEMENT SPECIALIST Post-Anesthesia Exam: awake
--- NOTE | 2021-02-12 18:29 | PM.PACU ---
PACU note PACU note: VSS, Good respiratory effort, report to CONTRACT AGENT Post-Anesthesia Exam: awake
--- NOTE | 2021-02-12 19:00 | ANE.PACU2 ---
Inpatient post-anesthesia follow up: Airway intact: Yes Vital signs: Temperature 98.2 F Pulse Rate [Monito r] 112 Pulse Rate 69 Respiratory Rate 16 Blood Pressure [Le ft Arm] 135/80 Blood Pressure 124/68 Pulse Oximetry 93 Oxygen Delivery Me thod [ Nasal Cannula Current Rate & Del dora] Oxygen Delivery Me thod Nasal Cannula Oxygen Flow Rate [ Current Rate 2 & Delivery] Oxygen Flow Rate 2 Fraction of Inspir ed Oxygen 90 Hydration adequate: Yes Nausea and vomiting: No Pain level: 2 Mental status: Baseline
[2021-02-12 21:32] LABS: UFH High Dose, 100 IU/ML 0 % release; UFH Low Dose, 0.1 IU/ML 0 % release; UFH Low Dose, 0.5 IU/ML 0 % release; UFH SRA Result NEGATIVE (NEGATIVE)
[2021-02-12 21:51] LABS: Glucose Point of Care 180 mg/dL (70-110)
[2021-02-12] MEDS: apixaban 5 mg Tablet 10 MG PO (22:42)
[2021-02-12] MEDS: insulin glargine 100 units/1 mL 10 UNIT SUBCUT (22:44)
[2021-02-13] VITALS (7 sets, daily range): BP systolic 123–146; BP diastolic 68–90; PULSE 63–86; RESP 16–18; TEMP 36.6–37.5; O2SAT 90–98
[2021-02-13] MEDS: vancomycin 1,500 MG/300 ML PIGGYBACK 200 MG IV ×2 (01:57→17:49)
[2021-02-13] MEDS: piperacillin-tazobactam 3.375 GM in dextrose 5% (plus) 50 ML IV ×3 (06:20→22:59)
[2021-02-13 06:50] LABS: Glucose Point of Care 156 mg/dL (70-110)
[2021-02-13] MEDS: apixaban 5 mg Tablet 10 MG PO ×2 (08:40→20:33)
[2021-02-13] MEDS: pantoprazole DR 40 mg Tablet PO ×2 (08:40→17:40)
[2021-02-13] MEDS: nystatin powder 15 gm Btl 1 APPLIC TOPICAL ×2 (08:42→17:41)
[2021-02-13] MEDS: clotrimazole 1% cream 30 gm 1 APPLIC TOPICAL ×2 (08:42→17:42)
--- NOTE | 2021-02-13 09:36 | P.PN_ITS ---
Subjective Subjective: Interval history: Patient is doing well. Had successful placement of the IVC filter yesterday Vitals/I&O/Wt Last Vital Signs Temp 97.9 F 02/13/21 08:00 Pulse 82 02/13/21 08:00 Resp 16 02/13/21 08:00 BP 123/70 02/13/21 08:00 Pulse Ox 92 02/13/21 08:00 02/12/21 02/13/21 02/13/21 22:59 06:59 14:59 Intake Total 50 / 350 470 / 820 Output Total 1205 / 1205 1800 / 3005 Balance -1155 / -855 -1330 / -2185 Weight last 48 hrs Weight 264 lb 14.4 oz Weight 268 lb 9.6 oz Physical Exam Narrative: EXAM NARRATIVE: GENERAL: Patient is alert, awake and oriented x3. [] NECK: No jugular vein distension. [] HEENT: No cyanosis. No icterus. No pallor. [] HEART: Regular S1 and S2. No murmur, rub or gallop. [] LUNGS: Clear to auscultate bilaterally. [] ABDOMEN: Soft, nontender and nondistended. Positive bowel sounds. No guarding, rebound or tenderness. [] CENTRAL NERVOUS SYSTEM: Grossly nonfocal. [] EXTREMITIES: Lower extremities with 1+ edema bilaterally. Pulses palpable in the lower extremities, both dorsalis pedis and posterior tibial. [] Urinary Catheter Management^: Stovall: Cath Placed During This Visit: yes, but has since been removed by the nurse Reason for Continuing Indwelling Catheter: Accurate Measurement of Urinary Output in Critically Ill Patients Urinary Catheter Date of Insertion: 01/31/21 Date Urinary Catheter Removed: 02/02/21 Time Urinary Catheter Discontinued: 08:27 Stovall Latex: Cath Placed During This Visit: yes, but has since been removed by the nurse Reason for Continuing Indwelling Catheter: Assist healing open wound Urinary Catheter Date of Insertion: 02/02/21 Urinary Catheter Time of Insertion: 08:35 Date Urinary Catheter Removed: 02/12/21 Time Urinary Catheter Discontinued: 17:40 Data : 02/13/21 12:28 02/13/21 12:28 Micro: Microbiology 02/07/21 08:20 Blood Culture - Final Blood NO GROWTH AFTER 5 DAYS 02/07/21 08:29 Blood Culture - Final Blood NO GROWTH AFTER 5 DAYS A&P Assessment and plan (1) Hypertension: Status: Chronic (2) Diabetes: Status: Chronic (3) 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 Patient has extensive bilateral DVTs extending to common femoral veins. His hemoglobin was dropping on Eliquis. High risk for developing pulmonary embolism as he is not tolerating anticoagulation well. Underwent successful placement of IVC filter in inferior vena cava. His hemoglobin has improved today. No active signs of bleeding. Continue with Eliquis for now. Thank you for involving us with care of this patient. We will continue to follow. Please call with questions. Attestations Medical Necessity Statement*: Care expected to cross 2 midnights. 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
--- NOTE | 2021-02-13 10:59 | XR_ITS ---
WS: [id number] Portable AP semiupright chest, 02/13/2021 Clinical Data: Post PICC placement Comparison: Portable chest, 02/08/2021. Findings: The right PICC line ends in the right subclavian vein. No pneumothorax is seen. XR/XR chest 1V portable [id number] Impression: Attempted right PICC line ends in right subclavian vein adjacent to the right s econd rib.
[2021-02-13 12:25] LABS: Glucose Point of Care 197 mg/dL (70-110)
[2021-02-13 12:58] LABS: Basophils % 0.5 %; Eosinophils # 0.2 10^3/uL (0.0-0.8); Eosinophils % 3.2 %; Hematocrit 28.2 % (42.0-52.0); Hemoglobin 8.5 g/dL (11.7-16.6); Lymphocytes # 1.8 10^3/uL (0.8-4.8); Lymphocytes % 28.6 %; Mean Corpuscular HGB Conc 30.1 g/dL (30.0-36.0); Mean Corpuscular Hemoglobin 27.2 pg (28.0-34.0); Mean Corpuscular Volume 90.1 fL (80-94); Mean Platelet Volume 9.4 fL (7.4-10.4); Monocytes # 0.3 10^3/uL (0.2-0.9); Monocytes % 5.2 %; Neutrophils # 3.83 10^3/uL (1.8-7.7); Neutrophils % 62.2 %; Nucleated Red Blood Cells % 0 %; Platelet Count 196 10^3/cmm (130-400); Red Blood Count 3.13 10^6/uL (4.1-5.3); Red Cell Distribution Width 17.9 % (12.1-15.1); White Blood Count 6.2 10^3/uL (4.0-10.0)
[2021-02-13 13:13] LABS: Blood Urea Nitrogen 8 mg/dL (8-23); Calcium 7.4 mg/dL (8.5-10.5); Carbon Dioxide 23 mmol/L (22-29); Chloride 105 mmol/L (98-107); Glomerular Filtration Rate 96.4 mL/min (90-130); Glucose 185 mg/dL (65-115); Osmolality Calculated 289 mOsm/kg (285-295); Sodium 138 mmol/L (136-145)
[2021-02-13 13:16] LABS: Anion Gap 13.9 (5-19); Potassium 3.9 mmol/L (3.5-5.1)
--- NOTE | 2021-02-13 14:26 | PC.NUTR ---
Addendum entered by Tanner Kc 02/13/21 15:09: Have learned this afternoon that kitchen currently out of Prosource Gelatein and unavailable to order from vendor at this time. Recommend encourage intake of high-protein items on trays and Boost Breeze supplement. Original Note: Nutrition follow up: PO intakes averaging 39% of recorded meals. Recommend to encourage po intakes of meals and Boost Breeze supplement to optimize nutrition and promote wound healing. Will add Prosource Gelatein once daily for additional protein. See RD assessments for further details.
--- NOTE | 2021-02-13 15:13 | PM.PN ---
Subjective Subjective: Interval history: Patient seen and examined this morning, he still has fecal contamination of his lower scrotal wounds, dressing was being changed by the nursing staff no overnight events, afebrile, patient is endorsing feeling same as yesterday, no active pain he is off nasal cannula oxygen Midline catheter placed today, PICC line attempt failed Vitals/I&O/Wt Last Vital Signs Temp 97.9 F 02/13/21 08:00 Pulse 82 02/13/21 08:00 Resp 16 02/13/21 08:00 BP 123/70 02/13/21 08:00 Pulse Ox 92 02/13/21 08:00 02/13/21 02/13/21 02/13/21 06:59 14:59 22:59 Intake Total 470 / 820 50 / 50 Output Total 1800 / 3005 1200 / 1200 Balance -1330 / -2185 -1150 / -1150 Weight last 48 hrs Weight 120.157 kg Weight 121.835 kg Physical Exam Narrative: EXAM NARRATIVE: elderly male was laying in his bed in supine position Nursing staff was cleaning his wound, noticed fecal contamination of lower scrotal wounds Mild specks of blood on 4 x 4 gauze otherwise no active bleeding Stovall catheter draining concentrated urine CHF exacerbation with bilateral lower extremity edema Peripheral IV access right arm EOMI, PERRLA Does not look dehydrated Alert oriented x3 GCS 15 No neurological deficit Saturating well on room air Wound around groin shows signs of healing with granulation tissue without any active drainage Urinary Catheter Management^: Stovall: Cath Placed During This Visit: yes, but has since been removed by the nurse Reason for Continuing Indwelling Catheter: Accurate Measurement of Urinary Output in Critically Ill Patients Urinary Catheter Date of Insertion: 01/31/21 Date Urinary Catheter Removed: 02/02/21 Time Urinary Catheter Discontinued: 08:27 Stovall Latex: Cath Placed During This Visit: yes, but has since been removed by the nurse Reason for Continuing Indwelling Catheter: Assist healing open wound Urinary Catheter Date of Insertion: 02/02/21 Urinary Catheter Time of Insertion: 08:35 Date Urinary Catheter Removed: 02/12/21 Time Urinary Catheter Discontinued: 17:40 Data : 02/13/21 12:28 02/13/21 12:28 A&P Assessment and plan (1) DVT, bilateral lower limbs: Status: Acute (2) Intertrigo: Status: Acute (3) Candidemia: Status: Acute (4) Yessenia glabrata infection: Status: Acute (5) Hypernatremia: Status: Acute (6) Septic shock: Status: Acute (7) Phimosis: Status: Acute (8) Scrotal abscess: Status: Acute (9) Necrotizing fasciitis of multiple sites: Status: Acute (10) Diabetic ketoacidosis: Status: Acute Qualifiers: Diabetes mellitus complication detail: without coma Diabetes mellitus type: type 2 Qualified Code(s): E11.10 - Type 2 diabetes mellitus with ketoacidosis without coma Additional A&P Information 65-year-old male with Yovanny's gangrene with concurrent scrotal, deep perineal, right groin, and perianal abscesses. He underwent extensive debridement of the scrotal necrotic tissue, unroofing of all the abscesses, debridement of deep tissue necrosis at initial evaluation.He later underwent partial closure of the wound from the top of the groin down to just above the anus. The upper portion of the wound has healed well lower portion has failed to close and he is brought back to the OR yesterday for wound evacuation exploration debridement and wound cleansing. Fecal contamination of wound noted today around inferior scrotal region Dr. Benavides has been notified who recommended changing dressing on frequent basis and continuing antibiotics for now PICC line attempt failed today, requested midline placement as alternative ID recommendations appreciated, Dr. Booth planning to continue IV antibiotics until discharge, blood cultures sterile, plan to continue caspofungin for at least 4 weeks, MRSA nares positive, echo limited findings because of poor window Status post debridement February [address] Benavides of scrotal perineal wound 12 x 9 x 6 cm Bilateral lower extremity DVT: Status post IVC filter placement 02/12 by Jimmy Mercado to be continued after midline placement, plan to continue anticoagulants for now until evidence of profuse bleeding noted, his hematuria cleared no profuse bleeding noticed from scrotal wound No signs of fistula during digital rectal exam in the OR by general surgery Acute on chronic blood loss anemia: Status post 1 unit PRBC on 02/11 hemoglobin stable, hemodynamically stable HIT panel negative Hyponatremia: Improved DKA resolved, hemoglobin A1c 17 MIRYAM resolved Home health services requested by the patient, refused detention LTAC placement Full code Resume diet consistent carb Attestations Medical Necessity Statement*: Continue medical management, he required prolonged hospitalization, on discharge will need p.o. antibiotics and IV fungal, status post debridement on 02/12 Time Spent in Patient Care: 15-30mins Procedures Arterial Line Size (Gauge): 20 Coding Level of Care Code Acute Regasification Plant Operator for g Fwd Diagnoses DVT, bilateral lower limbs I82.403 Intertrigo L30.4 Candidemia B37.7 Yessenia glabrata infection B37.9 Hypernatremia E87.0 Septic shock A41.9; R65.21 Phimosis N47.1 Scrotal abscess N49.2 Necrotizing fasciitis of multiple sites M72.6 Diabetic ketoacidosis E11.10 Diabetes mellitus complication detail: without coma Diabetes mellitus type: type 2
[2021-02-13 16:17] LABS: Glucose Point of Care 170 mg/dL (70-110)
[2021-02-13 20:45] LABS: Glucose Point of Care 194 mg/dL (70-110)
[2021-02-13] MEDS: insulin glargine 100 units/1 mL 15 UNIT SUBCUT (22:58)
[2021-02-14] VITALS (7 sets, daily range): BP systolic 120–158; BP diastolic 63–80; PULSE 64–84; RESP 16–18; TEMP 36.6–37.1; O2SAT 94–96
[2021-02-14 06:32] LABS: Glucose Point of Care 106 mg/dL (70-110)
[2021-02-14] MEDS: piperacillin-tazobactam 3.375 GM in dextrose 5% (plus) 50 ML IV ×3 (06:48→23:30)
[2021-02-14] MEDS: nystatin powder 15 gm Btl 1 APPLIC TOPICAL ×2 (08:16→17:21)
[2021-02-14] MEDS: apixaban 5 mg Tablet 10 MG PO ×2 (08:16→21:06)
[2021-02-14] MEDS: pantoprazole DR 40 mg Tablet PO ×2 (08:16→17:20)
[2021-02-14] MEDS: clotrimazole 1% cream 30 gm 1 APPLIC TOPICAL (08:16)
[2021-02-14 10:56] LABS: Basophils % 0.7 %; Eosinophils # 0.2 10^3/uL (0.0-0.8); Eosinophils % 3.3 %; Hematocrit 28.7 % (42.0-52.0); Hemoglobin 8.5 g/dL (11.7-16.6); Lymphocytes # 1.9 10^3/uL (0.8-4.8); Lymphocytes % 33.5 %; Mean Corpuscular HGB Conc 29.6 g/dL (30.0-36.0); Mean Corpuscular Hemoglobin 27.2 pg (28.0-34.0); Mean Corpuscular Volume 91.7 fL (80-94); Mean Platelet Volume 9.2 fL (7.4-10.4); Monocytes # 0.3 10^3/uL (0.2-0.9); Monocytes % 5.9 %; Neutrophils # 3.23 10^3/uL (1.8-7.7); Neutrophils % 56.4 %; Nucleated Red Blood Cells % 0 %; Platelet Count 226 10^3/cmm (130-400); Red Blood Count 3.13 10^6/uL (4.1-5.3); Red Cell Distribution Width 18.1 % (12.1-15.1); White Blood Count 5.7 10^3/uL (4.0-10.0)
[2021-02-14 11:08] LABS: Anion Gap 14.5 (5-19); Blood Urea Nitrogen 6 mg/dL (8-23); Calcium 7.5 mg/dL (8.5-10.5); Carbon Dioxide 23 mmol/L (22-29); Chloride 105 mmol/L (98-107); Glomerular Filtration Rate 84.2 mL/min (90-130); Glucose 244 mg/dL (65-115); Osmolality Calculated 294 mOsm/kg (285-295); Potassium 3.5 mmol/L (3.5-5.1); Sodium 139 mmol/L (136-145)
[2021-02-14 11:30] LABS: Glucose Point of Care 252 mg/dL (70-110)
[2021-02-14 11:37] LABS: Vancomycin Trough 19.9 ug/mL (10-15)
[2021-02-14] MEDS: vancomycin 1,500 MG/300 ML PIGGYBACK 150 MG IV (11:57)
--- NOTE | 2021-02-14 12:43 | P.PN_ITS ---
Subjective Subjective: Interval history: ` Patient overall feels, no acute events overnight. Medications: Reviewed: Yes Vitals/I&O/Wt Last Vital Signs Temp 97.9 F 02/14/21 12:00 Pulse 74 02/14/21 12:00 Resp 18 02/14/21 12:00 BP 130/80 02/14/21 12:00 Pulse Ox 95 02/14/21 12:00 02/13/21 02/14/21 02/14/21 22:59 06:59 14:59 Intake Total 1000 / 1290 1050 / 2340 300 / 300 Output Total 2240 / 3440 3000 / 6440 Balance -1240 / -2150 -1950 / -4100 300 / 300 Weight last 48 hrs Weight 262 lb 3.2 oz Weight 264 lb 14.4 oz Physical Exam Narrative: EXAM NARRATIVE: Patient is conscious alert oriented X3 BMI 37 Wound towards the base of the scrotum and distal perineum showed clean wound bed without surrounding cellulitis or purulent discharge, the wound pack soaked. Urinary Catheter Management^: Stovall: Cath Placed During This Visit: yes, but has since been removed by the nurse Reason for Continuing Indwelling Catheter: Accurate Measurement of Urinary Output in Critically Ill Patients Urinary Catheter Date of Insertion: 01/31/21 Date Urinary Catheter Removed: 02/02/21 Time Urinary Catheter Discontinued: 08:27 Stovall Latex: Cath Placed During This Visit: yes, but has since been removed by the nurse Reason for Continuing Indwelling Catheter: Acute Urinary Retention or Obstruction Urinary Catheter Date of Insertion: 02/02/21 Urinary Catheter Time of Insertion: 08:35 Date Urinary Catheter Removed: 02/12/21 Time Urinary Catheter Discontinued: 17:40 Data : 02/14/21 10:27 02/14/21 10:27 A&P Assessment and plan (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 Status: Acute Attestations Medical Necessity Statement*: Continue medical management, he required prolonged hospitalization, on discharge will need p.o. 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
--- NOTE | 2021-02-14 14:41 | PM.PN ---
Subjective Subjective: Interval history: Appears to be feeling much better. Dressing changes been going well. A lot of reticence to consider shelter facility for his care. We will need routine wound care assessment at the wound care clinic as well. Vitals/I&O/Wt Last Vital Signs Temp 97.9 F 02/14/21 12:00 Pulse 74 02/14/21 12:00 Resp 18 02/14/21 12:00 BP 130/80 02/14/21 12:00 Pulse Ox 95 02/14/21 12:00 02/13/21 02/14/21 02/14/21 22:59 06:59 14:59 Intake Total 1000 / 1290 1050 / 2340 850 / 850 Output Total 2240 / 3440 3000 / 6440 1300 / 1300 Balance -1240 / -2150 -1950 / -4100 -450 / -450 Weight last 48 hrs Weight 262 lb 3.2 oz Weight 264 lb 14.4 oz Physical Exam Narrative: EXAM NARRATIVE: Alert. Cooperative. No labored respirations Urine is clear Dressings clean, see Dr. Benavides's note Urinary Catheter Management^: Stovall: Cath Placed During This Visit: yes, but has since been removed by the nurse Reason for Continuing Indwelling Catheter: Accurate Measurement of Urinary Output in Critically Ill Patients Urinary Catheter Date of Insertion: 01/31/21 Date Urinary Catheter Removed: 02/02/21 Time Urinary Catheter Discontinued: 08:27 Stovall Latex: Cath Placed During This Visit: yes, but has since been removed by the nurse Reason for Continuing Indwelling Catheter: Acute Urinary Retention or Obstruction Urinary Catheter Date of Insertion: 02/02/21 Urinary Catheter Time of Insertion: 08:35 Date Urinary Catheter Removed: 02/12/21 Time Urinary Catheter Discontinued: 17:40 Data : 02/14/21 10:27 02/14/21 10:27 A&P Assessment and plan (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
--- NOTE | 2021-02-14 14:50 | PC.NURSE ---
SNF Discussion Spoke with patient and his about SNF placement. They both state that they want to return home. Explained that [facility] has updated that the antifungal is pricey, and that we are awaiting for Dr. Booth to provide us with a second option. Dr. Moreau rounds shortly after, updated him that Dr. Dillard has asked that we encourage SNF, and they are wanting to return home. Dr. Moreau has lengthy discussion with patient and his . Explaining that we don't want him to go anywhere they don't want to, but explained the benefits/risks of home vs. SNF.
--- NOTE | 2021-02-14 14:54 | P.PN_ITS ---
Subjective Subjective: Interval history: Hemoglobin stayed stable, he has afebrile leukocytosis improved Status post midline placement and right arm on 02/13 No overnight events Vitals/I&O/Wt Last Vital Signs Temp 97.9 F 02/14/21 12:00 Pulse 74 02/14/21 12:00 Resp 18 02/14/21 12:00 BP 130/80 02/14/21 12:00 Pulse Ox 95 02/14/21 12:00 02/13/21 02/14/21 02/14/21 22:59 06:59 14:59 Intake Total 1000 / 1290 1050 / 2340 850 / 850 Output Total 2240 / 3440 3000 / 6440 1300 / 1300 Balance -1240 / -2150 -1950 / -4100 -450 / -450 Weight last 48 hrs Weight 118.932 kg Weight 120.157 kg Physical Exam Narrative: EXAM NARRATIVE: Patient resting supine without any active discomfort Saturating well on room air Pleasant cooperative during evaluation Groin showing mild exudative base 0.5 cm otherwise showing good granulation tissue around groin, base of the scrotum showing clean wound without purulence Bilateral lower extremity edema Distended abdomen S1, S2 EOMI, PERRLA Minimal bleeding noted on the dressing, Urinary Catheter Management^: Stovall: Cath Placed During This Visit: yes, but has since been removed by the nurse Reason for Continuing Indwelling Catheter: Accurate Measurement of Urinary Output in Critically Ill Patients Urinary Catheter Date of Insertion: 01/31/21 Date Urinary Catheter Removed: 02/02/21 Time Urinary Catheter Discontinued: 08:27 Stovall Latex: Cath Placed During This Visit: yes, but has since been removed by the nurse Reason for Continuing Indwelling Catheter: Acute Urinary Retention or Obstruction Urinary Catheter Date of Insertion: 02/02/21 Urinary Catheter Time of Insertion: 08:35 Date Urinary Catheter Removed: 02/12/21 Time Urinary Catheter Discontinued: 17:40 Data : 02/14/21 10:27 02/14/21 10:27 A&P Assessment and plan (1) DVT, bilateral lower limbs: Status: Acute (2) Intertrigo: Status: Acute (3) Candidemia: Status: Acute (4) Yessenia glabrata infection: Status: Acute (5) Hypernatremia: Status: Acute (6) Postoperative pain: Status: Acute (7) Septic shock: Status: Acute (8) Scrotal abscess: Status: Acute (9) 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 He underwent extensive debridement of the scrotal necrotic tissue, unroofing of all the abscesses, debridement of deep tissue necrosis at initial evaluation.He later underwent partial closure of the wound from the top of the groin down to just above the anus. The upper portion of the wound has healed well lower portion has failed to close and he is brought back to the OR yesterday for wound evacuation exploration debridement and wound cleansing. Frequent dressing change After discharge close follow-up with wound care clinic Status post midline placement 02/13 ID recommendations appreciated, planning to continue IV antibiotics until discharge, plan to continue antifungal at the time of discharge via IV and change to p.o. on February 25 once he follows up with Dr. Booth Status post debridement February [address] Benavides of scrotal perineal wound 12 x 9 x 6 cm Antifungal micafungin versus caspofungin depending on approval by his insurance and depending on the cost Bilateral lower extremity DVT: Status post IVC filter placement 02/12 by Jimmy Mercado resumed Acute on chronic blood loss anemia: Status post 1 unit PRBC on 02/11 hemoglobin stable, hemodynamically stable HIT panel negative Globin 8.5 Hypernatremia: Improved DKA resolved, hemoglobin A1c 17 will need extensive wound care, will do Lantus 18 units and premeal 2 units scheduled with sliding scale MIRYAM resolved Home health services requested by the patient, refused care home LTAC placement Full code Resume diet consistent carb Attestations Medical Necessity Statement*: Anticipating discharge once his insurance approves IV antifungal Time Spent in Patient Care: 15-30 minutes Procedures Arterial Line Size (Gauge): 20 Coding Level of Care Code Acute Fittings Tightener for [facility]g Fwd Diagnoses DVT, bilateral lower limbs I82.403 Intertrigo L30.4 Candidemia B37.7 Yessenia glabrata infection B37.9 Hypernatremia E87.0 Postoperative pain G89.18 Septic shock A41.9; R65.21 Scrotal abscess N49.2 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
--- NOTE | 2021-02-14 15:11 | PM.PN ---
Subjective Subjective: Interval history: Patient is overall doing well. No complaints of chest pain, shortness of breath or palpittaions. Hgb has improved Vitals/I&O/Wt Last Vital Signs Temp 97.9 F 02/14/21 12:00 Pulse 74 02/14/21 12:00 Resp 18 02/14/21 12:00 BP 130/80 02/14/21 12:00 Pulse Ox 95 02/14/21 12:00 02/14/21 02/14/21 02/14/21 06:59 14:59 22:59 Intake Total 1050 / 2340 850 / 850 Output Total 3000 / 6440 1300 / 1300 Balance -1950 / -4100 -450 / -450 Weight last 48 hrs Weight 262 lb 3.2 oz Weight 264 lb 14.4 oz Physical Exam Narrative: EXAM NARRATIVE: GENERAL: Patient is alert, awake and oriented x3. [] NECK: No jugular vein distension. [] HEENT: No cyanosis. No icterus. No pallor. [] HEART: Regular S1 and S2. No murmur, rub or gallop. [] LUNGS: Clear to auscultate bilaterally. [] ABDOMEN: Soft, nontender and nondistended. Positive bowel sounds. No guarding, rebound or tenderness. [] CENTRAL NERVOUS SYSTEM: Grossly nonfocal. [] EXTREMITIES: Lower extremities with 1+ edema bilaterally. Pulses palpable in the lower extremities, both dorsalis pedis and posterior tibial. [] Urinary Catheter Management^: Stovall: Cath Placed During This Visit: yes, but has since been removed by the nurse Reason for Continuing Indwelling Catheter: Accurate Measurement of Urinary Output in Critically Ill Patients Urinary Catheter Date of Insertion: 01/31/21 Date Urinary Catheter Removed: 02/02/21 Time Urinary Catheter Discontinued: 08:27 Stovall Latex: Cath Placed During This Visit: yes, but has since been removed by the nurse Reason for Continuing Indwelling Catheter: Acute Urinary Retention or Obstruction Urinary Catheter Date of Insertion: 02/02/21 Urinary Catheter Time of Insertion: 08:35 Date Urinary Catheter Removed: 02/12/21 Time Urinary Catheter Discontinued: 17:40 Data : 02/15/21 03:00 02/14/21 10:27 A&P Assessment and plan (1) Hypertension: (2) Diabetes: (3) 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 Patient has extensive bilateral DVTs extending to common femoral veins. His hemoglobin was dropping on Eliquis. High risk for developing pulmonary embolism as he is not tolerating anticoagulation well. Underwent successful placement of IVC filter in inferior vena cava. His hemoglobin improving. No active signs of bleeding. Continue with Eliquis for now. Thank you for involving us with care of this patient. We will sign off. Please schedule appointment with cardiology in 6 weeks. Patient will need removal of IVC filter in 3 months if continues tolerating anticoagulation. Please call with questions. Attestations Medical Necessity Statement*: Care expected to cross 2 midnights. 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
--- NOTE | 2021-02-14 17:04 | PC.NURSE ---
Shift Summary Wound packed twice today already. Pt tolerated well. Educated both times, second dressing change patient's son available for education. Both and son report that they have no questions in regards to dressing changes. Family is discussing with CM in regards to discharge planning options.
[2021-02-14 17:09] LABS: Glucose Point of Care 165 mg/dL (70-110)
--- NOTE | 2021-02-14 21:07 | PM.PN ---
Subjective Subjective: Interval history: Infectious Disease progress note Chart reviewed, plan discussed with primary team S/p re exploration on 02/12. Per Op note anal canal intact and no communication with the wound bed, The wound bed itself is clean and there were some residual necrotic tissues that was all debrided sharply. There was eschar on the penis measured about 2 cm x 1 cm and all of the eschar tissue was debrided down to healthy tissue. There is no evidence of deep cellulitis. Medications: Reviewed: Yes Vitals/I&O/Wt Last Vital Signs Temp 98.5 F 02/14/21 19:28 Pulse 73 02/14/21 19:28 Resp 17 02/14/21 19:28 BP 135/73 02/14/21 19:28 Pulse Ox 95 02/14/21 19:28 02/14/21 02/14/21 02/14/21 06:59 14:59 22:59 Intake Total 1050 / 2340 850 / 850 420 / 1270 Output Total 3000 / 6440 1300 / 1300 Balance -1950 / -4100 -450 / -450 420 / -30 Weight last 48 hrs Weight 118.932 kg Weight 120.157 kg Physical Exam Urinary Catheter Management^: Stovall: Cath Placed During This Visit: yes, but has since been removed by the nurse Reason for Continuing Indwelling Catheter: Accurate Measurement of Urinary Output in Critically Ill Patients Urinary Catheter Date of Insertion: 01/31/21 Date Urinary Catheter Removed: 02/02/21 Time Urinary Catheter Discontinued: 08:27 Stovall Latex: Cath Placed During This Visit: yes, but has since been removed by the nurse Reason for Continuing Indwelling Catheter: Assist Healing of Perineal & Sacral Wounds- Incontinent Patients Urinary Catheter Date of Insertion: 02/02/21 Urinary Catheter Time of Insertion: 08:35 Date Urinary Catheter Removed: 02/12/21 Time Urinary Catheter Discontinued: 17:40 Data : 02/15/21 03:00 02/14/21 10:27 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 (3) Necrotizing fasciitis of multiple sites: Status: Acute (4) UTI (urinary tract infection): Status: Acute Qualifiers: Hematuria presence: without hematuria Urinary tract infection type: acute cystitis Qualified Code(s): N30.00 - Acute cystitis without hematuria (5) Diabetes: Status: Chronic (6) Scrotal abscess: Status: Acute (7) Candidemia: Status: Acute (8) Intertrigo: Status: Acute Additional A&P Information 65-year-old male admitted on January 31, 2021 after presenting with DKA and Yovanny's gangrene likely precipitated by severe intertrigo which she had been trying to treat as outpatient for the past several weeks. CT upon admission consistent with severe emphysematous changes involving the soft tissues of the scrotum extending up to the level of the prostate. Multiple abscesses encountered intraoperatively. He is status post I&D on 01/31 and closure on 02/02. As of the most recent OR wound exploration on 02/12, wound bed appeared to be clean. Blood, urine, wound,respiratory cultures with Yessenia glabrata. + MRSA nasal screen #Candidemia/disseminated candidiasis - Continue caspofungin, (started 02/05) Blood isolate identified as Yessenia glabrata from 02/01, blood cx 02/06 thus far negative Planned for an extended course of abx with antifungals for AT LEAST 4 weeks from last negative blood culture. Recommend iv Caspofungin 50mg iv q24h OR iv micafungin 100mg iv daily Midline already placed Awaiting susceptibility from [facility] for Yessenia glabrata to be scanned in chart Recommend ophthalmology exam in about 2 weeks from cx clearance to rule out fungal endophthalmitis. TTE was unable to be completed due to poor ultrasonic windows. Defer BARI for now given that patient is showing clinical improvement, blood cultures appear to have cleared thus far from 02/06, already planned for prolonged antifungal treatment, BARI unlikely to change clinical management. Low suspicion for infective endocarditis. # Yovanny's gangrene vs deep seated abscess extending into multiple planes Septic shock resolved, patient clinically improving however still problematic wound healing given fecal contamination due to location Repeat exploration in the OR on 02/12 revealed necrotic tissue in the perianal area and eschar on penis which was debrided. Continue Zosyn and vancomycin for now while remains inpatient, transition to po augmentin and doxycycline at discharge. Final course of abx TBD on outpatient follow up in ID clinic, anticipate at least 2 weeks from last debridement on 02/12. Absence of bacterial growth from wound cultures may be as a result of outpatient antibiotic use prior to admission. 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
[2021-02-14] MEDS: insulin glargine 100 units/1 mL 18 UNIT SUBCUT (21:09)
[2021-02-14 21:47] LABS: Glucose Point of Care 211 mg/dL (70-110)
--- NOTE | 2021-02-14 22:41 | PC.NURSE ---
MID LINE IV Pt called saying arm was getting wet from IV med infusing. Found catheter was completely out. New IV placed.
[2021-02-15 03:18] LABS: Hematocrit 26.4 % (42.0-52.0); Hemoglobin 7.9 g/dL (11.7-16.6)
[2021-02-15 03:55] VITALS: BP 122/74; PULSE 65; RESP 18; TEMP 37; O2SAT 94
[2021-02-15] MEDS: vancomycin 1,500 MG/300 ML PIGGYBACK 200 MG IV (05:20)
[2021-02-15 05:56] VITALS: PULSE 65
[2021-02-15 06:12] LABS: Glucose Point of Care 169 mg/dL (70-110)
[2021-02-15] MEDS: piperacillin-tazobactam 3.375 GM in dextrose 5% (plus) 50 ML IV (07:06)
[2021-02-15 08:00] VITALS: BP 143/78; PULSE 73; RESP 18; TEMP 36.7; O2SAT 95
[2021-02-15] MEDS: apixaban 5 mg Tablet 10 MG PO (08:47)
[2021-02-15] MEDS: pantoprazole DR 40 mg Tablet PO (08:47)
[2021-02-15] MEDS: nystatin powder 15 gm Btl 1 APPLIC TOPICAL (08:48)
--- NOTE | 2021-02-15 09:54 | PM.PN ---
Subjective Subjective: Interval history: Overall feeling much better. Denies any severe pain in the genital area. Wound inspected. Improving. No further breakdown of repair. Encouraged nursing staff to use antibiotic ointment on the penile lesion. We will trial voiding tomorrow. Ongoing negotiations for location of care. It has been recommended that he consider retirement facility due to the multitude of treatments required including IV antibiotics, IV antifungals, and intensive wound care. He and his are adamant that that will not happen. They believe they have family members who can facilitate his care as necessary. No final decision on how to accomplish that yet Vitals/I&O/Wt Last Vital Signs Temp 98.0 F 02/15/21 08:00 Pulse 73 02/15/21 08:00 Resp 18 02/15/21 08:00 BP 143/78 02/15/21 08:00 Pulse Ox 95 02/15/21 08:00 02/14/21 02/15/21 02/15/21 22:59 06:59 14:59 Intake Total 470 / 1320 300 / 1620 660 / 660 Output Total 1300 / 2600 950 / 3550 Balance -830 / -1280 -650 / -1930 660 / 660 Weight last 48 hrs Weight 262 lb 3.2 oz Physical Exam Const: COMMON NORMALS: no acute distress, alert and well nourished GENERAL APPEARANCE: well kempt and well developed ORIENTATION/CONSCIOUSNESS: not confused HENMT: COMMON NORMALS: normocephalic and atraumatic HEAD & SCALP: normocephalic and atraumatic Eye: COMMON NORMALS: no scleral icterus Neck/C-Spine: COMMON NORMALS: full ROM Resp: COMMON NORMALS: normal respiratory effort EFFORT & INSPECTION: No labored and No Actively coughing Neuro: SENSORIUM/ORIENTATION: Yes alert Psych: APPEARANCE: Yes grossly normal and Yes well kempt ATTITUDE: Yes calm and Yes engaged Urinary Catheter Management^: Stovall: Cath Placed During This Visit: yes, but has since been removed by the nurse Reason for Continuing Indwelling Catheter: Accurate Measurement of Urinary Output in Critically Ill Patients Urinary Catheter Date of Insertion: 01/31/21 Date Urinary Catheter Removed: 02/02/21 Time Urinary Catheter Discontinued: 08:27 Stovall Latex: Cath Placed During This Visit: yes, but has since been removed by the nurse Reason for Continuing Indwelling Catheter: Perioperative Use in Selected Surgeries Urinary Catheter Date of Insertion: 02/02/21 Urinary Catheter Time of Insertion: 08:35 Date Urinary Catheter Removed: 02/12/21 Time Urinary Catheter Discontinued: 17:40 Data : 02/15/21 03:00 02/14/21 10:27 A&P Assessment and plan (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 Now undergoing packing and appears to be healing in an accelerated fashion because of that change. No evidence of further skin loss or necrotizing fasciitis persistence. Status: Acute (2) Urinary retention: Status: Acute (3) Scrotal abscess: No recurrence. 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
[2021-02-15 11:16] LABS: Glucose Point of Care 155 mg/dL (70-110)
[2021-02-15 12:00] VITALS: BP 135/84; PULSE 85; RESP 18; TEMP 36.8; O2SAT 98
--- NOTE | 2021-02-15 12:07 | P.PN_ITS ---
Subjective Subjective: Interval history: Infectious disease progress note Chart reviewed, plan discussed with Dr. Dillard Planned discharge today, patient recommended SNF for IV treatment and aggressive wound care however elected to return home. Midline accidentally removed, no longer in place Unable to afford cost of iv antifungals Medications: Reviewed: Yes Vitals/I&O/Wt Last Vital Signs Temp 98.0 F 02/15/21 08:00 Pulse 73 02/15/21 08:00 Resp 18 02/15/21 08:00 BP 143/78 02/15/21 08:00 Pulse Ox 95 02/15/21 08:00 02/14/21 02/15/21 02/15/21 22:59 06:59 14:59 Intake Total 470 / 1320 300 / 1620 660 / 660 Output Total 1300 / 2600 950 / 3550 Balance -830 / -1280 -650 / -1930 660 / 660 Weight last 48 hrs Weight 118.932 kg Physical Exam Urinary Catheter Management^: Stovall: Cath Placed During This Visit: yes, but has since been removed by the nurse Reason for Continuing Indwelling Catheter: Accurate Measurement of Urinary Output in Critically Ill Patients Urinary Catheter Date of Insertion: 01/31/21 Date Urinary Catheter Removed: 02/02/21 Time Urinary Catheter Discontinued: 08:27 Stovall Latex: Cath Placed During This Visit: yes, but has since been removed by the nurse Reason for Continuing Indwelling Catheter: Perioperative Use in Selected Surgeries Urinary Catheter Date of Insertion: 02/02/21 Urinary Catheter Time of Insertion: 08:35 Date Urinary Catheter Removed: 02/12/21 Time Urinary Catheter Discontinued: 17:40 Data : 02/15/21 03:00 02/14/21 10:27 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 (3) Necrotizing fasciitis of multiple sites: Status: Acute (4) UTI (urinary tract infection): Status: Acute Qualifiers: Hematuria presence: without hematuria Urinary tract infection type: acute cystitis Qualified Code(s): N30.00 - Acute cystitis without hematuria (5) Diabetes: Status: Chronic (6) Scrotal abscess: Status: Acute (7) Candidemia: Status: Acute (8) Intertrigo: Status: Acute Additional A&P Information 65-year-old male admitted on January 31, 2021 after presenting with DKA and Yovanny's gangrene likely precipitated by severe intertrigo which she had been trying to treat as outpatient for the past several weeks. CT upon admission consistent with severe emphysematous changes involving the soft tissues of the scrotum extending up to the level of the prostate. Multiple abscesses encountered intraoperatively. He is status post I&D on 01/31 and closure on 02/02 and wound exploration and debridement on 02/12. Blood, urine, wound,respiratory cultures with Yessenia glabrata. #Candidemia/disseminated candidiasis -s/p treatment with Caspofungin 02/05-02/15 Planned for discharge on iv casopfungin for 4 weeks however now patient has lost midline, additionally unable to afford cost of iv antifungals at home. Blood isolate identified as Yessenia glabrata from 02/01, blood cx 02/06 thus far negative From susceptibilities obtained from [facility], C.Glabrata isolate is SDD to fluconazole with RG 8. Targeting a dose/RG ratio >25, will transition to Fluconazole 400mg po daily over the next 4 weeks to complete treatment for Candidemia. Recommend ophthalmology exam as outpatient to rule out fungal endophthalmitis TTE was unable to be completed due to poor ultrasonic windows. Defer BARI for now given that patient is showing clinical improvement, blood cultures appear to have cleared thus far from 02/06, already planned for prolonged antifungal treatment, BARI unlikely to change clinical management. Low suspicion for infective endocarditis. # Yovanny's gangrene vs deep seated abscess extending into multiple planes The upper portion of the wound has healed well, lower portion has failed to close and he underwent re exploration on 02/12 with urology and gen/surg- s/p wound evacuation exploration debridement and wound cleansing. Packing in place currently. Patient will follow up with [facility] as outpatient. Difficult wound healing given contamination from fecal contents. Transition iv zosyn/vanc to PO Augmentin 875mg BID and Doxycycline 100mg po BID at discharge. 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
[2021-02-15 13:58] VITALS: BP 135/84; PULSE 85; RESP 18; TEMP 36.8; O2SAT 98
--- NOTE | 2021-02-16 15:38 | PM.DCS ---
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 Morales is a 65-year-old male with history of hypertension, diabetes, severe intertrigo was receiving outpatient therapy for last several weeks was admitted on 01/31/2021 for septic shock secondary to necrotizing fasciitis/Yovanny's gangrene and DKA. Urology evaluated and took him to the OR for surgical exploration he remained intubated and his clinical course was notable for prolonged intubation secondary to tachypnea associated with intractable pain, however he was extubated on 02/05 successfully, developed hypernatremia and candidemia. Secondary to candidemia his right IJ was pulled out. He was kept on broad-spectrum antibiotics vancomycin, Zosyn and an IV antifungal caspofungin. TE was unable to be completed due to poor ultrasonic windows. Scrotal wound, blood culture positive for Yessenia glabrata, RG requested by Dr. Booth Blood isolate identified as Yessenia glabrata on 02/01 repeat blood cultures however were negative From susceptibilities obtained from [facility], C.Glabrata isolate is SDD to fluconazole with RG 8. Targeting a dose/RG ratio >25 Patient developed bilateral lower extremity DVT with severe clot burden, status post IVC filter placement by Dr. Singh on 02/12/2021 Before his procedure he was given 1 unit PRBC for acute blood loss anemia however no active source of bleeding was identified, his hematuria improved, he was kept on Eliquis loading dose throughout his hospitalization and was discharged home on Eliquis 5 mg twice a day regimen for which he will see cardiology in 6 weeks Please see below urology notes for debridement and surgical explanation 01/31/2021: ED admission, surgical exploration: debridement of genital, perineal, abdominal wall Yovanny's gangrene; drainage of multiple scrotal and deep tissue abscesses, dorsal slit circumcision Postop ICU on ventilator for management of infectious and DKA conditions. Broad-spectrum antibiotics and supportive care. 02/02/2021: Further wound debridement and partial closure in the operating room. Large Lennox drain from top to bottom, multiple between suture positioned ana. 02/12/2021: The upper portion of the wound has healed well lower portion has failed to close and he is brought back to the OR today for wound evacuation exploration debridement and wound cleansing. Dr. Benavides was consulted for assistance with the perineal wound extending down to the perianal area. From a urologic perspective he had an area of eschar on the penis. Post-debridement measurement;12x9x6 [address] all the way to the healthier subcutaneous level and musculofascial compartment all the way to the base of the penis and scrotum General surgery recommendations: 1-nutrition optimization 2-wound care in the form of twice daily Kerlix wet-to-dry followed by ABDs or as needed 3-management of medical comorbidities 4-physical therapy consultation when needed 5-assurance and education 6-return to wound care center upon discharge as patient due to wound complexity would require further care He was discharged home with home health services with extensive outpatient follow-up, patient was adamant that he would not go to any senior care, He was discharged home with Augmentin 875 twice daily doxycycline 100 mg p.o. twice daily and fluconazole 400 mg daily 4 week regimen Please note midline was placed after failed attempts to place PICC line, his midline was dislodged within 48 hours, Dr. Booth recommended p.o. antifungal after reviewing RG from [facility] He was given outpatient follow-up Dr. Booth on February 25 ophthalmology Wound care clinic with next available appointment Dr. Moreau next week appointment Dr. Singh in 6 weeks for IVC filter evaluation and continuation of Eliquis Home health services were arranged for him. He was discharged with Stovall catheter with instructions for wound care. He was given topical bacitracin polymyxin for his penile ulcer as well. For his hemoglobin A1c of 10 I discharged him on Lantus 18 units and NovoLog sliding scale along Metformin. He was prescribed lancets, glucometer and insulin pens Physical Exam Narrative: EXAM NARRATIVE: Patient resting supine without any active discomfort Saturating well on room air Pleasant cooperative during evaluation Groin showing mild exudative base 0.5 cm otherwise showing good granulation tissue around groin, base of the scrotum showing clean wound without purulence Bilateral lower extremity edema Distended abdomen S1, S2 EOMI, PERRLA Minimal bleeding noted on the dressing, Urinary Catheter Management^: Stovall: Cath Placed During This Visit: yes, but has since been removed by the nurse Reason for Continuing Indwelling Catheter: Accurate Measurement of Urinary Output in Critically Ill Patients Urinary Catheter Date of Insertion: 01/31/21 Date Urinary Catheter Removed: 02/02/21 Time Urinary Catheter Discontinued: 08:27 Stovall Latex: Cath Placed During This Visit: yes, but has since been removed by the nurse Reason for Continuing Indwelling Catheter: Perioperative Use in Selected Surgeries Urinary Catheter Date of Insertion: 02/02/21 Urinary Catheter Time of Insertion: 08:35 Date Urinary Catheter Removed: 02/12/21 Time Urinary Catheter Discontinued: 17:40 Discharge Data Data Completed and Pending: Completed Studies During Hospitalization Category Date Time Status CT abdomen pelvis w con* [id number] Stat Cat Scan 01/31/21 17:[address] angio chest PE protcl [id number] Urge nt Cat Scan 02/08/21 14:49 Completed CXRP [XR chest 1V portable [id number]] R outine Exams 02/13/21 10:59 Completed XR chest 1V caroline ble [id number] Routine Exams 02/05/21 04:00 Completed XR chest 1V caroline ble [id number] Stat Exams 01/31/21 21:53 Completed XR chest 1V caroline ble [id number] Stat Exams 02/01/21 02:25 Completed XR chest 1V caroline ble [id number] Stat Exams 02/04/21 17:39 Completed XR chest 1V caroline ble [id number] Stat Exams 02/06/21 09:07 Completed XR chest 1V caroline ble [id number] Stat Exams 02/08/21 08:39 Completed XR chest 1V caroline ble [id number] Urgent Exams 01/31/21 15:14 Completed Pathology: Surgic al [PTH] Routine Pth 01/31/21 21:56 [place] [id number] Routin e Ultrasound 02/08/21 14:50 Completed CV. echo complete * [id number] Routine Ultrasound 02/01/21 06:00 Completed Pending at discharge Category Date Time Status SAND DIGGER request for service Routin e Exams 02/12/21 07:03 Taken Vitals: Last Vital Signs Temp 98.3 F 02/15/21 13:58 Pulse 85 02/15/21 13:58 Resp 18 02/15/21 13:58 BP 135/84 02/15/21 13:58 Pulse Ox 98 02/15/21 13:58 Discharge Plan Discharge Patient Disposition: Home Condition: Stable Prescriptions: New zinc oxide 20 % Ointment 1 applic topical PRN PRN (Reason: Skin Protectant) 30 Days Qty: 1 RF: 1 Nystop 100,000 unit/gram Powder 1 applic topical BID 30 Days Qty: 1 RF: 1 oxycodone 5 mg capsule 5 mg PO Q8H PRN (Reason: pain) Qty: 20 RF: 0 Senna with Docusate Sodium 8.6-50 mg tablet 1 tab-cap PO DAILY PRN (Reason: constipation) Qty: 20 RF: 0 Lantus Solostar U-100 Insulin 100 unit/mL (3 mL) insulin pen 15 unit SUBCUT DAILY Qty: 15 RF: 3 (DME) Accu-Chek Tawny Plus Meter Misc See Rx Instructions .Route Qty: 1 RF: 0 (DME) Accu-Chek Tawny Plus test strp Strip See Rx Instructions .Route Qty: 50 RF: 2 (DME) Accu-Chek Multiclix Lancet Misc See Rx Instructions .Route Qty: 100 RF: 0 Eliquis 5 mg tablet 5 mg PO BID 30 Days Qty: 60 RF: 2 (DME) Kerlix Packing Sponge 4 1/2 X 22 sponge See Rx Instructions .Route Qty: 60 RF: 0 doxycycline monohydrate 100 mg capsule 100 mg PO BID Qty: 56 RF: 0 Novolog Flexpen U-100 Insulin 100 unit/mL (3 mL) insulin pen See Rx Instructions .ROUTE .COMPLEX MDD 10 Qty: 15 RF: 3 ProAir HFA 90 mcg/actuation HFA aerosol inhaler 1 inh inhalation Q4H PRN (Reason: shortness of breath or wheezing) Qty: 6.7 RF: 0 bacitracin zinc-polymyxin B 500-10,000 unit/gram ointment 1 applic topical Q8H Qty: 28.4 RF: 1 Continued metformin 500 mg Tablet 500 mg PO BID 30 Days Qty: 60 RF: 1 triamcinolone acetonide 0.5 % cream See Rx Instructions .ROUTE .COMPLEX 30 Days Qty: 1 RF: 1 lisinopril 5 mg tablet 5 mg PO DAILY 30 Days Qty: 30 RF: 0 ketoconazole 2 % cream See Rx Instructions .ROUTE .COMPLEX 30 Days Qty: 1 RF: 2 Augmentin 875-125 mg Tablet 1 tab PO BID 28 Days Qty: 56 RF: 0 Changed Diflucan 200 mg tablet 400 mg PO DAILY 28 Days Qty: 28 RF: 0 Discontinued sulfamethoxazole-trimethoprim 800-160 mg tablet 1 tab PO BID RF: 0 nystatin 100,000 unit/gram cream See Rx Instructions .ROUTE .COMPLEX RF: 0 Discharge Orders: Discharge Order (Routine); Ordered 02/15/21 Ordered By: Paxton Dillard Other Ambulatory Orders: Complete Blood Count w/Auto (Routine) Timeframe: 1 Week Location: Determined by Patient Ordered By: Paxton Dillard Referrals: Vitor Benavides MD [Physician] - (Follow-up with me at the wound care center first available appointment) Tom Moreau MD [Physician] - 1 week Luis E Hooks M.D [Physician] - 6 Weeks (ivc filter) Merritt Jnoes MD [Physician] - 1 month (Candidemia and need retinal exam) Anusha Booth MD [Hospitalist] - 02/25/21 9:00 am WOUND CARE CLINIC, [Staff Physician] - 1-3 days (See Dr Pillai in wound clinic ) Discharge Diet: Diabetic Discharge Activity: Use walker/crutches as instructed, Wheelchair as instructed and As per PT/OT instructions Patient Instructions: Wound Infection (DC), Deep Venous Thrombosis (GEN), Diabetes Mellitus Type 2 in Adults (DC), Acute Wound Care (DC), Inferior Vena Cava Filter Placement (DC), Necrotizing Fasciitis (DC), Opioid Safety Activity Restrictions/Additional Instructions: You will be discharged on 2 antibiotics doxycycline 100 twice daily for 4 weeks and then Augmentin for 4 weeks We will get p.o. antifungal Diflucan 400 mg daily for 4 weeks You have uncontrolled type 2 diabetes?likely will need Lantus along with Metformin check your blood sugar every day Goal of fasting blood sugar 70 to 130 mg/dL, a fasting blood sugar stays above 130 you can increase Lantus by 2 units and monitor for next 3 days After meal it should be less than 180 mg/dL If before meals sugar is high you can take NovoLog as per sliding scale 140 to 180 mg/dL sugar take insulin 2 units 1 81-200 sugar take 4 units of insulin 201-240 sugar take 6 units 2 41-2 80 sugar take 8 units 281-320 take 10 units Discharge Attestations Time Spent in Discharge Care*: greater than 30 min Quality Metrics Clinical Quality Measures During this hospital stay, did patient experience: VTE (Bilateral lower extremity DVT) Contraindication to Overlap Therapy: Overlap therapy prescribed VTE Discharge Education: Education about anticoagulant therapy/Care Notes given Deep Vein Thrombosis/Pulmonary Embolism Present on Admission: No Contraindication to Pharm VTE Prophylaxis: VTE prophylaxis given Coding Level of Care Code Acute g [facility] note Diagnoses Septic shock A41.9; R65.21 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
== END 2021-02-15 14:01 | disposition home health service (06) | DRG 853 ==
LOC: ER 15:43 → OR 18:46 → ICU 21:57 → MEDSURG 02-09 20:18
PROVIDERS: Internal Medicine; Internal Medicine Pulmonary Disease; Physician Assistant; Student in an Organized Health Care Education/Training Program; Urology; Admitting Provider Hospitalist; Emergency Provider Family Medicine; PCP Family Medicine; Visit Provider Internal Medicine
PROC: 0VB50ZZ Excision of Scrotum, Open Approach (ICD-10-PCS; principal; 2021-01-31 19:30)
PROC: 0WQ Anatomical Regions, General, Repair (ICD-10-PCS; principal; 2021-02-02 08:00)
PROC: 06H03DZ Insertion of Intraluminal Device into Inferior Vena Cava, Percutaneous Approach (ICD-10-PCS; CPT 37191; principal; 2021-02-12 10:00)
PROC: 0VBS0ZZ Excision of Penis, Open Approach (ICD-10-PCS; principal; 2021-02-12 16:30)
DX: A41.9 Sepsis, unspecified organism (principal); E11.10 Type 2 diabetes mellitus with ketoacidosis without coma; R65.21 Severe sepsis with septic shock; J96.01 Acute respiratory failure with hypoxia; M72.6 Necrotizing fasciitis; N13.30 Unspecified hydronephrosis; E87.1 Hypo-osmolality and hyponatremia; N17.9 Acute kidney failure, unspecified; I82.413 Acute embolism and thrombosis of femoral vein, bilateral; B37.49 Other urogenital candidiasis; Z99.11 Dependence on respirator [ventilator] status; N30.01 Acute cystitis with hematuria; E87.4 Mixed disorder of acid-base balance; N49.3 Fournier gangrene; I10 Essential (primary) hypertension; E66.9 Obesity, unspecified; Z68.37 Body mass index [BMI] 37.0-37.9, adult; Z87.891 Personal history of nicotine dependence; N20.0 Calculus of kidney; E87.5 Hyperkalemia; N49.2 Inflammatory disorders of scrotum; N47.1 Phimosis; R33.9 Retention of urine, unspecified; I95.9 Hypotension, unspecified; Z79.84 Long term (current) use of oral hypoglycemic drugs; G89.18 Other acute postprocedural pain; B95.62 Methicillin resistant Staphylococcus aureus infection as the cause of diseases classified elsewhere; D64.9 Anemia, unspecified
CPT/HCPCS: 36010; 36415; 36416; 36430; 36569; 36592; 36600; 37191; 51702; 71045; 71275; 74177; 80048; 80051; 80053; 80061; 80202; 81001; 82009; 82330; 82803; 82805; 82962; 83036; 83605; 83735; 83880; 84100; 84484; 84550; 85014; 85018; 85025; 85378; 85610; 86850; 86900; 86920; 87040; 87070; 87075; 87086; 87106; 87176; 87186; 87205; 87426; 87641; 88304; 92610; 93005; 93306; 93970; 94002; 94003; 94664; 94799; 96365; 96367; 96372; 96375; 97110; 97162; 97165; 97530; 97535; 99291; A4570; C1769; C1880; C1887; C1894; J0330; J0610; J0637; J0743; J1170; J1450; J1644; J1650; J1815 ×2; J2060; J2250; J2370; J2405; J2543; J2704; J3010; J3370; J3475; J3480; J3490; J7030; J7050; J7799; P9016; Q9967

== ENCOUNTER 2021-02-21 09:36 | Outpatient (CLI) | payer MEDICAID, SELFPAY | END 2021-02-21 09:37 | disposition home or self-care (01) | LOC: WOUND 09:38 | PROVIDERS: PCP Family Medicine; Visit Provider Surgery | DX: L98.492 Non-pressure chronic ulcer of skin of other sites with fat layer exposed (principal); Z87.891 Personal history of nicotine dependence | CPT/HCPCS: 11042; 11043; 11046; G0463 ==

== ENCOUNTER 2021-02-28 10:35 | Outpatient (CLI) | payer MEDICAID, SELFPAY | END 2021-02-28 10:36 | disposition home or self-care (01) | LOC: WOUND 10:36 | PROVIDERS: PCP Family Medicine; Visit Provider Surgery | DX: L98.492 Non-pressure chronic ulcer of skin of other sites with fat layer exposed (principal); Z87.891 Personal history of nicotine dependence | CPT/HCPCS: 11042; 11043; 11046 ==

== ENCOUNTER 2021-03-07 10:02 | Outpatient (CLI) | payer MEDICAID, SELFPAY | END 2021-03-07 10:03 | disposition home or self-care (01) | LOC: WOUND 10:06 | PROVIDERS: Visit Provider Surgery | DX: E11.622 Type 2 diabetes mellitus with other skin ulcer (principal); L98.492 Non-pressure chronic ulcer of skin of other sites with fat layer exposed; Z87.891 Personal history of nicotine dependence | CPT/HCPCS: 11042; 11043 ==

== ENCOUNTER 2021-03-14 09:33 | Outpatient (CLI) | payer MEDICAID, SELFPAY | END 2021-03-14 09:34 | disposition home or self-care (01) | PROVIDERS: Visit Provider Surgery | DX: I96 Gangrene, not elsewhere classified (principal); T81.89XD Other complications of procedures, not elsewhere classified, subsequent encounter; Y83.8 Other surgical procedures as the cause of abnormal reaction of the patient, or of later complication, without mention of misadventure at the time of the procedure | CPT/HCPCS: 11042; 11043 ==

== ENCOUNTER 2021-03-21 09:52 | Outpatient (CLI) | payer MEDICAID, SELFPAY | END 2021-03-21 09:53 | disposition home or self-care (01) | LOC: WOUND 09:58 | PROVIDERS: Visit Provider Surgery | DX: I96 Gangrene, not elsewhere classified (principal); E11.622 Type 2 diabetes mellitus with other skin ulcer; L98.492 Non-pressure chronic ulcer of skin of other sites with fat layer exposed; Z87.891 Personal history of nicotine dependence | CPT/HCPCS: 11042 ==

== ENCOUNTER 2021-03-28 09:59 | Outpatient (CLI) | payer MEDICARE, MEDICAID, SELFPAY | END 2021-03-28 10:00 | disposition home or self-care (01) | LOC: WOUND 10:00 | PROVIDERS: Visit Provider Emergency Medicine | DX: E11.622 Type 2 diabetes mellitus with other skin ulcer (principal); L98.492 Non-pressure chronic ulcer of skin of other sites with fat layer exposed; Z87.891 Personal history of nicotine dependence | CPT/HCPCS: 11042 ==

== ENCOUNTER → 2021-04-01 10:15 | Outpatient (BNVA) | payer MEDICARE, MEDICAID, SELFPAY | PROVIDERS: Visit Provider Family Medicine | DX: M25.561 Pain in right knee (principal); E11.9 Type 2 diabetes mellitus without complications; I10 Essential (primary) hypertension | CPT/HCPCS: 80061; 83036 ==

== ENCOUNTER 2021-04-04 10:14 | Outpatient (CLI) | payer MEDICAID, SELFPAY | END 2021-04-04 10:15 | disposition home or self-care (01) | LOC: WOUND 10:14 | PROVIDERS: Visit Provider Surgery | DX: E11.622 Type 2 diabetes mellitus with other skin ulcer (principal); L98.492 Non-pressure chronic ulcer of skin of other sites with fat layer exposed; Z87.891 Personal history of nicotine dependence | CPT/HCPCS: 11042 ==

== ENCOUNTER 2021-04-09 15:13 | Outpatient (CLI) | payer MEDICAID, SELFPAY ==
--- NOTE | 2021-04-09 15:45 | USCV_ITS ---
Andrew Pabon Age: 65 Gender: M : 1955 Exam Date: 04/09/2021 15:40 Ordering Phys: Luis E Hooks M.D ([email or web address]) Technologist: Danielle Andino Exam Location: [facility] [place] Indication: H/O DVT, CURRENTLY ON BLOOD THINNERS HISTORY: Lower extremity swelling. PROCEDURES: Comparison:. 02/08/21 Venous duplex imaging was performed in bilateral lower extremities. The following venous structures were evaluated: common femoral vein, profunda vein, proximal portion of the greater saphenous vein, superficial femoral vein, and the popliteal vein. Serial compression, augmentation maneuvers, and spectral Doppler flow evaluation were performed. FINDINGS: Non compressible Left common femoral vein, Profund, SFV and Pop V , may be chronic. Similar to the prior exam .All other veins appear patent. No DVT on the right. CONCLUSIONS Resolved DVT right CFV. Persistent DVT left lower extremity. Dr. Mary Ellen Mesa DO (Electronically Signed) Final Date: 09 April 2021 16:24 S
== END 2021-04-09 15:14 | disposition home or self-care (01) ==
PROVIDERS: PCP Family Medicine; Visit Provider Internal Medicine
DX: Z86.718 Personal history of other venous thrombosis and embolism
CPT/HCPCS: 93970

== ENCOUNTER 2021-04-11 10:01 | Outpatient (CLI) | payer MEDICAID, SELFPAY | END 2021-04-11 10:02 | disposition home or self-care (01) | LOC: WOUND 10:02 | PROVIDERS: PCP Family Medicine; Visit Provider Surgery | DX: E11.622 Type 2 diabetes mellitus with other skin ulcer (principal); L98.492 Non-pressure chronic ulcer of skin of other sites with fat layer exposed; Z87.891 Personal history of nicotine dependence | CPT/HCPCS: 11043 ==

== ENCOUNTER 2021-04-18 10:07 | Outpatient (CLI) | payer MEDICAID, SELFPAY | END 2021-04-18 10:08 | disposition home or self-care (01) | LOC: WOUND 10:08 | PROVIDERS: PCP Family Medicine; Visit Provider Surgery | DX: E11.622 Type 2 diabetes mellitus with other skin ulcer (principal); L98.492 Non-pressure chronic ulcer of skin of other sites with fat layer exposed; Z87.891 Personal history of nicotine dependence | CPT/HCPCS: 11042 ==

== ENCOUNTER → 2021-04-24 13:19 | Outpatient (BNVA) | payer MEDICAID, SELFPAY | PROVIDERS: PCP Family Medicine; Referring Provider Family Medicine; Visit Provider Orthopaedic Surgery | DX: M17.11 Unilateral primary osteoarthritis, right knee (principal); M25.761 Osteophyte, right knee; M25.561 Pain in right knee | CPT/HCPCS: 73562 ==

== ENCOUNTER 2021-04-25 10:00 | Outpatient (CLI) | payer MEDICAID, SELFPAY | END 2021-04-25 10:01 | disposition home or self-care (01) | LOC: WOUND 10:01 | PROVIDERS: PCP Family Medicine; Visit Provider Nurse Practitioner Family | DX: E11.622 Type 2 diabetes mellitus with other skin ulcer (principal); L98.492 Non-pressure chronic ulcer of skin of other sites with fat layer exposed; Z87.891 Personal history of nicotine dependence | CPT/HCPCS: G0463 ==

== ENCOUNTER 2021-05-09 10:32 | Outpatient (CLI) | payer MEDICAID, SELFPAY | END 2021-05-09 10:33 | disposition home or self-care (01) | LOC: WOUND 10:32 | PROVIDERS: PCP Family Medicine; Visit Provider Nurse Practitioner Family | DX: L98.492 Non-pressure chronic ulcer of skin of other sites with fat layer exposed (principal); Z87.891 Personal history of nicotine dependence; E11.9 Type 2 diabetes mellitus without complications | CPT/HCPCS: G0463 ==

== ENCOUNTER 2021-05-16 10:38 | Outpatient (CLI) | payer MEDICAID, SELFPAY | END 2021-05-16 10:39 | disposition home or self-care (01) | LOC: WOUND 10:38 | PROVIDERS: PCP Family Medicine; Visit Provider Surgery | DX: E11.622 Type 2 diabetes mellitus with other skin ulcer (principal); L98.492 Non-pressure chronic ulcer of skin of other sites with fat layer exposed; Z87.891 Personal history of nicotine dependence | CPT/HCPCS: 11042 ==

== ENCOUNTER 2021-05-29 20:11 | Emergency (ER) | payer MEDICAID, SELFPAY ==
[2021-05-29 20:34] VITALS: BP 160/98; PULSE 110; TEMP 36.7; O2SAT 97; BMI 34.2
--- NOTE | 2021-05-29 22:10 | W.ED.MALEGU ---
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 Earlier this year he states that he started having some hematuria that was light saw his PCP started on Augmentin for UTI states that he has had worsening hematuria today and some slight lower abdominal pain he rates 2 out of 10. He denies any vomiting or diarrhea denies any fever denies any pain in his testicles denies any worsening improving factors. 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 Hypertension Necrotizing fasciitis of multiple sites Obesity Surgical History Status post hernia repair Family History Other CAD (coronary artery disease) Cancer Denies family history of Anesthesia complication Bleeding disorder Social History Smoking and tobacco status: never smoked Alcohol intake: never Household members: spouse Marital status: Current occupational status: disabled History of recent travel: No Physical Exam Const: COMMON NORMALS: no acute distress, patient oriented x3 and healthy appearing HENMT: COMMON NORMALS: normocephalic and atraumatic HEAD & SCALP: normocephalic and atraumatic Eye: COMMON NORMALS: Equal, round and reactive pupils present and EOMs intact bilaterally PUPIL: Yes Equal, round and reactive pupils present Neck/C-Spine: COMMON NORMALS: full ROM and supple Chest: COMMONS NORMALS: normal inspection of the chest and normal palpation of entire chest wall Resp: COMMON NORMALS: normal respiratory effort, No retractions, No use of accessory muscles and clear to auscultation bilaterally AUSCULTATION: clear to auscultation bilaterally Cardio: COMMON NORMALS: regular rate, regular rhythm and No murmurs present (Cardio) RATE: regular rate RHYTHM: regular rhythm GI: COMMON NORMALS: Normal to inspection, nondistended, normoactive bowel sounds present, Soft to palpation, non-tender and no masses PALPATION: Yes Soft to palpation Extremity: COMMON NORMALS: normal to inspection and full ROM Neuro: COMMON NORMALS: patient oriented x3, moves all extremities and no focal motor deficits Psych: COMMON NORMALS: mental status grossly normal, Normal thought process present and cooperative THOUGHT PROCESS: Normal thought process present Skin: COMMON NORMALS: no rashes or lesions noted and no wounds GENERAL SKIN EXAM: no rashes or lesions noted Course Vital Signs: Vital signs: Vital Signs Temperature 98.1 F 05/30/21 00:07 Pulse Rate 95 05/30/21 00:07 Respiratory Rate 16 05/30/21 00:07 Blood Pressure 171/92 05/30/21 00:07 Pulse Oximetry 96 05/30/21 00:07 MDM - Male MDM Narrative: Medical decision making narrative: Patient presents here with hematuria CT does show thickening of bladder wall results with him informed it could be from infection he is to continue his Augmentin I did inform him also worried out a neoplasm he needs to follow-up with Dr. Moreau and likely needs a cystoscope other blood work is normal he is well-appearing here with no pain currently he is stable for discharge he is to follow-up with Dr. Moreau and return if worsening. Lab Data: Labs: Lab Results 05/29/21 05/29/21 05/29/21 22:20 22:20 22:20 WBC 12.5 10^3/uL H 10 ^3/uL (4.0-10.0) RBC 4.31 10^6/uL 10^6 /uL (4.1-5.3) Hgb 11.6 g/dL L g/dL (11.7-16.6) Hct 35.9 % L % (42.0-52.0) MCV 83.3 fl fl (80-94) MCH 26.9 pg L pg (28.0-34.0) MCHC 32.3 g/dL g/dL (30.0-36.0) RDW 14.4 % % (12.1-15.1) Plt Count 429 10^3/cmm H 10 ^3/cmm (130-400) MPV 8.4 fL fL (7.4-10.4) Neut % (Auto) 76.6 % % Lymph % (Auto) 17.9 % % [place] % (Auto) 4.8 % % Eos % (Auto) 0.3 % % Baso % (Auto) 0.2 % % Neut # (Auto) 9.59 10^3/uL H 10 ^3/uL (1.8-7.7) Lymph # (Auto) 2.3 10^3/uL 10^3/ uL (0.8-4.8) [place] # (Auto) 0.6 10^3/uL 10^3/ uL (0.2-0.9) Eos # (Auto) 0.0 10^3/uL 10^3/ uL (0.0-0.8) Baso # (Auto) 0.0 10^3/uL 10^3/ uL (0.0-0.1) Nucleated RBC % (a uto) 0 % % Nucleated RBCs # 0.0 /100WBC /100W BC PT 16.60 SECONDS H S ECONDS (12.1-14.9) INR 1.30 H (0.8-1.2) Sodium 136 mmol/L mmol/L (136-145) Potassium 3.7 mmol/L mmol/L (3.5-5.1) Chloride 98 mmol/L mmol/L (98-107) Carbon Dioxide 20 mmol/L L mmol/ L (22-29) Anion Gap 21.7 H (5-19) BUN 25 mg/dL H mg/dL (8-23) Creatinine 0.9 mg/dL mg/dL (0.7-1.2) GFR Calculation 84.2 mL/min L mL/ min (90-130) Glucose 118 mg/dL H mg/dL (65-115) Calculated Osmolal ity 287 mOsm/kg mOsm/ kg (285-295) Calcium 9.5 mg/dL mg/dL (8.5-10.5) Total Bilirubin 0.4 mg/dL mg/dL (0.15-1.2) AST 9 U/L U/L (0-40) ALT 12 U/L U/L (0-41) Alkaline Phosphata se 180 IU/L H IU/L (40-130) Total Protein 8.0 g/dL g/dL (6.6-8.7) Albumin 3.7 g/dL g/dL (3.5-5.2) Globulin 4.3 g/dL g/dL (1.3-4.6) Lipase 31 U/L U/L (13-60) Urine Color Urine Appearance Urine pH Ur Specific Gravit y Urine Protein Urine Glucose (UA) Urine Ketones Urine Blood Urine Nitrate Urine Bilirubin Urine Urobilinogen Ur Leukocyte Kristen ase Urine RBC Urine WBC Ur Squamous Epith Cells Amorphous Sediment Urine Bacteria 05/29/21 22:29 WBC RBC Hgb Hct MCV MCH MCHC RDW Plt Count MPV Neut % (Auto) Lymph % (Auto) [place] % (Auto) Eos % (Auto) Baso % (Auto) Neut # (Auto) Lymph # (Auto) [place] # (Auto) Eos # (Auto) Baso # (Auto) Nucleated RBC % (a uto) Nucleated RBCs # PT INR Sodium Potassium Chloride Carbon Dioxide Anion Gap BUN Creatinine GFR Calculation Glucose Calculated Osmolal ity Calcium Total Bilirubin AST ALT Alkaline Phosphata se Total Protein Albumin Globulin Lipase Urine Color Straw (Yellow) Urine Appearance Cloudy (CLEAR) Urine pH 5 (5-7) Ur Specific Gravit y 1.010 (1.005-1.030) Urine Protein Trace (Negative) Urine Glucose (UA) Norm (Normal) Urine Ketones Negative (Negative) Urine Blood 3+ H (Negative) Urine Nitrate Positive H (Negative) Urine Bilirubin Neg (Negative) Urine Urobilinogen Norm mg/dL mg/dL (Negative) Ur Leukocyte Kristen ase 2+ H (Negative) Urine RBC Too numerous to c nt /hpf H /hpf (0-2) Urine WBC Too numerous to c nt /hpf H /hpf (0-5) Ur Squamous Epith Cells 0-4 /hpf H /hpf (0-5) Amorphous Sediment Not Reportable Urine Bacteria 3+ /hpf H /hpf (NONE) Imaging Data: CT Abd/Pel: Attestation: I personally reviewed and interpreted this imaging study as follows: Radiologist's impression: [employer] [address] [place] [address] CT Scan Report Signed Patient: Andrew Pabon Unit #: [id number] : 1955 Age/Sex: 65 / M ADM Date: 05/29/21 Loc: ER Room/Bed: Attending Dr: Ordering Provider/Ordering MD: Moises Chiu MD Date of Service: 05/29/21 Procedure(s): CT abdomen pelvis w con* [id number] Accession Number(s): [id number] Report Number: [id number] PROCEDURE INFORMATION: Exam: CT Abdomen And Pelvis With Contrast Exam date and time: 05/29/2021 10:09 PM Age: 65 years old Clinical indication: Abdominal pain; Localized; Prior surgery; Surgery type: Hernia repair. Orchiectomy. ; Patient HX: Lower bad pain with dysuria/hematuria. Currently on abx for UTI. History of necrotizing fasciitis to testicles. ; Additional info: Abd pain TECHNIQUE: Imaging protocol: Computed tomography of the abdomen and pelvis with contrast. Radiation optimization: All CT scans at this facility use at least one of these dose optimization techniques: automated exposure control; mA and/or kV adjustment per patient size (includes targeted exams where dose is matched to clinical indication); or iterative reconstruction. Contrast material: VISI 320; Contrast volume: 95 ml; Contrast route: INTRAVENOUS (IV); COMPARISON: CT abdomen pelvis w con* [id number] 01/31/2021 6:10 PM RADIATION DOSE METRICS: Total DLP (mGy-cm): 1851.94 FINDINGS: Tubes, catheters and devices: There is a filter in the inferior vena cava positioned below the level of the renal veins. Lungs: Lung bases are clear. Liver: There are hypodense hepatic nodules which are too small to fully characterize on this exam. Gallbladder and bile ducts: The gallbladder is normal. There is no biliary dilation. Pancreas: The pancreas is unremarkable. Spleen: Splenic size is normal. There are scattered calcifications consistent with healed granulomas. Adrenal glands: The adrenal glands are hypertrophic bilaterally. Kidneys and ureters: Moderate bilateral hydronephrosis and diffuse hydroureter. There is a nonobstructive stone in the left kidney. There are simple cysts in both kidneys. Stomach and bowel: The stomach is decompressed, preventing meaningful evaluation of wall thickness. The small bowel is nondilated. There is moderate sigmoid colonic diverticulosis without evidence of diverticulitis. Appendix: The appendix is normal. Intraperitoneal space: There is no free air or significant intraperitoneal free fluid. Vasculature: There is mild aortic atherosclerotic disease. Lymph nodes: There is no lymphadenopathy in the retroperitoneum, mesentery, pelvis or inguinal regions. Urinary bladder: Marked diffuse bladder wall thickening and irregularity. Reproductive: The prostate and seminal vesicles are unremarkable. Bones/joints: Spinal alignment is normal. Vertebral body height is maintained. No acute fracture. The pelvis and proximal femora are intact. Soft tissues: The abdominal wall is intact. CT/CT abdomen pelvis w con* [id number] IMPRESSION: 1. Marked bladder wall thickening. There is no discrete mass. Possible muscular hypertrophy, cystitis or neoplasm. 2. Moderate bilateral hydronephrosis and diffuse hydroureter, suggesting bilateral ureterovesical junction stricture. 3. Nonobstructive stone in the left kidney. 4. Incidental findings above. COMMENTS: 1. Consistent with the [employer]'s Incidental Findings Committee white paper (J Am Hebert Radiol 2018): Any incidental renal lesion less than 1 cm or classified as too small to characterize, or any incidental cystic renal lesion characterized as simple-appearing, is likely benign. No follow-up imaging is recommended for these lesions per consensus recommendations based on imaging criteria. 2. For patients with an IVC filter, recommend assessment for a management plan for the patient's IVC filter. If there is no established management plan, recommend referral to an interventional clinician on a nonemergent basis for evaluation. Radiation Dose CTDIVOL = (mGy): DLP = 1851.94 (mGy-cm) Dictated By: Michael Cortes MD Signed By: Michael Cortes MD Signed Date/Time: 05/29/21 7078 DD/ 08 Discharge Plan Discharge Patient Disposition: Home Clinical Impression: Hematuria Qualifiers: Hematuria type: unspecified type Qualified Code(s): R31.9 - Hematuria, unspecified Condition: Stable Prescriptions: New ondansetron 4 mg tablet,disintegrating 4 mg PO Q6H PRN (Reason: nausea and vomiting) Qty: 14 RF: 0 No Action Novolog Flexpen U-100 Insulin 100 unit/mL (3 mL) insulin pen See Rx Instructions .ROUTE .COMPLEX PRN (Reason: Diabetes) RF: 0 Lantus Solostar U-100 Insulin 100 unit/mL (3 mL) insulin pen 15 unit SUBCUT DAILY RF: 0 lisinopril 20 mg tablet 20 mg PO DAILY Qty: 30 RF: 2 tizanidine 4 mg tablet 4 mg PO TID PRN (Reason: muscle spasticity) Qty: 60 RF: 1 (DME) Accu-Chek Tawny Plus Meter Misc See Rx Instructions .Route Qty: 1 RF: 0 (DME) Accu-Chek Tawny Plus test strp Strip See Rx Instructions .Route Qty: 50 RF: 2 (DME) Accu-Chek Multiclix Lancet Misc See Rx Instructions .Route Qty: 100 RF: 0 Eliquis 5 mg tablet 5 mg PO BID 30 Days Qty: 60 RF: 2 (DME) Kerlix Packing Sponge 4 1/2 X 22 sponge See Rx Instructions .Route Qty: 60 RF: 0 metformin 500 mg Tablet 500 mg PO BID 30 Days Qty: 60 RF: 1 Augmentin 875-125 mg Tablet 1 tab PO BID 28 Days Qty: 56 RF: 0 ProAir HFA 90 mcg/actuation HFA aerosol inhaler 1 inh inhalation Q4H PRN (Reason: shortness of breath or wheezing) Qty: 6.7 RF: 0 Discharge Orders: Discharge ED (Routine); Ordered 05/29/21 Ordered By: Moises Chiu Referrals: Merritt Irizarry MD [Primary Care Provider] - Tom Moreau MD [Physician] - 1-3 days Discharge Diet: Advance as tolerated Discharge Activity: Resume usual activity Patient Instructions: Hematuria (ED) Coding Level of Care Code ED [employer] for Chg Fwd Exam Comprehensive
[2021-05-29] MEDS: ondansetron 2 mg/ML SDV 2 mL 4 MG IVP (22:21)
[2021-05-29] MEDS: morphine 4 mg/mL SDV 1 mL IVP (22:22)
[2021-05-29 22:29] LABS: Basophils % 0.2 %; Eosinophils % 0.3 %; Hematocrit 35.9 % (42.0-52.0); Hemoglobin 11.6 g/dL (11.7-16.6); Lymphocytes # 2.3 10^3/uL (0.8-4.8); Lymphocytes % 17.9 %; Mean Corpuscular HGB Conc 32.3 g/dL (30.0-36.0); Mean Corpuscular Hemoglobin 26.9 pg (28.0-34.0); Mean Corpuscular Volume 83.3 fl (80-94); Mean Platelet Volume 8.4 fL (7.4-10.4); Monocytes # 0.6 10^3/uL (0.2-0.9); Monocytes % 4.8 %; Neutrophils # 9.59 10^3/uL (1.8-7.7); Neutrophils % 76.6 %; Nucleated Red Blood Cells % 0 %; Platelet Count 429 10^3/cmm (130-400); Red Blood Count 4.31 10^6/uL (4.1-5.3); Red Cell Distribution Width 14.4 % (12.1-15.1); White Blood Count 12.5 10^3/uL (4.0-10.0)
[2021-05-29 22:48] LABS: Alanine Aminotransferase 12 U/L (0-41); Albumin Level 3.7 g/dL (3.5-5.2); Alkaline Phosphatase 180 IU/L (40-130); Anion Gap 21.7 (5-19); Aspartate Amino Transferase 9 U/L (0-40); Blood Urea Nitrogen 25 mg/dL (8-23); Calcium 9.5 mg/dL (8.5-10.5); Carbon Dioxide 20 mmol/L (22-29); Chloride 98 mmol/L (98-107); Globulin 4.3 g/dL (1.3-4.6); Glomerular Filtration Rate 84.2 mL/min (90-130); Glucose 118 mg/dL (65-115); Lipase 31 U/L (13-60); Osmolality Calculated 287 mOsm/kg (285-295); Potassium 3.7 mmol/L (3.5-5.1); Sodium 136 mmol/L (136-145); Total Bilirubin 0.4 mg/dL (0.15-1.2)
[2021-05-29 23:00] LABS: Protein Urine Trace (Negative); Urine Appearance Cloudy (CLEAR); Urine Color Straw (Yellow); pH Urine 5 (5-7)
[2021-05-29 23:02] LABS: Add Urine Culture? Yes; Add Urine Microscopic? YES; Bacteria Urine 3+ /hpf; Bilirubin Urine Neg (Negative); Blood Urine 3+ (Negative); Glucose Urine UA Norm (Normal); Ketones Urine Negative (Negative); Leukocyte Esterase Urine 2+ (Negative); Nitrate Urine Positive (Negative); RBC Urine TOO NUMEROUS TO CNT /hpf (0-2); Squamous Epithelial Cell Urine 0-4 /hpf (0-5); Urobilinogen Urine Norm (Negative); WBC Urine TOO NUMEROUS TO CNT /hpf (0-5)
[2021-05-29] MEDS: iodixanol 320 mg/mL 100mL Btl IV (23:06)
[2021-05-29 23:30] VITALS: BP 185/114
[2021-05-29] MEDS: piperacillin-tazobactam 3.375 GM in sodium chloride 0.9% (plus) 50 ML IV (23:49)
[2021-05-30 00:04] VITALS: BP 171/92; PULSE 95; RESP 16; O2SAT 96
[2021-05-30 00:07] VITALS: BP 171/92; PULSE 95; RESP 16; TEMP 36.7; O2SAT 96
--- NOTE | 2021-05-30 09:21 | DCPLANNER ---
manager of marketing had message to schedule a follow up appointment scheduled for patient with Dr. Moreau. manager of marketing called the office of Dr. Moreau, spoke with Jordin, gave clinic patients information. manager of marketing was told that patients information would be printed and reviewed. Clinic will call patient with appointment information.
== END 2021-05-30 00:13 | disposition home or self-care (01) ==
PROVIDERS: Emergency Provider Emergency Medicine; PCP Family Medicine
DX: R31.9 Hematuria, unspecified (principal); Z79.84 Long term (current) use of oral hypoglycemic drugs; Z79.4 Long term (current) use of insulin; Z79.01 Long term (current) use of anticoagulants; E11.9 Type 2 diabetes mellitus without complications; I10 Essential (primary) hypertension
CPT/HCPCS: 36415; 74177; 80053; 81001; 83690; 85025; 85610; 87077; 87086; 87186; 96365; 96375; 99284; J2270; J2405; J2543; Q9967

== ENCOUNTER → 2021-06-02 09:47 | Outpatient (BNVA) | payer MEDICAID, SELFPAY | PROVIDERS: PCP Family Medicine; Visit Provider Anesthesiology Pain Medicine | DX: G89.29 Other chronic pain (principal); M51.16 Intervertebral disc disorders with radiculopathy, lumbar region; M48.061 Spinal stenosis, lumbar region without neurogenic claudication; M51.36 Other intervertebral disc degeneration, lumbar region | CPT/HCPCS: 99205 ==

== ENCOUNTER 2021-06-06 09:05 | Outpatient (CLI) | payer MEDICAID, SELFPAY ==
--- NOTE | 2021-06-06 09:00 | XR_ITS ---
WS: [id number] KUB, AP view, 06/06/2021 Clinical Data: kidney stone Comparison: CT abdomen and pelvis, 05/29/2021. Findings: No abnormal intraabdominal masses or calcifications are seen. There is no dilatated small bowel or ev idence of obstruction. The bladder is full. There is a large amount of air throughout the colon. The patient has a vena cava l filter. There is degenerative change of the lumbar vertebral bodies. XR/XR KUB [id number] Impression: Negative KUB.
== END 2021-06-06 09:06 | disposition home or self-care (01) ==
LOC: RAD 09:07
PROVIDERS: PCP Family Medicine; Visit Provider Urology
DX: N20.0 Calculus of kidney (principal); R31.9 Hematuria, unspecified; R33.9 Retention of urine, unspecified
CPT/HCPCS: 74018; 81003; 87077; 87086; 87184

== ENCOUNTER 2021-06-06 11:00 | Outpatient (RCR) | payer MEDICAID, SELFPAY | END 2021-06-24 23:59 | disposition home or self-care (01) | LOC: WOUND 11:00 | PROVIDERS: PCP Family Medicine; Visit Provider Nurse Practitioner Family | DX: E11.622 Type 2 diabetes mellitus with other skin ulcer (principal); L98.492 Non-pressure chronic ulcer of skin of other sites with fat layer exposed; I10 Essential (primary) hypertension; Z87.891 Personal history of nicotine dependence | CPT/HCPCS: 99213; G0463 ==

== ENCOUNTER → 2021-06-10 10:43 | Outpatient (BNVA) | payer MEDICAID, SELFPAY | PROVIDERS: PCP Family Medicine; Visit Provider Anesthesiology Pain Medicine | DX: G89.29 Other chronic pain (principal); M51.36 Other intervertebral disc degeneration, lumbar region; M51.16 Intervertebral disc disorders with radiculopathy, lumbar region; M48.061 Spinal stenosis, lumbar region without neurogenic claudication; M79.605 Pain in left leg | CPT/HCPCS: 99214 ==

== ENCOUNTER 2021-06-12 11:57 | Emergency (ER) | payer MEDICAID, SELFPAY ==
[2021-06-12] VITALS (11 sets, daily range): BP systolic 130–167; BP diastolic 79–103; PULSE 109–120; RESP 16–26; TEMP 36; O2SAT 93–100; BMI 34.2
--- NOTE | 2021-06-12 13:06 | CT_ITS ---
WS: [id number] CT ABDOMEN PELVIS TECHNIQUE: Contrast-enhanced CT of the abdomen and pelvis with coronal and sagittal reformatted image s. CLINICAL INFORMATION: pain COMPARISON: May 29, 2021 DLP: 1713.[address] scans at [facility] [place] use at least one of these dose optimization techniques: automated e xposure control; mA and/or kV adjustment per patient size (includes targeted exams where dose is matc hed to clinical indication); or iterative reconstruction. FINDINGS: Bilateral moderate hydronephrosis and hydroureter similar in appearance to the prior examination. Ure ters are dilated down to the level of the urinary bladder with urothelial enhancement. Diffuse thicke lucy of the bladder with diffuse enhancement consistent with cystitis and ascending urinary tract inf ection. Enlarged heterogeneously enhancing multinodular prostate with multiloculated fluid collection s progressed from previous consistent with prostate abscess. Diffuse bladder wall thickening has prog ressed since the prior examination with peripheral enhancing mural fluid collections compatible with abscess. Sigmoid colon traverses along the dorsal bladder with loss of the normal fat plane. This is progresse d since the prior examination suspicious for sigmoid colitis. No evidence of drainable sigmoid absces s or fluid collection. Diffuse fatty infiltration liver. Hepatomegaly. A few low-attenuation lesions within the liver too sm all to characterize likely hepatic cysts or hemangiomas. Adrenal glands are normal. Normal spleen. No rmal GE junction. Normal pancreas. Normal gallbladder. Lung bases are well aerated. 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 IVC filter. CT/CT abdomen pelvis w con* [id number] IMPRESSION: 1. Moderate bilateral hydronephrosis with ureterectasis. Ureters dilated down to the bladder at the UVJ with obstruction at this level due to cystitis. 2. Diffuse cystitis with bladder wall thickening and marked peripheral enhance ment progressed compared to the prior examination. Lobulated peripherally enhan cing dorsal mural bladder fluid collections compatible with bladder abscess. Th is extends along the dorsal aspect and dome of the bladder. 3. Multiloculated heterogeneously enhancing prostate with progressed multilocu lated collections suspicious for prostate abscess. Superimposed neoplasm is not excluded. 4. Inflammatory stranding in the pelvis and about the bladder has progressed c ompared to May 29, 2021. 5. The sigmoid colon is appears adhered to the dorsal aspect and dome of the b ladder with new inflammatory stranding and edema compatible with colitis. 6. No drainable sigmoid colon abscess or fluid collection. 7. No other significant changes compared to previous. Notified YESSICA Jiménez at 06/12/2021 3:10 PM.
--- NOTE | 2021-06-12 13:11 | W.ED.MALEGU ---
Documented by User: YESSICA Jiménez 06/12/21 14:20 HPI - Male Genitourinary General: Chief complaint: Urogenital-Male Stated complaint: unable to eat Time Seen by Provider: 06/12/21 13:04 History of Present Illness: HPI Narrative: Patient arrives here today with complaints of ongoing chronic back pain that is worsening and not improved since started on new medication. Patient says he is currently being treated for UTI and that has not improved much. Patient says sugars have been a little high. Patient says antibiotic that he takes is making him sick to his stomach and making it difficult to eat. Patient denies any vomiting does have some nausea. Denies any fever or chills. Says chronic back pain is his main problem and would like something to help with the discomfort. MD Complaint: other (Chronic back pain and recent UTI) Onset (ago): year(s) Duration: constant and progressively worsening Associated symptoms: Reports dysuria; Deny nausea or vomiting Review of Systems Const: Denies: fever(s), chills or body aches Eyes: Denies: change in vision or blurry vision ENMT: Denies: throat pain or nasal congestion Card: Denies: chest pain or dyspnea on exertion Resp: Denies: dyspnea, productive cough or non-productive cough GI: Denies: abdominal pain, nausea or vomiting : Reports: dysuria and urinary urgency; Denies: difficulty urinating Musc: Reports: back pain; Denies: extremity pain Skin/Breast: Denies: rash Neuro: Denies: headache(s) Psych: Denies: anxiety or depression Haroldo/Lymph: Denies: easy bruising PFSH ED PFSH: Medical History Bilateral hydronephrosis 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 Diabetes 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 Hypertension Necrotizing fasciitis of multiple sites Obesity Recurrent UTI Surgical History Status post hernia repair Family History Father Cancer Mother Heart attack Other CAD (coronary artery disease) Denies family history of Anesthesia complication Bleeding disorder Social History Alcohol intake: never Household members: spouse Marital status: Current occupational status: disabled History of recent travel: No Physical Exam Const: COMMON NORMALS: no acute distress, average body habitus and patient oriented x3 HENMT: COMMON NORMALS: normocephalic HEAD & SCALP: normal to inspection and normocephalic FACE & SINUS: normal facial exam Eye: COMMON NORMALS: conjunctivae normal GENERAL EYE: appearance normal, both eyes and all related structures CONJUNCTIVA: Yes conjunctivae normal Neck/C-Spine: COMMON NORMALS: no JVD Chest: COMMONS NORMALS: normal inspection of the chest Resp: COMMON NORMALS: normal respiratory effort and clear to auscultation bilaterally AUSCULTATION: clear to auscultation bilaterally Cardio: COMMON NORMALS: no JVD, regular rate and regular rhythm RATE: regular rate RHYTHM: regular rhythm GI: COMMON NORMALS: Soft to palpation AUSCULTATION: Yes normoactive bowel sounds PALPATION: Yes Soft to palpation and Yes Tenderness to palpation present (GI) (Generalized) Back/Pelvis: LUMBAR SPINE/LOWER BACK: Yes straight leg raise positive right and Yes straight leg raise positive left Extremity: COMMON NORMALS: normal to inspection and full ROM Neuro: COMMON NORMALS: patient oriented x3 Skin: OTHER: Dry Course Vital Signs: Vital signs: Vital Signs Temperature 96.8 F L 06/12/21 12:45 Pulse Rate 115 H 06/12/21 18:49 Respiratory Rate 16 06/12/21 18:49 Blood Pressure 130/86 06/12/21 18:49 Pulse Oximetry 97 06/12/21 18:49 MDM - Male Lab Data: Labs: Lab Results 06/12/21 06/12/21 06/12/21 13:30 13:30 13:30 WBC RBC Hgb Hct MCV MCH MCHC RDW Plt Count MPV Neut % (Auto) Lymph % (Auto) [place] % (Auto) Eos % (Auto) Baso % (Auto) Neut # (Auto) Lymph # (Auto) [place] # (Auto) Eos # (Auto) Baso # (Auto) Nucleated RBC % (a uto) Nucleated RBCs # PT 14.10 SECONDS SEC ONDS (12.1-14.9) INR 1.06 (0.8-1.2) Sodium 127 mmol/L L mmol /L (136-145) Potassium 4.5 mmol/L mmol/L (3.5-5.1) Chloride 90 mmol/L L mmol/ L (98-107) Carbon Dioxide 13 mmol/L L mmol/ L (22-29) Anion Gap 28.5 H (5-19) BUN 65 mg/dL H mg/dL (8-23) Creatinine 3.3 mg/dL H mg/dL (0.7-1.2) GFR Calculation 18.8 mL/min L mL/ min (90-130) Glucose 130 mg/dL H mg/dL (65-115) Calculated Osmolal ity 284 mOsm/kg L mOs m/kg (285-295) Lactate 1.5 mmol/L mmol/L (0.5-2.2) Calcium 9.1 mg/dL mg/dL (8.5-10.5) Total Bilirubin 0.5 mg/dL mg/dL (0.15-1.2) AST 7 U/L U/L (0-40) ALT 9 U/L U/L (0-41) Alkaline Phosphata se 152 IU/L H IU/L (40-130) Total Protein 7.6 g/dL g/dL (6.6-8.7) Albumin 3.5 g/dL g/dL (3.5-5.2) Globulin 4.1 g/dL g/dL (1.3-4.6) Lipase 21 U/L U/L (13-60) Urine Color Urine Appearance Urine pH Ur Specific Gravit y Urine Protein Urine Glucose (UA) Urine Ketones Urine Blood Urine Nitrate Urine Bilirubin Urine Urobilinogen Ur Leukocyte Kristen ase Urine RBC Urine WBC Ur Squamous Epith Cells Amorphous Sediment Urine Bacteria 06/12/21 06/12/21 13:36 15:00 WBC 17.2 10^3/uL H 10 ^3/uL (4.0-10.0) RBC 3.98 10^6/uL L 10 ^6/uL (4.1-5.3) Hgb 10.6 g/dL L g/dL (11.7-16.6) Hct 31.7 % L % (42.0-52.0) MCV 79.6 fl L fl (80-94) MCH 26.6 pg L pg (28.0-34.0) MCHC 33.4 g/dL g/dL (30.0-36.0) RDW 14.8 % % (12.1-15.1) Plt Count 442 10^3/cmm H 10 ^3/cmm (130-400) MPV 8.5 fL fL (7.4-10.4) Neut % (Auto) 85.1 % % Lymph % (Auto) 9.0 % % [place] % (Auto) 5.3 % % Eos % (Auto) 0.1 % % Baso % (Auto) 0.2 % % Neut # (Auto) 14.64 10^3/uL H 1 0^3/uL (1.8-7.7) Lymph # (Auto) 1.5 10^3/uL 10^3/ uL (0.8-4.8) [place] # (Auto) 0.9 10^3/uL 10^3/ uL (0.2-0.9) Eos # (Auto) 0.0 10^3/uL 10^3/ uL (0.0-0.8) Baso # (Auto) 0.0 10^3/uL 10^3/ uL (0.0-0.1) Nucleated RBC % (a uto) 0 % % Nucleated RBCs # 0.0 /100WBC /100W BC PT INR Sodium Potassium Chloride Carbon Dioxide Anion Gap BUN Creatinine GFR Calculation Glucose Calculated Osmolal ity Lactate Calcium Total Bilirubin AST ALT Alkaline Phosphata se Total Protein Albumin Globulin Lipase Urine Color Yellow (Yellow) Urine Appearance Cloudy (CLEAR) Urine pH 5 (5-7) Ur Specific Gravit y 1.015 (1.005-1.030) Urine Protein 1+ H (Negative) Urine Glucose (UA) Norm (Normal) Urine Ketones Negative (Negative) Urine Blood 3+ H (Negative) Urine Nitrate Negative (Negative) Urine Bilirubin Neg (Negative) Urine Urobilinogen Norm mg/dL mg/dL (Negative) Ur Leukocyte Kristen ase 2+ H (Negative) Urine RBC 10-15 /hpf H /hpf (0-2) Urine WBC >100 /hpf H /hpf (0-5) Ur Squamous Epith Cells 10-15 /hpf H /hpf (0-5) Amorphous Sediment Not Reportable Urine Bacteria Trace /hpf /hpf (NONE) EKG Data: EKG 1: EKG Data: 06/12/21 EKG interpretation time: 14:14 Interpretation: Sinus tach with a short FL interval left anterior fascicular block ventricular rate 104 bpm FL interval 113 ms QRS durations 117 ms QT is 338 ms Q wave was seen in 1/aVL/V5/V6 Discharge Plan Discharge Patient Disposition: Xfer Short-Term Hosp Referrals: Merritt Irizarry MD [Primary Care Provider] - Coding Level of Care Code ED Malware Analyst for Chg Fwd Exam Comprehensive Documented by User: Skyler Vargas MD 06/12/21 19:16 HPI - Male Genitourinary General: Chief complaint: Urogenital-Male Stated complaint: unable to eat Time Seen by Provider: 06/12/21 13:04 PFSH ED PFSH: Medical History Bilateral hydronephrosis 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 Diabetes 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 Urologist on staff felt that this needed to a higher level of care so asked that we transfer to [place] for further evaluation. In the meantime we will start him on vancomycin and Primaxin. Patient is normotensive nontoxic-appearing fluids and cultures ordered on him. Vital Signs: Vital signs: Vital Signs Temperature 96.8 F L 06/12/21 12:45 Pulse Rate 115 H 06/12/21 18:49 Respiratory Rate 16 06/12/21 18:49 Blood Pressure 130/86 06/12/21 18:49 Pulse Oximetry 97 06/12/21 18:49 MDM - Male Lab Data: Labs: Lab Results 06/12/21 06/12/21 06/12/21 13:30 13:30 13:30 WBC RBC Hgb Hct MCV MCH MCHC RDW Plt Count MPV Neut % (Auto) Lymph % (Auto) [place] % (Auto) Eos % (Auto) Baso % (Auto) Neut # (Auto) Lymph # (Auto) [place] # (Auto) Eos # (Auto) Baso # (Auto) Nucleated RBC % (a uto) Nucleated RBCs # PT 14.10 SECONDS SEC ONDS (12.1-14.9) INR 1.06 (0.8-1.2) Sodium 127 mmol/L L mmol /L (136-145) Potassium 4.5 mmol/L mmol/L (3.5-5.1) Chloride 90 mmol/L L mmol/ L (98-107) Carbon Dioxide 13 mmol/L L mmol/ L (22-29) Anion Gap 28.5 H (5-19) BUN 65 mg/dL H mg/dL (8-23) Creatinine 3.3 mg/dL H mg/dL (0.7-1.2) GFR Calculation 18.8 mL/min L mL/ min (90-130) Glucose 130 mg/dL H mg/dL (65-115) Calculated Osmolal ity 284 mOsm/kg L mOs m/kg (285-295) Lactate 1.5 mmol/L mmol/L (0.5-2.2) Calcium 9.1 mg/dL mg/dL (8.5-10.5) Total Bilirubin 0.5 mg/dL mg/dL (0.15-1.2) AST 7 U/L U/L (0-40) ALT 9 U/L U/L (0-41) Alkaline Phosphata se 152 IU/L H IU/L (40-130) Total Protein 7.6 g/dL g/dL (6.6-8.7) Albumin 3.5 g/dL g/dL (3.5-5.2) Globulin 4.1 g/dL g/dL (1.3-4.6) Lipase 21 U/L U/L (13-60) Urine Color Urine Appearance Urine pH Ur Specific Gravit y Urine Protein Urine Glucose (UA) Urine Ketones Urine Blood Urine Nitrate Urine Bilirubin Urine Urobilinogen Ur Leukocyte Kristen ase Urine RBC Urine WBC Ur Squamous Epith Cells Amorphous Sediment Urine Bacteria 06/12/21 06/12/21 13:36 15:00 WBC 17.2 10^3/uL H 10 ^3/uL (4.0-10.0) RBC 3.98 10^6/uL L 10 ^6/uL (4.1-5.3) Hgb 10.6 g/dL L g/dL (11.7-16.6) Hct 31.7 % L % (42.0-52.0) MCV 79.6 fl L fl (80-94) MCH 26.6 pg L pg (28.0-34.0) MCHC 33.4 g/dL g/dL (30.0-36.0) RDW 14.8 % % (12.1-15.1) Plt Count 442 10^3/cmm H 10 ^3/cmm (130-400) MPV 8.5 fL fL (7.4-10.4) Neut % (Auto) 85.1 % % Lymph % (Auto) 9.0 % % [place] % (Auto) 5.3 % % Eos % (Auto) 0.1 % % Baso % (Auto) 0.2 % % Neut # (Auto) 14.64 10^3/uL H 1 0^3/uL (1.8-7.7) Lymph # (Auto) 1.5 10^3/uL 10^3/ uL (0.8-4.8) [place] # (Auto) 0.9 10^3/uL 10^3/ uL (0.2-0.9) Eos # (Auto) 0.0 10^3/uL 10^3/ uL (0.0-0.8) Baso # (Auto) 0.0 10^3/uL 10^3/ uL (0.0-0.1) Nucleated RBC % (a uto) 0 % % Nucleated RBCs # 0.0 /100WBC /100W BC PT INR Sodium Potassium Chloride Carbon Dioxide Anion Gap BUN Creatinine GFR Calculation Glucose Calculated Osmolal ity Lactate Calcium Total Bilirubin AST ALT Alkaline Phosphata se Total Protein Albumin Globulin Lipase Urine Color Yellow (Yellow) Urine Appearance Cloudy (CLEAR) Urine pH 5 (5-7) Ur Specific Gravit y 1.015 (1.005-1.030) Urine Protein 1+ H (Negative) Urine Glucose (UA) Norm (Normal) Urine Ketones Negative (Negative) Urine Blood 3+ H (Negative) Urine Nitrate Negative (Negative) Urine Bilirubin Neg (Negative) Urine Urobilinogen Norm mg/dL mg/dL (Negative) Ur Leukocyte Kristen ase 2+ H (Negative) Urine RBC 10-15 /hpf H /hpf (0-2) Urine WBC >100 /hpf H /hpf (0-5) Ur Squamous Epith Cells 10-15 /hpf H /hpf (0-5) Amorphous Sediment Not Reportable Urine Bacteria Trace /hpf /hpf (NONE) Discharge Plan Discharge Patient Disposition: Xfer Short-Term Hosp Referrals: Merritt Irizarry MD [Primary Care Provider] - Coding Level of Care Code ED Malware Analyst for Chg Fwd Exam Comprehensive
--- NOTE | 2021-06-12 13:19 | ECG_ITS ---
[facility] Test Date: 2021-06-12 Pat Name: Andrew Pabon Department: Room: Gender: Male Contact Center Professional: : 1955 Requested By: Emerson Kim Order Number: [id number] Claudette MD: Vera Bolanos M.D. Measurements Intervals [place] Rate: 104 P: -7 WV: 113 QRS: -52 QRSD: 117 T: 60 QT: 338 QTc: 446 Interpretive Statements SINUS TACHYCARDIA WITH SHORT WV INTERVAL LEFT ANTERIOR FASCICULAR BLOCK [QRS AXIS <= -45, QR IN I, RS IN II] POSSIBLE LATERAL MYOCARDIAL INFARCTION , OF INDETERMINATE AGE [30 ms Q WAVE IN I/aVL/V5/V6] Compared to ECG 01/31/2021 15:32:33 Short WV interval now present Left ventricular hypertrophy no longer present ST (T wave) deviation no longer present Myocardial infarct finding still present Electronically Signed On 06-13-2021 16:12:48 SAND CONDITIONER MACHINE by Vear Bolanos M.D. [email or web address]
[2021-06-12] MEDS: sodium chloride 0.9% 500 ML IV (13:35)
[2021-06-12] MEDS: morphine 4 mg/mL SDV 1 mL IVP ×2 (13:35→15:57)
[2021-06-12] MEDS: ondansetron 2 mg/ML SDV 2 mL 4 MG IVP (13:35)
[2021-06-12 13:45] LABS: Basophils % 0.2 %; Eosinophils % 0.1 %; Hematocrit 31.7 % (42.0-52.0); Hemoglobin 10.6 g/dL (11.7-16.6); Lymphocytes # 1.5 10^3/uL (0.8-4.8); Mean Corpuscular HGB Conc 33.4 g/dL (30.0-36.0); Mean Corpuscular Hemoglobin 26.6 pg (28.0-34.0); Mean Corpuscular Volume 79.6 fl (80-94); Mean Platelet Volume 8.5 fL (7.4-10.4); Monocytes # 0.9 10^3/uL (0.2-0.9); Monocytes % 5.3 %; Neutrophils # 14.64 10^3/uL (1.8-7.7); Neutrophils % 85.1 %; Nucleated Red Blood Cells % 0 %; Platelet Count 442 10^3/cmm (130-400); Red Blood Count 3.98 10^6/uL (4.1-5.3); Red Cell Distribution Width 14.8 % (12.1-15.1); White Blood Count 17.2 10^3/uL (4.0-10.0)
[2021-06-12 14:02] LABS: Alanine Aminotransferase 9 U/L (0-41); Albumin Level 3.5 g/dL (3.5-5.2); Alkaline Phosphatase 152 IU/L (40-130); Anion Gap 28.5 (5-19); Aspartate Amino Transferase 7 U/L (0-40); Blood Urea Nitrogen 65 mg/dL (8-23); Calcium 9.1 mg/dL (8.5-10.5); Carbon Dioxide 13 mmol/L (22-29); Chloride 90 mmol/L (98-107); Globulin 4.1 g/dL (1.3-4.6); Glomerular Filtration Rate 18.8 mL/min (90-130); Glucose 130 mg/dL (65-115); Lipase 21 U/L (13-60); Osmolality Calculated 284 mOsm/kg (285-295); Potassium 4.5 mmol/L (3.5-5.1); Sodium 127 mmol/L (136-145); Total Bilirubin 0.5 mg/dL (0.15-1.2); Total Protein 7.6 g/dL (6.6-8.7)
[2021-06-12 14:03] LABS: Lactate (Lactic Acid level) 1.5 mmol/L (0.5-2.2)
[2021-06-12] MEDS: iohexol 300 mg/mL 100 mL Btl IV (14:06)
[2021-06-12 15:14] LABS: Add Urine Culture? Yes; Add Urine Microscopic? YES; Bacteria Urine TRACE /hpf; Bilirubin Urine Neg (Negative); Blood Urine 3+ (Negative); Glucose Urine UA Norm (Normal); Ketones Urine Negative (Negative); Leukocyte Esterase Urine 2+ (Negative); Nitrate Urine Negative (Negative); Protein Urine 1+ (Negative); Specific Gravity, Urine 1.015 (1.005-1.030); Urine Appearance Cloudy (CLEAR); Urine Color Yellow (Yellow); Urobilinogen Urine Norm (Negative); WBC Urine >100 /hpf (0-5); pH Urine 5 (5-7)
[2021-06-12 15:22] LABS: INR 1.06 (0.8-1.2)
--- NOTE | 2021-06-12 15:31 | PC.PHAR ---
pt states his takes care of his medications-pts states the pt is no longer taking the augmentin filled on 05/27/21 14d/s-pts states the pt cant take celebrex, cyclobenzaprine,or topiramate states it hurts his stomach-pts states the mobic doesnt work states the pt hasnt taken for 2 weeks-pts states the pt is allergic to lyrica filled on 06/02/21 30d/s for 75mg bid-pts states the pt isnt taking the amoxil 500mg tid last filled 06/03/21 7d/s
[2021-06-12] MEDS: sodium chloride 0.9% 1,000 ML 125 ML IV (17:30)
[2021-06-12] MEDS: sodium chloride 0.9% 250 ML 999 ML IV (17:31)
[2021-06-12] MEDS: topiramate 25 mg Tablet 50 MG PO (20:33)
[2021-06-12] MEDS: apixaban 5 mg Tablet PO (20:33)
[2021-06-12] MEDS: ascorbic acid 500 mg Tablet 1000 MG PO (20:33)
[2021-06-12] MEDS: tizanidine 4 mg Tablet PO (20:34)
--- NOTE | 2021-06-12 22:23 | PC.NURSE ---
pt transferred to [facility] by EMS [facility]
== END 2021-06-12 22:28 | disposition short-term general hospital (02) ==
PROVIDERS: Emergency Provider Nurse Practitioner Family; PCP Family Medicine
DX: N39.0 Urinary tract infection, site not specified (principal); G89.29 Other chronic pain; M54.9 Dorsalgia, unspecified; R11.0 Nausea
CPT/HCPCS: 74177; 80053; 81001; 83605; 83690; 85025; 85610; 87040; 87077; 87086; 87186; 93005; 96361; 96365; 96375; 96376; 99285; J0743; J2270; J2405; J7030; J7040; J7050; Q9967

== ENCOUNTER 2021-06-27 09:19 | Outpatient (CLI) | payer MEDICAID, SELFPAY ==
--- NOTE | 2021-06-27 09:30 | MR_ITS ---
WS: [id number] MRI LUMBAR SPINE NONCONTRAST TECHNIQUE: Sagittal T1, T2 and STIR imaging. Axial T1 and T2 imaging. CLINICAL INFORMATION: M48.061 - Spinal stenosis, lumbar region without neurogen... COMPARISON: None. FINDINGS: Mild lumbar curve. No acute compression. Disc space narrowing worse L4-L5 and L5-S1. L1-L2: Mild annular bulging with slight effacement of ventral thecal sac. Slight narrowing of the sub articular recess bilaterally. Moderate facet arthropathy. Mild right foraminal narrowing. L2-L3: Mild disc bulging with slight effacement of ventral thecal sac. Slight narrowing of the subart icular recess bilaterally. Mild left foraminal narrowing. Moderate facet arthropathy. L3-L4: Mild disc bulging with osteophytic ridging. Spinal canal is patent. Moderate facet arthropathy . Left eccentric disc osteophyte ridging slightly impinges the exiting left L3 nerve root with mild l eft foraminal narrowing. L4-L5: Mild disc osteophyte complex with endplate ridging. Moderate facet arthropathy. Spinal canal a nd foramen are patent. L5-S1: Left eccentric disc osteophyte complex with endplate ridging. Left eccentric disc bulging encr oaches on the far exiting left L5 nerve root. Right foramen is patent. Spinal canal is patent. Mild f acet arthropathy. Small bilateral renal cysts. Partially visualized thickening of the sigmoid colon compatible with div erticulitis/colitis as seen on the prior recent CT June 12, 2021. MR/MR lumbar spine wo con* [id number] IMPRESSION: 1. Mild lumbar curve. No acute compression. No high-grade central canal stenos is. 2. Mild disc bulging L1-2 with slight narrowing of the subarticular recess cirilo aterally. 3. Mild annular bulging L2-3 with slight narrowing of the left subarticular re cess. Mild left foraminal narrowing. 4. Small left foraminal protrusion L3-4 slightly contacts the exiting left L3 nerve root. Recommend correlation with L3 nerve root symptoms. 5. Left eccentric disc osteophyte complex L5-S1 slightly contacts the far exit ing left L5 nerve root. 6. Moderate facet arthropathy L2-L5.
== END 2021-06-27 09:20 | disposition home or self-care (01) ==
LOC: RADSHAW 09:23
PROVIDERS: PCP Family Medicine; Visit Provider Anesthesiology Pain Medicine
DX: M48.061 Spinal stenosis, lumbar region without neurogenic claudication (principal); M51.16 Intervertebral disc disorders with radiculopathy, lumbar region; M51.26 Other intervertebral disc displacement, lumbar region; M47.816 Spondylosis without myelopathy or radiculopathy, lumbar region; M25.78 Osteophyte, vertebrae
CPT/HCPCS: 72148

== ENCOUNTER 2021-06-27 14:20 | Outpatient (CLI) | payer MEDICAID, SELFPAY | END 2021-06-27 14:21 | disposition home or self-care (01) | LOC: WOUND 14:21 | PROVIDERS: PCP Family Medicine; Visit Provider Surgery | DX: Z09 Encounter for follow-up examination after completed treatment for conditions other than malignant neoplasm (principal); Z87.891 Personal history of nicotine dependence | CPT/HCPCS: G0463 ==

== ENCOUNTER → 2021-07-01 10:00 | Outpatient (BNVA) | payer MEDICAID, SELFPAY | PROVIDERS: PCP Family Medicine; Visit Provider Anesthesiology Pain Medicine | DX: G89.29 Other chronic pain (principal); M51.36 Other intervertebral disc degeneration, lumbar region; M51.16 Intervertebral disc disorders with radiculopathy, lumbar region; M48.061 Spinal stenosis, lumbar region without neurogenic claudication; M79.605 Pain in left leg | CPT/HCPCS: 99214 ==

== ENCOUNTER 2021-07-04 08:53 | Outpatient (CLI) | payer MEDICAID, SELFPAY ==
--- NOTE | 2021-07-04 09:00 | CT_ITS ---
WS: [id number] CT ABDOMEN AND PELVIS NONCONTRAST HISTORY: BILATERAL HYDRONEPHROSIS TECHNIQUE: Imaging performed through the abdomen and pelvis. Coronal and sagittal reformats are submi tted. All CT scans at [facility] use at least one of these dose optimization techniques: auto mated exposure control; mA and/or kV adjustment per patient size (includes targeted exams where dose is matched to clinical indication); or iterative reconstruction. DLP: 1870.51 mGy.cm COMPARISON: 06/12/2021 Lower thorax: Lung bases are clear. Visualized heart is normal. Small hiatal hernia. Liver: Mildly shrunken liver with nodular surface suggestive of cirrhosis. No mass appreciated on thi s unenhanced study. Gallbladder: Normal gallbladder. Pancreas: Normal size and attenuation. Normal pancreatic duct. No pancreatitis or mass. Spleen: Normal size with granulomata. Adrenal glands: Mildly lobulated adrenal glands bilaterally. No mass or progression. Right kidney: Previously described hydronephrosis and hydroureter has resolved. Scattered cortical hy podensities are similar to the prior examination. No renal obstruction. Left kidney: Previously described hydronephrosis has resolved. Nonobstructing 2 mm calcification in t he lower pole. Aorta: Mild atherosclerosis abdominal aorta with no aneurysm. IVC filter is noted inferior to the renal veins. Small shoddy, subcentimeter retroperitoneal lymph nodes. GI tract: No GI tract obstruction. There is mild circumferential thickening of the rectal wall which may be related to the acute inflammatory process associated with the prostate gland and bladder. Ther e is diffuse moderate constipation and fecal retention. Increased fluid with mild wall thickening at the cecum. Numerous diverticula throughout the descending and sigmoid colon. A small section of the s igmoid is inseparable from the bladder as described on the prior study. Less inflammation and less co ntact on the bladder. Abdominal wall: Mild diffuse anasarca. Pelvis: Stovall catheter present in the urinary bladder. There is severe diffuse wall thickening of the bladder measuring up to 2.0 cm. A complex cystic collection involving the posterior urinary bladder with extension into the prostate gland has significantly improved. There is been a progression of the soft tissue stranding in the pelvis and surrounding the rectum. There are diffuse scattered lymph no shirin. The distal ureters are still mildly prominent with thickened wall. Osseous structures: Severe disc desiccation with ankylosis at L4-5 and L5-S1. CT/CT kidney stone [id number] IMPRESSION: 1. Resolved hydronephrosis since 06/12/2021. The very distal ureters are mildl y prominent with thickened ureteral menendez. 2. Stovall catheter present in a nondistended urinary bladder. There is severe w all thickening diffusely within the urinary bladder measuring up to 2.0 cm. 3. Previously described abscess involving the posterior urinary bladder and th e prostate gland has markedly improved, essentially resolved. 4. Mild progression in the perirectal fat stranding and a few small lymph node s. 5. Increase in amount of fecal material and air within the RIGHT colon. 6. Descending and sigmoid diverticulosis without diverticulitis and prominent wall thickening. Less contact and adhesion to the urinary bladder as compared t o 06/12/2021.
== END 2021-07-04 08:54 | disposition home or self-care (01) ==
LOC: RAD 08:55
PROVIDERS: PCP Family Medicine; Visit Provider Urology
DX: N13.30 Unspecified hydronephrosis (principal); Z96.0 Presence of urogenital implants; K57.30 Diverticulosis of large intestine without perforation or abscess without bleeding
CPT/HCPCS: 74176

== ENCOUNTER 2021-07-09 09:34 | Inpatient (IN) | payer MEDICARE, MEDICAID, SELFPAY ==
[2021-07-09 09:56] VITALS: BP 165/82; PULSE 104; RESP 22; TEMP 38.1; O2SAT 98; BMI 29.5
--- NOTE | 2021-07-09 10:10 | ED_ITS ---
HPI - Male Genitourinary General: Chief complaint: Urogenital-Male Stated complaint: diff urinating Time Seen by Provider: 07/09/21 10:09 History of Present Illness: HPI Narrative: 65-year-old male who presents emergency room with complaint of difficulty urinating. He recently was started on tamsulosin and finasteride after having a indwelling Stovall removed. At that same time he had the catheter removed and not been able to urinate regularly since then to the point now he is not been able to urinate for at least the last 8 to 12 hours. He denies any fever sweats or chills patient is extremely weak has difficult time transferring from wheelchair to bed cannot even lift his legs up onto the bed however he states this is chronic for him his usually takes care of him at home. Earlier this year patient was hospitalized a necrotizing fasciitis of 40 years gangrene he was sent to [place]. He is recovered from that and has not had a recurrence during that timeframe he had a DVT and was started on Eliquis but he stopped taking it on his own. He was not instructed to stop it. Onset (ago): hour(s) Duration: constant Location: abdomen Severity: moderate Quality: aching Relieving factors: urination Exacerbating factors: none Associated symptoms: Reports swelling and urinary retention; Deny discharge, dysuria, fevers/chills, hematuria, nausea, rash, urinary incontinence, mass or vomiting Review of Systems Const: Denies: fever(s), chills, body aches, change in appetite, fatigue or malaise Card: Denies: chest pain, edema, dyspnea on exertion or orthopnea Resp: Denies: dyspnea, productive cough or non-productive cough GI: Denies: nausea or vomiting : Denies: dysuria, urinary incontinence or hematuria PFS ED PFSH: Medical History Acute kidney injury Anemia Bilateral hydronephrosis 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 Chronic low back pain Diabetes DVT (deep venous thrombosis) DVT, bilateral lower limbs 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 Hypertension Lumbar disc disease with radiculopathy Lumbar disc disease with radiculopathy Lumbar stenosis Necrotizing fasciitis of multiple sites Obesity Osteoarthritis of right knee Recurrent UTI Surgical History Status post hernia repair Family History Father Cancer Mother Heart attack Other CAD (coronary artery disease) Denies family history of Anesthesia complication Bleeding disorder Social History Alcohol intake: never Household members: spouse Marital status: Current occupational status: disabled History of recent travel: No Physical Exam Const: GENERAL APPEARANCE: cooperative ORIENTATION/CONSCIOUSNESS: Yes awake, Yes oriented to person, Yes oriented to place and Yes oriented to time HENMT: COMMON NORMALS: normocephalic, atraumatic and hearing grossly normal bilaterally HEAD & SCALP: normocephalic and atraumatic Neck/C-Spine: COMMON NORMALS: no JVD Resp: COMMON NORMALS: normal respiratory effort, No retractions, No use of accessory muscles and clear to auscultation bilaterally AUSCULTATION: clear to auscultation bilaterally Cardio: COMMON NORMALS: no JVD, regular rate, regular rhythm and No murmurs present (Cardio) RATE: regular rate RHYTHM: regular rhythm GI: COMMON NORMALS: No hepatosplenomegaly present AUSCULTATION: Yes normoactive bowel sounds PALPATION: Yes Tenderness to palpation present (GI), No Guarding due to palpation present (GI) and Yes No hepatosplenomegaly present OTHER: Bladder palpable to the level of the umbilicus Neuro: SENSORIUM/ORIENTATION: Yes oriented to person, Yes oriented to place and Yes oriented to time Course Vital Signs: Vital signs: Vital Signs Temperature 98.7 F 07/11/21 11:43 Pulse Rate 75 07/11/21 11:43 Respiratory Rate 18 07/11/21 14:22 Blood Pressure 157/77 07/11/21 11:43 Pulse Oximetry 95 07/11/21 11:43 MDM - Male MDM Narrative: Medical decision making narrative: Patient has significant urinary retention relieved in part by placement of Stovall catheter CT shows large what appeared initially to be abscess Discussed with Dr. Moreau he had seen this patient before intact a large diverticulum then developed when the patient is obstructed. He does appear to have a bladder infection as well we will go ahead and admit the patient for sepsis secondary to UTI with urinary retention and bladder trabeculation. Dr. Moreau will follow cultures done antibiotics initiated discussed the hospitalist orders are written. Lab Data: Labs: Lab Results 07/09/21 07/09/21 07/09/21 10:32 10:32 10:32 WBC RBC Hgb Hct MCV MCH MCHC RDW Plt Count MPV Neut % (Auto) Lymph % (Auto) Frio % (Auto) Eos % (Auto) Baso % (Auto) Neut # (Auto) Lymph # (Auto) Frio # (Auto) Eos # (Auto) Baso # (Auto) Nucleated RBC % (a uto) Nucleated RBCs # Sodium Potassium Chloride Carbon Dioxide Anion Gap BUN Creatinine GFR Calculation Glucose Calculated Osmolal ity Lactic Acid Calcium Iron TIBC % Saturation Unsat Iron Binding Total Bilirubin AST ALT Alkaline Phosphata se NT-Pro-B Natriuret Pep Total Protein Albumin Globulin Lipase Folate Procalcitonin TSH Urine Color Yellow (Yellow) Urine Appearance Cloudy (CLEAR) Urine pH 5 (5-7) Ur Specific Gravit y 1.010 (1.005-1.030) Urine Protein 1+ H (Negative) Urine Glucose (UA) Norm (Normal) Urine Ketones Negative (Negative) Urine Blood 3+ H (Negative) Urine Nitrate Negative (Negative) Urine Bilirubin Neg (Negative) Urine Urobilinogen Norm mg/dL mg/dL (Negative) Ur Leukocyte Kristen ase 2+ H (Negative) Urine RBC 10-15 /hpf H /hpf (0-2) Urine WBC Too numerous to c nt /hpf H /hpf (0-5) Ur Eosinophil Smea r TNP Ur Squamous Epith Cells 5-10 /hpf H /hpf (0-5) Amorphous Sediment Not Reportable Urine Bacteria 2+ /hpf H /hpf (NONE) Urine Eosinophils No eosinophils se en Ur Random Sodium 52 mmol/L mmol/L Ur Random Potassiu m 31 mmol/L mmol/L Ur Random Chloride 37 mmol/L mmol/L Urine Creatinine 07/09/21 07/09/21 07/09/21 10:32 10:55 10:55 WBC 11.7 10^3/uL H 10 ^3/uL (4.0-10.0) RBC 3.42 10^6/uL L 10 ^6/uL (4.1-5.3) Hgb 9.6 g/dL L g/dL (11.7-16.6) Hct 28.8 % L % (42.0-52.0) MCV 84.2 fl fl (80-94) MCH 28.1 pg pg (28.0-34.0) MCHC 33.3 g/dL g/dL (30.0-36.0) RDW 18.5 % H % (12.1-15.1) Plt Count 250 10^3/cmm 10^3 /cmm (130-400) MPV 9.4 fL fL (7.4-10.4) Neut % (Auto) 81.5 % % Lymph % (Auto) 7.4 % % Frio % (Auto) 7.5 % % Eos % (Auto) 0.9 % % Baso % (Auto) 0.3 % % Neut # (Auto) 9.52 10^3/uL H 10 ^3/uL (1.8-7.7) Lymph # (Auto) 0.9 10^3/uL 10^3/ uL (0.8-4.8) Frio # (Auto) 0.9 10^3/uL 10^3/ uL (0.2-0.9) Eos # (Auto) 0.1 10^3/uL 10^3/ uL (0.0-0.8) Baso # (Auto) 0.0 10^3/uL 10^3/ uL (0.0-0.1) Nucleated RBC % (a uto) 0 % % Nucleated RBCs # 0.0 /100WBC /100W BC Sodium 127 mmol/L L mmol /L (136-145) Potassium 4.7 mmol/L mmol/L (3.5-5.1) Chloride 91 mmol/L L mmol/ L (98-107) Carbon Dioxide 14 mmol/L L mmol/ L (22-29) Anion Gap 26.7 H (5-19) BUN 63 mg/dL H mg/dL (8-23) Creatinine 3.0 mg/dL H mg/dL (0.7-1.2) GFR Calculation 21.0 mL/min L mL/ min (90-130) Glucose 77 mg/dL mg/dL (65-115) Calculated Osmolal ity 281 mOsm/kg L mOs m/kg (285-295) Lactic Acid Calcium 8.9 mg/dL mg/dL (8.5-10.5) Iron TIBC % Saturation Unsat Iron Binding Total Bilirubin 0.6 mg/dL mg/dL (0.15-1.2) AST 10 U/L U/L (0-40) ALT 12 U/L U/L (0-41) Alkaline Phosphata se 172 IU/L H IU/L (40-130) NT-Pro-B Natriuret Pep Total Protein 6.4 g/dL L g/dL (6.6-8.7) Albumin 3.7 g/dL g/dL (3.5-5.2) Globulin 2.7 g/dL g/dL (1.3-4.6) Lipase 26 U/L U/L (13-60) Folate Procalcitonin TSH Urine Color Urine Appearance Urine pH Ur Specific Gravit y Urine Protein Urine Glucose (UA) Urine Ketones Urine Blood Urine Nitrate Urine Bilirubin Urine Urobilinogen Ur Leukocyte Kristen ase Urine RBC Urine WBC Ur Eosinophil Smea r Ur Squamous Epith Cells Amorphous Sediment Urine Bacteria Urine Eosinophils Ur Random Sodium Ur Random Potassiu m Ur Random Chloride Urine Creatinine 112 mg/dL mg/dL (39-259) 07/09/21 07/09/21 07/09/21 10:55 10:55 11:00 WBC RBC Hgb Hct MCV MCH MCHC RDW Plt Count MPV Neut % (Auto) Lymph % (Auto) Frio % (Auto) Eos % (Auto) Baso % (Auto) Neut # (Auto) Lymph # (Auto) Frio # (Auto) Eos # (Auto) Baso # (Auto) Nucleated RBC % (a uto) Nucleated RBCs # Sodium Potassium Chloride Carbon Dioxide Anion Gap BUN Creatinine GFR Calculation Glucose Calculated Osmolal ity Lactic Acid 1.3 mmol/L mmol/L (0.5-2.2) Calcium Iron 12 ug/dL L ug/dL (59-158) TIBC 194 mcg/dl mcg/dl % Saturation 6.1 % L % (20-50) Unsat Iron Binding 182 ug/dL ug/dL (112-347) Total Bilirubin AST ALT Alkaline Phosphata se NT-Pro-B Natriuret Pep 1846 pg/mL H pg/m L (0-125) Total Protein Albumin Globulin Lipase Folate Procalcitonin 0.91 ng/mL H ng/m L (0-0.5) TSH 2.78 uIU/mL uIU/m L (0.27-4.20) Urine Color Urine Appearance Urine pH Ur Specific Gravit y Urine Protein Urine Glucose (UA) Urine Ketones Urine Blood Urine Nitrate Urine Bilirubin Urine Urobilinogen Ur Leukocyte Kristen ase Urine RBC Urine WBC Ur Eosinophil Smea r Ur Squamous Epith Cells Amorphous Sediment Urine Bacteria Urine Eosinophils Ur Random Sodium Ur Random Potassiu m Ur Random Chloride Urine Creatinine 07/09/21 13:21 WBC RBC Hgb Hct MCV MCH MCHC RDW Plt Count MPV Neut % (Auto) Lymph % (Auto) Frio % (Auto) Eos % (Auto) Baso % (Auto) Neut # (Auto) Lymph # (Auto) Frio # (Auto) Eos # (Auto) Baso # (Auto) Nucleated RBC % (a uto) Nucleated RBCs # Sodium Potassium Chloride Carbon Dioxide Anion Gap BUN Creatinine GFR Calculation Glucose Calculated Osmolal ity Lactic Acid Calcium Iron TIBC % Saturation Unsat Iron Binding Total Bilirubin AST ALT Alkaline Phosphata se NT-Pro-B Natriuret Pep Total Protein Albumin Globulin Lipase Folate 4.0 ng/mL L ng/mL (4.5-32.2) Procalcitonin TSH Urine Color Urine Appearance Urine pH Ur Specific Gravit y Urine Protein Urine Glucose (UA) Urine Ketones Urine Blood Urine Nitrate Urine Bilirubin Urine Urobilinogen Ur Leukocyte Kristen ase Urine RBC Urine WBC Ur Eosinophil Smea r Ur Squamous Epith Cells Amorphous Sediment Urine Bacteria Urine Eosinophils Ur Random Sodium Ur Random Potassiu m Ur Random Chloride Urine Creatinine Discharge Plan Discharge Patient Disposition: Admitted As Inpatient Admit Provider: Bj Andrade Clinical Impression: Sepsis, UTI (urinary tract infection), Bilateral hydronephrosis, Bladder trabeculation, Metabolic acidosis, increased anion gap, Diabetes, BPH loc w urin obs/LUTS Condition: Stable Coding Level of Care Code ED [employer] for g Fwd Exam Detailed
[2021-07-09 10:50] LABS: Add Urine Microscopic? YES; Bilirubin Urine Neg (Negative); Blood Urine 3+ (Negative); Glucose Urine UA Norm (Normal); Ketones Urine Negative (Negative); Leukocyte Esterase Urine 2+ (Negative); Nitrate Urine Negative (Negative); Protein Urine 1+ (Negative); Urine Appearance Cloudy (CLEAR); Urine Color Yellow (Yellow); Urobilinogen Urine Norm (Negative); pH Urine 5 (5-7)
[2021-07-09 10:51] LABS: Add Urine Culture? Yes; Bacteria Urine 2+ /hpf; WBC Urine TOO NUMEROUS TO CNT /hpf (0-5)
[2021-07-09 11:03] LABS: Basophils % 0.3 %; Eosinophils # 0.1 10^3/uL (0.0-0.8); Eosinophils % 0.9 %; Hematocrit 28.8 % (42.0-52.0); Hemoglobin 9.6 g/dL (11.7-16.6); Lymphocytes # 0.9 10^3/uL (0.8-4.8); Lymphocytes % 7.4 %; Mean Corpuscular HGB Conc 33.3 g/dL (30.0-36.0); Mean Corpuscular Hemoglobin 28.1 pg (28.0-34.0); Mean Corpuscular Volume 84.2 fl (80-94); Mean Platelet Volume 9.4 fL (7.4-10.4); Monocytes # 0.9 10^3/uL (0.2-0.9); Monocytes % 7.5 %; Neutrophils # 9.52 10^3/uL (1.8-7.7); Neutrophils % 81.5 %; Nucleated Red Blood Cells % 0 %; Platelet Count 250 10^3/cmm (130-400); Red Blood Count 3.42 10^6/uL (4.1-5.3); Red Cell Distribution Width 18.5 % (12.1-15.1); White Blood Count 11.7 10^3/uL (4.0-10.0)
[2021-07-09 11:21] LABS: Lactic Sepsis W/Reflex 1.3 mmol/L (0.5-2.2)
[2021-07-09 11:22] LABS: Alanine Aminotransferase 12 U/L (0-41); Albumin Level 3.7 g/dL (3.5-5.2); Alkaline Phosphatase 172 IU/L (40-130); Anion Gap 26.7 (5-19); Aspartate Amino Transferase 10 U/L (0-40); Blood Urea Nitrogen 63 mg/dL (8-23); Calcium 8.9 mg/dL (8.5-10.5); Carbon Dioxide 14 mmol/L (22-29); Chloride 91 mmol/L (98-107); Globulin 2.7 g/dL (1.3-4.6); Glucose 77 mg/dL (65-115); Lipase 26 U/L (13-60); Osmolality Calculated 281 mOsm/kg (285-295); Potassium 4.7 mmol/L (3.5-5.1); Sodium 127 mmol/L (136-145); Total Bilirubin 0.6 mg/dL (0.15-1.2); Total Protein 6.4 g/dL (6.6-8.7)
[2021-07-09 12:00] VITALS: PULSE 110; RESP 20; O2SAT 96
--- NOTE | 2021-07-09 12:51 | CT_ITS ---
WS: [id number] CT ABDOMEN PELVIS TECHNIQUE: Noncontrast CT of the abdomen and pelvis with coronal and sagittal reformatted images. CLINICAL INFORMATION: flank pain COMPARISON: CT July 04, 2021 DLP: 1936.[address] scans at [facility] use at least one of these dose optimization techniques: automated e xposure control; mA and/or kV adjustment per patient size (includes targeted exams where dose is matc hed to clinical indication); or iterative reconstruction. FINDINGS: Lung bases are well aerated. Slight atelectasis left lower lobe. Moderate bilateral hydronephrosis is is new since July 04, 2021. Right ureter is dilated down to the level of the UVJ. Left ureter is also dilated to the UVJ. This is new since July 04, 2021. Stovall catheter in place with air-fluid level. Diffuse bladder wall thickening with recurrent mural bladder wall abscess similar in appearan ce to June 12, 2021. This has developed since the most recent examination July 04, 2021. Diffuse heterogeneous enhancement and enlargement of the prostate is unchanged. Increased attenuation debris within the bladder likely blood products. Increased induration with inflammatory stranding ab out the dome of the bladder and dorsal bladder. Adrenal glands are normal. Splenic granulomas. Slight cirrhotic liver. Gallbladder is contracted. Sigmoid diverticulosis. No evidence of acute diverticulitis. Sigmoid colon is again seen to traverse along the dorsal aspect of the bladder with loss of the normal fat plane. Patient at risk for develop ment of colovesical fistula. No evidence of fistula at this time. IVC filter. CT/CT kidney stone [id number] IMPRESSION: 1. Moderate bilateral hydronephrosis is new since the recent examination Decem 2020. 2. Bilateral ureterectasis with ureters dilated to the level UVJ. 3. Diffuse bladder wall thickening with recurrent dorsal mural bladder wall ab scess similar in appearance to June 12, 2021. Surrounding inflammatory stra nding and induration in the bladder soft tissues compatible with infection. 4. Small amount of nondependent air within the bladder with diffuse bladder wa ll thickening compatible with infection and cystitis. Increased attenuation blo od products in the bladder 5. Enlarged prostate is unchanged. 6. IVC filter. 7. Sigmoid colon is closely adherent to the dome of the bladder with loss of t he normal flat plane also similar to June 12, 2021. Patient at risk for dev elopment of colovesical fistula. 8. No other significant interval changes. Notified Lucio Washington DO at 07/09/2021 1:53 PM.
[2021-07-09 13:20] VITALS: BP 171/79; PULSE 103; RESP 18; O2SAT 97
--- NOTE | 2021-07-09 14:36 | PC.NURSE ---
CATHETER DRAINED, 1100 ML OUT. LARGE BLOOD CLOTS AND SEDIMENT NOTED. PROVIDER NOTIFIED.
[2021-07-09] MEDS: morphine 4 mg/mL SDV 1 mL 2 MG IVP ×2 (15:13→22:04)
--- NOTE | 2021-07-09 15:38 | P.HP_ITS ---
Providers/Chief Complaint Primary Care Provider: Merritt Irizarry MD Chief Complaint: diff urinating History of Present Illness Andrew Pabon is a 65 year old male with complicated past medical history of BPH, bilateral hydronephrosis, urinary retention, Yovanny's gangrene, recurrent UTI with Klebsiella and Pseudomonas localized candidal infection, diabetes, DVT, post IVC filter placement who follows up with Dr. Moreau and was last seen in this clinic on 07/04 when Stovall catheter was removed presented to the ER today with difficulty in urination getting worse for last 3 days and acutely abnormal since today morning along with back pain radiating to right thigh getting worse since urinary retention. As per patient he was recently started on Flomax and finasteride once the Stovall catheter was removed and he attributes his symptoms to initiation of the new medication. As per the patient's he has stopped taking Eliquis since 06/25 because he started feeling cold and he attributed the symptoms to the medication along with nausea and poor oral intake. Denies any difficulty in breathing. Patient is not vaccinated for COVID-19. States he was tested for COVID-19 and was negative at [facility] last month. In ER patient was found to have urinary retention Stovall catheter was placed after which 1500 cc of urine was drained blood work in the ER showed a white count 11,000, hemoglobin of 9.6, platelet count 250, sodium of 127(same on 06/12 prior to that normal), creatinine of 3(3.3 on 06/12 prior to that normal), BUN of 63, bicarb of 14,-phosphatase of 172, UA showing numerous WBCs with 2+ leuk esterase. Review of Systems General: Reports: 10 or more systems reviewed and unremarkable except in HPI and below Const: Denies: fever(s), chills, body aches, change in appetite, change in weight, malaise, night sweats, diaphoresis, change in sleep pattern, daytime sleepiness or snoring Eyes: Denies: change in vision, blurry vision, photophobia, eye discomfort or eye discharge ENMT: Denies: throat pain, enlarged tonsils, hoarseness, mouth pain, oral sores, dry mouth, tinnitus, nasal congestion or post nasal drip Card: Denies: chest pain, palpitations, irregular heart rhythm, edema, swelling of feet/ankles, lightheadedness, syncope, pre-syncope, dyspnea on exertion, orthopnea, leg pain with exertion or acrocyanosis Resp: Denies: dyspnea, productive cough, non-productive cough, wheezing, stridor, pain on inspiration, change in phlegm color, hemoptysis or chest congestion GI: Denies: abdominal pain, nausea, vomiting, hematemesis, coffee ground emesis, dysphagia, heartburn, diarrhea, constipation, bloating, GI cramping, change in bowel habits, pain on defecation, hematochezia or melena : Denies: flank pain, difficulty urinating, dysuria, urinary frequency, urinary urgency, urinary hesitancy, urinary dribbling, difficulty starting urination, change in urine stream, nocturia or hematuria Musc: Denies: neck pain, back pain, extremity pain, joint pain, joint swelling, joint redness, joint stiffness or limited range of motion Neuro: Denies: headache(s), numbness in extremities, weakness in extremities, sensory changes, lack of coordination, difficulty walking, frequent falls, dizziness, vertigo, confusion, Slurred speech present, difficulty communicating thoughts or seizure-like activity Psych: Denies: anxiety, depression, mood swings, panic attacks, hopelessness or irritability Endo: Denies: polyuria, polydipsia, tired all the time, cold intolerance, excessive sweating, flushing or heat intolerance Haroldo/Lymph: Denies: easy bruising or easy bleeding All/Imm: Denies: tongue swelling, facial swelling or acute wheezing Medications/Allergies Home Medications Medication Instructions Recorded Confirmed Last Taken Type apixaban [Eliquis] 5 mg PO BID 30 Days #60 tab 02/15/21 07/04/21 06/11/21 Rx blood sugar diagnostic [Accu-Chek #50 ea 02/15/21 07/04/21 Unknown Rx Tawny Plus test strp] blood-glucose meter [Accu-Chek #1 ea 02/15/21 07/04/21 Unknown Rx Tawny Plus Meter] gauze bandage [Kerlix Packing #60 ea 02/15/21 07/04/21 Unknown Rx Sponge] lancets [Accu-Chek Multiclix #100 ea 02/15/21 07/04/21 Unknown Rx Lancet] metformin 500 mg PO BID 30 Days #60 tab 02/15/21 07/04/2106/11/21 Rx insulin aspart U-100 100 unit/mL See Rx Instructions .ROUTE 04/15/21 07/04/21 06/09/21 History (3 mL) subcutaneous pen .COMPLEX PRN ml insulin glargine 100 unit/mL (3 15 unit SUBCUT BEDTIME ml 04/15/21 07/04/21 06/11/21 History mL) subcutaneous pen lisinopril 20 mg tablet 20 mg PO DAILY #30 tab 05/12/21 07/04/21 06/11/21 Rx ondansetron 4 mg PO Q6H PRN #14 tab 05/30/21 07/04/21 Unknown Rx methenamine hippurate 1 gram tablet 1 g PO BID #60 tab 06/06/21 07/04/21 06/11/21 Rx celecoxib 200 mg capsule 200 mg PO DAILY #30 cap 06/10/21 07/04/21 06/10/21 Rx cyclobenzaprine 10 mg tablet 10 mg PO TID PRN #60 tab 06/10/21 07/04/21 06/10/21 Rx topiramate 50 mg tablet 50 mg PO BID #60 tab 06/10/21 07/04/21 06/10/21 Rx ascorbic acid (vitamin C) [Vitamin 1,000 mg PO BID 06/12/21 07/04/21 06/11/21 History C] iron 325 mg PO BID 06/12/21 07/04/21 06/11/21 History meloxicam 7.5 mg PO DAILY 06/12/21 07/04/21 Unknown History tizanidine 4 mg PO TID 06/12/21 07/04/21 06/11/21 History finasteride 5 mg tablet 5 mg PO QDAY #90 tab 07/04/21 07/04/21 Unknown Rx tamsulosin 0.4 mg capsule 0.4 mg PO DAILY #90 cap 07/04/21 07/04/21 Unknown Rx Allergies Allergy/AdvReac Type Severity Reaction Status Date / Time cephalexin Allergy Unknown Verified 07/04/21 09:58 ciprofloxacin [From Cipro] Allergy Unknown Verified 07/04/21 09:58 gabapentin Allergy numbness Verified 07/04/21 09:58 nitrofurantoin Allergy Unknown Verified 07/04/21 09:58 pregabalin Allergy numbness Verified 07/04/21 09:58 Sulfa (Sulfonamide Allergy Unknown Verified 07/04/21 09:58 Antibiotics) PFSH Acute PFSH: Medical History (Updated 07/09/21 @ 15:46 by Bj Andrade MD) Acute kidney injury Anemia Bilateral hydronephrosis 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 Chronic low back pain Diabetes DVT (deep venous thrombosis) DVT, bilateral lower limbs 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 Hypertension Lumbar disc disease with radiculopathy Lumbar disc disease with radiculopathy Lumbar stenosis Necrotizing fasciitis of multiple sites Obesity Osteoarthritis of right knee Recurrent UTI Surgical History Status post hernia repair Family History Father Cancer Mother Heart attack Other CAD (coronary artery disease) Denies family history of Anesthesia complication Bleeding disorder Social History Alcohol intake: never Household members: spouse Marital status: Current occupational status: disabled History of recent travel: No Vitals/I&O/Wt Last Vital Signs Temp 100.5 F H 07/09/21 09:56 Pulse 103 H 07/09/21 13:20 Resp 18 07/09/21 13:20 BP 171/79 07/09/21 13:20 Pulse Ox 97 07/09/21 13:20 07/09/21 07/09/21 07/09/21 06:59 14:59 22:59 Intake Total 100 / 100 Balance 100 / 100 Weight last 48 hrs Weight 96.162 kg Physical Exam Narrative: EXAM NARRATIVE: General: In acute distress because of back pain, at bedside, Stovall catheter present with very slightly pink-tinged urine in Uro bag, obese HEENT: PERRLA, pupils bilaterally equal and reactive Chest: Normal vesicular breath sounds, no added sounds, equal good air entry bilaterally CVS: S1-S2 regular, no murmurs, no tachycardia, no gallops, no rubs Abdomen: Soft, nontender, no organomegaly, bowel sounds present Neuro: No focal deficits, no facial deformity, AO x3, power 5/5 in all limbs Urinary Catheter Management^: Stovall: Cath Placed During This Visit: yes Urinary Catheter Date of Insertion: 07/09/21 Urinary Catheter Time of Insertion: 10:34 Data : 07/09/21 10:55 07/09/21 10:55 Micro: Microbiology 07/09/21 10:55 Blood Culture - Preliminary Blood SPECIMEN COLLECTED 07/09/21 10:55 Blood Culture - Preliminary Blood SPECIMEN COLLECTED A&P Assessment and plan (1) Sepsis: Status: Acute (2) UTI (urinary tract infection): Status: Acute (3) Bilateral hydronephrosis: Status: Acute (4) Urinary retention: Status: Acute (5) Acute kidney injury: Status: Acute (6) Hyponatremia: Status: Acute (7) Metabolic acidosis, increased anion gap: Status: Acute (8) BPH loc w urin obs/LUTS: Status: Acute Additional A&P Information Sepsis secondary UTI: Sepsis ruled in with tachycardia, fever, leukocytosis. History of frequent UTIs. Most recently with Klebsiella and Pseudomonas. Check blood culture, urine culture, MRSA swab, lactate. Normal saline 100 cc/h. Continue with imipenem 250 mg IV every 6 hourly as per creatinine clearance. Previously antibiotics as per culture results. Patient has had recurrent admissions in last 1 month. Not vaccinated for COVID- 19. Check rapid flu swab, COVID-19 antigen and PCR. Isolation precautions. Urinary retention with bilateral hydronephrosis: History of urinary retention on chronic Stovall which was removed on 07/04 with urology. Patient follows up with Dr. Moreau. Appreciate Dr. Moreau's recommendations. Repeat Stovall catheter placed. Patient would most likely need to be discharged on Stovall catheter. Flomax 0.4 twice daily, finasteride 5 mg daily. Start patient on Pyridium 3 times a day. Acute kidney injury: Baseline creatinine normal last on 05/29. On 3.3. Check urine lites, urine creatinine, urine eosinophils. Most likely secondary to urinary retention along with home dose of losartan. Medical reconciliation done for nephrotoxic drug. Hold losartan for now. Monitor BMP 12 hourly Hyponatremia: Urine lites as above. Baseline normal. Could be secondary to dehydration. IV fluids as above. Monitor BMP every 12 hourly. High anion gap metabolic acidosis: Secondary to acute kidney injury. Continue to monitor. History of DVT: Check lower limb Dopplers. Patient has IVC filter in present. For now continue with home dose of Eliquis 5 mg twice daily. We will confirm with the lower limb Dopplers and telemetry. If no atrial fibrillation can most likely discontinue Eliquis given the presence of IVC filter. Anemia: Check iron panel. Continue with oral iron supplementation. Hemoglobin stable for now. We will monitor. Full code. Cardiac diet. Protonix for PUD prophylaxis. Attestations Medical Necessity Statement*: Admission for more than 2 midnights for management of sepsis secondary UTI, urinary retention, acute kidney injury, high metabolic acidosis Time Spent in Patient Care: Greater than 35 minutes (>than 50% of time spent in counselling and/or direct pt care on unit) . Coding Level of Care Code Acute [employer] for Chg Fwd Diagnoses Sepsis A41.9 UTI (urinary tract infection) N39.0 Bilateral hydronephrosis N13.30 Urinary retention R33.9 Acute kidney injury N17.9 Hyponatremia E87.1 Metabolic acidosis, increased anion gap E87.2 BPH loc w urin obs/LUTS N40.1
[2021-07-09 16:17] LABS: Thyroid Stimulating Hormone 2.78 uIU/mL (0.27-4.20)
[2021-07-09 16:19] LABS: NT Pro B Type Natriuretic Pept 1846 pg/mL (0-125); Procalcitonin 0.91 ng/mL (0-0.5)
[2021-07-09 16:39] LABS: Iron 12 ug/dL (59-158); Percent Saturation 6.1 % (20-50); Total Iron Binding Capacity 194 mcg/dl; Unsaturated Iron Binding 182 ug/dL (112-347)
[2021-07-09 16:51] LABS: Potassium, Radom Urine 31 mmol/L; Urine Random Chloride 37 mmol/L; Urine Random Sodium 52 mmol/L
[2021-07-09] MEDS: famotidine 20 mg/2 mL INJ IVP (16:55)
[2021-07-09] MEDS: sodium chloride 0.9% 1,000 ML 100 ML IV (16:55)
[2021-07-09 16:58] VITALS: PULSE 82; RESP 18; O2SAT 96
[2021-07-09 17:33] LABS: SARS Covid-2 Antigen Negative (Negative)
[2021-07-09 17:34] LABS: Influenza A by IFA Negative (Negative); Influenza B by IFA Negative (Negative)
[2021-07-09 17:47] LABS: Urine Creatinine 112 mg/dL (39-259)
[2021-07-09 17:55] LABS: Lactate (Lactic Acid level) 0.9 mmol/L (0.5-2.2)
[2021-07-09] MEDS: lidocaine 2% Urojet 20 mL TOPICAL (17:57)
[2021-07-09 18:00] LABS: Eosinophil Urine No Eosinophils Seen
--- NOTE | 2021-07-09 18:03 | PC.NURSE ---
PATIENT CATHETER REPLACED PER PROVIDER. 16 FR REMOVED AND RONEL CBI 24 FR WITH 30 ML BALLOON INSERTED. PATIENT TOLERATED WELL.
[2021-07-09] MEDS: topiramate 25 mg Tablet 50 MG PO (18:54)
[2021-07-09] MEDS: tamsulosin 0.4 mg Capsule PO (18:54)
[2021-07-09] MEDS: ferrous sulfate EC 325 mg Tablet PO (18:54)
[2021-07-09] MEDS: apixaban 5 mg Tablet PO (18:54)
--- NOTE | 2021-07-09 19:15 | P.CONIM_ITS ---
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 Benavides. In the meantime he was hospitalized for an extended period developed recurrent urinary tract infections. He was found to have a very trabeculated bladder and hydronephrosis at onset of his symptoms and his bladder was managed primarily with indwelling Stovall catheter. Ultimately he was converted to a self-catheterization program with his assisting. Cystoscopy showed enlarged prostate diffuse bladder trabeculation and no evidence of any other urethral pathology. He presented to the ED in mid May with evidence of sepsis. CT scan showed what was interpreted as bladder wall abscess. Based on the severity and likely michael for open surgery it was recommended that he be transferred to [place] and ended up at the [facility]. Started on IV antibiotics. Underwent cystoscopy in preparation for possible surgical intervention but was found to have no evidence of bladder wall abscesses and it was felt that the findings were more consistent with severe trabeculation diverticuli and cellule formation. On follow-up with me a follow-up CT scan showed after catheterization, decompression of his upper urinary tract hydronephrosis and decompression of his bladder with a Stovall catheter. He had a very thickened bladder wall but no evidence of fluid collections etc. Cystoscopy revealed essentially the same findings that I noted previously and again no evidence of bladder wall abscess. The was trained again in clean intermittent catheterization and did well. Recommendations were to perform 4-5 times per day as a post void if he does have spontaneous voiding. Last clinic visit was 07/04/2021 when the catheter was removed, CIC instruction initiated, and close follow-up plans arranged. Unfortunately she cath'd only twice and stopped. He was not voiding and she blamed his medications specifically the finasteride and tamsulosin. She stated that he was feeling really bad and again attributed that to his medication. Unfortunately also she did not call the office and let us know that she was not able to catheterize or would not catheterize. He presented back to the emergency department today and a repeat CT scan showed essentially the same findings in his bladder on 06/12/2021. Again the interpretation was bladder wall abscess and it was felt like this was a new process but this was comparing it to the intermediate CT scan on 07/04/2021. His white count was mildly elevated only. There was a lot of debris in the bladder. Stovall catheter was placed with 1500 cc drained of purulent urine. He was admitted for further evaluation and treatment. I was called regarding the diagnosis of bladder wall abscess. I did review the films and passed on to the hospitalist team as well as the emergency physician Dr. Washington that these findings look essentially the same as his previous findings that were felt to be abscesses improved later to not be. They were result of very thickened bladder wall with trabeculation cellule formation and diverticuli that was remarkably distended because of retention. My recommendation was to start antibiotics, keep Stovall catheter in place, manually irrigate as needed, and I would follow with him. I spoke to his and got the above information about the lack of catheterization. It is my opinion that any form of intermittent catheterization will be unsuccessful with this couple. Reviewed option for suprapubic tube, surgical intervention with the prostate in hopes of spontaneous voiding recovering. Right now the most important thing is to treat the infection and maintain Stovall catheter. Review of Systems Const: Reports: chills and malaise Eyes: Denies: change in vision ENMT: Denies: hoarseness Card: Denies: chest pain or palpitations Resp: Reports: dyspnea; Denies: non-productive cough or wheezing GI: Reports: abdominal pain and nausea : Reports: dysuria, difficulty starting urination and oliguria Musc: Denies: joint swelling or joint redness Skin/Breast: Denies: jaundice Neuro: Reports: confusion; Denies: Slurred speech present or seizure-like activity Psych: Reports: anxiety and depression Endo: Denies: flushing Haroldo/Lymph: Reports: easy bruising; Denies: easy bleeding or enlarged lymph nodes All/Imm: Denies: urticaria or acute wheezing Meds/Allergies Home Medications and Allergies Home Medications Medication Instructions Recorded Confirmed Last Taken Type apixaban [Eliquis] 5 mg PO BID 30 Days #60 tab 02/15/21 07/04/21 06/11/21 Rx blood sugar diagnostic [Accu-Chek #50 ea 02/15/21 07/04/21 Unknown Rx Tawny Plus test strp] blood-glucose meter [Accu-Chek #1 ea 02/15/21 07/04/21 Unknown Rx Tawny Plus Meter] gauze bandage [Kerlix Packing #60 ea 02/15/21 07/04/21 Unknown Rx Sponge] lancets [Accu-Chek Multiclix #100 ea 02/15/21 07/04/21 Unknown Rx Lancet] metformin 500 mg PO BID 30 Days #60 tab 02/15/21 07/04/21 06/11/21 Rx insulin aspart U-100 100 unit/mL See Rx Instructions .ROUTE 04/15/21 07/04/21 06/09/21 History (3 mL) subcutaneous pen .COMPLEX PRN ml insulin glargine 100 unit/mL (3 15 unit SUBCUT BEDTIME ml 04/15/21 07/04/21 06/11/21 History mL) subcutaneous pen lisinopril 20 mg tablet 20 mg PO DAILY #30 tab 05/12/21 07/04/21 06/11/21 Rx ondansetron 4 mg PO Q6H PRN #14 tab 05/30/21 07/04/21 Unknown Rx methenamine hippurate 1 gram tablet 1 g PO BID #60 tab 06/06/21 07/04/21 06/11/21 Rx celecoxib 200 mg capsule 200 mg PO DAILY #30 cap 06/10/21 07/04/21 06/10/21 Rx cyclobenzaprine 10 mg tablet 10 mg PO TID PRN #60 tab 06/10/21 07/04/21 06/10/21 Rx topiramate 50 mg tablet 50 mg PO BID #60 tab 06/10/21 07/04/21 06/10/21 Rx ascorbic acid (vitamin C) [Vitamin 1,000 mg PO BID 06/12/21 07/04/21 06/11/21 History C] iron 325 mg PO BID 06/12/21 07/04/21 06/11/21 History meloxicam 7.5 mg PO DAILY 06/12/21 07/04/21 Unknown History tizanidine 4 mg PO TID 06/12/21 07/04/21 06/11/21 History finasteride 5 mg tablet 5 mg PO QDAY #90 tab 07/04/21 07/04/21 Unknown Rx tamsulosin 0.4 mg capsule 0.4 mg PO DAILY #90 cap 07/04/21 07/04/21 Unknown Rx Allergies Allergy/AdvReac Type Severity Reaction Status Date / Time cephalexin Allergy Unknown Verified 07/04/21 09:58 ciprofloxacin [From Cipro] Allergy Unknown Verified 07/04/21 09:58 gabapentin Allergy numbness Verified 07/04/21 09:58 nitrofurantoin Allergy Unknown Verified 07/04/21 09:58 pregabalin Allergy numbness Verified 07/04/21 09:58 Sulfa (Sulfonamide Allergy Unknown Verified 07/04/21 09:58 Antibiotics) Current Medications Current Medications Generic Name Dose Route Start Last Admin Trade Name Freq PRN Reason Stop Dose Admin Apixaban 5 mg 07/09/21 18:00 07/09/21 18:54 Apixaban 5 Mg Tablet PO 5 mg BID JENISE Administration Famotidine 20 mg 07/09/21 15:45 07/09/21 16:55 Famotidine 20 Mg/2 Ml Inj IVP 20 mg Q12H JENISE Administration Ferrous Sulfate 325 mg 07/09/21 18:00 07/09/21 18:54 Ferrous Sulfate Ec 325 Mg Tablet PO 325 mg BID JENISE Administration Sodium Chloride 1,000 mls @ 100 mls/hr 07/09/21 15:34 07/09/21 16:55 Sodium Chloride 0.9% IV 100 mls/hr .Q10H JENISE Administration Imipenem/Cilastatin Sodium 250 100 mls @ 200 mls/hr 07/09/21 15:45 07/09/21 18:55 mg/ Sodium Chloride IV 200 mls/hr Q12H JENISE Administration Protocol Tamsulosin HCl 0.4 mg 07/09/21 18:00 07/09/21 18:54 Tamsulosin 0.4 Mg Capsule PO 0.4 mg BID JENISE Administration Topiramate 50 mg 07/09/21 18:00 07/09/21 18:54 Topiramate 25 Mg Tablet PO 50 mg BID JENISE Administration PFSH Acute PFSH: Medical History Acute kidney injury Anemia Bilateral hydronephrosis 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 Chronic low back pain Diabetes DVT (deep venous thrombosis) DVT, bilateral lower limbs 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 Hypertension Lumbar disc disease with radiculopathy Lumbar disc disease with radiculopathy Lumbar stenosis Necrotizing fasciitis of multiple sites Obesity Osteoarthritis of right knee Recurrent UTI Surgical History Status post hernia repair Family History Father Cancer Mother Heart attack Other CAD (coronary artery disease) Denies family history of Anesthesia complication Bleeding disorder Social History Alcohol intake: never Household members: spouse Marital status: Current occupational status: disabled History of recent travel: No Vitals/I&O/Wt Last Vital Signs Temp 100.5 F H 07/09/21 09:56 Pulse 82 07/09/21 16:58 Resp 18 07/09/21 16:58 BP 171/79 07/09/21 13:20 Pulse Ox 96 07/09/21 16:58 07/09/21 07/09/21 07/09/21 06:59 14:59 22:59 Intake Total 100 / 100 Balance 100 / 100 Weight last 48 hrs Weight 212 lb Physical Exam Const: COMMON NORMALS: no acute distress, alert and well nourished GENERAL APPEARANCE: well kempt and well developed ORIENTATION/CONSCIOUSNESS: not confused HENMT: COMMON NORMALS: normocephalic and atraumatic HEAD & SCALP: normocephalic and atraumatic Eye: COMMON NORMALS: conjunctivae normal and no scleral icterus CONJUNCTIVA: Yes conjunctivae normal Neck/C-Spine: COMMON NORMALS: full ROM Resp: COMMON NORMALS: normal respiratory effort EFFORT & INSPECTION: No labored and No Actively coughing GI: COMMON NORMALS: Soft to palpation PALPATION: Yes Soft to palpation Neuro: SENSORIUM/ORIENTATION: Yes alert Psych: APPEARANCE: Yes grossly normal and Yes well kempt ATTITUDE: Yes calm and Yes engaged Skin: COMMON NORMALS: no rashes or lesions noted and no jaundice GENERAL SKIN EXAM: no rashes or lesions noted Urinary Catheter Management^: Stovall: Cath Placed During This Visit: yes Urinary Catheter Date of Insertion: 07/09/21 Urinary Catheter Time of Insertion: 10:34 3-way Urethral CBI: Cath Placed During This Visit: yes Urinary Catheter Date of Insertion: 07/09/21 Urinary Catheter Time of Insertion: 17:50 Data Micro: Micro: Microbiology 07/09/21 10:55 Blood Culture - Pr eliminary Blood SPECIMEN [facility] 07/09/21 10:55 Blood Culture - Pr eliminary Blood SPECIMEN [facility] A&P Assessment and plan (1) Sepsis: Status: Acute (2) Acute kidney injury: Status: Acute (3) UTI (urinary tract infection): Status: Acute (4) BPH loc w urin obs/LUTS: Status: Acute (5) Bladder trabeculation: Status: Acute (6) Diverticula, bladder acquired: Status: Acute (7) Urinary retention: Status: Acute Coding Level of Care Code 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 [employer] Fwd Diagnoses Sepsis A41.9 Acute kidney injury N17.9 UTI (urinary tract infection) N39.0 BPH loc w urin obs/LUTS N40.1 Bladder trabeculation N32.89 Diverticula, bladder acquired N32.3 Urinary retention R33.9
[2021-07-09 20:59] VITALS: BP 171/78; PULSE 96; RESP 17; TEMP 37.4; O2SAT 93
[2021-07-09 21:44] VITALS: BMI 31.8
[2021-07-09 22:04] VITALS: RESP 18
[2021-07-09] MEDS: tizanidine 4 mg Tablet PO (22:37)
[2021-07-09] MEDS: calcium carbonate 500 mg Chew Tablet PO (22:50)
[2021-07-10] VITALS (10 sets, daily range): BP systolic 93–153; BP diastolic 57–75; PULSE 70–99; RESP 16–18; TEMP 36.7–37.4; O2SAT 90–96
[2021-07-10] MEDS: sodium chloride 0.9% 1,000 ML 100 ML IV ×2 (02:59→12:38)
[2021-07-10] MEDS: famotidine 20 mg/2 mL INJ IVP ×2 (03:51→16:12)
[2021-07-10] MEDS: morphine 4 mg/mL SDV 1 mL 2 MG IVP ×2 (05:41→20:29)
[2021-07-10 05:49] LABS: Basophils % 0.2 %; Eosinophils # 0.1 10^3/uL (0.0-0.8); Eosinophils % 1.1 %; Hematocrit 26.2 % (42.0-52.0); Hemoglobin 8.6 g/dL (11.7-16.6); Lymphocytes # 1.3 10^3/uL (0.8-4.8); Lymphocytes % 12.6 %; Mean Corpuscular HGB Conc 32.8 g/dL (30.0-36.0); Mean Corpuscular Hemoglobin 27.7 pg (28.0-34.0); Mean Corpuscular Volume 84.5 fl (80-94); Mean Platelet Volume 9.5 fL (7.4-10.4); Monocytes # 0.7 10^3/uL (0.2-0.9); Monocytes % 6.5 %; Neutrophils # 7.93 10^3/uL (1.8-7.7); Neutrophils % 78.5 %; Nucleated Red Blood Cells % 0 %; Platelet Count 280 10^3/cmm (130-400); Red Cell Distribution Width 18.5 % (12.1-15.1); White Blood Count 10.1 10^3/uL (4.0-10.0)
[2021-07-10 06:04] LABS: Alanine Aminotransferase 14 U/L (0-41); Albumin Level 3.1 g/dL (3.5-5.2); Alkaline Phosphatase 155 IU/L (40-130); Anion Gap 23.1 (5-19); Aspartate Amino Transferase 10 U/L (0-40); Blood Urea Nitrogen 53 mg/dL (8-23); Calcium 8.5 mg/dL (8.5-10.5); Carbon Dioxide 15 mmol/L (22-29); Chloride 100 mmol/L (98-107); Globulin 3.6 g/dL (1.3-4.6); Glomerular Filtration Rate 37.8 mL/min (90-130); Glucose 83 mg/dL (65-115); Osmolality Calculated 292 mOsm/kg (285-295); Potassium 4.1 mmol/L (3.5-5.1); Sodium 134 mmol/L (136-145); Total Bilirubin 0.5 mg/dL (0.15-1.2); Total Protein 6.7 g/dL (6.6-8.7)
[2021-07-10 06:51] LABS: Glucose Point of Care 89 mg/dL (70-110)
[2021-07-10] MEDS: finasteride 5 mg Tablet PO (08:32)
[2021-07-10] MEDS: ferrous sulfate EC 325 mg Tablet PO (08:32)
[2021-07-10] MEDS: apixaban 5 mg Tablet PO ×2 (08:33→17:10)
[2021-07-10] MEDS: tizanidine 4 mg Tablet PO ×3 (08:33→20:30)
[2021-07-10] MEDS: tamsulosin 0.4 mg Capsule PO ×2 (08:33→17:10)
[2021-07-10] MEDS: topiramate 25 mg Tablet 50 MG PO ×2 (08:33→17:10)
[2021-07-10] MEDS: phenazopyridine 100 mg Tablet PO ×3 (08:39→17:10)
--- NOTE | 2021-07-10 09:22 | PC.CHAP ---
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 [] Patient/Family/Request visit [] Outpatient visit [] Follow-up visit [] Physician referral [] Code/Alert [] Routine visit [] Staff referral [] Actively dying [] Patient sleeping [] Family support [] [] Out of room [] Palliative care [] [] Receiving care in room [] Pre-surgical visit [] Trauma [] Long length of stay [] ICU visit [x] Other: Isoilation Relational/Emotional Strength [] Patient feels connected with others/family/visitors/staff [] Distress [] Loneliness/isolation [] Abandonment Spirituality of Patient [] Person of [place] [] Attends Muslim of their [place] [] Believes in Prayer [] Reads Bible or Pentecostal materials [] There are Spiritual issues to be addressed 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 Interventions [] Prayer [] Active listening [] Non-anxious presence [] Spiritual/emotional support [] Crisis/trauma care [] Spiritual counseling [] Bereavement support [] Provided bereavement packet [] Provided Bible/devotional materials [] Provided toy/stuffed animal, coloring book to patient or family member [] Provided Communion [] Anointing/Clark [] Salvation [] Completed spiritual assessment [] Other: Impact on Illness or Injury [] Angry [] Fearful [] Anxious [] Often cries [] Exhaustion [] Unable to work [] Unable to attend episcopalian [] Unable to walk/stand [] Unable to read [] Unable to drive [] Unable to eat/drink [] Unable to sleep [] Unable to be with family [] Patient intubated [] Other: Summary Isoilation Time spent with patient 5 mins
[2021-07-10 11:42] LABS: Glucose Point of Care 141 mg/dL (70-110)
--- NOTE | 2021-07-10 11:43 | PC.PHAR ---
pts verified pts medications-pts states the pt did have a proair inhaler but states he no longer uses-
[2021-07-10] MEDS: amlodipine 5 mg Tablet PO (12:44)
[2021-07-10 15:03] LABS: Coronavirus Test Green County Not Detected
--- NOTE | 2021-07-10 15:49 | PM.PN ---
Subjective Subjective: Interval history: No recurrence overnight. Patient has remained hemodynamically stable and afebrile on room air. States he is feeling a lot better. Continues to remain on CBI. Family at bedside. Vitals/I&O/Wt Last Vital Signs Temp 98.8 F 07/10/21 15:37 Pulse 75 07/10/21 15:37 Resp 18 07/10/21 15:37 BP 124/73 07/10/21 15:37 Pulse Ox 96 07/10/21 15:37 07/10/21 07/10/21 07/10/21 06:59 14:59 22:59 Intake Total 1580 / 1900 1205 / 1205 Output Total 1400 / 2800 1700 / 1700 Balance 180 / -900 -495 / -495 Weight last 48 hrs Weight 106.679 kg Weight 103.419 kg Weight 96.162 kg Physical Exam Narrative: EXAM NARRATIVE: General: In no acute distress, AO x3, at bedside, Stovall catheter present with very slightly pink-tinged urine in Uro bag, obese HEENT: PERRLA, pupils bilaterally equal and reactive Chest: Normal vesicular breath sounds, no added sounds, equal good air entry bilaterally CVS: S1-S2 regular, no murmurs, no tachycardia, no gallops, no rubs Abdomen: Soft, nontender, no organomegaly, bowel sounds present Neuro: No focal deficits, no facial deformity, AO x3, power 5/5 in all limbs Urinary Catheter Management^: Stovall: Cath Placed During This Visit: yes Urinary Catheter Date of Insertion: 07/09/21 Urinary Catheter Time of Insertion: 10:34 3-way Urethral CBI: Cath Placed During This Visit: yes Reason for Continuing Indwelling Catheter: Acute Urinary Retention or Obstruction Urinary Catheter Date of Insertion: 07/09/21 Urinary Catheter Time of Insertion: 17:50 Data : 07/10/21 05:21 07/10/21 05:21 Micro: Microbiology 07/09/21 16:56 MRSA Culture - Final Nose 07/09/21 10:32 Urine Culture - Preliminary Urine,Clean Catch Gram Negative Rods 07/09/21 10:55 Blood Culture - Preliminary Blood NEGATIVE TO DATE 07/09/21 10:55 Blood Culture - Preliminary Blood NEGATIVE TO DATE A&P Assessment and plan (1) Sepsis: Status: Acute (2) UTI (urinary tract infection): Status: Acute (3) Bilateral hydronephrosis: Status: Acute (4) Urinary retention: Status: Acute (5) Acute kidney injury: Status: Acute (6) Hyponatremia: Status: Acute (7) Metabolic acidosis, increased anion gap: Status: Acute (8) BPH loc w urin obs/LUTS: Status: Acute Additional A&P Information Sepsis secondary UTI: Sepsis ruled in with tachycardia, fever, leukocytosis. History of frequent UTIs. Most recently with Klebsiella and Pseudomonas. Blood cultures so far negative, MRSA negative. Urine culture growing gram-negative rods. Continue with normal saline at 75 cc/h. Continue meropenem. Change dosing frequency as per creatinine clearance. Previously antibiotics as per culture results. COVID-19 PCR negative. Remove isolation precautions. Urinary retention with bilateral hydronephrosis: History of urinary retention on chronic Stovall which was removed on 07/04 with urology. Patient follows up with Dr. Moreau. Appreciate Dr. Moreau's recommendations. Repeat Stovall catheter placed. Patient would most likely need to be discharged on Stovall catheter. Flomax 0.4 twice daily, finasteride 5 mg daily. Start patient on Pyridium 3 times a day. Acute kidney injury: Baseline creatinine normal last on 05/29. On 06/12?3.3. Trending down. Most likely secondary to urinary retention along with home dose of losartan. FeNa-1.1%. Intrinsic. Medical reconciliation done for nephrotoxic drug. Hold losartan for now. Monitor BMP daily. Hyponatremia: Resolved. Back to baseline. Baseline normal. Could be secondary to dehydration. IV fluids as above. High anion gap metabolic acidosis: Resolving. Secondary to acute kidney injury. Continue to monitor. Hypertension: Goal blood pressure less than 140/90 mmHg. Given MIRYAM for now hold off on lisinopril. Start patient on amlodipine 5 mg daily. History of DVT: Check lower limb Dopplers. Patient has IVC filter in present. For now continue with home dose of Eliquis 5 mg twice daily. We will confirm with the lower limb Dopplers and telemetry. If no atrial fibrillation can most likely discontinue Eliquis given the presence of IVC filter. Anemia: Severe iron deficiency anemia. Start on IV iron supplementation 1 g over 5 days Hemoglobin stable for now. We will monitor. Full code. Cardiac diet. Protonix for PUD prophylaxis. Attestations Medical Necessity Statement*: Hospitalization for management of sepsis secondary to UTI, urinary retention, acute kidney injury, high-end of metabolic acidosis Time Spent in Patient Care: Greater than 35 minutes (>than 50% of time spent in counselling and/or direct pt care on unit). 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
--- NOTE | 2021-07-10 15:53 | ECG_ITS ---
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 [id number]
--- NOTE | 2021-07-10 15:55 | USR_ITS ---
PROCEDURE INFORMATION: Exam: US Duplex Lower Extremity Veins, Bilateral Exam date and time: 07/10/2021 3:55 PM Age: 65 years old Clinical indication: Condition or disease; Other: History of dvt; Patient HX: Patient is on blood thinner TECHNIQUE: Imaging protocol: Real-time duplex ultrasound of the extremities with 2-D maria scale, color Doppler flow and spectral waveform analysis with image documentation. Complete exam focused on the bilateral lower extremity veins. COMPARISON: [place] [id number] 02/08/2021 3:47 PM FINDINGS: Right deep veins: Mural thickening and partial thrombosis of the right common femoral vein. The right femoral vein is unremarkable. The right femoral vein is demonstrated to be patent. The right popliteal vein demonstrates partial thrombosis. Normal Doppler waveforms. Blunted augmentation response. Right superficial veins: Saphenofemoral junction is patent without thrombus. Left deep veins: The left common femoral vein is patent. The left femoral vein is patent. Partial thrombosis of the left popliteal vein the left peroneal vein. Normal Doppler waveforms. Limited compressibility of the popliteal vein and peroneal vein. Normal augmentation response. Left superficial veins: Saphenofemoral junction is patent without thrombus. Soft tissues: Unremarkable. US/[place] [id number] IMPRESSION: 1. There is partial thrombosis of the right common femoral vein and the right popliteal vein. This disease has improved/decreased when compared to 02/08/2021. 2. There is partial thrombosis of the left popliteal vein in the left peroneal vein. Left lower extremity disease is markedly improved when compared to 02/08/2021.
[2021-07-10 16:39] LABS: Glucose Point of Care 143 mg/dL (70-110)
[2021-07-10] MEDS: iron sucrose 200 MG in sodium chloride 0.9% (100 ml) 100 ML 220 MG IV (17:22)
[2021-07-10] MEDS: insulin lispro 100 unit/1 mL SUBCUT (17:23)
[2021-07-10 17:30] LABS: Vitamin B12 589 pg/mL (232-1245)
[2021-07-10] MEDS: acetaminophen 325 mg Tablet 650 MG PO (22:41)
[2021-07-10] MEDS: sodium chloride 0.9% 1,000 ML 75 ML IV (23:08)
[2021-07-11] VITALS (7 sets, daily range): BP systolic 106–171; BP diastolic 68–89; PULSE 75–111; RESP 14–18; TEMP 36.5–37.1; O2SAT 92–97
[2021-07-11] MEDS: famotidine 20 mg/2 mL INJ IVP ×2 (03:27→18:17)
[2021-07-11 06:37] LABS: Basophils % 0.2 %; Eosinophils # 0.3 10^3/uL (0.0-0.8); Eosinophils % 3.2 %; Hematocrit 26.9 % (42.0-52.0); Hemoglobin 8.7 g/dL (11.7-16.6); Lymphocytes # 1.5 10^3/uL (0.8-4.8); Lymphocytes % 17.9 %; Mean Corpuscular HGB Conc 32.3 g/dL (30.0-36.0); Mean Corpuscular Hemoglobin 27.5 pg (28.0-34.0); Mean Corpuscular Volume 85.1 fl (80-94); Mean Platelet Volume 9.4 fL (7.4-10.4); Monocytes # 0.7 10^3/uL (0.2-0.9); Monocytes % 8.7 %; Neutrophils # 5.68 10^3/uL (1.8-7.7); Neutrophils % 69.4 %; Nucleated Red Blood Cells % 0 %; Platelet Count 326 10^3/cmm (130-400); Red Blood Count 3.16 10^6/uL (4.1-5.3); Red Cell Distribution Width 18.7 % (12.1-15.1); White Blood Count 8.2 10^3/uL (4.0-10.0)
[2021-07-11 06:57] LABS: Alanine Aminotransferase 19 U/L (0-41); Alkaline Phosphatase 180 IU/L (40-130); Anion Gap 20.5 (5-19); Aspartate Amino Transferase 16 U/L (0-40); Blood Urea Nitrogen 30 mg/dL (8-23); Calcium 8.2 mg/dL (8.5-10.5); Carbon Dioxide 16 mmol/L (22-29); Chloride 105 mmol/L (98-107); Globulin 3.2 g/dL (1.3-4.6); Glomerular Filtration Rate 74.5 mL/min (90-130); Glucose 101 mg/dL (65-115); Osmolality Calculated 292 mOsm/kg (285-295); Potassium 3.5 mmol/L (3.5-5.1); Sodium 138 mmol/L (136-145); Total Bilirubin 0.3 mg/dL (0.15-1.2); Total Protein 6.2 g/dL (6.6-8.7)
[2021-07-11] MEDS: apixaban 5 mg Tablet PO ×2 (08:13→18:18)
[2021-07-11] MEDS: tamsulosin 0.4 mg Capsule PO ×2 (08:13→18:18)
[2021-07-11] MEDS: topiramate 25 mg Tablet 50 MG PO ×2 (08:13→18:17)
[2021-07-11] MEDS: finasteride 5 mg Tablet PO (08:13)
[2021-07-11] MEDS: phenazopyridine 100 mg Tablet PO ×3 (08:13→18:23)
[2021-07-11] MEDS: folic acid 1 mg Tablet PO ×2 (08:13→18:17)
[2021-07-11] MEDS: tizanidine 4 mg Tablet PO ×3 (08:15→20:24)
[2021-07-11] MEDS: amlodipine 5 mg Tablet PO ×2 (08:15→12:24)
[2021-07-11 11:59] LABS: Glucose Point of Care 128 mg/dL (70-110)
[2021-07-11 11:59] LABS: Glucose Point of Care 140 mg/dL (70-110)
[2021-07-11 11:59] LABS: Glucose Point of Care 124 mg/dL (70-110)
--- NOTE | 2021-07-11 13:46 | PM.PN ---
Subjective Subjective: Interval history: No events overnight. Denies any nausea vomiting, headache. States feeling better now. at bedside. Has remained medically stable and afebrile. Vitals/I&O/Wt Last Vital Signs Temp 98.7 F 07/11/21 11:43 Pulse 75 07/11/21 11:43 Resp 17 07/11/21 11:43 BP 157/77 07/11/21 11:43 Pulse Ox 95 07/11/21 11:43 07/10/21 07/11/21 07/11/21 22:59 06:59 14:59 Intake Total 310 / 1515 1100 / 2615 480 / 480 Output Total 500 / 2200 1875 / 4075 Balance -190 / -685 -775 / -1460 480 / 480 Weight last 48 hrs Weight 106.821 kg Weight 106.679 kg Weight 103.419 kg Physical Exam Narrative: EXAM NARRATIVE: General: In no acute distress, AO x3, at bedside, Stovall catheter present with very slightly pink-tinged urine in Uro bag, obese HEENT: PERRLA, pupils bilaterally equal and reactive Chest: Normal vesicular breath sounds, no added sounds, equal good air entry bilaterally CVS: S1-S2 regular, no murmurs, no tachycardia, no gallops, no rubs Abdomen: Soft, nontender, no organomegaly, bowel sounds present Neuro: No focal deficits, no facial deformity, AO x3, power 5/5 in all limbs Urinary Catheter Management^: Stovall: Cath Placed During This Visit: yes Urinary Catheter Date of Insertion: 07/09/21 Urinary Catheter Time of Insertion: 10:34 3-way Urethral CBI: Cath Placed During This Visit: yes Reason for Continuing Indwelling Catheter: Acute Urinary Retention or Obstruction Urinary Catheter Date of Insertion: 07/09/21 Urinary Catheter Time of Insertion: 17:50 Data : 07/11/21 05:13 07/11/21 05:13 Micro: Microbiology 07/09/21 10:32 Urine Culture - Final Urine,Clean Catch Pseudomonas aeruginosa 07/09/21 16:56 MRSA Culture - Final Nose 07/09/21 10:55 Blood Culture - Preliminary Blood NEGATIVE TO DATE 07/09/21 10:55 Blood Culture - Preliminary Blood NEGATIVE TO DATE A&P Assessment and plan (1) Sepsis: Status: Acute (2) UTI (urinary tract infection): Status: Acute (3) Bilateral hydronephrosis: Status: Acute (4) Urinary retention: Status: Acute (5) Acute kidney injury: Status: Acute (6) Hyponatremia: Status: Acute (7) Metabolic acidosis, increased anion gap: Status: Acute (8) BPH loc w urin obs/LUTS: Status: Acute Additional A&P Information Sepsis secondary UTI: Sepsis ruled in with tachycardia, fever, leukocytosis. History of frequent UTIs. Most recently with Klebsiella and Pseudomonas. Blood cultures so far negative, MRSA negative. Urine culture growing gram-negative rods. Continue with normal saline at 75 cc/h. Continue meropenem. Change dosing frequency as per creatinine clearance. Previously antibiotics as per culture results. COVID-19 PCR negative. Remove isolation precautions. Urinary retention with bilateral hydronephrosis: History of urinary retention on chronic Stovall which was removed on 07/04 with urology. Patient follows up with Dr. Moreau. Appreciate Dr. Moreau's recommendations. Repeat Stovall catheter placed. Patient would most likely need to be discharged on Stovall catheter. Flomax 0.4 twice daily, finasteride 5 mg daily. Start patient on Pyridium 3 times a day. Acute kidney injury: Baseline creatinine normal last on 05/29. On 06/12?3.3. Trending down. Most likely secondary to urinary retention along with home dose of losartan. FeNa-1.1%. Intrinsic. Medical reconciliation done for nephrotoxic drug. Hold losartan for now. Monitor BMP daily. Hyponatremia: Resolved. Back to baseline. Baseline normal. Could be secondary to dehydration. IV fluids as above. High anion gap metabolic acidosis: Resolving. Secondary to acute kidney injury. Continue to monitor. Hypertension: Goal blood pressure less than 140/90 mmHg. Given MIRYAM for now hold off on lisinopril. Start patient on amlodipine 5 mg daily. History of DVT: Check lower limb Dopplers. Patient has IVC filter in present. For now continue with home dose of Eliquis 5 mg twice daily. We will confirm with the lower limb Dopplers and telemetry. If no atrial fibrillation can most likely discontinue Eliquis given the presence of IVC filter. Anemia: Severe iron deficiency anemia. Start on IV iron supplementation 1 g over 5 days Hemoglobin stable for now. We will monitor. Full code. Cardiac diet. Protonix for PUD prophylaxis. Plan for today: Stop IV fluids. Monitor BMP tomorrow. Continue with imipenem for 1 more day and switch over to oral Levaquin from tomorrow. Plan to continue Levaquin for 10 more days on discharge. Patient will go with Stovall catheter in place. Physical therapy evaluation. Safe discharge planning. Continue with IV iron for 1 more day. Increase amlodipine to 10 mg daily. Attestations Medical Necessity Statement*: Requires further hospitalization for management of sepsis secondary to complicated UTI, urinary retention, resolving MIRYAM Time Spent in Patient Care: Greater than 35 minutes (>than 50% of time spent in counselling and/or direct pt care on unit). Coding Level of Care Code Acute Metallurgical Tester for g Fwd Diagnoses Sepsis A41.9 UTI (urinary tract infection) N39.0 Bilateral hydronephrosis N13.30 Urinary retention R33.9 Acute kidney injury N17.9 Hyponatremia E87.1 Metabolic acidosis, increased anion gap E87.2 BPH loc w urin obs/LUTS N40.1
[2021-07-11] MEDS: morphine 4 mg/mL SDV 1 mL 2 MG IVP ×2 (14:22→20:25)
--- NOTE | 2021-07-11 15:11 | PC.CHAP ---
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 director equipment visit [] Patient/Family/Request visit [] Outpatient visit [] Follow-up visit [] Physician referral [] Code/Alert [xx] Routine visit [] Staff referral [] Actively dying [] Patient sleeping [] Family support [] [] Out of room [] Palliative care [] [] Receiving care in room [] Pre-surgical visit [] Trauma [] Long length of stay [] ICU visit [] Other: Relational/Emotional Strength [xx] Patient feels connected with others/family/visitors/staff [] Distress [] Loneliness/isolation [] Abandonment Spirituality of Patient [] Person of [place] [] Attends [employer]ist of their [place] [xx] Believes in Prayer [] Reads Bible or Taoism materials [] There are Spiritual issues to be addressed Balance Wheel Facer Interventions [xx] Prayer [xx] Active listening [xx] Non-anxious presence [] Spiritual/emotional support [] Crisis/trauma care [] Spiritual counseling [] Bereavement support [] Provided bereavement packet [] Provided Bible/devotional materials [] Provided toy/stuffed animal, coloring book to patient or family member [] Provided Communion [] Anointing/[place] [] Salvation [xx] Completed spiritual assessment [] Other: Impact on Illness or Injury [] Angry [] Fearful [] Anxious [] Often cries [] Exhaustion [] Unable to work [] Unable to attend sabianist [] Unable to walk/stand [] Unable to read [] Unable to drive [] Unable to eat/drink [] Unable to sleep [] Unable to be with family [] Patient intubated [] Other: Summary was caring for 's bodily needs. Neither was talkative but agreed to a quick prayer. Time spent with patient 3 minutes
--- NOTE | 2021-07-11 17:43 | P.PN_ITS ---
Subjective Subjective: Interval history: Urology follow-up: Improving. Clinical picture overall better. Tolerating catheter well. Decreased sediment and clots. Possibility of discharge tomorrow. We will plan on leaving the catheter in place and having him come back in the office sometime the week of the for placement of a smaller catheter and consideration for longer-term management of his bladder either via suprapubic tube or indwelling catheter or consideration for surgical intervention for the prostate likely with suprapubic tube placement at the same time. Vitals/I&O/Wt Last Vital Signs Temp 97.7 F 07/11/21 16:00 Pulse 111 H 07/11/21 16:00 Resp 18 07/11/21 16:00 BP 106/68 07/11/21 16:00 Pulse Ox 97 07/11/21 16:00 07/11/21 07/11/21 07/11/21 06:59 14:59 22:59 Intake Total 1100 / 2615 480 / 480 Output Total 1875 / 4075 1400 / 1400 Balance -775 / -1460 -920 / -920 Weight last 48 hrs Weight 235 lb 8 oz Weight 235 lb 3 oz Weight 228 lb Physical Exam Const: COMMON NORMALS: no acute distress, alert and well nourished GENERAL APPEARANCE: well kempt and well developed ORIENTATION/CONSCIOUSNESS: not con fused Resp: COMMON NORMALS: normal respiratory effort EFFORT & INSPECTION: No labored and No Actively coughing : PENIS: circumcised OTHER: Urine clearing. Neuro: SENSORIUM/ORIENTATION: Yes alert Psych: APPEARANCE: Yes grossly normal and Yes well kempt ATTITUDE: Yes calm and Yes engaged Urinary Catheter Management^: Stovall: Cath Placed During This Visit: yes Urinary Catheter Date of Insertion: 07/09/21 Urinary Catheter Time of Insertion: 10:34 3-way Urethral CBI: Cath Placed During This Visit: yes Reason for Continuing Indwelling Catheter: Other Urinary Catheter Date of Insertion: 07/09/21 Urinary Catheter Time of Insertion: 17:50 Data : 07/11/21 05:13 07/11/21 05:13 Micro: Microbiology 07/09/21 10:32 Urine Culture - Final Urine,Clean Catch Pseudomonas aeruginosa 07/09/21 16:56 MRSA Culture - Final Nose A&P Assessment and plan (1) UTI (urinary tract infection): Clinically improving. We will probably be discharged tomorrow on Levaquin. Status: Acute (2) Urinary retention: Failed multiple attempts at intermittent catheterization for retention. We will plan on indwelling Stovall catheter discharge, possibly long-term. Will review on follow-up smaller catheter, suprapubic tube, TURP with or without suprapubic tube etc. Simply no longer a candidate for any consideration of bladder management be entered in a catheterization Status: Acute (3) BPH loc w urin obs/LUTS: Status: Acute (4) Bilateral hydronephrosis: Status: Acute Attestations Medical Necessity Statement*: See attending Coding Level of Care Code Acute Surveillance System Monitor for g Fwd Diagnoses UTI (urinary tract infection) N39.0 Urinary retention R33.9 BPH loc w urin obs/LUTS N40.1 Bilateral hydronephrosis N13.30
[2021-07-11] MEDS: iron sucrose 200 MG in sodium chloride 0.9% (100 ml) 100 ML 220 MG IV (19:46)
[2021-07-11] MEDS: acetaminophen 325 mg Tablet 650 MG PO (20:24)
[2021-07-11 21:18] LABS: Glucose Point of Care 122 mg/dL (70-110)
[2021-07-12] VITALS: BP 145/77; PULSE 66; RESP 14; TEMP 36.9; O2SAT 97
[2021-07-12] MEDS: famotidine 20 mg/2 mL INJ IVP (03:29)
[2021-07-12 03:33] VITALS: RESP 18
[2021-07-12] MEDS: morphine 4 mg/mL SDV 1 mL 2 MG IVP (03:33)
[2021-07-12 04:00] VITALS: BP 165/79; PULSE 88; RESP 16; TEMP 36.8; O2SAT 94
[2021-07-12 06:38] LABS: Basophils % 0.4 %; Eosinophils # 0.3 10^3/uL (0.0-0.8); Eosinophils % 4.6 %; Hematocrit 26.4 % (42.0-52.0); Hemoglobin 8.6 g/dL (11.7-16.6); Lymphocytes # 2.2 10^3/uL (0.8-4.8); Lymphocytes % 31.4 %; Mean Corpuscular HGB Conc 32.6 g/dL (30.0-36.0); Mean Platelet Volume 8.9 fL (7.4-10.4); Monocytes # 0.5 10^3/uL (0.2-0.9); Monocytes % 7.5 %; Neutrophils # 3.82 10^3/uL (1.8-7.7); Neutrophils % 54.9 %; Nucleated Red Blood Cells % 0 %; Platelet Count 327 10^3/cmm (130-400); Red Blood Count 3.07 10^6/uL (4.1-5.3); Red Cell Distribution Width 18.3 % (12.1-15.1)
[2021-07-12 06:59] LABS: Glucose Point of Care 224 mg/dL (70-110)
[2021-07-12 07:01] LABS: Alanine Aminotransferase 13 U/L (0-41); Albumin Level 2.9 g/dL (3.5-5.2); Alkaline Phosphatase 149 IU/L (40-130); Anion Gap 19.4 (5-19); Aspartate Amino Transferase 10 U/L (0-40); Blood Urea Nitrogen 19 mg/dL (8-23); Calcium 7.8 mg/dL (8.5-10.5); Carbon Dioxide 17 mmol/L (22-29); Chloride 106 mmol/L (98-107); Globulin 3.4 g/dL (1.3-4.6); Glomerular Filtration Rate 96.4 mL/min (90-130); Glucose 100 mg/dL (65-115); Osmolality Calculated 290 mOsm/kg (285-295); Potassium 3.4 mmol/L (3.5-5.1); Sodium 139 mmol/L (136-145); Total Bilirubin 0.3 mg/dL (0.15-1.2); Total Protein 6.3 g/dL (6.6-8.7)
[2021-07-12 08:00] VITALS: BP 159/85; PULSE 99; TEMP 36.9; O2SAT 94
[2021-07-12] MEDS: tamsulosin 0.4 mg Capsule PO (08:06)
[2021-07-12] MEDS: phenazopyridine 100 mg Tablet PO (08:07)
[2021-07-12] MEDS: topiramate 25 mg Tablet 50 MG PO (08:07)
[2021-07-12] MEDS: tizanidine 4 mg Tablet PO (08:07)
[2021-07-12] MEDS: amlodipine 5 mg Tablet 10 MG PO (08:07)
[2021-07-12] MEDS: folic acid 1 mg Tablet PO (08:07)
[2021-07-12] MEDS: apixaban 5 mg Tablet PO (08:07)
[2021-07-12] MEDS: finasteride 5 mg Tablet PO (08:08)
[2021-07-12 11:08] LABS: Glucose Point of Care 184 mg/dL (70-110)
[2021-07-12 11:23] VITALS: BP 116/74; PULSE 101; RESP 20; TEMP 36.9; O2SAT 96
[2021-07-12] MEDS: insulin lispro 100 unit/1 mL SUBCUT (11:44)
--- NOTE | 2021-07-12 12:00 | PC.SOCIAL ---
Pg 2 IMM Explained to pt & , Pg 2 IMM. No questions voiced. Provided pt a copy. Initialed, dated, & timed a copy & placed in chart.
--- NOTE | 2021-07-12 12:43 | P.DS_ITS ---
Discharge Providers Date of Admission: 07/09/21 14:55 Date of Discharge: July 12, 2021 Attending Provider at Admission: Bj Andrade MD Attending Provider at Discharge: Bj Andrade MD Consults: Urology: Dr. Moreau Primary Care Provider: Merritt Irizarry MD Diagnoses at Discharge Discharge Diagnosis (1) UTI (urinary tract infection): Status: Acute (2) Urinary retention: Status: Acute (3) BPH loc w urin obs/LUTS: Status: Acute (4) Bilateral hydronephrosis: Status: Acute Reason for Visit Reason for Visit: diff urinating Hospital Course Hospital Course Andrew Pabon is a 65 year old male with complicated past medical history of BPH, bilateral hydronephrosis, urinary retention, Yovanny's gangrene, recurrent UTI with Klebsiella and Pseudomonas localized candidal infection, diabetes, DVT, post IVC filter placement who follows up with Dr. Moreau and was last seen in this clinic on 07/04 when Stovall catheter was removed presented to the ER today with difficulty in urination getting worse for last 3 days and acutely abnormal since today morning along with back pain radiating to right thigh getting worse since urinary retention. As per patient he was recently started on Flomax and finasteride once the Stovall catheter was removed and he attributes his symptoms to initiation of the new medication. As per the patient's he has stopped taking Eliquis since 06/25 because he started feeling cold and he attributed the symptoms to the medication along with nausea and poor oral intake. Denies any difficulty in breathing. Patient is not vaccinated for COVID-19. States he was tested for COVID-19 and was negative at [facility] last month. In ER patient was found to have urinary retention Stovall catheter was placed after which 1500 cc of urine was drained blood work in the ER showed a white count 11,000, hemoglobin of 9.6, platelet count 250, sodium of 127(same on 06/12 prior to that normal), creatinine of 3(3.3 on 06/12 prior to that normal), BUN of 63, bicarb of 14,-phosphatase of 172, UA showing numerous WBCs with 2+ leuk esterase. Hospital course. Patient admitted to the hospital for further management of complicated UTI along with urinary retention causing MIRYAM. He was started on broad-spectrum ant ibiotics. Urine culture were consistent with Pseudomonas. Antibiotics were tailored as per sensitivity results. His MIRYAM resolved with Stovall catheterization and gentle IV hydration. During hospitalization he was found to be severely deconditioned for which physical therapy eval was done and he was advised to be discharged to SNF which family declined. He has been discharged with home health. Patient is to continue with Stovall catheter at home and is to follow-up with Dr. Moreau within next 2 weeks for further management of urinary retention most likely with overflow versus suprapubic catheterization. He is to take oral Levaquin for next 10 days for treatment of complicated UTI. Patient had ciprofloxacin listed as allergies in the list. It was confirmed with the patient and patient's family that only problem he has with ciprofloxacin is itching. Patient is okay with taking Levaquin. Danger signs have been explained to him in detail. Physical Exam Narrative: EXAM NARRATIVE: General: In no acute distress, AO x3, at bedside, Stovall catheter present with very slightly pink-tinged urine in Uro bag, obese HEENT: PERRLA, pupils bilaterally equal and reactive Chest: Normal vesicular breath sounds, no added sounds, equal good air entry bilaterally CVS: S1-S2 regular, no murmurs, no tachycardia, no gallops, no rubs Abdomen: Soft, nontender, no organomegaly, bowel sounds present Neuro: No focal deficits, no facial deformity, AO x3, power 5/5 in all limbs Urinary Catheter Management^: Stovall: Cath Placed During This Visit: yes Urinary Catheter Date of Insertion: 07/09/21 Urinary Catheter Time of Insertion: 10:34 3-way Urethral CBI: Cath Placed During This Visit: yes Reason for Continuing Indwelling Catheter: Acute Urinary Retention or Obstruction Urinary Catheter Date of Insertion: 07/09/21 Urinary Catheter Time of Insertion: 17:50 Discharge Data Data Completed and Pending: Completed Studies During Hospitalization Category Date Time Status CT kidney stone [id number] Stat Cat Scan 07/09/21 12:51 [place] [id number] Urgent Ultrasound 07/10/21 15:55 Completed Pending at discharge Category Date Time Status Blood Culture Sta t Lab 07/09/21 10:55 Results Labs from last 24 hours 07/12/21 07/12/21 07/12/21 10:37 06:00 06:00 WBC 7.0 RBC 3.07 L Hgb 8.6 L Hct 26.4 L MCV 86.0 MCH 28.0 MCHC 32.6 RDW 18.3 H Plt Count 327 MPV 8.9 Neut % (Auto) 54.9 Lymph % (Auto) 31.4 [place] % (Auto) 7.5 Eos % (Auto) 4.6 Baso % (Auto) 0.4 Neut # (Auto) 3.82 Lymph # (Auto) 2.2 [place] # (Auto) 0.5 Eos # (Auto) 0.3 Baso # (Auto) 0.0 Nucleated RBC % (a uto) 0 Nucleated RBCs # 0.0 Sodium 139 Potassium 3.4 L Chloride 106 Carbon Dioxide 17 L Anion Gap 19.4 H BUN 19 Creatinine 0.8 GFR Calculation 96.4 Glucose 100 POC Glucose 184 H Calculated Osmolal ity 290 Calcium 7.8 L Total Bilirubin 0.3 AST 10 ALT 13 Alkaline Phosphata se 149 H Total Protein 6.3 L Albumin 2.9 L Globulin 3.4 07/11/21 07/11/21 21:12 16:52 WBC RBC Hgb Hct MCV MCH MCHC RDW Plt Count MPV Neut % (Auto) Lymph % (Auto) [place] % (Auto) Eos % (Auto) Baso % (Auto) Neut # (Auto) Lymph # (Auto) [place] # (Auto) Eos # (Auto) Baso # (Auto) Nucleated RBC % (a uto) Nucleated RBCs # Sodium Potassium Chloride Carbon Dioxide Anion Gap BUN Creatinine GFR Calculation Glucose POC Glucose 122 H 224 H Calculated Osmolal ity Calcium Total Bilirubin AST ALT Alkaline Phosphata se Total Protein Albumin Globulin Addt'l Data from Hospital Stay: Laboratory Results WBC 7.0 10^3/uL (4.0- 10.0) 07/12/21 06:00 RBC 3.07 10^6/uL (4.1 -5.3) L 07/12/21 06:00 Hgb 8.6 g/dL (11.7-16 .6) L 07/12/21 06:00 Hct 26.4 % (42.0-52.0 ) L 07/12/21 06:00 MCV 86.0 fl (80-94) 07/12/21 06:00 MCH 28.0 pg (28.0-34. 0) 07/12/21 06:00 MCHC 32.6 g/dL (30.0-3 6.0) 07/12/21 06:00 RDW 18.3 % (12.1-15.1 ) H 07/12/21 06:00 Plt Count 327 10^3/cmm (130 -400) 07/12/21 06:00 MPV 8.9 fL (7.4-10.4) 07/12/21 06:00 Neut % (Auto) 54.9 % 07/12/21 06:00 Lymph % (Auto) 31.4 % 07/12/21 06:00 [place] % (Auto) 7.5 % 07/12/21 06:00 Eos % (Auto) 4.6 % 07/12/21 06:00 Baso % (Auto) 0.4 % 07/12/21 06:00 Neut # (Auto) 3.82 10^3/uL (1.8 -7.7) 07/12/21 06:00 Lymph # (Auto) 2.2 10^3/uL (0.8- 4.8) 07/12/21 06:00 [place] # (Auto) 0.5 10^3/uL (0.2- 0.9) 07/12/21 06:00 Eos # (Auto) 0.3 10^3/uL (0.0- 0.8) 07/12/21 06:00 Baso # (Auto) 0.0 10^3/uL (0.0- 0.1) 07/12/21 06:00 Nucleated RBC % (a uto) 0 % 07/12/21 06:00 Nucleated RBCs # 0.0 /100WBC 07/12/21 06:00 Sodium 139 mmol/L (136-1 45) 07/12/21 06:00 Potassium 3.4 mmol/L (3.5-5 .1) L 07/12/21 06:00 Chloride 106 mmol/L (98-10 7) 07/12/21 06:00 Carbon Dioxide 17 mmol/L (22-29) L 07/12/21 06:00 Anion Gap 19.4 (5-19) H 07/12/21 06:00 BUN 19 mg/dL (8-23) 07/12/21 06:00 Creatinine 0.8 mg/dL (0.7-1. 2) 07/12/21 06:00 GFR Calculation 96.4 mL/min (90-1 30) 07/12/21 06:00 Glucose 100 mg/dL (65-115 ) 07/12/21 06:00 POC Glucose 184 mg/dL (70-110 ) H 07/12/21 10:37 Calculated Osmolal ity 290 mOsm/kg (285- 295) 07/12/21 06:00 Lactic Acid 1.3 mmol/L (0.5-2 .2) 07/09/21 11:00 Lactate 0.9 mmol/L (0.5-2 .2) 07/09/21 17:09 Calcium 7.8 mg/dL (8.5-10 .5) L 07/12/21 06:00 Iron 12 ug/dL (59-158) L 07/09/21 10:55 TIBC 194 mcg/dl 07/09/21 10:55 % Saturation 6.1 % (20-50) L 07/09/21 10:55 Unsat Iron Binding 182 ug/dL (112-34 7) 07/09/21 10:55 Total Bilirubin 0.3 mg/dL (0.15-1 .2) 07/12/21 06:00 AST 10 U/L (0-40) 07/12/21 06:00 ALT 13 U/L (0-41) 07/12/21 06:00 Alkaline Phosphata se 149 IU/L (40-130) H 07/12/21 06:00 NT-Pro-B Natriuret Pep 1846 pg/mL (0-125 ) H 07/09/21 10:55 Total Protein 6.3 g/dL (6.6-8.7 ) L 07/12/21 06:00 Albumin 2.9 g/dL (3.5-5.2 ) L 07/12/21 06:00 Globulin 3.4 g/dL (1.3-4.6 ) 07/12/21 06:00 Lipase 26 U/L (13-60) 07/09/21 10:55 Vitamin B12 589 pg/mL (232-12 45) 07/10/21 05:21 Folate 4.0 ng/mL (4.5-32 .2) L 07/09/21 13:21 Procalcitonin 0.91 ng/mL (0-0.5 ) H 07/09/21 10:55 TSH 2.78 uIU/mL (0.27 -4.20) 07/09/21 10:55 Urine Color Yellow (Yellow) 07/09/21 10:32 Urine Appearance Cloudy (CLEAR) 07/09/21 10:32 Urine pH 5 (5-7) 07/09/21 10:32 Ur Specific Gravit y 1.010 (1.005-1.0 30) 07/09/21 10:32 Urine Protein 1+ (Negative) H 07/09/21 10:32 Urine Glucose (UA) Norm (Normal) 07/09/21 10:32 Urine Ketones Negative (Negati ve) 07/09/21 10:32 Urine Blood 3+ (Negative) H 07/09/21 10:32 Urine Nitrate Negative (Negati ve) 07/09/21 10:32 Urine Bilirubin Neg (Negative) 07/09/21 10:32 Urine Urobilinogen Norm mg/dL (Negat deric) 07/09/21 10:32 Ur Leukocyte Kristen ase 2+ (Negative) H 07/09/21 10:32 Urine RBC 10-15 /hpf (0-2) H 07/09/21 10:32 Urine WBC Too numerous to c nt /hpf (0-5) H 07/09/21 10:32 Ur Eosinophil Smea r TNP 07/09/21 10:32 Ur Squamous Epith Cells 5-10 /hpf (0-5) H 07/09/21 10:32 Amorphous Sediment Not Reportable 07/09/21 10:32 Urine Bacteria 2+ /hpf (NONE) H 07/09/21 10:32 Urine Eosinophils No eosinophils se en 07/09/21 10:32 Ur Random Sodium 52 mmol/L 07/09/21 10:32 Ur Random Potassiu m 31 mmol/L 07/09/21 10:32 Ur Random Chloride 37 mmol/L 07/09/21 10:32 Urine Creatinine 112 mg/dL (39-259 ) 07/09/21 10:32 Nasal/Oral COVID-1 9 PCR Not detected 07/09/21 22:41 Influenza Type A A g Negative (Negati ve) 07/09/21 16:56 Influenza Type B A g Negative (Negati ve) 07/09/21 16:56 SARS-CoV-2 Ag (Rap id) Negative (Negati ve) 07/09/21 16:56 Impressions Abdomen/Pelvis CT 07/09/21 12:51 IMPRESSION: 1. Moderate bilateral hydronephrosis is new since the recent examination July 04, 2021. 2. Bilateral ureterectasis with ureters dilated to the level UVJ. 3. Diffuse bladder wall thickening with recurrent dorsal mural bladder wall abscess similar in appearance to June 12, 2021. Surrounding inflammatory stranding and induration in the bladder soft tissues compatible with infection. 4. Small amount of nondependent air within the bladder with diffuse bladder wal l thickening compatible with infection and cystitis. Increased attenuation blood products in the bladder 5. Enlarged prostate is unchanged. 6. IVC filter. 7. Sigmoid colon is closely adherent to the dome of the bladder with loss of the normal flat plane also similar to June 12, 2021. Patient at risk for development of colovesical fistula. 8. No other significant interval changes. Notified Lucio Washington DO at 07/09/2021 1:53 PM. Venous Duplex 07/10/21 15:55 IMPRESSION: 1. There is partial thrombosis of the right common femoral vein and the right popliteal vein. This disease has improved/decreased when compared to 02/08/2021. 2. There is partial thrombosis of the left popliteal vein in the left peroneal vein. Left lower extremity disease is markedly improved when compared to 02/08/2021. Vitals: Last Vital Signs Temp 98.5 F 07/12/21 11:23 Pulse 101 H 07/12/21 11:23 Resp 20 H 07/12/21 11:23 BP 116/74 07/12/21 11:23 Pulse Ox 96 07/12/21 11:23 Discharge Plan Discharge Patient Disposition: Home Condition: Stable Prescriptions: New finasteride 5 mg Tablet 5 mg PO QD Qty: 30 RF: 0 levofloxacin 500 mg tablet 500 mg PO Q24H 10 Days Qty: 10 RF: 0 Continued topiramate 50 mg tablet 50 mg PO BID Qty: 60 RF: 0 Novolog Flexpen U-100 Insulin 100 unit/mL (3 mL) insulin pen See Rx Instructions .ROUTE .COMPLEX PRN (Reason: Diabetes) RF: 0 Lantus Solostar U-100 Insulin 100 unit/mL (3 mL) insulin pen 15 unit SUBCUT BEDTIME RF: 0 methenamine hippurate 1 gram tablet 1 g PO BID Qty: 60 RF: 12 tamsulosin 0.4 mg capsule 0.4 mg PO DAILY Qty: 90 RF: 3 ascorbic acid (vitamin C) [Vitamin C] 1,000 mg Tablet 1,000 mg PO BID RF: 0 tizanidine 4 mg tablet 4 mg PO TID RF: 0 ferrous sulfate [iron] 325 mg (65 mg iron) Tablet 325 mg PO BID RF: 0 (DME) blood-glucose meter [Accu-Chek Tawny Plus Meter] Misc See Rx Instructions .Route Qty: 1 RF: 0 (DME) Accu-Chek Tawny Plus test strp Strip See Rx Instructions .Route Qty: 50 RF: 2 (DME) lancets [Accu-Chek Multiclix Lancet] Misc See Rx Instructions .Route Qty: 100 RF: 0 Eliquis 5 mg tablet 5 mg PO BID 30 Days Qty: 60 RF: 2 (DME) Kerlix Packing Sponge 4 1/2 X 22 sponge See Rx Instructions .Route Qty: 60 RF: 0 metformin 500 mg Tablet 500 mg PO BID 30 Days Qty: 60 RF: 1 tramadol 50 mg tablet 50 mg PO QID PRN (Reason: Pain) RF: 0 acetaminophen [Tylenol Ex Str Rapid Release] 500 mg Tablet 500 - 1,000 mg PO Q4H PRN (Reason: Pain) RF: 0 finasteride 5 mg tablet 5 mg PO QAM RF: 0 celecoxib [Celebrex] 200 mg capsule 200 mg PO QAM RF: 0 lisinopril 20 mg tablet 20 mg PO QAM RF: 0 Discharge Orders: Discharge Order (Routine); Ordered 07/12/21 Ordered By: Bj Andrade Referrals: [facility] [Outside] ([facility] will start care on 07/22/21. They will call prior visiting. ) Merritt Irizarry MD [Primary Care Provider] - 7-10 days Tom Moreau MD [Physician] - 2 weeks Discharge Diet: Cardiac and Diabetic Discharge Activity: Resume usual activity Patient Instructions: Opioid Safety Activity Restrictions/Additional Instructions: Please continue with catheter care as discussed. Please continue taking antibiotics for next 10 days. Please follow-up with Dr. Moreau within next 2 weeks. Discharge Attestations Time Spent in Discharge Care*: greater than 30 min Specific Discharge Activities: educating patient, discussing with pcp/other providers, discussing with pillowcase maker/social workers/dc planners, documenting/other paperwork and evaluating patient/reviewing data Status at Discharge: Cognitive status at discharge: cognitively intact , Behavioral status at discharge: cooperative , Functional status at discharge: other assisted ambulation Overall status at discharge: patient is back to baseline Quality Metrics Clinical Quality Measures During this hospital stay, did patient experience: None Coding Level of Care Code Acute [facility] DC note Diagnoses UTI (urinary tract infection) N39.0 Urinary retention R33.9 BPH loc w urin obs/LUTS N40.1 Bilateral hydronephrosis N13.30
[2021-07-12 14:38] VITALS: BP 116/74; PULSE 99; RESP 18; TEMP 36.9; O2SAT 96
--- NOTE | 2021-07-12 14:40 | PC.NURSE ---
Reviewed discharge instructions with patient and at this time. Patient and verbalized understanding of calling Dr. Moreau's office Wednesday to make a follow up appointment and how to take antibiotics. Patient is alert and orientated x3. Respirations even and non-labored on room air. Patient wheel chaired to private car.
== END 2021-07-12 14:30 | disposition home or self-care (01) | DRG 872 ==
LOC: ER 16:55 → MEDSURG 17:23
PROVIDERS: Physician Assistant; Admitting Provider Student in an Organized Health Care Education/Training Program; Emergency Provider Family Medicine; PCP Family Medicine; Visit Provider Student in an Organized Health Care Education/Training Program
DX: A41.9 Sepsis, unspecified organism (principal); N39.0 Urinary tract infection, site not specified; N17.9 Acute kidney failure, unspecified; I82.433 Acute embolism and thrombosis of popliteal vein, bilateral; E87.1 Hypo-osmolality and hyponatremia; I82.452 Acute embolism and thrombosis of left peroneal vein; I82.413 Acute embolism and thrombosis of femoral vein, bilateral; N13.8 Other obstructive and reflux uropathy; B96.5 Pseudomonas (aeruginosa) (mallei) (pseudomallei) as the cause of diseases classified elsewhere; N40.1 Benign prostatic hyperplasia with lower urinary tract symptoms; R33.8 Other retention of urine; Z87.440 Personal history of urinary (tract) infections; E11.9 Type 2 diabetes mellitus without complications; Z79.4 Long term (current) use of insulin; N32.89 Other specified disorders of bladder; N32.3 Diverticulum of bladder; I10 Essential (primary) hypertension; D50.9 Iron deficiency anemia, unspecified; Z79.84 Long term (current) use of oral hypoglycemic drugs; Z79.01 Long term (current) use of anticoagulants; Z95.828 Presence of other vascular implants and grafts
CPT/HCPCS: 36415; 36416; 51702; 74176; 80053; 81001; 82436; 82570; 82607; 82746; 82962; 83540; 83550; 83605; 83690; 83880; 84133; 84145; 84300; 84443; 85025; 85999; 87040; 87077; 87086; 87186; 87426; 87635; 87641; 87804; 93005; 93970; 94664; 96365; 96375; 97110; 97161; 97530; 99285; J0743; J1756; J1815; J2270; J3490; J7030

== ENCOUNTER → 2021-09-29 15:10 | Outpatient (BNVA) | payer MEDICAID, SELFPAY | PROVIDERS: PCP Family Medicine; Visit Provider Internal Medicine | DX: I10 Essential (primary) hypertension (principal); I82.403 Acute embolism and thrombosis of unspecified deep veins of lower extremity, bilateral; Z87.891 Personal history of nicotine dependence; E66.9 Obesity, unspecified; Z79.01 Long term (current) use of anticoagulants; Z09 Encounter for follow-up examination after completed treatment for conditions other than malignant neoplasm; E11.9 Type 2 diabetes mellitus without complications; Z79.4 Long term (current) use of insulin; Z79.84 Long term (current) use of oral hypoglycemic drugs | CPT/HCPCS: 99214 ==

== ENCOUNTER 2021-11-05 13:05 | Observation (INO) | payer MEDICAID, SELFPAY ==
[2021-11-04 13:48] VITALS: BMI 34.2
[2021-11-05] VITALS (19 sets, daily range): BP systolic 167–213; BP diastolic 91–149; PULSE 88–111; RESP 16–22; TEMP 36.3–36.8; O2SAT 95–99
--- NOTE | 2021-11-05 08:15 | W.PM.OPSUD ---
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 Antibiotic selected based on most recent culture. Will use gentamicin We also reviewed the possibility of adding suprapubic tube to his procedure today based on the fact that we are just not clear as to whether or not his bladder will be adequate for spontaneous incomplete voiding. Alternative to putting a tube in today would be to do the routine voiding trial etc. post TURP and if he does well do nothing else. If unfortunately he does not void well after TURP then convert to suprapubic tube fairly promptly. When given these options he elected to hold on suprapubic tube today. PLANNED PROCEDURE: Operation Date: 11/05/21 09:05 Proposed Procedures p Transurethral Resection Of Prostate 18682/n40.1(Not Applicable) - Tom Moreau MD s Cystoscopy(Not Applicable) - Tom Moreau MD
[2021-11-05] MEDS: sodium chloride 0.9% 1,000 ML 30 ML IV (08:26)
[2021-11-05] MEDS: HYDROmorphone 1 mg/mL INJ 1 mL 0.5 MG IVP (08:43)
[2021-11-05 08:59] LABS: Basophils # 0.1 10^3/uL (0.0-0.1); Basophils % 0.5 %; Eosinophils # 0.2 10^3/uL (0.0-0.8); Eosinophils % 2.6 %; Hemoglobin 13.1 g/dL (11.7-16.6); Lymphocytes # 2.5 10^3/uL (0.8-4.8); Lymphocytes % 26.6 %; Mean Corpuscular HGB Conc 33.6 g/dL (30.0-36.0); Mean Corpuscular Hemoglobin 31.2 pg (28.0-34.0); Mean Corpuscular Volume 92.9 fl (80-94); Mean Platelet Volume 9.2 fL (7.4-10.4); Monocytes # 0.5 10^3/uL (0.2-0.9); Monocytes % 5.6 %; Neutrophils # 6.02 10^3/uL (1.8-7.7); Neutrophils % 64.5 %; Nucleated Red Blood Cells % 0 %; Platelet Count 273 10^3/cmm (130-400); Red Cell Distribution Width 13.7 % (12.1-15.1); White Blood Count 9.3 10^3/uL (4.0-10.0)
[2021-11-05 09:22] LABS: Alanine Aminotransferase 14 U/L (0-41); Albumin Level 4.3 g/dL (3.5-5.2); Alkaline Phosphatase 124 IU/L (40-130); Anion Gap 19.2 (5-19); Aspartate Amino Transferase 13 U/L (0-40); Blood Urea Nitrogen 19 mg/dL (8-23); Calcium 9.7 mg/dL (8.5-10.5); Carbon Dioxide 23 mmol/L (22-29); Chloride 104 mmol/L (98-107); Creatinine Clr Calc Pharmacy 113.5961; Globulin 3.7 g/dL (1.3-4.6); Glomerular Filtration Rate 112.5 mL/min (90-130); Glucose 108 mg/dL (65-115); Osmolality Calculated 299 mOsm/kg (285-295); Potassium 3.2 mmol/L (3.5-5.1); Sodium 143 mmol/L (136-145); Total Bilirubin 0.5 mg/dL (0.15-1.2)
--- NOTE | 2021-11-05 09:29 | P.ANESASSM_ITS ---
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 Operation Date: 11/05/21 09:05 Proposed Procedures p Transurethral Resection Of Prostate 38930/n40.1(Not Applicable) - Tom Moreau MD s Cystoscopy(Not Applicable) - Tom Moreau MD Familial anesthetic complications: None Was Beta Willian taken within 24 hours: N/A Was Clonidine taken within 24 hours: N/A Last intake: Intake Last Liquid Date 11/04/21 Last Liquid Time 18:00 Last Solid Date 11/04/21 Last Solid Time 18:00 Social No alcohol and No tobacco Exam alert, oriented x 3, clear to auscultation bilaterally and regular rate & rhythm Airway Submandibular: within normal limits Cervical ROM: within normal limits Mallampati: Class II Dentition: false CV/HEM Anemia, Deep Vein Thrombosis and Hypertension (poorly controlled) Metabolic Diabetes Mellitus and Morbid Obesity [facility] Osteoarthritis/DJD Neuropsych Anxiety Anesthetic Plan ASA status: 3 Anesthesia: General Medications/Allergies Home Medications Medication Instructions Recorded Confirmed Last Taken Type apixaban 5 mg tablet (Eliquis) 5 mg PO BID 30 Days #60 tab 02/15/21 11/04/21 10/31/21 Rx blood sugar diagnostic (Accu-Chek #50 ea 02/15/21 11/04/21 Unknown Rx Tawyn Plus test strp) blood-glucose meter (Accu-Chek #1 ea 02/15/21 11/04/21 Unknown Rx Tawny Plus Meter) gauze bandage 4 1/2 X 22 sponge #60 ea 02/15/21 11/04/21 Unknown Rx (Kerlix Packing Sponge) lancets (Accu-Chek Multiclix #100 ea 02/15/21 11/04/21 Unknown Rx Lancet) metformin 500 mg tablet 500 mg PO BID 30 Days #60 tab 02/15/21 11/05/21 11/04/21 Rx methenamine hippurate 1 gram tablet 1 g PO BID #60 tab 06/06/21 11/05/21 11/04/21 Rx ascorbic acid (vitamin C) 1,000 mg 1,000 mg PO BID 06/12/21 11/05/21 11/04/21 History tablet (Vitamin C) ferrous sulfate 325 mg (65 mg 325 mg PO BID 06/12/21 11/05/21 11/04/21 History iron) tablet (iron) tizanidine 4 mg tablet 4 mg PO TID 06/12/21 11/05/21 11/04/21 History finasteride 5 mg tablet 5 mg PO QAM 07/10/21 11/05/21 11/04/21 History lisinopril 20 mg tablet 20 mg PO QAM 07/10/21 11/05/21 11/04/21 History tramadol 50 mg tablet 50 mg PO QID PRN 07/10/21 11/05/21 11/04/21 History finasteride 5 mg tablet 5 mg PO QD #30 tab 07/12/21 11/05/21 11/04/21 Rx insulin glargine 100 unit/mL (3 10 unit SUBCUT .Q HS ml 09/29/21 11/05/21 11/03/21 History mL) subcutaneous pen (Basaglar KwikPen U-100 Insulin) Allergies Allergy/AdvReac Type Severity Reaction Status Date / Time cephalexin Allergy Unknown Verified 11/05/21 07:45 ciprofloxacin [From Cipro] Allergy Unknown Verified 11/05/21 07:45 gabapentin Allergy numbness Verified 11/05/21 07:45 nitrofurantoin Allergy Unknown Verified 11/05/21 07:45 pregabalin Allergy numbness Verified 11/05/21 07:45 Sulfa (Sulfonamide Allergy Unknown Verified 11/05/21 07:45 Antibiotics) Current Medications Generic Name Dose Route Start Last Admin Trade Name Freq PRN Reason Stop Dose Admin Sodium Chloride 1,000 mls @ 30 mls/hr 11/05/21 07:45 11/05/21 08:26 Sodium Chloride 0.9% IV 11/06/21 07:44 30 mls/hr .Q24H JENISE Administration PFSH Anesthesia Medical History (Updated 10/20/21 @ 14:17 by Tom Moreau MD) Acute kidney injury Anemia Bilateral hydronephrosis Bladder trabeculation 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 Chronic low back pain Diabetes Diverticula, bladder acquired DVT (deep venous thrombosis) DVT, bilateral lower limbs 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 Hypertension Lumbar disc disease with radiculopathy Lumbar disc disease with radiculopathy Lumbar stenosis Necrotizing fasciitis of multiple sites Obesity Osteoarthritis of right knee Recurrent UTI Urinary retention Surgical History Status post hernia repair Family History Father Cancer Mother Heart attack Other CAD (coronary artery disease) Denies family history of Anesthesia complication Bleeding disorder Social History Smoking and tobacco status: former smoker Alcohol intake: never Household members: spouse Marital status: Current occupational status: disabled History of recent travel: No Data Anesthesia : 11/05/21 08:15 11/05/21 08:15 Short CBC 11/05/21 Range/Units 08:15 WBC 9.3 (4.0-10.0) 10^3/uL Hgb 13.1 (11.7-16.6) g/dL Hct 39.0 L (42.0-52.0) % MCV 92.9 (80-94) fl Plt Count 273 (130-400) 10^3/cmm Neut % (Auto) 64.5 % Neut # (Auto) 6.02 (1.8-7.7) 10^3/uL BMP 11/05/21 08:15 Sodium 143 Potassium 3.2 L Chloride 104 Carbon Dioxide 23 BUN 19 Creatinine 0.7 Glucose 108 Calcium 9.7 Liver Function 11/05/21 Range/Units 08:15 Total Bilirubin 0.5 (0.15-1.2) mg/dL AST 13 (0-40) U/L ALT 14 (0-41) U/L Alkaline Phosphatase 124 (40-130) IU/L Albumin 4.3 (3.5-5.2) g/dL Cardiac Studies: Echocardiogram 02/01/21
[2021-11-05] MEDS: metoprolol tartrate 1 mg/1 mL SDV 5 mL 5 MG IVP (09:38)
[2021-11-05] MEDS: hyDRALAzine 20 mg/mL INJ 1 mL 10 MG IVP ×2 (10:42→13:12)
[2021-11-05] MEDS: lidocaine 2% Urojet 20 mL TOPICAL (11:58)
--- NOTE | 2021-11-05 12:38 | PM.OP ---
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 Wide open at the completion of the procedure. Good hemostasis throughout. No damage to the orifices or the verumontanum or tissue distal to the verumontanum Brief History: Mr. Pabon is a 65-year-old white male with multiple medical problems who was discovered to have chronic urinary retention with bilateral hydronephrosis with enlarged prostate. He has multiple comorbidities including poorly controlled diabetes historically, hypertension, recurrent urinary tract infections. Also was treated previously with aggressive surgical debridement for Yovanny's gangrene and prolonged hospital stay for IV antibiotics. Has had persistent retention despite medical therapy for BPH. He failed miserably with SCIC. He was offered chronic Stovall catheter, chronic suprapubic tube, or TURP. We did review that there would be a chance that his bladder would not function well based on his other comorbidities and offered a suprapubic tube to be placed at time of TURP and convert to that as his primary management if he failed to void over time. They elected to decline the suprapubic tube for now. Procedure: After routine preoperative evaluation examination and obtaining of informed consent he was taken to the operating suite on 11/05/2021 where general anesthesia was administered without difficulty after appropriate timeout was performed, SCDs confirmed to be functioning, preoperative antibiotics administered, beta-zev protocol confirmed. Prepped and draped in the usual sterile fashion in dorsolithotomy position paying careful attention to avoiding pressure points. 21 Croatian cystoscope with 30 degree lens was introduced into the urethra meatus and advanced into the bladder to videoscopy. Trilobar enlargement was confirmed. Severely trabeculated bladder was confirmed. No other gross abnormality identified. The urethra was calibrated with [place] sounds and easily accommodated 30 Croatian. 2% lidocaine jelly was instilled into the urethra then a well-lubricated continuous-flow resectoscope sheath with visual obturator in place was advanced easily into the bladder. The [employer] bipolar system with super loop and button probe were utilized. Super loop was utilized first after ascertaining the location of the orifices well away from the bladder neck and the verumontanum easily identifiable. The bladder neck was resected circumferentially to remove the intravesically protruding portion of the prostate. Attention was then directed to the left lateral lobe from the 12 o'clock position down to the 5 o'clock position from the bladder neck out to but not distal to the verumontanum taking the resection deep into the prostatic tissue. The right lateral lobe was then resected in the same fashion in the same longitudinal extent and depth. The floor the prostate was then harvested. There remained some tissue around the verumontanum which was carefully trimmed away. 2 lateral vaporizing incisions were made at 1 at the 3:00 and 1 at the 9 o'clock position to further open the bladder neck. The button probe was utilized to vaporize some residual nodular hyperplasia tissue. The prostatic fossa was sculpted with the button probe as well. All chips were evacuated from the bladder and this was confirmed visually. Hemostasis was meticulous. Bladder drained with a 22 Croatian three-way Stovall catheter with light CBI running. He tolerated the procedure well without complications and was awakened in the operating room and returned to the recovery room in stable condition. PLANS: 1. Admit to observation with anticipation of discharging tomorrow with Stovall catheter in place for voiding trial next week
[2021-11-05 12:50] LABS: Glucose Point of Care 106 mg/dL (70-110)
--- NOTE | 2021-11-05 13:48 | SUR.PHASEI ---
1242 PT TO PACU SITTING UP IN BED YELLING,HITTING AT STAFF, CURSING, TRYING TO GET UP, PULLS AT CATHETER AND IV, BEDDING ETC, 4 STAFF AT BEDSIDE TO CALM PT, SEE MEDS GIVEN BY SOLID STATE TESTER AT BEDSIDE, VERSED 2MG AND FENTANYL . PT ID WITH 2 IDENTIFIERS, IV PATENT PT HAS [address]E WITH [address], LT PINK TINGED URINE NOTED TO TUBING AND BAG, JUVENAL STRAP TO LT THIGH TO SECURE HOWE. 1300 PT YELLING CURSING, SITTING AT 45 DEGREES, PT OREINTED TO SELF ONLY, DR CHANDRA AT BEDSIDE, ALLOWS PT TO SIT UP WITH FEET TO FLOOR, PT STATES THIS HELPS HIS CHRONIC LEG PAIN AND TO PEE., SEE MEDS GIVEN EARLIER. IV PATENT, PT BP VERY ELEVATED SEE MEDS GIVEN PRIOR TO SURGURY, DR CHANDRA CALLED TO BEDSIDE FOR ORDERS, OR CHARGE NURSE YULISSA AT BEDSIDE, ORDERS TO TAKE PT TO FLOOR NOW, TO GET PT IN RECLINER CHAIR AND FAMILY AT BEDSIDE TO CALM PT HE IS STILL CURSING AND YELLING, PUSHING AT STAFF, PT ORIENTED TO TOWN AND NAME AND RECENT EVENTS. MED FOR BP ORDERED AT BEDSIDE PER DR CHANDRA , AND ORDERS REPEATED BY DR CHANDRA TO TAKE PT TO FLOOR NOW FOR COMFORT.
--- NOTE | 2021-11-05 14:03 | SUR.PHASEI ---
1312 SEE MED GIVEN FOR BP,PER DR CHANDRA'S ORDER, 1321 PT UP AT SIDE OF BED, STATES HE FEELS BETTER BP BETTER AT 167/101 DR CHANDRA OK WITH PT GOING TO FLOOR NOW, NOTIFED AND IS WAITING IN PT ROOM. 1340 PT TO ROOM , ASSISTED TO BED WITH ASSIST OF 2 NURSES, PT SITTING AT BEDSIDE, BP STILL ELEVATED BUT PT STATES HE FEELS BETTER AND IS CALMER NOW WITH AT BEDSIDE,
[2021-11-05] MEDS: tizanidine 4 mg Tablet PO ×2 (14:04→21:25)
--- NOTE | 2021-11-05 16:20 | ANE.PACU2 ---
Inpatient post-anesthesia follow up: Airway intact: Yes Vital signs: Temperature 98 F Pulse Rate 97 Respiratory Rate 18 Blood Pressure 185/103 Pulse Oximetry 98 Oxygen Delivery Me thod Room Air Oxygen Flow Rate Fraction of Inspir ed Oxygen Hydration adequate: Yes Nausea and vomiting: No Pain level: 3 Mental status: Baseline Additional Comments: Patient initially delirious on awakening, combative
[2021-11-05] MEDS: metformin 500 mg Tablet PO (17:27)
[2021-11-05] MEDS: docusate sodium 100 mg Capsule PO (17:27)
[2021-11-05 17:43] LABS: Glucose Point of Care 201 mg/dL (70-110)
--- NOTE | 2021-11-05 18:22 | PC.NURSE ---
PATIENT HAS DONE WELL SINCE ARRIVING FROM THE OR. BP WAS ELEVATED AT FIRST. THIS NURSE GOT PATIENT TO A RECLINER WHERE HE WAS MORE COMFORTABLE AND BP HAS TRENDED DOWN. NO COMPLAINTS OF PAIN AT THIS TIME. PATIENT HAS HAD 900ML OF CBI INSERTED, 1200ML OF OUTPUT. URINE STRAW IN COLOR. CBI RUNNING AT A MID TO MODERATE RATE. PATIENT TOLERATING WELL.
[2021-11-05 21:03] LABS: Glucose Point of Care 152 mg/dL (70-110)
[2021-11-05] MEDS: insulin glargine 100 units/1 mL 10 UNIT SUBCUT (21:27)
[2021-11-05] MEDS: HYDROcodone-acetaminophen 5-325 mg Tablet 1 TAB PO (23:42)
[2021-11-05] MEDS: sodium chloride 0.9% 1,000 ML 50 ML IV (23:43)
[2021-11-06 04:00] VITALS: BP 167/82; PULSE 64; RESP 17; TEMP 36.7; O2SAT 96
[2021-11-06] MEDS: finasteride 5 mg Tablet PO (05:43)
[2021-11-06] MEDS: lisinopril 20 mg Tablet PO (05:43)
[2021-11-06 06:17] LABS: Glucose Point of Care 105 mg/dL (70-110)
[2021-11-06 07:30] VITALS: BP 169/80; PULSE 81; RESP 13; O2SAT 96
[2021-11-06] MEDS: tizanidine 4 mg Tablet PO (08:28)
[2021-11-06] MEDS: metformin 500 mg Tablet PO (08:28)
[2021-11-06] MEDS: docusate sodium 100 mg Capsule PO (08:29)
--- NOTE | 2021-11-06 10:19 | PC.CHAP ---
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 industrial gas servicer supervisor visit [] Patient/Family/Request visit [] Outpatient visit [] Follow-up visit [] Physician referral [] Code/Alert [x] Routine visit [] Staff referral [] Actively dying [] Patient sleeping [] Family support [] [] Out of room [] Palliative care [] [x] Receiving care in room [] Pre-surgical visit [] Trauma [] Long length of stay [] ICU visit [] Other: Relational/Emotional Strength [x] Patient feels connected with others/family/visitors/staff [] Distress [] Loneliness/isolation [] Abandonment Spirituality of Patient [x] Person of [place] [] Attends Church of their [place] [x] Believes in Prayer [] Reads Bible or Orthodoxy materials [] There are Spiritual issues to be addressed Head Greenskeeper Interventions [x] Prayer [x] Active listening [x] Non-anxious presence [x] Spiritual/emotional support [] Crisis/trauma care [x] Spiritual counseling [] Bereavement support [] Provided bereavement packet [] Provided Bible/devotional materials [] Provided toy/stuffed animal, coloring book to patient or family member [] Provided Communion [] Anointing/[place] [] Salvation [x] Completed spiritual assessment [] Other: Impact on Illness or Injury [] Angry [] Fearful [] Anxious [] Often cries [] Exhaustion [] Unable to work [] Unable to attend synagogue [] Unable to walk/stand [] Unable to read [] Unable to drive [] Unable to eat/drink [] Unable to sleep [] Unable to be with family [] Patient intubated [] Other: Summary feels good has a good attitude and going home Time spent with patient 10 mins
[2021-11-06 10:58] VITALS: BP 169/80; PULSE 81; RESP 13; O2SAT 96
--- NOTE | 2021-11-19 11:05 | PM.DCS ---
Discharge Providers Date of Admission: 11/05/21 13:05 Date of Discharge: November 06, 2021 Attending Provider at Admission: Tom Moreau MD Attending Provider at Discharge: Tom Moreau MD Primary Care Provider: Merritt Irizarry MD Diagnoses at Discharge Discharge Diagnosis (1) BPH loc w urin obs/LUTS: Status: Acute (2) Urinary retention: Status: Acute (3) Recurrent UTI: Status: Acute Reason for Visit Reason for Visit: urinary retention Brief History: History of refractory urinary retention with bilateral hydronephrosis and obstructive uropathy at initial diagnosis of Yovanny's gangrene last year. Prolonged Stovall catheter while healing status post extensive debridement Failed multiple voiding trials. Was placed on SCIC program and medical therapy for BPH. Continued to fail both. Several episodes of sepsis requiring hospitalization due to poorly managed bladder. Also had intermittently worsening of renal function from obstructive uropathy and poorly managed bladder. Ultimately wanted to try TURP to see if that would make a difference in his voiding with the understanding that it may not. He had severe trabeculation in his bladder from longstanding obstruction. He was offered a suprapubic tube as an alternative chronic draining or even just a transient bladder management tool around the time of TUR to help facilitate assessment of PVRs and therefore not have to do self-catheterization which was historically problematic. Hospital Course Hospital Course He was admitted on 11/05/2021 and taken to the operating room for transurethral section/vaporization of the prostate which went well. Large amount of tissue was vaporized and resected. Wide open at the completion of the procedure. All chips evacuated from the bladder. Catheter left indwelling at discharge to allow further healing before voiding trial in the clinic. It was his choice to avoid a suprapubic tube at the time of the TUR and therefore he did have to commit to a trial of SCIC postop to assess PVRs. He was discharged on postoperative day #1 in stable condition. Catheter is draining well and he was doing well Physical Exam Narrative: Alert. Relatively oriented. No acute distress HEENT: Atraumatic normocephalic. Neck good range of motion Cardiovascular: Regular rate and rhythm Respiratory: No audible wheezes. No labored respiration. Lungs clear Abdomen: Soft nontender no palpable mass organomegaly appreciated Genitourinary: Stovall catheter in place draining clear urine. Mild meatal erosion. Extremity: Diffuse bilateral lower extremity edema. Neuropsych: Decreased insight overall. Urinary Catheter Management: Stovall: Cath Placed During This Visit: yes, but has since been removed by the nurse Reason for Continuing Indwelling Catheter: Perioperative Use in Selected Surgeries Urinary Catheter Date of Insertion: 11/05/21 Urinary Catheter Time of Insertion: 12:30 Date Urinary Catheter Removed: 11/05/21 Time Urinary Catheter Discontinued: 11:35 Discharge Data Studies Completed and Pending Completed Studies During Hospitalization Category Date Time Status Pathology: Surgical [PTH] Routine Pth 11/05/21 12:50 Completed Laboratory Results WBC 9.3 10^3/uL (4.0-10.0) 11/05/21 08:15 RBC 4.20 10^6/uL (4.1-5.3) 11/05/21 08:15 Hgb 13.1 g/dL (11.7-16.6) 11/05/21 08:15 Hct 39.0 % (42.0-52.0) L 11/05/21 08:15 MCV 92.9 fl (80-94) 11/05/21 08:15 MCH 31.2 pg (28.0-34.0) 11/05/21 08:15 MCHC 33.6 g/dL (30.0-36.0) 11/05/21 08:15 RDW 13.7 % (12.1-15.1) 11/05/21 08:15 Plt Count 273 10^3/cmm (130-400) 11/05/21 08:15 MPV 9.2 fL (7.4-10.4) 11/05/21 08:15 Neut % (Auto) 64.5 % 11/05/21 08:15 Lymph % (Auto) 26.6 % 11/05/21 08:15 Bland % (Auto) 5.6 % 11/05/21 08:15 Eos % (Auto) 2.6 % 11/05/21 08:15 Baso % (Auto) 0.5 % 11/05/21 08:15 Neut # (Auto) 6.02 10^3/uL (1.8-7.7) 11/05/21 08:15 Lymph # (Auto) 2.5 10^3/uL (0.8-4.8) 11/05/21 08:15 Bland # (Auto) 0.5 10^3/uL (0.2-0.9) 11/05/21 08:15 Eos # (Auto) 0.2 10^3/uL (0.0-0.8) 11/05/21 08:15 Baso # (Auto) 0.1 10^3/uL (0.0-0.1) 11/05/21 08:15 Nucleated RBC % (auto) 0 % 11/05/21 08:15 Nucleated RBCs # 0.0 /100WBC 11/05/21 08:15 Sodium 143 mmol/L (136-145) 11/05/21 08:15 Potassium 3.2 mmol/L (3.5-5.1) L 11/05/21 08:15 Chloride 104 mmol/L (98-107) 11/05/21 08:15 Carbon Dioxide 23 mmol/L (22-29) 11/05/21 08:15 Anion Gap 19.2 (5-19) H 11/05/21 08:15 BUN 19 mg/dL (8-23) 11/05/21 08:15 Creatinine 0.7 mg/dL (0.7-1.2) 11/05/21 08:15 GFR Calculation 112.5 mL/min (90-130) 11/05/21 08:15 Glucose 108 mg/dL (65-115) 11/05/21 08:15 POC Glucose 105 mg/dL (70-110) 11/06/21 06:14 Calculated Osmolality 299 mOsm/kg (285-295) H 11/05/21 08:15 Calcium 9.7 mg/dL (8.5-10.5) 11/05/21 08:15 Total Bilirubin 0.5 mg/dL (0.15-1.2) 11/05/21 08:15 AST 13 U/L (0-40) 11/05/21 08:15 ALT 14 U/L (0-41) 11/05/21 08:15 Alkaline Phosphatase 124 IU/L (40-130) 11/05/21 08:15 Total Protein 8.0 g/dL (6.6-8.7) 11/05/21 08:15 Albumin 4.3 g/dL (3.5-5.2) 11/05/21 08:15 Globulin 3.7 g/dL (1.3-4.6) 11/05/21 08:15 Procedures Performed Cystoscopy, transurethral resection/vaporization of the prostate Vitals Last Vital Signs Temp 98.0 F 11/06/21 04:00 Pulse 81 11/06/21 10:58 Resp 13 11/06/21 10:58 BP 169/80 11/06/21 10:58 Pulse Ox 96 11/06/21 10:58 Discharge Plan Discharge Patient Disposition: Home Condition: Stable Prescriptions: Continued Basaglar KwikPen U-100 Insulin 100 unit/mL (3 mL) insulin pen 10 unit SUBCUT .Q HS 0RF methenamine hippurate 1 gram tablet 1 g PO BID Qty: 60 12RF Rx Instructions: with 1 g vitamin C each dose ascorbic acid (vitamin C) [Vitamin C] 1,000 mg Tablet 1,000 mg PO BID 0RF tizanidine 4 mg tablet 4 mg PO TID 0RF ferrous sulfate [iron] 325 mg (65 mg iron) Tablet 325 mg PO BID 0RF (DME) blood-glucose meter [Accu-Chek Tawny Plus Meter] Misc See Rx Instructions .Route Qty: 1 0RF Rx Instructions: As directed (DME) Accu-Chek Tawny Plus test strp Strip See Rx Instructions .Route Qty: 50 2RF Rx Instructions: As directed (DME) lancets [Accu-Chek Multiclix Lancet] Misc See Rx Instructions .Route Qty: 100 0RF Rx Instructions: As directed (DME) Kerlix Packing Sponge 4 1/2 X 22 sponge See Rx Instructions .Route Qty: 60 0RF Rx Instructions: As directed metformin 500 mg Tablet 500 mg PO BID 30 Days Qty: 60 1RF lisinopril 20 mg tablet 20 mg PO QAM 0RF finasteride 5 mg Tablet 5 mg PO QD Qty: 30 0RF Held Eliquis 5 mg tablet 5 mg PO BID 30 Days Qty: 60 2RF Hold Instructions: Resume on 11/13/21. Rx Instructions: rx filled 05/08/21 30d/s No Action tramadol 50 mg tablet 50 mg PO Q8H PRN (Reason: pain) Qty: 15 0RF Discharge Orders: Discharge Order (Routine); Ordered 11/06/21 Ordered By: Tom Moreau Referrals: Tom Moreau MD [Physician] - 11/14/21 (Voiding trial [facility] Dr. Moreau's office will call you with a follow up appointment. ) Discharge Diet: Usual diet Discharge Activity: Limit activity as instructed Patient Instructions: Cystoscopy, Opioid Safety, TURP Activity Restrictions/Additional Instructions: No lifting >10 pound We will see back in the office next week for voiding trial and self cath training. Please be prepared to do this. Hold the Eliquis until late next week. Discharge Attestations Time Spent in Discharge Care*: less than 30 min Status at Discharge: Cognitive status at discharge: cognitively intact, Behavioral status at discharge: cooperative, Quality Metrics Clinical Quality Measures [ No reported AMI, CVA or VTE this stay] Coding Level of Care Code Acute Chg [facility] note Diagnoses BPH loc w urin obs/LUTS N40.1 Urinary retention R33.9 Recurrent UTI N39.0
== END 2021-11-06 10:59 | disposition home or self-care (01) ==
LOC: MEDSURG 13:09
PROVIDERS: Admitting Provider Urology; PCP Family Medicine; Visit Provider Urology
PROC: 0VT08ZZ Resection of Prostate, Via Natural or Artificial Opening Endoscopic (ICD-10-PCS; CPT 52601; principal; 2021-11-05 08:55)
PROC: 0TJB8ZZ Inspection of Bladder, Via Natural or Artificial Opening Endoscopic (ICD-10-PCS; CPT 52000; 2021-11-05 08:55)
DX: R33.9 Retention of urine, unspecified (principal); N40.1 Benign prostatic hyperplasia with lower urinary tract symptoms; N13.8 Other obstructive and reflux uropathy; Z86.718 Personal history of other venous thrombosis and embolism; I10 Essential (primary) hypertension; E11.9 Type 2 diabetes mellitus without complications; E66.01 Morbid (severe) obesity due to excess calories; Z68.34 Body mass index [BMI] 34.0-34.9, adult; M19.90 Unspecified osteoarthritis, unspecified site; F41.9 Anxiety disorder, unspecified; Z79.4 Long term (current) use of insulin; Z79.84 Long term (current) use of oral hypoglycemic drugs; Z87.891 Personal history of nicotine dependence
CPT/HCPCS: 52601; 36415; 36416; 80053; 82962; 85025; 88305; 94664; 96372; G0378; J0360; J1170; J1580; J1815; J2250; J3010; J3490; J7030

== ENCOUNTER → 2021-11-20 15:02 | Outpatient (BNVA) | payer MEDICAID, SELFPAY | PROVIDERS: PCP Family Medicine; Visit Provider Urology | DX: R33.9 Retention of urine, unspecified (principal); N39.0 Urinary tract infection, site not specified; N40.1 Benign prostatic hyperplasia with lower urinary tract symptoms; M19.90 Unspecified osteoarthritis, unspecified site | CPT/HCPCS: 81003; 87077; 87086; 87184 ==

== ENCOUNTER 2021-12-05 07:51 | Day surgery (SDC) | payer MEDICAID, SELFPAY ==
[2021-12-03 13:44] VITALS: BMI 34.2
[2021-12-05 09:06] VITALS: BP 206/102; PULSE 110; RESP 20; TEMP 36.6; O2SAT 98
[2021-12-05] MEDS: sodium chloride 0.9% 1,000 ML 30 ML IV (09:13)
--- NOTE | 2021-12-05 09:46 | W.PM.OPSFHP ---
Same Day Surgery H&P Indication for Procedure/HPI DATE OF PROCEDURE: December 05, 2021 CHIEF COMPLAINT/INDICATIONFOR SURGICAL PROCEDURE: Screening colonoscopy PREOP DIAGNOSIS: Screening colonoscopy PLANNED PROCEDURE: Operation Date: 12/05/21 09:45 Proposed Procedures p Colonoscopy 52859/z12.11(Not Applicable) - Vitor Benavides MD 10/06/2021 This is a pleasant 65 years old gentleman well-known to me from previous clinical encounter involving wound care of the scrotal perineal segment.? Patient ultimately healed and he is referred to my practice for screening colonoscopy as he never had one before.? He denies any bleeding per rectum or change in bowel habits. 12/05/2021 Patient comes today for screening colonoscopy ROS All systems have been reviewed negative except as for the above or per problem list. Medications/Allergies* Home Medications Medication Instructions Recorded Confirmed Type ferrous sulfate 325 mg (65 mg 325 mg PO BID 06/12/21 12/03/21 History iron) tablet (iron) tizanidine 4 mg tablet 4 mg PO TID 06/12/21 12/03/21 History lisinopril 20 mg tablet 20 mg PO QAM 07/10/21 12/03/21 History insulin glargine 100 unit/mL (3 10 unit SUBCUT .Q HS ml 09/29/21 12/03/21 History mL) subcutaneous pen (Basaglar KwikPen U-100 Insulin) Allergies/Adverse Reactions Allergy/AdvReac Type Severity Reaction Status Date / Time cephalexin Allergy Unknown Verified 12/05/21 09:46 ciprofloxacin [From Cipro] Allergy Unknown Verified 12/05/21 09:46 gabapentin Allergy numbness Verified 12/05/21 09:46 nitrofurantoin Allergy Unknown Verified 12/05/21 09:46 pregabalin Allergy numbness Verified 12/05/21 09:46 Sulfa (Sulfonamide Allergy Unknown Verified 12/05/21 09:46 Antibiotics) Current Medications: Generic Name Dose Route Start Last Admin Trade Name Freq PRN Reason Stop Dose Admin Sodium Chloride 1,000 mls @ 30 mls/hr 12/05/21 08:30 12/05/21 09:13 Sodium Chloride 0.9% IV 30 mls/hr .Q24H JENISE Administration Pertinent History/Comorbid Conditions* Medical History (Updated 11/20/21 @ 15:40 by Tom Moreau MD) Acute kidney injury Anemia Bilateral hydronephrosis Bladder trabeculation 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 Chronic low back pain Diabetes Diverticula, bladder acquired DVT (deep venous thrombosis) DVT, bilateral lower limbs 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 Hypertension Lumbar disc disease with radiculopathy Lumbar disc disease with radiculopathy Lumbar stenosis Necrotizing fasciitis of multiple sites Obesity Osteoarthritis of right knee Recurrent UTI Urinary retention Surgical History (Updated 01/31/21 @ 19:35 by Tom Moreau MD) Status post hernia repair Family History (Updated 06/06/21 @ 09:52 by Stephanie Estes LPN) Father Mother CAD (coronary artery disease) Heart attack Mother Cancer Father Denies family history of Anesthesia complication Bleeding disorder Social History Smoking and tobacco status: former smoker Alcohol intake: never Household members: spouse Marital status: Current occupational status: disabled History of recent travel: No Pertinent Exam Findings alert, oriented x 3, regular rate & rhythm and procedure specific exam findings (Abdominal exam NT ND Soft) Recommendations Surgery/Procedure today (Screening colonoscopy) Coding Level of Care Code Acute Quality Process Auditor for Dean De La Garza
--- NOTE | 2021-12-05 10:29 | P.ANESASSM_ITS ---
Pre-Anesthetic Assessment Height/Weight: Height 1.8 m Weight 111.13 kg Temp Pulse Resp BP Pulse Ox 97.8 F 110 H 20 H 206/102 98 12/05/21 09:06 12/05/21 09:06 12/05/21 09:06 12/05/21 09:06 12/05/21 09:06 Preop Diagnosis: Screening colonoscopy Operation Date: 12/05/21 09:45 Proposed Procedures p Colonoscopy 38223/z12.11(Not Applicable) - Vitor Benavides MD Familial anesthetic complications: None Was Beta Willian taken within 24 hours: N/A Was Clonidine taken within 24 hours: N/A Last intake: Intake Last Liquid Date 12/04/21 Last Liquid Time 20:00 Last Solid Date 12/03/21 Last Solid Time 19:00 Social No alcohol and No tobacco Exam alert, oriented x 3, clear to auscultation bilaterally and regular rate & rhythm Airway Submandibular: within normal limits Cervical ROM: within normal limits Mallampati: Class II Dentition: full CV/HEM Anemia, Deep Vein Thrombosis and Hypertension Metabolic Diabetes Mellitus and Morbid Obesity [facility] [place] Lower Back Pain Anesthetic Plan ASA status: 3 Anesthesia: MAC Medications/Allergies Home Medications Medication Instructions Recorded Confirmed Last Taken Type apixaban 5 mg tablet (Eliquis) 5 mg PO BID 30 Days #60 tab 02/15/21 12/03/21 10/31/21 Rx blood sugar diagnostic (Accu-Chek #50 ea 02/15/21 11/20/21 Unknown Rx Tawny Plus test strp) blood-glucose meter (Accu-Chek #1 ea 02/15/21 11/20/21 Unknown Rx Tawny Plus Meter) gauze bandage 4 1/2 X 22 sponge #60 ea 02/15/21 11/20/21 Unknown Rx (Kerlix Packing Sponge) lancets (Accu-Chek Multiclix #100 ea 02/15/21 12/03/21 Unknown Rx Lancet) metformin 500 mg tablet 500 mg PO BID 30 Days #60 tab 02/15/21 12/03/21 11/04/21 Rx ferrous sulfate 325 mg (65 mg 325 mg PO BID 06/12/21 12/03/21 11/04/21 History iron) tablet (iron) tizanidine 4 mg tablet 4 mg PO TID 06/12/21 12/03/21 11/04/21 History lisinopril 20 mg tablet 20 mg PO QAM 07/10/21 12/03/21 11/04/21 History finasteride 5 mg tablet 5 mg PO QD #30 tab 07/12/21 12/03/21 11/04/21 Rx insulin glargine 100 unit/mL (3 10 unit SUBCUT .Q HS ml 09/29/21 12/03/21 11/03/21 History mL) subcutaneous pen (Basaglar KwikPen U-100 Insulin) doxycycline hyclate 100 mg capsule 100 mg PO BID #60 cap 11/25/21 12/03/21 Unknown Rx Allergies Allergy/AdvReac Type Severity Reaction Status Date / Time cephalexin Allergy Unknown Verified 12/05/21 09:46 ciprofloxacin [From Cipro] Allergy Unknown Verified 12/05/21 09:46 gabapentin Allergy numbness Verified 12/05/21 09:46 nitrofurantoin Allergy Unknown Verified 12/05/21 09:46 pregabalin Allergy numbness Verified 12/05/21 09:46 Sulfa (Sulfonamide Allergy Unknown Verified 12/05/21 09:46 Antibiotics) Current Medications Generic Name Dose Route Start Last Admin Trade Name Freq PRN Reason Stop Dose Admin Sodium Chloride 1,000 mls @ 30 mls/hr 12/05/21 08:30 12/05/21 09:13 Sodium Chloride 0.9% IV 30 mls/hr .Q24H JENISE Administration PFSH Anesthesia Medical History Acute kidney injury Anemia Bilateral hydronephrosis Bladder trabeculation 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 Chronic low back pain Diabetes Diverticula, bladder acquired DVT (deep venous thrombosis) DVT, bilateral lower limbs 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 Hypertension Lumbar disc disease with radiculopathy Lumbar disc disease with radiculopathy Lumbar stenosis Necrotizing fasciitis of multiple sites Obesity Osteoarthritis of right knee Recurrent UTI Urinary retention Surgical History Status post hernia repair Family History Father Cancer Mother Heart attack Other CAD (coronary artery disease) Denies family history of Anesthesia complication Bleeding disorder Social History Smoking and tobacco status: former smoker Alcohol intake: never Household members: spouse Marital status: Current occupational status: disabled History of recent travel: No Data Anesthesia Cardiac Studies: Echocardiogram 02/01/21
[2021-12-05 11:23] VITALS: BP 170/96; PULSE 89; RESP 18; TEMP 36.1; O2SAT 99
--- NOTE | 2021-12-05 11:24 | ANE.PACU2 ---
Documented by User: Bernardo Colon CRNA 12/05/21 11:24 Inpatient post-anesthesia follow up: Airway intact: Yes Vital signs: Temperature 97.8 F Pulse Rate 110 Respiratory Rate 20 Blood Pressure 206/102 Pulse Oximetry 98 Oxygen Delivery Me thod Room Air Oxygen Flow Rate Fraction of Inspir ed Oxygen Hydration adequate: Yes Nausea and vomiting: No Pain level: 1 Mental status: Baseline
[2021-12-05 11:38] VITALS: BP 170/80; PULSE 92; RESP 18; TEMP 36.1; O2SAT 98
== END 2021-12-05 11:47 | disposition home or self-care (01) ==
PROVIDERS: PCP Family Medicine; Visit Provider Surgery
PROC: 0DJD8ZZ Inspection of Lower Intestinal Tract, Via Natural or Artificial Opening Endoscopic (ICD-10-PCS; CPT 45378; principal; 2021-12-05 09:45)
DX: Z12.11 Encounter for screening for malignant neoplasm of colon (principal); D12.3 Benign neoplasm of transverse colon; K57.30 Diverticulosis of large intestine without perforation or abscess without bleeding; E11.9 Type 2 diabetes mellitus without complications; Z79.4 Long term (current) use of insulin; N40.1 Benign prostatic hyperplasia with lower urinary tract symptoms; N13.8 Other obstructive and reflux uropathy; Z86.718 Personal history of other venous thrombosis and embolism; E66.01 Morbid (severe) obesity due to excess calories; Z68.34 Body mass index [BMI] 34.0-34.9, adult; I10 Essential (primary) hypertension; Z79.84 Long term (current) use of oral hypoglycemic drugs; Z87.891 Personal history of nicotine dependence
CPT/HCPCS: 45385; 88305; J2704; J7030

== ENCOUNTER → 2021-12-17 11:26 | Outpatient (BNVA) | payer MEDICAID, SELFPAY | PROVIDERS: PCP Family Medicine; Visit Provider Surgery | DX: Z09 Encounter for follow-up examination after completed treatment for conditions other than malignant neoplasm (principal); K57.31 Diverticulosis of large intestine without perforation or abscess with bleeding | CPT/HCPCS: 99213 ==

== ENCOUNTER → 2022-01-02 08:02 | Outpatient (BNVA) | payer MEDICAID, SELFPAY | PROVIDERS: PCP Family Medicine; Visit Provider Urology | DX: Z98.890 Other specified postprocedural states (principal); R33.9 Retention of urine, unspecified; N40.1 Benign prostatic hyperplasia with lower urinary tract symptoms; N39.0 Urinary tract infection, site not specified | CPT/HCPCS: 51741; 51798; 81003; 87077; 87086; 87186; 99024 ==

== ENCOUNTER 2022-01-03 13:42 | Emergency (ER) | payer MEDICAID, SELFPAY ==
[2022-01-03 13:58] VITALS: BP 178/98; PULSE 94; RESP 16; TEMP 36.7; O2SAT 95; BMI 34.8
--- NOTE | 2022-01-03 15:26 | W.ED.MALEGU ---
HPI - Male Genitourinary General: Chief complaint: Urogenital-Male Stated complaint: blood in urine Time Seen by Provider: 01/03/22 15:22 History of Present Illness: 66-year-old male patient comes in today with complaints of blood in his urine. Patient seen Dr. Moreau yesterday and it was noted that he had significant amount of white blood cells in his urine and it was sent for culture. Today when patient woke up he noticed a large amount of blood in his urine. Patient appears nontoxic. Patient reports no fever or nausea or vomiting. Patient appears in no pain. Associated symptoms: Reports hematuria; Deny nausea or vomiting Review of Systems General: Reports: 10 or more systems reviewed and unremarkable except in HPI and below ENMT: Denies: throat pain Card: Denies: chest pain Resp: Denies: dyspnea GI: Denies: nausea, vomiting or diarrhea : Reports: hematuria PFS ED PFSH: Medical History (Updated 01/03/22 @ 15:33 by YESSICA Vega) Acute kidney injury Anemia Bilateral hydronephrosis Bladder trabeculation 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 Chronic low back pain Colon polyps Diabetes Diverticula, bladder acquired DVT (deep venous thrombosis) DVT, bilateral lower limbs 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 Hypertension Lumbar disc disease with radiculopathy Lumbar disc disease with radiculopathy Lumbar stenosis Necrotizing fasciitis of multiple sites Obesity Osteoarthritis of right knee Recurrent UTI Urinary retention Surgical History Status post hernia repair Family History Father Cancer Mother Heart attack Other CAD (coronary artery disease) Denies family history of Anesthesia complication Bleeding disorder Social History Smoking and tobacco status: former smoker Alcohol intake: never Household members: spouse Marital status: Current occupational status: disabled History of recent travel: No Physical Exam Const: COMMON NORMALS: alert HENMT: COMMON NORMALS: normocephalic HEAD & SCALP: normocephalic Neck/C-Spine: COMMON NORMALS: full ROM Resp: COMMON NORMALS: normal respiratory effort and clear to auscultation bilaterally AUSCULTATION: clear to auscultation bilaterally Cardio: COMMON NORMALS: regular rate and regular rhythm RATE: regular rate RHYTHM: regular rhythm GI: PALPATION: No Bladder palpation abnormal : COMMON NORMALS: Yes no CVA tenderness BLADDER/KIDNEY EXAM: Yes no CVA tenderness and No Bladder palpation abnormal Back/Pelvis: COMMON NORMALS: no CVA tenderness Neuro: SENSORIUM/ORIENTATION: Yes alert Skin: COMMON NORMALS: no rashes or lesions noted GENERAL SKIN EXAM: no rashes or lesions noted Course Vital Signs: Vital signs: Vital Signs Temperature 98.1 F 01/03/22 13:58 Pulse Rate 94 01/03/22 13:58 Respiratory Rate 16 01/03/22 13:58 Blood Pressure 178/98 01/03/22 13:58 Pulse Oximetry 95 01/03/22 13:58 [facility] - Male Medical Decision Making 66-year-old male patient comes in today for complaints of blood in the urine. On exam abdomen soft nontender. No CVA tenderness. I am unable to palpate the bladder. Skin is warm and dry and vital signs are normal. Differential diagnosis includes not limited to cystitis with hematuria, urinary retention, renal calculi. 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 Review of the urine culture from yesterday does grow out gram-negative rods. We will restart patient on doxycycline 100 mg twice a day for the next 14 days. Recommend follow-up with Dr. Moreau for further treatment and evaluation. Recommend return to the ER for worsening symptoms such as high fever, nausea vomiting, or severe pain. Patient reported understanding agreed to plan. Discharge Plan Discharge Patient Disposition: Home Clinical Impression: Urinary tract infection Qualifiers: Urinary tract infection type: acute cystitis Hematuria presence: with hematuria Qualified Code(s): N30.01 - Acute cystitis with hematuria Condition: Stable Prescriptions: New doxycycline monohydrate 100 mg capsule 100 mg PO BID 14 Days Qty: 28 0RF No Action Basaglar KwikPen U-100 Insulin 100 unit/mL (3 mL) insulin pen 10 unit SUBCUT .Q HS 0RF tramadol 50 mg tablet 50 mg PO DAILY PRN0RF methenamine hippurate 1 gram tablet 1 g PO BID 0RF ascorbic acid (vitamin C) 1,000 mg tablet 1 g PO BID 0RF tizanidine 4 mg tablet 4 mg PO TID 0RF ferrous sulfate [iron] 325 mg (65 mg iron) Tablet 325 mg PO BID 0RF (DME) blood-glucose meter [Accu-Chek Tawny Plus Meter] Misc See Rx Instructions .Route Qty: 1 0RF Rx Instructions: As directed (DME) Accu-Chek Tawny Plus test strp Strip See Rx Instructions .Route Qty: 50 2RF Rx Instructions: As directed (DME) lancets [Accu-Chek Multiclix Lancet] Misc See Rx Instructions .Route Qty: 100 0RF Rx Instructions: As directed Eliquis 5 mg tablet 5 mg PO BID 30 Days Qty: 60 2RF Hold Instructions: Resume on 12/10/21. Rx Instructions: rx filled 05/08/21 30d/s (DME) Kerlix Packing Sponge 4 1/2 X 22 sponge See Rx Instructions .Route Qty: 60 0RF Rx Instructions: As directed metformin 500 mg Tablet 500 mg PO BID 30 Days Qty: 60 1RF lisinopril 20 mg tablet 20 mg PO QAM 0RF finasteride 5 mg Tablet 5 mg PO QD Qty: 30 0RF Discharge Orders: Discharge ED (Routine); Ordered 01/03/22 Ordered By: Anirudh Zavala Referrals: Merritt Irizarry MD [Primary Care Provider] - Discharge Diet: Usual diet Discharge Activity: Increase activity as tolerated Patient Instructions: Urinary Tract Infection in Older Adults (ED) Activity Restrictions/Additional Instructions: Take doxycycline 100 mg twice a day for 14 days. Follow-up with Dr. Moreau's office regarding infection. Monitor for fever greater than 100.4, nausea vomiting, or uncontrolled pain. Return to the ER for these worsening complaints. Coding Level of Care Code ED Disassembler for Dean De La Garza
[2022-01-03] MEDS: doxycycline 100 mg Tablet PO (15:38)
[2022-01-03 15:41] VITALS: BP 187/99; PULSE 84; O2SAT 99
[2022-01-03 15:50] VITALS: BP 182/92; PULSE 79; O2SAT 97
== END 2022-01-03 15:51 | disposition home or self-care (01) ==
PROVIDERS: Emergency Provider Nurse Practitioner Family; PCP Family Medicine
DX: N30.01 Acute cystitis with hematuria (principal); Z87.440 Personal history of urinary (tract) infections
CPT/HCPCS: 99283

== ENCOUNTER → 2022-03-05 09:03 | Outpatient (BNVA) | payer OTHER, MEDICAID, SELFPAY | PROVIDERS: PCP Family Medicine; Visit Provider Urology | DX: R33.9 Retention of urine, unspecified (principal); N39.0 Urinary tract infection, site not specified; N40.1 Benign prostatic hyperplasia with lower urinary tract symptoms | CPT/HCPCS: 51741; 51798; 81003; 87077; 87086; 87186; 99213 ==

== ENCOUNTER 2022-08-28 12:53 | Outpatient (CLI) | payer OTHER, MEDICAID, SELFPAY ==
[2022-08-28 13:20] LABS: Alanine Aminotransferase 17 U/L (0-41); Albumin Level 3.5 g/dL (3.5-5.2); Alkaline Phosphatase 106 U/L (40-130); Anion Gap 17.6 (5-19); Aspartate Amino Transferase 13 U/L (0-40); Blood Urea Nitrogen 19 mg/dL (8-23); Calcium 8.9 mg/dL (8.5-10.5); Carbon Dioxide 24 mmol/L (22-29); Chloride 100 mmol/L (98-107); Globulin 3.1 g/dL (1.3-4.6); Glomerular Filtration Rate 112.1 mL/min (90-130); Glucose 177 mg/dL (65-115); Osmolality Calculated 293 mOsm/kg (285-295); Potassium 3.6 mmol/L (3.5-5.1); Sodium 138 mmol/L (136-145); Total Bilirubin 0.3 mg/dL (0.15-1.2); Total Protein 6.6 g/dL (6.6-8.7)
== END 2022-08-28 12:54 | disposition home or self-care (01) ==
LOC: LAB 12:53
PROVIDERS: PCP Family Medicine Adult Medicine; Visit Provider Family Medicine Adult Medicine
DX: Z01.89 Encounter for other specified special examinations (principal)
CPT/HCPCS: 80053

== ENCOUNTER → 2022-09-01 08:52 | Outpatient (BNVA) | payer OTHER, MEDICAID, SELFPAY | PROVIDERS: PCP Family Medicine Adult Medicine; Visit Provider Family Medicine Adult Medicine | DX: E11.69 Type 2 diabetes mellitus with other specified complication (principal); E66.9 Obesity, unspecified; E66.01 Morbid (severe) obesity due to excess calories; I10 Essential (primary) hypertension | CPT/HCPCS: 80061; 83036 ==

== ENCOUNTER 2022-09-17 04:50 | Inpatient (IN) | payer MEDICARE, MEDICAID, SELFPAY ==
[2022-09-17] VITALS (37 sets, daily range): BP systolic 123–193; BP diastolic 67–99; PULSE 79–107; RESP 11–30; TEMP 36.7–37.7; O2SAT 91–98; BMI 55.7; BMI 44.9
--- NOTE | 2022-09-17 04:55 | XRR_ITS ---
PROCEDURE INFORMATION: Exam: XR Chest Exam date and time: 09/17/2022 5:00 AM Age: 66 years old Clinical indication: Chest pressure; Patient HX: C/O chest pain; Additional info: Cp TECHNIQUE: Imaging protocol: Radiologic exam of the chest. Views: 1 view. COMPARISON: CR XR chest 1V portable [id number] 02/13/2021 11:07 AM FINDINGS: Tubes, catheters and devices: A couple monitor leads project over the chest. Lungs: No significant or acute findings. No consolidation. Pleural spaces: No costophrenic angle blunting. No pneumothorax. Heart/Mediastinum: Heart size within normal limits given the portable AP technique. Vasculature: Ectatic and tortuous thoracic aorta. Bones/joints: No acute osseous abnormality. XR/XR chest 1V portable [id number] IMPRESSION: No acute abnormality demonstrated.
--- NOTE | 2022-09-17 04:57 | ECG_ITS ---
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 Measurements Intervals [place] Rate: 95 P: 26 WI: 148 QRS: -54 QRSD: 114 T: 61 QT: 374 QTc: 471 Interpretive Statements SINUS RHYTHM LEFT ANTERIOR FASCICULAR BLOCK [QRS AXIS <= -45, QR IN I, RS IN II] LEFT VENTRICULAR HYPERTROPHY AND ST-T CHANGE [VOLTAGE CRITERIA PLUS ST/T ABNORMALITY] PROBABLE LATERAL MYOCARDIAL INFARCTION , OF INDETERMINATE AGE [35 ms Q WAVE IN I/aVL/V5/V6] Compared to ECG 07/10/2021 20:44:32 Left anterior fascicular block now present Left ventricular hypertrophy now present ST (T wave) deviation now present Left-axis deviation no longer present Myocardial infarct finding still present Electronically Signed On 09-17-2022 22:19:28 DIGESTER OPERATOR by Randy Garcia M.D. [id number]
--- NOTE | 2022-09-17 04:59 | ED_ITS ---
Documented by User: Moises Chiu MD 09/17/22 05:01 HPI - Chest Pain General: Chief Complaint: Chest Pain Stated Complaint: cp Time Seen by Provider: 09/17/22 05:01 Source: patient Mode of arrival: ambulatory Limitations: no limitations History of Present Illness: 66-year-old male states has been having chest pain throughout the night states its been left-sided pain with some vomiting has been going on for roughly 6 7 hours. He denies any shortness of breath he denies any cough or fever. He denies any abdominal pain denies any radiation of his pain no history of heart disease. Associated symptoms: Deny abdominal pain, dyspnea, fever(s), nausea or vomiting Review of Systems Const: Denies: fever(s), chills, body aches or change in appetite Eyes: Denies: blurry vision or eye discomfort ENMT: Denies: throat pain or dental pain Card: Reports: chest pain Resp: Denies: dyspnea GI: Denies: abdominal pain, nausea, vomiting or diarrhea : Denies: dysuria Musc: Denies: neck pain or back pain Skin/Breast: Denies: rash Neuro: Denies: headache(s) Psych: Denies: depression Haroldo/Lymph: Denies: easy bruising All/Imm: Denies: urticaria PFSH ED PFSH: Medical History Acute kidney injury Anemia Bilateral hydronephrosis Bilateral lower extremity edema Bladder trabeculation 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 Cellulitis of anterior lower leg Chronic low back pain Chronic pain of lower extremity, bilateral Colon polyps Dermatitis associated with moisture from stool incontinence Diabetes mellitus type 2 in obese Diverticula, bladder acquired DVT (deep venous thrombosis) DVT, bilateral lower limbs Encounter for screening colonoscopy 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 Hypertension Lumbar disc disease with radiculopathy Lumbar disc disease with radiculopathy Lumbar stenosis Morbid obesity due to excess calories Osteoarthritis of right knee Recurrent UTI Sepsis Severe muscle deconditioning 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 chronic peripheral venous hypertension Urinary retention Surgical History Status post hernia repair Family History Father , IN HIS 60'S Cancer LUNG Mother , IN HER 60'S Heart attack Other CAD (coronary artery disease) Denies family history of Anesthesia complication Bleeding disorder Social History Smoking and tobacco status: former smoker Alcohol intake: never Adopted: No Caregiver/support person: Yes Household members: spouse Marital status: Current occupational status: disabled Physical Exam Const: COMMON NORMALS: no acute distress, patient oriented x3 and healthy appearing HENMT: COMMON NORMALS: normocephalic and atraumatic HEAD & SCALP: normoc ephalic and atraumatic Eye: COMMON NORMALS: Equal, round and reactive pupils present and EOMs intact bilaterally PUPIL: Yes Equal, round and reactive pupils present Neck/C-Spine: COMMON NORMALS: full ROM and supple Chest: COMMONS NORMALS: normal inspection of the chest and normal palpation of entire chest wall Resp: COMMON NORMALS: normal respiratory effort, No retractions, No use of accessory muscles and clear to auscultation bilaterally AUSCULTATION: clear to auscultation bilaterally Cardio: COMMON NORMALS: regular rate, regular rhythm and No murmurs present (Cardio) RATE: regular rate RHYTHM: regular rhythm GI: COMMON NORMALS: Normal to inspection, nondistended, normoactive bowel sounds present, Soft to palpation, non-tender and no masses PALPATION: Yes Soft to palpation Extremity: COMMON NORMALS: normal to inspection and full ROM Neuro: COMMON NORMALS: patient oriented x3, moves all extremities and no focal motor deficits Psych: COMMON NORMALS: mental status grossly normal, Normal thought process present and cooperative THOUGHT PROCESS: Normal thought process present Skin: COMMON NORMALS: no rashes or lesions noted and no wounds GENERAL SKIN EXAM: no rashes or lesions noted Course Vital Signs: Vital signs: Vital Signs Temperature 98.1 F 09/17/22 04:55 Pulse Rate 92 09/17/22 05:48 Respiratory Rate 18 09/17/22 05:48 Blood Pressure 192/94 09/17/22 05:48 Pulse Oximetry 97 09/17/22 05:48 Oxygen Delivery Me thod 09/17/22 05:48 Oxygen Flow Rate 2 09/17/22 05:48 MDM - Chest Pain Lab Data 09/17/22 05:07 09/17/22 05:07 Radiology Impressions Chest X-Ray 09/17/22 04:55 IMPRESSION: No acute abnormality demonstrated. Chest CTA 09/17/22 05:35 IMPRESSION: 1. No evidence of pulmonary embolism or aortic dissection. 2. Atherosclerotic vascular disease including coronary artery disease. 3. Old granulomatous disease. Laboratory Results WBC 11.0 10^3/uL (4.0-10.0) H 09/17/22 05:07 RBC 4.64 10^6/uL (4.1-5.3) 09/17/22 05:07 Hgb 14.4 g/dL (11.7-16.6) 09/17/22 05:07 Hct 44.1 % (42.0-52.0) 09/17/22 05:07 MCV 95.0 fl (80-94) H 09/17/22 05:07 MCH 31.0 pg (28.0-34.0) 09/17/22 05:07 MCHC 32.7 g/dL (30.0-36.0) 09/17/22 05:07 RDW 13.9 % (12.1-15.1) 09/17/22 05:07 Plt Count 333 10^3/cmm (130-400) 09/17/22 05:07 MPV 9.0 fL (7.4-10.4) 09/17/22 05:07 Neut % (Auto) 76.6 % 09/17/22 05:07 Lymph % (Auto) 15.6 % 09/17/22 05:07 [place] % (Auto) 6.9 % 09/17/22 05:07 Eos % (Auto) 0.2 % 09/17/22 05:07 Baso % (Auto) 0.3 % 09/17/22 05:07 Neut # (Auto) 8.43 10^3/uL (1.8-7.7) H 09/17/22 05:07 Lymph # (Auto) 1.7 10^3/uL (0.8-4.8) 09/17/22 05:07 [place] # (Auto) 0.8 10^3/uL (0.2-0.9) 09/17/22 05:07 Eos # (Auto) 0.0 10^3/uL (0.0-0.8) 09/17/22 05:07 Baso # (Auto) 0.0 10^3/uL (0.0-0.1) 09/17/22 05:07 Nucleated RBC % (auto) 0 % 09/17/22 05:07 Nucleated RBCs # 0.0 /100WBC 09/17/22 05:07 PT 13.50 SECONDS (12.1-14.9) 09/17/22 05:07 INR 1.00 (0.8-1.2) 09/17/22 05:07 D-Dimer 3.12 ug/mIFEU (0-0.59) H 09/17/22 05:07 Sodium 142 mmol/L (136-145) 09/17/22 05:07 Potassium 3.3 mmol/L (3.5-5.1) L 09/17/22 05:07 Chloride 98 mmol/L (98-107) 09/17/22 05:07 Carbon Dioxide 19 mmol/L (22-29) L 09/17/22 05:07 Anion Gap 28.3 (5-19) H 09/17/22 05:07 BUN 25 mg/dL (8-23) H 09/17/22 05:07 Creatinine 1.2 mg/dL (0.7-1.2) 09/17/22 05:07 GFR Calculation 60.2 mL/min (90-130) L 09/17/22 05:07 Glucose 223 mg/dL (65-115) H 09/17/22 05:07 Calculated Osmolality 305 mOsm/kg (285-295) H 09/17/22 05:07 Calcium 9.9 mg/dL (8.5-10.5) 09/17/22 05:07 Total Bilirubin 0.6 mg/dL (0.15-1.2) 09/17/22 05:07 AST 16 U/L (0-40) 09/17/22 05:07 ALT 19 U/L (0-41) 09/17/22 05:07 Alkaline Phosphatase 130 U/L (40-130) 09/17/22 05:07 Troponin T Baseline 157 ng/L (0-15) H* 09/17/22 05:07 Troponin T 120 Minute 143.4 ng/L (0-15) H 09/17/22 06:42 Delta Troponin T -13.6 ABS# (0-10) L 09/17/22 06:42 Total Protein 8.2 g/dL (6.6-8.7) 09/17/22 05:07 Albumin 4.2 g/dL (3.5-5.2) 09/17/22 05:07 Globulin 4.0 g/dL (1.3-4.6) 09/17/22 05:07 Discharge Plan Discharge Patient Disposition: Admitted As Inpatient Clinical Impression: Non-ST elevation OR (NSTEMI), Diabetes mellitus type 2 in obese, Morbid obesity due to excess calories, Hypertension Condition: Stable Prescriptions: No Action Basaglar KwikPen U-100 Insulin 100 unit/mL (3 mL) insulin pen 10 unit SUBCUT .Q HS acetaminophen [Tylenol Extra Strength] 500 mg tablet 500 mg PO Q6H PRN ascorbic acid (vitamin C) 1,000 mg tablet 1 g PO BID methenamine hippurate 1 gram tablet See Rx Instructions .ROUTE .COMPLEX Qty: 180 3RF Dose Instruction: TAKE 1 TABLET BY MOUTH TWO TIMES DAILY *TAKE WITH 1 GRAM OF VITAMIN-C* Rx Instructions: TAKE 1 TABLET BY MOUTH TWO TIMES DAILY *TAKE WITH 1 GRAM OF VITAMIN-C* finasteride 5 mg tablet See Rx Instructions .ROUTE .COMPLEX Qty: 90 3RF Dose Instruction: TAKE 1 TABLET BY MOUTH EVERY DAY Rx Instructions: TAKE 1 TABLET BY MOUTH EVERY DAY tramadol 50 mg tablet 50 mg PO DAILY PRN (Reason: pain ) 30 Days Qty: 30 2RF Rx Instructions: may fill 30 days after previous refill. alcohol swabs [Alcohol Prep Pads] Pads, Medicated 1 pad topical QID Qty: 100 0RF tizanidine 4 mg tablet See Rx Instructions .ROUTE .COMPLEX Qty: 270 1RF Dose Instruction: TAKE 1 TABLET BY MOUTH THREE TIMES A DAY NEEDED FOR MUSCLE SPASTICITY Rx Instructions: TAKE 1 TABLET BY MOUTH THREE TIMES A DAY NEEDED FOR MUSCLE SPASTICITY triamcinolone acetonide 0.5 % cream 1 applic topical DAILY PRN (Reason: pain) Qty: 15 0RF triamterene-hydrochlorothiazid 37.5-25 mg tablet 1 tab PO QAM Qty: 60 5RF zinc oxide 40 % ointment 1 applic topical QID PRN (Reason: skin irritation) Qty: 397 5RF amlodipine 5 mg tablet 5 mg PO DAILY Qty: 30 5RF (DME) blood-glucose meter [Accu-Chek Tawny Plus Meter] Misc See Rx Instructions .Route Qty: 1 0RF Rx Instructions: As directed (DME) Accu-Chek Tawny Plus test strp Strip See Rx Instructions .Route Qty: 50 2RF Rx Instructions: As directed (DME) lancets [Accu-Chek Multiclix Lancet] Misc See Rx Instructions .Route Qty: 100 0RF Rx Instructions: As directed metformin 500 mg Tablet 500 mg PO BID 30 Days Qty: 60 1RF Referrals: Mac Nelson MD [Primary Care Provider] - Sign Out Sign Out Data: Patient Sign Out occurred on 09/17/22 at 06:10. Patient's care was discussed, and care was transferred from to Lucio Washington DO. Coding Level of Care Code ED [employer] Technician for Chg Fwd Documented by User: Lucio Washington DO 09/17/22 07:38 HPI - Chest Pain General: Chief Complaint: Chest Pain Stated Complaint: cp Time Seen by Provider: 09/17/22 05:01 [facility] ED PFSH: Medical History Acute kidney injury Anemia Bilateral hydronephrosis Bilateral lower extremity edema Bladder trabeculation 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 Cellulitis of anterior lower leg Chronic low back pain Chronic pain of lower extremity, bilateral Colon polyps Dermatitis associated with moisture from stool incontinence Diabetes mellitus type 2 in obese Diverticula, bladder acquired DVT (deep venous thrombosis) DVT, bilateral lower limbs Encounter for screening colonoscopy 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 Hypertension Lumbar disc disease with radiculopathy Lumbar disc disease with radiculopathy Lumbar stenosis Morbid obesity due to excess calories Osteoarthritis of right knee Recurrent UTI Sepsis Severe muscle deconditioning 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 chronic peripheral venous hypertension Urinary retention Surgical History Status post hernia repair Family History Father , IN HIS 60'S Cancer LUNG Mother , IN HER 60'S Heart attack Other CAD (coronary artery disease) Denies family history of Anesthesia complication Bleeding disorder Social History Smoking and tobacco status: former smoker Alcohol intake: never Adopted: No Caregiver/support person: Yes Household members: spouse Marital status: Current occupational status: disabled Course Vital Signs: Vital signs: Vital Signs Temperature 98.1 F 09/17/22 04:55 Pulse Rate 92 09/17/22 05:48 Respiratory Rate 18 09/17/22 05:48 Blood Pressure 192/94 09/17/22 05:48 Pulse Oximetry 97 09/17/22 05:48 Oxygen Delivery Me thod 09/17/22 05:48 Oxygen Flow Rate 2 09/17/22 05:48 MDM - Chest Pain Medical Decision Making Care assumed from Dr. Chiu at change of shift. Labs and imaging reviewed and discussed patient with Dr. Chiu as well as a Dr. Genaro domingo who is on-call for cardiology. CTA of the chest is negative for any widening of the mediastinum dissecting aneurysm or PE. Patient has a history of DVT there is no pneumonia. He is pain-free now on the nitro. He had lateral T wave inversion in V3 through V6. After discussion Dr. Singh he recommends that we heparinize the patient as well as putting him on Plavix and loading with aspirin. He is already received the aspirin Plavix and heparin has been initiated. Additionally patient given p.o. potassium to compensate for his hypokalemia. Discussed with Dr. Mayer who will admit Dr. Singh will consult and has seen the patient in the ER and plans to take him to the [facility] later today. Medical Records I reviewed the patient's medical records. Lab Data I reviewed the patient's lab results. 09/17/22 05:07 09/17/22 05:07 Radiology Impressions Chest X-Ray 09/17/22 04:55 IMPRESSION: No acute abnormality demonstrated. Chest CTA 09/17/22 05:35 IMPRESSION: 1. No evidence of pulmonary embolism or aortic dissection. 2. Atherosclerotic vascular disease including coronary artery disease. 3. Old granulomatous disease. Laboratory Results WBC 11.0 10^3/uL (4.0-10.0) H 09/17/22 05:07 RBC 4.64 10^6/uL (4.1-5.3) 09/17/22 05:07 Hgb 14.4 g/dL (11.7-16.6) 09/17/22 05:07 Hct 44.1 % (42.0-52.0) 09/17/22 05:07 MCV 95.0 fl (80-94) H 09/17/22 05:07 MCH 31.0 pg (28.0-34.0) 09/17/22 05:07 MCHC 32.7 g/dL (30.0-36.0) 09/17/22 05:07 RDW 13.9 % (12.1-15.1) 09/17/22 05:07 Plt Count 333 10^3/cmm (130-400) 09/17/22 05:07 MPV 9.0 fL (7.4-10.4) 09/17/22 05:07 Neut % (Auto) 76.6 % 09/17/22 05:07 Lymph % (Auto) 15.6 % 09/17/22 05:07 [place] % (Auto) 6.9 % 09/17/22 05:07 Eos % (Auto) 0.2 % 09/17/22 05:07 Baso % (Auto) 0.3 % 09/17/22 05:07 Neut # (Auto) 8.43 10^3/uL (1.8-7.7) H 09/17/22 05:07 Lymph # (Auto) 1.7 10^3/uL (0.8-4.8) 09/17/22 05:07 [place] # (Auto) 0.8 10^3/uL (0.2-0.9) 09/17/22 05:07 Eos # (Auto) 0.0 10^3/uL (0.0-0.8) 09/17/22 05:07 Baso # (Auto) 0.0 10^3/uL (0.0-0.1) 09/17/22 05:07 Nucleated RBC % (auto) 0 % 09/17/22 05:07 Nucleated RBCs # 0.0 /100WBC 09/17/22 05:07 PT 13.50 SECONDS (12.1-14.9) 09/17/22 05:07 INR 1.00 (0.8-1.2) 09/17/22 05:07 D-Dimer 3.12 ug/mIFEU (0-0.59) H 09/17/22 05:07 Sodium 142 mmol/L (136-145) 09/17/22 05:07 Potassium 3.3 mmol/L (3.5-5.1) L 09/17/22 05:07 Chloride 98 mmol/L (98-107) 09/17/22 05:07 Carbon Dioxide 19 mmol/L (22-29) L 09/17/22 05:07 Anion Gap 28.3 (5-19) H 09/17/22 05:07 BUN 25 mg/dL (8-23) H 09/17/22 05:07 Creatinine 1.2 mg/dL (0.7-1.2) 09/17/22 05:07 GFR Calculation 60.2 mL/min (90-130) L 09/17/22 05:07 Glucose 223 mg/dL (65-115) H 09/17/22 05:07 Calculated Osmolality 305 mOsm/kg (285-295) H 09/17/22 05:07 Calcium 9.9 mg/dL (8.5-10.5) 09/17/22 05:07 Total Bilirubin 0.6 mg/dL (0.15-1.2) 09/17/22 05:07 AST 16 U/L (0-40) 09/17/22 05:07 ALT 19 U/L (0-41) 09/17/22 05:07 Alkaline Phosphatase 130 U/L (40-130) 09/17/22 05:07 Troponin T Baseline 157 ng/L (0-15) H* 09/17/22 05:07 Troponin T 120 Minute 143.4 ng/L (0-15) H 09/17/22 06:42 Delta Troponin T -13.6 ABS# (0-10) L 09/17/22 06:42 Total Protein 8.2 g/dL (6.6-8.7) 09/17/22 05:07 Albumin 4.2 g/dL (3.5-5.2) 09/17/22 05:07 Globulin 4.0 g/dL (1.3-4.6) 09/17/22 05:07 Discharge Plan Discharge Patient Disposition: Admitted As Inpatient Clinical Impression: Non-ST elevation OR (NSTEMI), Diabetes mellitus type 2 in obese, Morbid obesity due to excess calories, Hypertension Condition: Stable Prescriptions: No Action Basaglar KwikPen U-100 Insulin 100 unit/mL (3 mL) insulin pen 10 unit SUBCUT .Q HS acetaminophen [Tylenol Extra Strength] 500 mg tablet 500 mg PO Q6H PRN ascorbic acid (vitamin C) 1,000 mg tablet 1 g PO BID methenamine hippurate 1 gram tablet See Rx Instructions .ROUTE .COMPLEX Qty: 180 3RF Dose Instruction: TAKE 1 TABLET BY MOUTH TWO TIMES DAILY *TAKE WITH 1 GRAM OF VITAMIN-C* Rx Instructions: TAKE 1 TABLET BY MOUTH TWO TIMES DAILY *TAKE WITH 1 GRAM OF VITAMIN-C* finasteride 5 mg tablet See Rx Instructions .ROUTE .COMPLEX Qty: 90 3RF Dose Instruction: TAKE 1 TABLET BY MOUTH EVERY DAY Rx Instructions: TAKE 1 TABLET BY MOUTH EVERY DAY tramadol 50 mg tablet 50 mg PO DAILY PRN (Reason: pain ) 30 Days Qty: 30 2RF Rx Instructions: may fill 30 days after previous refill. alcohol swabs [Alcohol Prep Pads] Pads, Medicated 1 pad topical QID Qty: 100 0RF tizanidine 4 mg tablet See Rx Instructions .ROUTE .COMPLEX Qty: 270 1RF Dose Instruction: TAKE 1 TABLET BY MOUTH THREE TIMES A DAY NEEDED FOR MUSCLE SPASTICITY Rx Instructions: TAKE 1 TABLET BY MOUTH THREE TIMES A DAY NEEDED FOR MUSCLE SPASTICITY triamcinolone acetonide 0.5 % cream 1 applic topical DAILY PRN (Reason: pain) Qty: 15 0RF triamterene-hydrochlorothiazid 37.5-25 mg tablet 1 tab PO QAM Qty: 60 5RF zinc oxide 40 % ointment 1 applic topical QID PRN (Reason: skin irritation) Qty: 397 5RF amlodipine 5 mg tablet 5 mg PO DAILY Qty: 30 5RF (DME) blood-glucose meter [Accu-Chek Tawny Plus Meter] Misc See Rx Instructions .Route Qty: 1 0RF Rx Instructions: As directed (DME) Accu-Chek Tawny Plus test strp Strip See Rx Instructions .Route Qty: 50 2RF Rx Instructions: As directed (DME) lancets [Accu-Chek Multiclix Lancet] Misc See Rx Instructions .Route Qty: 100 0RF Rx Instructions: As directed metformin 500 mg Tablet 500 mg PO BID 30 Days Qty: 60 1RF Referrals: Mac Nelson MD [Primary Care Provider] - Sign Out Sign Out Data: Patient Sign Out occurred on 09/17/22 at 06:10. Patient's care was discussed, and care was transferred from to Lucio Washington DO. Coding Level of Care Code ED [employer] Technician for Dean De La Garza
[2022-09-17] MEDS: aspirin 81 mg Chew Tablet 324 MG PO (05:09)
[2022-09-17 05:18] LABS: Basophils % 0.3 %; Eosinophils % 0.2 %; Hematocrit 44.1 % (42.0-52.0); Hemoglobin 14.4 g/dL (11.7-16.6); Lymphocytes # 1.7 10^3/uL (0.8-4.8); Lymphocytes % 15.6 %; Mean Corpuscular HGB Conc 32.7 g/dL (30.0-36.0); Monocytes # 0.8 10^3/uL (0.2-0.9); Monocytes % 6.9 %; Neutrophils # 8.43 10^3/uL (1.8-7.7); Neutrophils % 76.6 %; Nucleated Red Blood Cells % 0 %; Platelet Count 333 10^3/cmm (130-400); Red Blood Count 4.64 10^6/uL (4.1-5.3); Red Cell Distribution Width 13.9 % (12.1-15.1)
[2022-09-17 05:33] LABS: D Dimer 3.12 ug/mIFEU (0-0.59)
[2022-09-17] MEDS: nitroglycerin 0.4 mg sublingual Tablet SUBLINGUAL (05:33)
[2022-09-17] MEDS: LORazepam 2 mg/mL INJ 1 mL 1 MG IVP (05:33)
--- NOTE | 2022-09-17 05:35 | CTR_ITS ---
PROCEDURE INFORMATION: Exam: CTA Chest With Contrast Exam date and time: 09/17/2022 6:14 AM Age: 66 years old Clinical indication: Pain and abnormal findings; Abnormal diagnostic tests; Elevated d-dimer; Chest pressure; Patient HX: C/O chest pain. D dimer of 3.12. Baseline trop of 150. ; Additional info: Cp TECHNIQUE: Imaging protocol: Computed tomographic angiography of the chest with contrast. 3D rendering (Not supervised by radiologist): MIP and/or 3D reconstructed images were created by the technologist. Radiation optimization: All CT scans at this facility use at least one of these dose optimization techniques: automated exposure control; mA and/or kV adjustment per patient size (includes targeted exams where dose is matched to clinical indication); or iterative reconstruction. Contrast material: [id number]; Contrast volume: 68 ml; Contrast route: INTRAVENOUS (IV); REPORTING DATA: Count of CT and Cardiac NM exams in prior 12 months: This patient has received 0 known CTs and 0 known cardiac nuclear medicine studies in the 12 months prior to the current study. COMPARISON: CT angio chest PE protcl [id number] 02/08/2021 5:38 PM RADIATION DOSE METRICS: Total DLP (mGy-cm): 518.67 FINDINGS: Pulmonary arteries: No vascular intraluminal filling defects to suggest pulmonary embolism. Aorta: Ectatic, tortuous and mildly calcified thoracic aorta. No aortic dissection. Lungs: Minimal bilateral posterior dependent atelectasis. A few small calcified granulomas. No consolidation. Pleural spaces: Unremarkable. No pneumothorax. No pleural effusion. Heart: Heart size within normal limits. Coronary arteries: Small coronary artery calcifications. Lymph nodes: Small calcified and noncalcified mediastinal and hilar lymph nodes. Spleen: Punctate splenic calcified granulomas. Bones/joints: Thoracic spondylosis and degenerative bony changes. Soft tissues: No significant soft tissue abnormalities. CT/CT angio chest PE protcl [id number] IMPRESSION: 1. No evidence of pulmonary embolism or aortic dissection. 2. Atherosclerotic vascular disease including coronary artery disease. 3. Old granulomatous disease.
[2022-09-17 05:41] LABS: Alanine Aminotransferase 19 U/L (0-41); Albumin Level 4.2 g/dL (3.5-5.2); Alkaline Phosphatase 130 U/L (40-130); Anion Gap 28.3 (5-19); Aspartate Amino Transferase 16 U/L (0-40); Blood Urea Nitrogen 25 mg/dL (8-23); Calcium 9.9 mg/dL (8.5-10.5); Carbon Dioxide 19 mmol/L (22-29); Chloride 98 mmol/L (98-107); Glomerular Filtration Rate 60.2 mL/min (90-130); Glucose 223 mg/dL (65-115); Osmolality Calculated 305 mOsm/kg (285-295); Potassium 3.3 mmol/L (3.5-5.1); Sodium 142 mmol/L (136-145); Total Bilirubin 0.6 mg/dL (0.15-1.2); Total Protein 8.2 g/dL (6.6-8.7)
[2022-09-17 05:45] LABS: Troponin(5th) Baseline 157 ng/L (0-15)
--- NOTE | 2022-09-17 05:48 | ECG_ITS ---
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 Measurements Intervals [place] Rate: 95 P: 10 NE: 160 QRS: -49 QRSD: 116 T: 33 QT: 411 QTc: 518 Interpretive Statements SINUS RHYTHM WITH MARKED SINUS ARRHYTHMIA POSSIBLE LEFT ATRIAL ENLARGEMENT [-0.1mV P-WAVE IN V1/V2] LEFT ANTERIOR FASCICULAR BLOCK [QRS AXIS <= -45, QR IN I, RS IN II] POSSIBLE LEFT VENTRICULAR HYPERTROPHY [VOLTAGE CRITERIA PLUS LAE OR QRS WIDENING] POSSIBLE LATERAL MYOCARDIAL INFARCTION , OF INDETERMINATE AGE [30 ms Q WAVE IN I/aVL/V5/V6] WARNING: DATA QUALITY MAY AFFECT INTERPRETATION Compared to ECG 07/10/2021 20:44:32 Left anterior fascicular block now present Left-axis deviation no longer present Myocardial infarct finding still present Electronically Signed On 09-17-2022 22:19:42 ANDROID ARCHITECT by Randy Garcia M.D. [id number]
--- NOTE | 2022-09-17 06:01 | PC.NURSE ---
Patient placed on oxygen via 2Lnc after desat to 78% post receiving Ativan. Provider notified
[2022-09-17 06:07] LABS: Slide Review Slide Review Perform
[2022-09-17] MEDS: iohexol 350 mg/mL 500 mL Btl (per mL) IV (06:23)
[2022-09-17] MEDS: nitroglycerin 1 gm/inch oint Pkt 1 INCH TOPICAL (06:25)
--- NOTE | 2022-09-17 06:55 | ECG_ITS ---
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 Measurements Intervals [place] Rate: 91 P: 16 MT: 144 QRS: -50 QRSD: 126 T: 32 QT: 325 QTc: 401 Interpretive Statements SINUS RHYTHM LEFT ANTERIOR FASCICULAR BLOCK [QRS AXIS <= -45, QR IN I, RS IN II] LEFT VENTRICULAR HYPERTROPHY AND ST-T CHANGE [VOLTAGE CRITERIA PLUS ST/T ABNORMALITY] POSSIBLE LATERAL MYOCARDIAL INFARCTION , OF INDETERMINATE AGE [30 ms Q WAVE IN I/aVL/V5/V6] Compared to ECG 09/17/2022 04:57:11 No significant changes Electronically Signed On 09-17-2022 22:27:51 [facility] by Randy Garcia M.D. [id number]
--- NOTE | 2022-09-17 07:12 | PC.NURSE ---
pt resting in bed, visitor at bedside. pt respirations appear even and unlabored. lung sounds clear bilat. pt reports current 2/10 pain. speech clear, answering questions appropriately. skin pink/warm/dry.
[2022-09-17] MEDS: clopidogrel 300 mg Tablet 600 MG PO (07:17)
[2022-09-17 07:35] LABS: Troponin 5 2HR 143.4 ng/L (0-15); Troponin 5 2HR Delta -13.6 ABS# (0-10)
[2022-09-17] MEDS: heparin 5,000 unit/mL INJ 1 mL IV (07:51)
--- NOTE | 2022-09-17 07:51 | P.CONIM_ITS ---
Providers/Reason For Consult Consulting Physician/Specialty*: Luis E Hooks MD/ Interventional Cardiology Reason for Consult*: NSTEMI Requesting Physician: Dr Chiu Primary Care Provider: Mac Nelson MD History of Present Illness History of Present Illness Andrew Pabon is a 66 year old male with past medical history of diabetes, hypertension, morbid obesity, DVTs who has presented to the hospital with chest pain that started yesterday evening at 5 PM. It was severe and substernal. Radiated to the left arm. Also had nausea and vomiting with it. His initial troponin was 157 and has trended down since. EKG had dynamic ST T wave changes. Chest pain resolved after starting nitro. D Dimer was elevated and he underwent CTA to rule out PE. Denies prior history of CAD. Review of Systems Const: Denies: fever(s), chills, body aches or change in appetite Eyes: Denies: blurry vision or eye discomfort ENMT: Denies: throat pain or dental pain Card: Reports: chest pain Resp: Denies: dyspnea GI: Denies: abdominal pain, nausea, vomiting or diarrhea : Denies: dysuria Musc: Denies: neck pain or back pain Skin/Breast: Denies: rash Neuro: Denies: headache(s) Psych: Denies: depression Haroldo/Lymph: Denies: easy bruising All/Imm: Denies: urticaria Medications/Allergies Home Medications Medication Instructions Recorded Confirmed Last Taken Type blood sugar diagnostic (Accu-Chek #50 ea 02/15/21 09/17/22 Unknown Rx Tawny Plus test strips) blood-glucose meter (Accu-Chek #1 ea 02/15/21 09/17/22 Unknown Rx Tawny Plus Meter) lancets (Accu-Chek Multiclix #100 02/15/21 09/17/22 Unknown Rx Lancet) metformin 500 mg tablet 500 mg PO BID 30 days #60 tabs 02/15/21 09/17/22 11/04/21 Rx insulin glargine 100 unit/mL (3 12 unit SUBCUT BEDTIME 09/29/21 09/17/22 11/03/21 History mL) subcutaneous pen (Basaglar KwikPen U-100 Insulin) ascorbic acid (vitamin C) 1,000 mg 1 g PO BID 01/02/22 09/17/22 Unknown History tablet acetaminophen 500 mg tablet 500 mg PO Q6H PRN Pain 04/01/22 09/17/22 Unknown History (Tylenol Extra Strength) alcohol swabs (Alcohol Prep Pads) 1 pad topical QID #100 ea 08/05/22 09/17/22 Unknown Rx triamterene 37.5 1 tab PO QAM edema & blood 08/11/22 09/17/22 Unknown Rx mg-hydrochlorothiazide 25 mg tablet pressure #60 tabs zinc oxide 40 % topical ointment 1 applic topical QID PRN skin 09/03/22 09/17/22 Unknown Rx irritation #397 grams amlodipine 5 mg tablet 5 mg PO DAILY high blood pressure 09/09/22 09/17/22 Unknown Rx #30 tabs ferrous sulfate 325 mg (65 mg 325 mg PO DAILY 09/17/22 09/17/22 Unknown History iron) tablet (iron) finasteride 5 mg tablet 5 mg PO DAILY 09/17/22 09/17/22 Unknown History insulin aspart U-100 100 unit/mL See Rx Instructions .Route .COMPLEX 09/17/22 09/17/22 Unknown History (3 mL) subcutaneous pen (Novolog FlexPen U-100 Insulin aspart) lisinopril 5 mg tablet 5 mg PO DAILY 09/17/22 09/17/22 Unknown History methenamine hippurate 1 gram tablet 1 g PO BID 09/17/22 09/17/22 Unknown History tizanidine 4 mg tablet 4 mg PO TID PRN Muscle Spasticity 09/17/22 09/17/22 Unknown History tramadol 50 mg tablet 50 mg PO BID PRN pain 09/17/22 09/17/22 Unknown History triamcinolone acetonide 0.5 % 1 applic topical TID PRN unknown 09/17/22 09/17/22 Unknown History topical cream Allergies Allergy/AdvReac Type Severity Reaction Status Date / Time tamsulosin Allergy Intermediate Unknown Verified 09/01/22 08:47 amoxicillin Allergy Unknown Verified 09/01/22 08:47 atorvastatin Allergy Unknown Verified 09/01/22 08:47 cephalexin Allergy Unknown Verified 09/01/22 08:47 ciprofloxacin [From Cipro] Allergy Unknown Verified 09/01/22 08:47 clavulanic acid Allergy Unknown Verified 09/01/22 08:47 cyclobenzaprine Allergy Unknown Verified 09/01/22 08:47 doxycycline Allergy Unknown Verified 09/01/22 08:47 furosemide Allergy Unknown Verified 09/01/22 08:47 gabapentin Allergy numbness Verified 09/01/22 08:47 nitrofurantoin Allergy Unknown Verified 09/01/22 08:47 oxycodone Allergy Unknown Verified 09/01/22 08:47 pregabalin Allergy numbness Verified 09/01/22 08:47 spironolactone Allergy ADR-Nausea Verified 09/01/22 08:47 Sulfa (Sulfonamide Allergy Unknown Verified 09/01/22 08:47 Antibiotics) Current Medications Generic Name Dose Route Start Last Admin Trade Name Freq PRN Reason Stop Dose Admin Nitroglycerin 0.4 mg 09/17/22 05:23 09/17/22 05:33 Nitroglycerin 0.4 Mg Sublingual Tablet SUBLINGUAL 0.4 mg Q5M PRN Administration CHEST PAIN PFSH Acute PFSH: Medical History Acute kidney injury Anemia Bilateral hydronephrosis Bilateral lower extremity edema Bladder trabeculation 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 Cellulitis of anterior lower leg Chronic low back pain Chronic pain of lower extremity, bilateral Colon polyps Dermatitis associated with moisture from stool incontinence Diabetes mellitus type 2 in obese Diverticula, bladder acquired DVT (deep venous thrombosis) DVT, bilateral lower limbs Encounter for screening colonoscopy 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 Hypertension Lumbar disc disease with radiculopathy Lumbar disc disease with radiculopathy Lumbar stenosis Morbid obesity due to excess calories Osteoarthritis of right knee Recurrent UTI Sepsis Severe muscle deconditioning 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 chronic peripheral venous hypertension Urinary retention Surgical History Status post hernia repair Family History Father , IN HIS 60'S Cancer LUNG Mother , IN HER 60'S Heart attack Other CAD (coronary artery disease) Denies family history of Anesthesia complication Bleeding disorder Social History Smoking and tobacco status: former smoker Alcohol intake: never Adopted: No Caregiver/support person: Yes Household members: spouse Marital status: Current occupational status: disabled Vitals/I&O/Wt Last Vital Signs Temp 98.1 F 09/17/22 04:55 Pulse 92 09/17/22 05:48 Resp 18 09/17/22 05:48 BP 192/94 09/17/22 05:48 Pulse Ox 97 09/17/22 05:48 O2 Del Method 09/17/22 05:48 O2 Flow Rate 2 09/17/22 05:48 Weight last 48 hrs Weight 400 lb Physical Exam 2 Narrative: GENERAL: Patient is alert, awake and oriented x3. [] NECK: No jugular vein distension. [] HEENT: No cyanosis. No icterus. No pallor. [] HEART: Regular S1 and S2. No murmur, rub or gallop. [] LUNGS: Clear to auscultate bilaterally. [] ABDOMEN: Soft CENTRAL NERVOUS SYSTEM: Grossly nonfocal. [] EXTREMITIES: Lower extremities with 2-3+ edema bilaterally. Pulses palpable in the lower extremities, both dorsalis pedis and posterior tibial. [] Data 09/17/22 05:07 09/17/22 05:07 A&P Assessment and plan (1) Non-ST elevation [place] (NSTEMI): (2) Bilateral lower extremity edema: (3) Facet arthropathy, lumbar: (4) DVT, bilateral lower limbs: (5) Hypertension: Plan Patient has presented with typical chest pain symptoms and has troponin elevation. Presentation is consistent with non-ST elevation [place]. We will proceed with coronary angiogram with possible percutaneous coronary intervention. Risks and benefits of the procedure have been discussed with him. He understands the risks and benefits and wants to proceed with it. Keep him n.p.o. Continue aspirin and Plavix. Continue anticoagulation. Echocardiogram ordered. Thank you for involving us with care of this patient. We will continue to follow. Please call with questions. Consult Attestations Medical Necessity Statement: Care expected to cross 2 midnights. Coding Level of Care Code Acute Code for [facility] Fwd Diagnoses Non-ST elevation [place] (NSTEMI) I21.4 Bilateral lower extremity edema R60.0 Facet arthropathy, lumbar M47.816 DVT, bilateral lower limbs I82.403 Hypertension I10
[2022-09-17] MEDS: heparin drip 25,000 UNIT/500 ML PREMIX 36 UNIT IV (07:52)
--- NOTE | 2022-09-17 07:54 | PC.PHAR ---
pt states his takes care of his medications pts states they had home health ([facility]) but states they havent helped with the medications for a while-pts states the pts losartan potassium 25mg daily was dced ext med history shows last filled 07/16/22 90d/s-pts states the pt takes iron 325mg daily ext med history shows lsat filled 04/27/22 90d/s for 325mg bid-pts states the pt has a novolog flexpen and uses sliding scale prn ext med history doesnt show when last filled-ext med history shows lantus solostar 10 units daily filled 06/22/22 90d/s- on 03/30/22 basaglar was filled pts states the pt still has 2 pens left and uses 12 units hs- pts states the pt doesnt take any blood thinners or otc medications- notes are made in the pharmacy comments
[2022-09-17] MEDS: potassium chloride oral liq 20 mEq/15 mL UDC 40 MEQ PO (08:03)
--- NOTE | 2022-09-17 08:34 | PC.NURSE ---
attempted to call report to CSU, nurse unavailable at this time.
--- NOTE | 2022-09-17 08:43 | PM.HP ---
Providers/Chief Complaint Admitting Physician: Pillo Morales MD Primary Care Provider: Mac Nelson MD Chief Complaint: cp History of Present Illness Andrew Pabon is a 66 year old male with history of diabetes, hypertension, morbid obesity presented to the ER complaining of chest pain onset 1700 last night. Patient states he was sitting down in his wheelchair, and felt sudden onset left-sided chest pain with radiation on the left arm after taking 2 Aleve. He has never had this pain before and states that at its worst it was an 8 out of 10. It is sharp in quality and has been intermittent since onset, and is currently a 2 out of 10 while lying in the ER bed. He reports associated diaphoresis, nausea, and multiple episodes of vomiting. He did not notice any blood in his vomit and denies being short of breath. He does state that the pain is worsened with exertion and taking deep breaths, but denies any other exacerbating factors. He did not take anything for his pain and denies any history of cardiac disease including HI, arrhythmias, or CHF. He additionally reports new onset unilateral left leg swelling, though both of his legs are chronically swollen. Other than some chronic lower abdominal pain, he denies any palpitations, syncope, or any other symptoms at this time. 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 He states a year ago he had a urological surgery with Dr. Moreau, that has kept him in a diaper and in a wheelchair since. He is not able to ambulate on his own and lives at home with his who takes care of him. He has never had a heart cath or cardiac stress test. He denies any major surgeries aside from the urological surgery/hernia repair. Labs drawn demonstrate a slightly elevated white count of 11. His first troponin was elevated at 157, and 2-hour troponin was decreased but still elevated at 143.4. His D-dimer was also elevated at 3.12, though CTA was negative for pulmonary embolism. His potassium was slightly decreased at 3.3. Chest x-ray was unremarkable. Patient was informed of plan hospital admission and potential cardiac cath, to which he agrees. All other questions concerns addressed at this time. Review of Systems Narrative: Constitutional: Reports diaphoresis denies fever, chills Skin: Reports erythema and increased edema of the left lower leg. Denies any other color changes or rash Eyes: Denies visual changes HENT: Denies headache, nasal drainage, sore throat Cardiovascular: Reports chest pain with radiation to left arm, peripheral edema. Denies palpitations, syncope Respiratory: Denies shortness of breath, cough, wheezing GI: Reports nausea, vomiting, chronic lower abdominal pain. Denies constipation, diarrhea : Denies changes in urination Musculoskeletal: Denies back pain, arthralgias Neuro: Denies seizures, weakness Medications/Allergies Home Medications Medication Instructions Recorded Confirmed Last Taken Type blood sugar diagnostic (Accu-Chek #50 ea 02/15/21 09/17/22 Unknown Rx Tawny Plus test strips) blood-glucose meter (Accu-Chek #1 ea 02/15/21 09/17/22 Unknown Rx Tawny Plus Meter) lancets (Accu-Chek Multiclix #100 ea 02/15/21 09/17/22 Unknown Rx Lancet) metformin 500 mg tablet 500 mg PO BID 30 days #60 tabs 02/15/21 09/17/22 11/04/21 Rx insulin glargine 100 unit/mL (3 12 unit SUBCUT BEDTIME 09/29/21 09/17/22 11/03/21 History mL) subcutaneous pen (Basaglar KwikPen U-100 Insulin) ascorbic acid (vitamin C) 1,000 mg 1 g PO BID 01/02/22 09/17/22 Unknown History tablet acetaminophen 500 mg tablet 500 mg PO Q6H PRN Pain 04/01/22 09/17/22 Unknown History (Tylenol Extra Strength) alcohol swabs (Alcohol Prep Pads) 1 pad topical QID #100 ea 08/05/22 09/17/22 Unknown Rx triamterene 37.5 1 tab PO QAM edema & blood 08/11/22 09/17/22 Unknown Rx mg-hydrochlorothiazide 25 mg tablet pressure #60 tabs zinc oxide 40 % topical ointment 1 applic topical QID PRN skin 09/03/22 09/17/22 Unknown Rx irritation #397 grams amlodipine 5 mg tablet 5 mg PO DAILY high blood pressure 09/09/22 09/17/22 Unknown Rx #30 tabs ferrous sulfate 325 mg (65 mg 325 mg PO DAILY 09/17/22 09/17/22 Unknown History iron) tablet (iron) finasteride 5 mg tablet 5 mg PO DAILY 09/17/22 09/17/22 Unknown History insulin aspart U-100 100 unit/mL See Rx Instructions .Route .COMPLEX 09/17/22 09/17/22 Unknown History (3 mL) subcutaneous pen (Novolog FlexPen U-100 Insulin aspart) lisinopril 5 mg tablet 5 mg PO DAILY 09/17/22 09/17/22 Unknown History methenamine hippurate 1 gram tablet 1 g PO BID 09/17/22 09/17/22 Unknown History tizanidine 4 mg tablet 4 mg PO TID PRN Muscle Spasticity 09/17/22 09/17/22 Unknown History tramadol 50 mg tablet 50 mg PO BID PRN pain 09/17/22 09/17/22 Unknown History triamcinolone acetonide 0.5 % 1 applic topical TID PRN unknown 09/17/22 09/17/22 Unknown History topical cream Allergies Allergy/AdvReac Type Severity Reaction Status Date / Time tamsulosin Allergy Intermediate Unknown Verified 09/01/22 08:47 amoxicillin Allergy Unknown Verified 09/01/22 08:47 atorvastatin Allergy Unknown Verified 09/01/22 08:47 cephalexin Allergy Unknown Verified 09/01/22 08:47 ciprofloxacin [From Cipro] Allergy Unknown Verified 09/01/22 08:47 clavulanic acid Allergy Unknown Verified 09/01/22 08:47 cyclobenzaprine Allergy Unknown Verified 09/01/22 08:47 doxycycline Allergy Unknown Verified 09/01/22 08:47 furosemide Allergy Unknown Verified 09/01/22 08:47 gabapentin Allergy numbness Verified 09/01/22 08:47 nitrofurantoin Allergy Unknown Verified 09/01/22 08:47 oxycodone Allergy Unknown Verified 09/01/22 08:47 pregabalin Allergy numbness Verified 09/01/22 08:47 spironolactone Allergy ADR-Nausea Verified 09/01/22 08:47 Sulfa (Sulfonamide Allergy Unknown Verified 09/01/22 08:47 Antibiotics) PFSH Acute PFSH: Medical History Acute kidney injury Anemia Bilateral hydronephrosis Bilateral lower extremity edema Bladder trabeculation 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 Cellulitis of anterior lower leg Chronic low back pain Chronic pain of lower extremity, bilateral Colon polyps Dermatitis associated with moisture from stool incontinence Diabetes mellitus type 2 in obese Diverticula, bladder acquired DVT (deep venous thrombosis) DVT, bilateral lower limbs Encounter for screening colonoscopy 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 Hypertension Lumbar disc disease with radiculopathy Lumbar disc disease with radiculopathy Lumbar stenosis Morbid obesity due to excess calories Osteoarthritis of right knee Recurrent UTI Sepsis Severe muscle deconditioning 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 chronic peripheral venous hypertension Urinary retention Surgical History Status post hernia repair Family History Father , IN HIS 60'S Cancer LUNG Mother , IN HER 60'S Heart attack Other CAD (coronary artery disease) Denies family history of Anesthesia complication Bleeding disorder Social History Smoking and tobacco status: former smoker Alcohol intake: never Adopted: No Caregiver/support person: Yes Household members: spouse Marital status: Current occupational status: disabled Vitals/I&O/Wt Last Vital Signs Temp 98.1 F 09/17/22 04:55 Pulse 92 09/17/22 05:48 Resp 18 09/17/22 05:48 BP 192/94 09/17/22 05:48 Pulse Ox 97 09/17/22 05:48 O2 Del Method 09/17/22 05:48 O2 Flow Rate 2 09/17/22 05:48 Weight last 48 hrs Weight 181.437 kg Physical Exam Narrative: Constitutional: Morbidly obese white male lying in ER bed appears in no acute distress. On 2 L of oxygen with a heparin drip running. Skin: Left lower extremity exhibits rubor and edema to the lateral aspect of the cervantes. No other concerning rash or lesion noted. Eyes: No scleral icterus or injection HENT: Head is atraumatic and normocephalic. No nasal drainage. Oral mucosa is moist. No pharyngeal erythema. Chest: Chest is nontender to palpation. Cardiovascular: Regular rate and rhythm with no rubs murmurs or gallops. 3+ bilateral pitting edema. Left greater than right. No JVD or displacement of PMI. Respiratory: Lungs are clear to auscultation bilaterally. No wheezing or crackles. Patient is in no acute respiratory distress. GI: Mild tenderness to palpation bilateral lower quadrants. No obvious organomegaly, though is hard to assess due to patient's body habitus. Abdomen is soft without rigidity or guarding. Normal bowel sounds. : Deferred Extremities: As dictated above, though left lower extremity has mild increased swelling compared to the right. Distal pulses to lower extremities difficult to assess due to marked swelling. Neuro: No focal neurological deficits. Sensations intact bilaterally. Data 09/17/22 05:07 09/17/22 05:07 Other Labs: Magnesium and TSH have been ordered Chest x-ray by my read demonstrates no infiltrate Dimer is 3.12 LFTs normal Initial troponin 157 with repeat of 143 Urinalysis ordered BNP ordered CTA demonstrates no evidence of pulmonary embolism, atherosclerotic disease is noted. I reviewed this as well. EKG demonstrates sinus rhythm, left axis deviation, initial EKG demonstrates some flipped T waves V5 and 6. Both have poor R wave progression. A&P Assessment and plan (1) Non-ST elevation [place] (NSTEMI): Patient presents with elevated troponin, chest discomfort, abnormal EKG which is concerning for non-ST elevation myocardial infarction. He has received aspirin in the emergency department as well as a load of Plavix. He also received nitroglycerin ointment. Cardiology has been consulted Heparin drip has been started. Continue. Await cardiology evaluation, possible angiogram Continue Plavix and aspirin daily for now Unfortunately statin unable to be started as patient has allergy Check echocardiogram Check TSH Serial troponins and EKG CTA has been performed showing no pulmonary embolism (2) Hypokalemia: Patient with hypokalemia I arranged supplementation through the emergency department physician Check magnesium Repeat potassium tomorrow with BMP (3) Bilateral lower extremity edema: Patient with bilateral lower extremity edema. This may represent venous stasis. However, his dimer is elevated, and left lower extremity is more swollen than the right. Check venous duplex, to rule out a DVT Check BNP. He has lower extremity edema, cardiac symptoms, elevated blood pressure, elevated troponin. This may represent acute diastolic heart failure. Check echocardiogram Plan Hypertension, continue home medications Diabetes mellitus. Sliding scale insulin Multiple other medical problems as listed in past medical history Attestations Medical Necessity Statement*: Will need greater than 2 midnight stay for evaluation and treatment of acute non-ST elevation myocardial infarction. Diagnoses Non-ST elevation HI (NSTEMI) I21.4 Hypokalemia E87.6 Bilateral lower extremity edema R60.0 Time Spent (min) 39
--- NOTE | 2022-09-17 08:54 | USCV_ITS ---
Andrew Pabon Age: 66 Gender: M : 1955 Exam Date: 09/17/2022 10:36 Ordering Phys: Pillo Morales MD Technologist: Jackson Ghotra Exam Location: [facility] [place]_ Indication: hx of dvt pt has ivc filter HISTORY: hx rt leg dvt PROCEDURES: The venous duplex Doppler examination of both lower extremities was performed in the standard fashion. The following venous structures were evaluated: common femoral vein, profunda vein, proximal portion of the greater saphenous vein, superficial femoral vein, and the popliteal vein. In addition, the posterior tibial and peroneal trunk were evaluated. FINDINGS: There is bilateral dvt from the cfv, fv, pop, per trunk and ptv in both legs it looks like chronic and fresh dvt comparison 07/10/21 CONCLUSIONS Bilateral mixed acute on chronic DVT common femoral, femoral, popliteal, peroneal and posterior tibial veins. Rogelio Azul MD (Electronically Signed) Final Date: 17 September 2022 12:17 S
--- NOTE | 2022-09-17 09:19 | PC.NURSE ---
attempted to call report to unit, nurse unavailable
[2022-09-17 09:36] LABS: Magnesium 1.7 mg/dL (1.7-2.3); NT Pro B Type Natriuretic Pept 1262 pg/mL (0-125)
--- NOTE | 2022-09-17 09:36 | USCV_ITS ---
Andrew Pabon Age: 66 Gender: M : 1955 Exam Date: 09/17/2022 10:06 Ordering Phys: Pillo Morales MD Technologist: Jackson Ghotra Exam Location: [facility] [place] Indication: ? mi BP: 161 / 86 HR: 81 Rhythm: Sinus Technical Quality: MEASUREMENTS (Male / Female) Normal Values 2D ECHO LV Diastolic Diameter PLAX 4.3 cm 4.2 - 5.9 / 3.9 - 5.3 cm LV Systolic Diameter PLAX 3.1 cm IVS Diastolic Thickness 1.5 cm 0.6 - 1.0 / 0.6 - 0.9 cm IVS Systolic Thickness 1.8 cm LVPW Diastolic Thickness 1.3 cm 0.6 - 1.0 / 0.6 - 0.9 cm LVPW Systolic Thickness 1.7 cm LVOT Diameter 2.0 cm LV Ejection Fraction 2D Teich 54.2 % LV Ejection Fraction MOD 2C 64.4 % LV Ejection Fraction 2C AL 63.7 % LA Diameter 4.0 cm Aorta at Sinotubular Diameter 4.6 cm M-MODE Aortic Annulus Diameter 4.0 cm LA Ao Ratio MM 1.1 DOPPLER AV Peak Velocity 223.0 cm/s LVOT Peak Velocity 122.0 cm/s AV Area Cont Eq vti 2.0 cm squared AV Area Cont Eq pk 1.7 cm squared MV Area PHT 5.0 cm squared Mitral E to A Ratio 0.7 MV E' Velocity 44.0 cm/s Mitral E to MV E' Ratio 9.2 Mitral E to LV E' Lateral Ratio 7.7 Mitral E to LV E' Septal Ratio 11.5 TR Peak Velocity 233.3 cm/s TR Peak Gradient 21.8 mmHg TV Peak E Velocity 87.0 cm/s Right Atrial Pressure 3.0 mmHg Pulmonary Artery Systolic Pressu 24.8 mmHg RV Acceleration Time 0.1 s FINDINGS Left Ventricle Normal left ventricular size and systolic function, EF 72 %. No regional wall motion abnormalities. Right Ventricle Appears to be of normal size and ejection fraction Right Atrium Possibly of normal size Left Atrium Normal left atrial size. Mitral Valve Thickened mitral valve. Aortic Valve Thickened aortic valve. Mild aortic valve regurgitation. Tricuspid Valve No gross abnormalities noted Pulmonic Valve Pulmonic valve not well visualized. Pericardium No pericardial effusion. Aorta Normal aortic annulus size. IVC Inferior vena cava not visualized. CONCLUSIONS Normal left ventricular size and systolic function, EF 72 %. No regional wall motion abnormalities. Type I diastolic dysfunction. Thickened aortic valve. Mild aortic valve regurgitation. There is no pericardial effusion. Technically difficult study because of the poor ultrasonic window. Dr Randy Garcia MD FAC (Electronically Signed) Final Date: 17 September 2022 20:48 S
[2022-09-17 09:37] LABS: Thyroid Stimulating Hormone 3.32 uIU/mL (0.27-4.20)
--- NOTE | 2022-09-17 09:45 | PC.NURSE ---
Report called to KRISTIN Craig on CSU
--- NOTE | 2022-09-17 10:19 | XACV_ITS ---
Exam Room: [facility] Ht: 180 cm Wt: 138 kg BSA: 2.70 m2 Gender: Male : 1955 Any Known Allergies: Other Exam Priority: Routine Procedure(s): Procedure Description: Diagnostic procedure Procedure Description: Miscellaneous Procedure Description: Angio-Seal Procedure Description: Coronary Angiography Diagnostic Cath Status: Urgent Diagnostic Findings * No significant disease noted in the Left Main, Left Anterior Descending, Right, or Circumflex coronary arteries. * Coronary angiography shows right dominance. Conclusions 1. No significant disease noted in the Left Main, Left Anterior Descending, Right, or Circumflex coronary arteries. Recommendations * Aggressive risk factor modification. * Outpatient cardiology follow-up in 4 weeks. Interventional RX Recommendation: medical therapy and/or counseling Diagnostic RX Recommendation: medical therapy and/or counseling Pressures Phase:Rest AO : 113 / 89 ( 102 ) @ 12:01:00 PM 121 / 77 ( 97 ) @ 12:07:00 PM 164 / 85 ( 119 ) @ 12:23:00 PM Clinical Evaluation EBL: 5mL-10mL Procedural Details Procedure Consent Obtained. Admit Source: In Patient. Pre-Procedure Time Out. Identified patient by full name and date of as verbalized by the patient/guarantor. Does the consent match the physician's order: Yes. Accurate & Complete Informed Consent: Yes. Inpatient/Outpatient History & Physical on Chart: Yes. If H&P is completed, is and addenduem needed: No; If yes, is the addendum complete: N/A. Visualize and Verify Site with Patient/Guarantor: N/A. Relevant Radiology Images available: Yes. The risks, benefits, and alternatives of sedation and/or procedure were discussed by physician. The patient agrees to continue. Procedure started. CSHA Clinical Fraility Score: 7: Severely Frail. Mechanical Tech Indications: ACS > 24 hours. Chest Pain Symptom Assessment: Typical Angina Symptoms. Correct patient, site and procedure confirmed by cath team. Current diagnosis: NSTEMI. PERRLA. Strong, equal hand c application developer bilaterally. Lungs clear x 5 lobes. IV Site on Arrival: 20 gauge in the right forearm. IV Fluids: 0.9% NaCl at 75ml/hr. 0 mL infused prior to pie bakery laborer. Pre Procedural Pulses: bilateral dorsalis pedis was Doppled. Pre Procedural Pulses: bilateral posterior tibial was Doppled. Pre Procedural Pulses: bilateral radial was 3+. Oxygen started at 2liters/min via nasal canula. right groin was prepped with chloroprep then draped in the usual sterile fashion. Physician notified. Baseline sample Acquired. HR: 77 BPM. Patient's family unavailable. Equipment: 6F - Radial. Cardiac Cath Pack. ACIST Manifold Kit Model BT 2000. Heparinized Saline (2 units/mL), 1000 mL bag. Physician arrived. Physician scrubbed in. Immediate Pre-Procedure Time Out. Correct Patient: Yes; Correct Procedure: Yes; Correct Site: Yes; Correct Patient Position: Yes; Correct Supplies: Yes; Dried Flammable Prep: Yes; Blood Products Available: N/A;. Lidocaine 1% infiltrated to the right radial. Arterial access obtained. A 5 jamaican TIG catheter in over the exchange J wire. Catheter removed over the exchange J wire. A 5 jamaican JR5 catheter in over the exhcange J wire. Multiple views taken of right coronary artery. Catheter removed over the exchange J wire. A 5 jamaican JL4 catheter in over the exchange J wire. Catheter removed over the exchange J wire. 6 jamaican XB 3.5 guide catheter was inserted over the exchange J wire. Sub-selective cine of the LCA performed. Guide catheter out over the exchange J wire. A 5 jamaican JL3.5 catheter in over the exchange J wire. Catheter removed over the exchange J wire. 6 jamaican XB 3 guide catheter was inserted over the exchange J wire. Catheter removed over the exchange J wire. A 5 jamaican JL5 catheter in over the exchange J wire. Catheter removed over the exchange J wire. A 5 jamaican AL1 catheter in over the exchange J wire. Catheter removed over the exchange J wire. Unable to use radial access, will move to femoral. A TR Band was successful obtaining hemostatsis at the Right Radial artery insertion site. right groin was prepped with chloroprep then draped in the usual sterile fashion. Lidocaine 1% infiltrated to the right groin. Arterial access obtained with micropuncture set. A 5 jamaican JL4 catheter in over the exchange J wire. Multiple views taken of left coronary artery. Catheter removed over the exchange J wire. A 5 jamaican JR4 catheter in over the exchange J wire. Unable to cross the valve, catheter out over the exchange J wire. A Right femoral angiogram was performed to determine safe placement of closure device. A Angio-Seal VIP ([employer]) was successful obtaining hemostatsis at the Right Femoral artery insertion site. Angioseal placed without complications. No signs or symptoms of hematoma noted. Sterile dressing applied per usual sterile fashion. Lot #[id number]. Exp. 2023-04-24. Post Procedure: Pulses reassessed and unchanged. PERRLA. Strong, equal hand c application developer bilaterally. No VTE prophylaxis required. Medication's Wasted: Heparin = 1000 Units. Medication's Wasted: Lidocaine 1% = 3 mL. Medication's Wasted: Nitro = 49.6 mg. Total IV fluids: 75 mL. Post-op diagnosis: Non-obstructive CAD. Complications: none. Estimated blood loss: 5mL-10mL. Responsiveness - Normal response to verbal stimuli; alert and oriented, PERRLA. Airway - Unaffected, no intervention required; spontaneous ventilation. Circulation: W/N/L, pulses unchanged. Nausea/Vomiting: No. Procedure completed. Patient transferred by bed to 1st floor. Vital chart was stopped. Access Site Site: Right Radial artery Sheath Size: 6 Fr Hemostasis Method: TR Band Hemostasis Success: Successful Site: Right Femoral artery Sheath Size: 6 Fr Hemostasis Method: Angio-Seal VIP ([employer]imit[employer]) Hemostasis Success: Successful Procedure Medications Start: 11:53 AM Stop: 11:53 AM Medication: Versed Amount: 1 mg Route: I.V. Start: 11:53 AM Stop: 11:53 AM Medication: Fentanyl Amount: 50 mcg Route: I.V. Start: 11:56 AM Stop: 11:56 AM Medication: Nitrogylcerin Amount: 200 mcg Route: I.A. Start: 11:57 AM Stop: 11:57 AM Medication: Heparin Amount: 3000 units Route: I.V. Start: 12:05 PM Stop: 12:05 PM Medication: Nitrogylcerin Amount: 200 mcg Route: I.A. Start: 12:06 PM Stop: 12:06 PM Medication: Versed Amount: 1 mg Route: I.V. Start: 12:11 PM Stop: 12:11 PM Medication: Heparin Amount: 2000 units Route: I.V. Start: 12:24 PM Stop: 12:24 PM Medication: Versed Amount: 1 mg Route: I.V. Start: 12:24 PM Stop: 12:24 PM Medication: Fentanyl Amount: 25 mcg Route: I.V. Start: 12:39 PM Stop: 12:39 PM Medication: Fentanyl Amount: 25 mcg Route: I.V. Start: 12:40 PM Stop: 12:40 PM Medication: Versed Amount: 1 mg Route: I.V. Start: 12:41 PM Stop: 12:41 PM Medication: Hydralazine Amount: 10 mg Route: I.V. Start: 12:53 PM Stop: 12:53 PM Medication: Hydralazine Amount: 10 mg Route: I.V. I, the attending physician, have reviewed and verified all procedure medications. Yes, all medications given per verbal order History/Risk Factors Hypertension: No Dyslipidemia: No Peripheral Arterial Disease (PAD): No Myocardial Infarction (DE): No Obesity: Yes Renal Disease: No Tobacco Use: Former Prior Interventions PCI: No CABG: No Valve Surgery: No Report Signatures Finalized by Luis E Hooks MD on 09/23/2022 09:56 AM
--- NOTE | 2022-09-17 10:47 | PC.CHAP ---
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 engraver copperplate visit [] Patient/Family/Request visit [] Outpatient visit [] Follow-up visit [] Physician referral [] Code/Alert [x] Routine visit [] Staff referral [] Actively dying [] Patient sleeping [] Family support [] [] Out of room [] Palliative care [] [x] Receiving care in room [] Pre-surgical visit [] Trauma [] Long length of stay [] ICU visit [] Other: Relational/Emotional Strength [x] Patient feels connected with others/family/visitors/staff [] Distress [] Loneliness/isolation [] Abandonment Spirituality of Patient [x] Person of [place] [] Attends Sikh of their [place] [x] Believes in Prayer [] Reads Bible or Oriental Orthodox materials [] There are Spiritual issues to be addressed Analytics Leader Interventions [x] Prayer [x] Active listening [x] Non-anxious presence [x] Spiritual/emotional support [] Crisis/trauma care [x] Spiritual counseling [] Bereavement support [] Provided bereavement packet [] Provided Bible/devotional materials [] Provided toy/stuffed animal, coloring book to patient or family member [] Provided Communion [] Anointing/[place] [] Salvation [x] Completed spiritual assessment [] Other: Impact on Illness or Injury [] Angry [] Fearful [x] Anxious [] Often cries [] Exhaustion [] Unable to work [] Unable to attend scientology [] Unable to walk/stand [] Unable to read [] Unable to drive [] Unable to eat/drink [] Unable to sleep [] Unable to be with family [] Patient intubated [] Other: Summary had two stents she is do good some rcovery soime time has a good attitude well be going home ng good Time spent with patient 10 mins
[2022-09-17] MEDS: amlodipine 5 mg Tablet PO (10:49)
[2022-09-17] MEDS: lisinopril 5 mg Tablet PO (10:49)
[2022-09-17] MEDS: acetaminophen 325 mg Tablet 650 MG PO (10:49)
--- NOTE | 2022-09-17 10:55 | ECG_ITS ---
[facility] Test Date: 2022-09-17 Pat Name: Andrew Pabon Department: Room: 112 Gender: Male Testing Shaking Shipping: : 1955 Requested By: Moises Chiu Order Number: [id number] Claudette MD: Randy Garcia M.D. Measurements Intervals [place] Rate: 89 P: 19 PA: 159 QRS: -42 QRSD: 111 T: 32 QT: 396 QTc: 483 Interpretive Statements SINUS RHYTHM LEFT AXIS DEVIATION [QRS AXIS < -30] PATTERN CONSISTENT WITH PULMONARY DISEASE MODERATE INTRAVENTRICULAR CONDUCTION DELAY [110+ ms QRS DURATION] VOLTAGE CRITERIA FOR LVH [MEETS CRITERIA IN ONE OF: R(aVL), S(V1), R(V5), R(V5/V6)+S(V1)] Compared to ECG 09/17/2022 05:48:41 Left-axis deviation now present Intraventricular conduction delay now present Sinus arrhythmia no longer present Left anterior fascicular block no longer present Myocardial infarct finding no longer present Electronically Signed On 09-17-2022 22:28:18 ALLIGATOR HUNTER by Randy Garcia M.D. [id number]
[2022-09-17] MEDS: perflutren protein-a microsphr 0.22 mg/mL SDV 3 mL IV (11:05)
--- NOTE | 2022-09-17 11:36 | PC.NURSE ---
received from er at 0955.total transfer from stretcher to bed.pt is alert and oriented x 4.denied pain.sr on monitor.oriented to room environment.instructed to notify staff for any chest pain,sob,or for any concerns at all.pt verb understanding of instructions
--- NOTE | 2022-09-17 11:37 | PC.NURSE ---
to cardiac agriculture laborer via bed at this time
--- NOTE | 2022-09-17 11:49 | W.PM.OPSUD ---
Surgery/Procedure H&P Update DATE OF PROCEDURE: September 17, 2022 DATE H&P PERFORMED: 09/17/22 H&P UPDATE INFORMATION: I have reviewed H&P completed within last 30 days, I have examined patient prior to procedure and No changes to prior documentation PREOP DIAGNOSIS: NSTEMI PRIMARY INDICATION FOR PROCEDURE: NSTEMI PLANNED PROCEDURE: Left heart cath with possible percutaneous coronary intervention PATIENT REASSESSED PRIOR TO SEDATION, WITH NO CHANGE NOTED: Yes PHYSICAL EXAM: alert, oriented x 3, clear to auscultation bilaterally and regular rate & rhythm AIRWAY EVAL/ANESTHESIA PLAN: normal airway, ASA IV, Local Anesthesia, Risks, benefits & alternatives of sedation and/or procedure discussed and Patient agrees to continue as planned ADDITIONAL INFORMATION: Moderate sedation
[2022-09-17 11:52] LABS: Glucose Point of Care 171 mg/dL (70-110)
[2022-09-17] MEDS: insulin lispro 100 unit/1 mL SUBCUT ×2 (13:21→17:41)
--- NOTE | 2022-09-17 13:39 | PC.NURSE ---
received from cardiac medical lab tech instructor at 1305.report received.pt is drowsy but easily awakened.sr on monitor.right radial tr band on and inflated.right hand is warm to touch and with brisk capillary refill.palpable radial pulse noted distal to tr band.no hematoma noted.right femoral arterie was closed with angioseal in the medical lab tech instructor.drsg is dry and intact and no hematoma noted.right leg is warm to touch.pt and pt's instructed in activity restrictions s/p radial and femoral artery procedures..and instructed to notify staff for any bleeding,pain,sob,numbness...or for any concerns at all.pt verb understanding of instructions
[2022-09-17] MEDS: TRAMadol 50 mg Tablet PO (14:53)
[2022-09-17] MEDS: tizanidine 4 mg Tablet PO (14:55)
[2022-09-17 15:40] LABS: Blood Urine 3+ (Negative); Glucose Urine UA Norm (Normal); Ketones Urine 1+ (Negative); Protein Urine Neg (Negative); Specific Gravity, Urine 1.005 (1.005-1.030); Urine Appearance Hazy (CLEAR); Urine Color Yellow (Yellow); pH Urine 5 (5-7)
[2022-09-17 15:41] LABS: Add Urine Culture? Yes; Bacteria Urine TRACE /hpf; Bilirubin Urine Neg (Negative); Leukocyte Esterase Urine 2+ (Negative); Nitrate Urine Negative (Negative); RBC Urine 25-40 /hpf (0-2); Squamous Epithelial Cell Urine 0-4 /hpf (0-5); Urobilinogen Urine Neg (Negative); WBC Urine 15-25 /hpf (0-5)
[2022-09-17 17:00] LABS: Glucose Point of Care 186 mg/dL (70-110)
--- NOTE | 2022-09-17 17:15 | PM.MISC ---
Miscellaneous Note Purpose of Documentation: Brief procedure note Note: Left heart cath finding: Left main artery: Patent LAD: Patent, no significant stenosis LCx: Patent, no significant stenosis RCA: Patent, no significant stenosis Plan: Medical management
[2022-09-17] MEDS: pantoprazole DR 40 mg Tablet PO (17:42)
--- NOTE | 2022-09-17 17:58 | PC.NURSE ---
tr band slowly deflated and eventually removed at 1630.no hematoma noted.site dressed with 2x2 gauze and secured with biocclusive drsg.right hand remains warm to touch and with brisk capillary refill.palpable radial pulse noted.pt instructed in activity restrictions s/p tr band removal and instructed to notify staff for any bleeding,pain,numbness,or for any concerns at all.pt verb understanding of instructions
--- NOTE | 2022-09-17 18:28 | PC.NURSE ---
pt is incontinent of urine at at times.impossible to meausure accurate output
[2022-09-17 21:11] LABS: Glucose Point of Care 130 mg/dL (70-110)
[2022-09-17] MEDS: insulin glargine 100 units/1 mL 12 UNIT SUBCUT (21:21)
[2022-09-18] VITALS (53 sets, daily range): BP systolic 117–190; BP diastolic 87–107; PULSE 73–122; RESP 11–30; TEMP 37.1–37.5; O2SAT 87–100
[2022-09-18 03:49] LABS: Basophils % 0.3 %; Eosinophils # 0.4 10^3/uL (0.0-0.8); Eosinophils % 4.9 %; Hematocrit 36.6 % (42.0-52.0); Hemoglobin 11.8 g/dL (11.7-16.6); Lymphocytes # 2.4 10^3/uL (0.8-4.8); Lymphocytes % 33.2 %; Mean Corpuscular HGB Conc 32.2 g/dL (30.0-36.0); Mean Corpuscular Hemoglobin 31.1 pg (28.0-34.0); Mean Corpuscular Volume 96.3 fl (80-94); Monocytes # 0.6 10^3/uL (0.2-0.9); Monocytes % 8.8 %; Neutrophils # 3.71 10^3/uL (1.8-7.7); Neutrophils % 52.4 %; Nucleated Red Blood Cells % 0.3 %; Platelet Count 285 10^3/cmm (130-400); Red Cell Distribution Width 14.6 % (12.1-15.1); White Blood Count 7.1 10^3/uL (4.0-10.0)
[2022-09-18 04:10] LABS: Alanine Aminotransferase 14 U/L (0-41); Albumin Level 3.4 g/dL (3.5-5.2); Alkaline Phosphatase 95 U/L (40-130); Anion Gap 15.3 (5-19); Aspartate Amino Transferase 15 U/L (0-40); Blood Urea Nitrogen 20 mg/dL (8-23); Calcium 8.8 mg/dL (8.5-10.5); Carbon Dioxide 24 mmol/L (22-29); Chloride 105 mmol/L (98-107); Globulin 3.1 g/dL (1.3-4.6); Glomerular Filtration Rate 96.1 mL/min (90-130); Glucose 118 mg/dL (65-115); Magnesium 1.8 mg/dL (1.7-2.3); Osmolality Calculated 296 mOsm/kg (285-295); Potassium 3.3 mmol/L (3.5-5.1); Sodium 141 mmol/L (136-145); Total Bilirubin 0.3 mg/dL (0.15-1.2); Total Protein 6.5 g/dL (6.6-8.7)
--- NOTE | 2022-09-18 06:09 | P.PN_ITS ---
Subjective Subjective: Patient is feeling well. No chest pain Vitals/I&O/Wt Last Vital Signs Temp 98.8 F 09/18/22 04:00 Pulse 95 09/18/22 05:30 Resp 20 H 09/18/22 04:00 BP 117/93 09/18/22 04:00 Pulse Ox 94 09/18/22 04:00 O2 Del Method 09/17/22 22:00 O2 Flow Rate 2 09/17/22 22:00 09/17/22 09/17/22 09/18/22 14:59 22:59 06:59 Intake Total 0 / 0 300 / 300 460 / 760 Output Total 200 / 200 3 Balance -200 / -200 297 / 97 460 / 557 Weight last 48 hrs Weight 304 lb 6 oz Weight 400 lb Physical Exam Narrative: GENERAL: Patient is alert, awake and oriented x3. [] NECK: No jugular vein distension. [] HEENT: No cyanosis. No icterus. No pallor. [] HEART: Regular S1 and S2. No murmur, rub or gallop. [] LUNGS: Clear to auscultate bilaterally. [] ABDOMEN: Soft CENTRAL NERVOUS SYSTEM: Grossly nonfocal. [] EXTREMITIES: Lower extremities with 2+ edema bilaterally. Pulses palpable in the lower extremities, both dorsalis pedis and posterior tibial. [] Data 09/18/22 03:27 09/18/22 03:27 A&P Assessment and plan (1) Non-ST elevation MT (NSTEMI): (2) Bilateral lower extremity edema: (3) Facet arthropathy, lumbar: (4) DVT, bilateral lower limbs: (5) Hypertension: Plan Coronary angiogram performed that does not show significant CAD. Aggressive medical therapy. Continue anticoagulation with Eliquis Echo shows normal LV systolic function. Thank you for involving us with care of this patient. Patient is stable to discharge home. Please call with questions. Attestations Medical Necessity Statement*: Care expected to cross 2 midnights. Coding Level of Care Code Acute Code for [facility] Fwd Diagnoses Non-ST elevation MT (NSTEMI) I21.4 Bilateral lower extremity edema R60.0 Facet arthropathy, lumbar M47.816 DVT, bilateral lower limbs I82.403 Hypertension I10
[2022-09-18 06:37] LABS: Glucose Point of Care 141 mg/dL (70-110)
[2022-09-18] MEDS: aspirin 325 mg EC Tablet PO (09:12)
[2022-09-18] MEDS: potassium chloride ER 20 mEq Tablet 40 MEQ PO (09:12)
[2022-09-18] MEDS: TRAMadol 50 mg Tablet PO (09:12)
[2022-09-18] MEDS: pantoprazole DR 40 mg Tablet PO (09:13)
[2022-09-18] MEDS: lisinopril 5 mg Tablet PO (09:13)
[2022-09-18] MEDS: amlodipine 5 mg Tablet PO (09:14)
[2022-09-18] MEDS: apixaban 5 mg Tablet PO (09:14)
[2022-09-18] MEDS: cefdinir 300 MG CAPSULE PO (09:15)
--- NOTE | 2022-09-18 10:00 | P.DS_ITS ---
Discharge Providers Date of Admission: 09/17/22 10:19 Date of Discharge: September 18, 2022 Attending Provider at Admission: Pillo Morales MD Attending Provider at Discharge: Pillo Morales MD Primary Care Provider: Mac Nelson MD Diagnoses at Discharge Discharge Diagnosis (1) Non-ST elevation MT (NSTEMI): Status: Acute (2) Bilateral lower extremity edema: Status: Acute (3) Facet arthropathy, lumbar: Status: Acute (4) DVT, bilateral lower limbs: Status: Acute (5) Hypertension: Status: Acute Reason for Visit Reason for Visit: cp Hospital Course Hospital Course Andrew is a 66-year-old male who was admitted to the hospital with chest discomfort. EKG was abnormal and troponin markedly elevated. He received an echocardiogram, that showed preserved EF. Troponin was downward trend but there was concern this represented a non-ST elevation myocardial infarction. He was a nticoagulated, given aspirin and Plavix and angiogram was performed on 09/17. This showed no significant coronary disease. CTA had also been performed previously which demonstrated no pulmonary embolism. Medications were adjusted while in the hospital. Venous duplex was done demonstrating bilateral DVTs. Family and patient was amenable to restarting Eliquis. His triamterene-hydrochlorothiazide was discontinued and Lasix was added. Lisinopril was increased. He will need a BMP in 3 days. He should not take his metformin until 09/20. He was given an opportunity ask questions, and agreed w ith the plan. Secondary to his chest discomfort, Protonix was increased to twice daily. I discussed the risks and benefits of anticoagulation with him in detail. Physical Exam Narrative: General exam no distress Neck is supple Cardiovascular regular rate and rhythm Lungs clear Abdomen is soft, obese Extremities show venous stasis, with 2+ edema unchanged from admission Skin no rash Discharge Data Studies Completed and Pending Completed Studies During Hospitalization Category Date Time Status CTA chest [CT angio chest PE protcl [id number]] Stat Cat Scan 09/17/22 05:35 Completed XR chest 1V portable [id number] Stat Exams 09/17/22 04:55 [place] [id number] Routine Ultrasound 09/17/22 08:54 Completed CV. echo wo/w contrast [id number] Routine Ultrasound 09/17/22 09:36 Completed Pending at discharge Category Date Time Status [employer] request for service Routine Exams 09/17/22 10:19 Taken Urine Culture Routine Lab 09/17/22 15:05 Received Radiology Impressions Chest X-Ray 09/17/22 04:55 IMPRESSION: No acute abnormality demonstrated. Chest CTA 09/17/22 05:35 IMPRESSION: 1. No evidence of pulmonary embolism or aortic dissection. 2. Atherosclerotic vascular disease including coronary artery disease. 3. Old granulomatous disease. Laboratory Results WBC 7.1 10^3/uL (4.0-10.0) 09/18/22 03:27 RBC 3.80 10^6/uL (4.1-5.3) L 09/18/22 03:27 Hgb 11.8 g/dL (11.7-16.6) 09/18/22 03:27 Hct 36.6 % (42.0-52.0) L 09/18/22 03:27 MCV 96.3 fl (80-94) H 09/18/22 03:27 MCH 31.1 pg (28.0-34.0) 09/18/22 03:27 MCHC 32.2 g/dL (30.0-36.0) 09/18/22 03:27 RDW 14.6 % (12.1-15.1) 09/18/22 03:27 Plt Count 285 10^3/cmm (130-400) 09/18/22 03:27 MPV 9.0 fL (7.4-10.4) 09/18/22 03:27 Neut % (Auto) 52.4 % 09/18/22 03:27 Lymph % (Auto) 33.2 % 09/18/22 03:27 [place] % (Auto) 8.8 % 09/18/22 03:27 Eos % (Auto) 4.9 % 09/18/22 03:27 Baso % (Auto) 0.3 % 09/18/22 03:27 Neut # (Auto) 3.71 10^3/uL (1.8-7.7) 09/18/22 03:27 Lymph # (Auto) 2.4 10^3/uL (0.8-4.8) 09/18/22 03:27 [place] # (Auto) 0.6 10^3/uL (0.2-0.9) 09/18/22 03:27 Eos # (Auto) 0.4 10^3/uL (0.0-0.8) 09/18/22 03:27 Baso # (Auto) 0.0 10^3/uL (0.0-0.1) 09/18/22 03:27 Nucleated RBC % (auto) 0.3 % 09/18/22 03:27 Nucleated RBCs # 0.0 /100WBC 09/18/22 03:27 PT 13.50 SECONDS (12.1-14.9) 09/17/22 05:07 INR 1.00 (0.8-1.2) 09/17/22 05:07 D-Dimer 3.12 ug/mIFEU (0-0.59) H 09/17/22 05:07 Sodium 141 mmol/L (136-145) 09/18/22 03:27 Potassium 3.3 mmol/L (3.5-5.1) L 09/18/22 03:27 Chloride 105 mmol/L (98-107) 09/18/22 03:27 Carbon Dioxide 24 mmol/L (22-29) 09/18/22 03:27 Anion Gap 15.3 (5-19) 09/18/22 03:27 BUN 20 mg/dL (8-23) 09/18/22 03:27 Creatinine 0.8 mg/dL (0.7-1.2) 09/18/22 03:27 GFR Calculation 96.1 mL/min (90-130) 09/18/22 03:27 Glucose 118 mg/dL (65-115) H 09/18/22 03:27 POC Glucose 141 mg/dL (70-110) H 09/18/22 06:16 Calculated Osmolality 296 mOsm/kg (285-295) H 09/18/22 03:27 Calcium 8.8 mg/dL (8.5-10.5) 09/18/22 03:27 Magnesium 1.8 mg/dL (1.7-2.3) 09/18/22 03:27 Total Bilirubin 0.3 mg/dL (0.15-1.2) 09/18/22 03:27 AST 15 U/L (0-40) 09/18/22 03:27 ALT 14 U/L (0-41) 09/18/22 03:27 Alkaline Phosphatase 95 U/L (40-130) 09/18/22 03:27 Troponin T Baseline 157 ng/L (0-15) H* 09/17/22 05:07 Troponin T 120 Minute 143.4 ng/L (0-15) H 09/17/22 06:42 Delta Troponin T -13.6 ABS# (0-10) L 09/17/22 06:42 Troponin T Hi Sens 6Hr 125.0 ng/L (0-15) H 09/17/22 11:02 Troponin T Hi Sens 6Hr Delta -32.0 ng/L (0-12) L 09/17/22 11:02 NT-Pro-B Natriuret Pep 1262 pg/mL (0-125) H 09/17/22 05:07 Total Protein 6.5 g/dL (6.6-8.7) L D 09/18/22 03:27 Albumin 3.4 g/dL (3.5-5.2) L 09/18/22 03:27 Globulin 3.1 g/dL (1.3-4.6) 09/18/22 03:27 TSH 3.32 uIU/mL (0.27-4.20) 09/17/22 05:07 Urine Color Yellow (Yellow) 09/17/22 15:05 Urine Appearance Hazy (CLEAR) A 09/17/22 15:05 Urine pH 5 (5-7) 09/17/22 15:05 Ur Specific [place] 1.005 (1.005-1.030) 09/17/22 15:05 Urine Protein Neg (Negative) 09/17/22 15:05 Urine Glucose (UA) Norm (Normal) 09/17/22 15:05 Urine Ketones 1+ (Negative) H 09/17/22 15:05 Urine Blood 3+ (Negative) H 09/17/22 15:05 Urine Nitrate Negative (Negative) 09/17/22 15:05 Urine Bilirubin Neg (Negative) 09/17/22 15:05 Urine Urobilinogen Neg mg/dL (Negative) 09/17/22 15:05 Ur Leukocyte Esterase 2+ (Negative) H 09/17/22 15:05 Urine RBC 25-40 /hpf (0-2) H 09/17/22 15:05 Urine WBC 15-25 /hpf (0-5) H 09/17/22 15:05 Ur Squamous Epith Cells 0-4 /hpf (0-5) H 09/17/22 15:05 Amorphous Sediment Not Reportable 09/17/22 15:05 Urine Bacteria Trace /hpf (NONE) 09/17/22 15:05 Urine Yeast 1+ /hpf H 09/17/22 15:05 Vitals Last Vital Signs Temp 98.8 F 09/18/22 04:00 Pulse 101 H 09/18/22 09:15 Resp 21 H 09/18/22 09:15 BP 190/107 09/18/22 08:00 Pulse Ox 93 09/18/22 09:15 O2 Del Method 09/17/22 22:00 O2 Flow Rate 2 09/17/22 22:00 Discharge Plan Discharge Patient Disposition: Home Condition: Stable Prescriptions: New pantoprazole 40 mg Tablet,Delayed Release (Dr/Ec) 40 mg PO BID Qty: 60 0RF Eliquis 5 mg Tablet 5 mg PO BID@0900,2100 Qty: 60 0RF bumetanide 0.5 mg tablet 0.5 mg PO DAILY Qty: 30 0RF lisinopril 10 mg tablet 10 mg PO DAILY Qty: 30 0RF cefdinir 300 mg Capsule 300 mg PO BID Qty: 20 0RF Continued Basaglar KwikPen U-100 Insulin 100 unit/mL (3 mL) insulin pen 12 unit SUBCUT BEDTIME acetaminophen [Tylenol Extra Strength] 500 mg tablet 500 mg PO Q6H PRN (Reason: Pain) ascorbic acid (vitamin C) 1,000 mg tablet 1 g PO BID alcohol swabs [Alcohol Prep Pads] Pads, Medicated 1 pad topical QID Qty: 100 0RF zinc oxide 40 % ointment 1 applic topical QID PRN (Reason: skin irritation) Qty: 397 5RF amlodipine 5 mg tablet 5 mg PO DAILY Qty: 30 5RF (DME) blood-glucose meter [Accu-Chek [place] Plus Meter] Misc See Rx Instructions .Route Qty: 1 0RF Rx Instructions: As directed (DME) Accu-Chek [place] Plus test strp Strip See Rx Instructions .Route Qty: 50 2RF Rx Instructions: As directed (DME) lancets [Accu-Chek Multiclix Lancet] Misc See Rx Instructions .Route Qty: 100 0RF Rx Instructions: As directed metformin 500 mg Tablet 500 mg PO BID 30 Days Qty: 60 1RF tizanidine 4 mg tablet 4 mg PO TID PRN (Reason: Muscle Spasticity) tramadol 50 mg tablet 50 mg PO BID PRN (Reason: pain ) Rx Instructions: may fill 30 days after previous refill. methenamine hippurate 1 gram tablet 1 g PO BID Rx Instructions: *TAKE WITH 1 GRAM OF VITAMIN-C* finasteride 5 mg tablet 5 mg PO DAILY iron 325 mg (65 mg iron) Tablet 325 mg PO DAILY Novolog FlexPen U-100 Insulin 100 unit/mL (3 mL) Insulin Pen See Rx Instructions .ROUTE .COMPLEX Rx Instructions: sliding scale as needed triamcinolone acetonide 0.5 % cream 1 applic topical TID PRN (Reason: unknown) Discontinued triamterene-hydrochlorothiazid 37.5-25 mg tablet 1 tab PO QAM Qty: 60 5RF lisinopril 5 mg tablet 5 mg PO DAILY Discharge Orders: Discharge Order (Routine); Ordered 09/18/22 Ordered By: Pillo Morales Referrals: Mac Nelson MD [Primary Care Provider] - 4-7 days (BMP on follow-up) Ave Patiño FNP [Nurse Practitioner] - 2 weeks Discharge Diet: Cardiac and Diabetic Discharge Activity: Increase activity as tolerated Patient Instructions: Opioid Safety Activity Restrictions/Additional Instructions: Take all medicine as prescribed Do not take your metformin until 09/20 BMP on follow-up with your primary care provider Post angiogram restrictions, information Watch for any bleeding as you have been put on Eliquis. Note that your triamterene-hydrochlorothiazide has been discontinued and Bumex has been substituted. Lisinopril dose has been increased. Patient's Health Concerns: Chest pain Assessment: Coronary angiogram without significant disease, CTA without pulmonary embolism. Plan of Treatment: Enhance blood pressure control, addition of diuretic, follow-up with primary care provider. Eliquis added secondary to bilateral DVTs Discharge Attestations Time Spent in Discharge Care*: greater than 30 min Status at Discharge: Cognitive status at discharge: cognitively intact , Behavioral status at discharge: cooperative , Quality Metrics Clinical Quality Measures [ Venous Thromboembolism { Contraindication to Overlap Therapy: Overlap treatment not indicated; VTE Discharge Education: Education about anticoagulant therapy/Care Notes given; Contraindication to Pharm VTE Prophylaxis: None; Pharmacological prophylaxis given;}. No reported AMI, CVA or VTE this stay] Coding Level of Care Code 74333 Total time (in minutes) for Discharge: 38 Diagnoses Non-ST elevation MT (NSTEMI) I21.4 Bilateral lower extremity edema R60.0 Facet arthropathy, lumbar M47.816 DVT, bilateral lower limbs I82.403 Hypertension I10
[2022-09-18 11:28] LABS: Glucose Point of Care 177 mg/dL (70-110)
== END 2022-09-18 12:26 | disposition home health service (06) | DRG 281 ==
LOC: ER 07:38 → CSU 11:09
PROVIDERS: Emergency Medicine; Internal Medicine; Admitting Provider Internal Medicine; Emergency Provider Family Medicine; PCP Family Medicine Adult Medicine; Visit Provider Internal Medicine
PROC: B2111ZZ Fluoroscopy of Multiple Coronary Arteries using Low Osmolar Contrast (ICD-10-PCS; principal; 2022-09-17 12:00)
DX: I21.4 Non-ST elevation (NSTEMI) myocardial infarction (principal); I82.443 Acute embolism and thrombosis of tibial vein, bilateral; N13.8 Other obstructive and reflux uropathy; Z68.41 Body mass index [BMI] 40.0-44.9, adult; I82.513 Chronic embolism and thrombosis of femoral vein, bilateral; I82.533 Chronic embolism and thrombosis of popliteal vein, bilateral; I82.553 Chronic embolism and thrombosis of peroneal vein, bilateral; E11.9 Type 2 diabetes mellitus without complications; I10 Essential (primary) hypertension; E66.01 Morbid (severe) obesity due to excess calories; N40.1 Benign prostatic hyperplasia with lower urinary tract symptoms; G89.29 Other chronic pain; M54.16 Radiculopathy, lumbar region; M17.11 Unilateral primary osteoarthritis, right knee; Z87.891 Personal history of nicotine dependence; Z95.828 Presence of other vascular implants and grafts; E87.6 Hypokalemia; Z79.4 Long term (current) use of insulin; Z79.891 Long term (current) use of opiate analgesic; Z79.84 Long term (current) use of oral hypoglycemic drugs; M47.816 Spondylosis without myelopathy or radiculopathy, lumbar region
CPT/HCPCS: 36415; 36416; 71045; 71275; 80053; 81001; 82962; 83735; 83880; 84443; 84484; 85025; 85378; 85610; 87077; 87086; 87186; 93005; 93454; 93970; 96365; 96366; 96372; 96375; 99152; 99153; 99285; C1760; C1769; C1887; C1894; C8929; G0269; J0360; J1644; J1815; J2060; J2250; J3010; J3490; J7030; Q9956; Q9967

== ENCOUNTER → 2022-09-29 08:37 | Outpatient (BNVA) | payer MEDICARE, MEDICAID, SELFPAY | PROVIDERS: PCP Family Medicine Adult Medicine; Visit Provider Nurse Practitioner Family | DX: I10 Essential (primary) hypertension (principal); Z87.891 Personal history of nicotine dependence; Z79.01 Long term (current) use of anticoagulants | CPT/HCPCS: 36415; 80048; 99214 ==

== ENCOUNTER 2022-12-21 17:07 | Observation (INO) | payer MEDICARE, MEDICAID, SELFPAY ==
[2022-12-21] VITALS (7 sets, daily range): BP systolic 171–251; BP diastolic 83–145; PULSE 83–116; RESP 16–18; TEMP 36.7; O2SAT 92–96; BMI 41.3
--- NOTE | 2022-12-21 17:58 | W.ED.ABDPA2 ---
HPI - Abdominal Pain General: Chief Complaint: Abdominal Pain Stated Complaint: stomach pain Time Seen by Provider: 12/21/22 17:58 History of Present Illness: Mr. Pabon is a 66-year-old gentleman with complex past medical history including diabetes, hypertension, hyperlipidemia, obesity, recurrent UTI, history of DVT on anticoagulation presented to the emergency department for concern for abdominal pain and blood in stool. He notes symptoms starting yesterday subacute without known specific provoking event. He endorses multiple episodes of nonbilious and nonbloody emesis and had a large bowel movement and subsequently had blood noted on his briefs. Denies history of GI bleeds. He has generalized abdominal pain which is aching and sharp in nature. Moderate in intensity. No other specific changes in health, exacerbating, or alleviating factors identified. Onset (ago): day(s) Location: Diffuse Severity: moderate Quality: aching and sharp Radiation: back Migration to: no migration Exacerbating factors: nothing Relieving factors: movement Associated Symptoms: Reports hematochezia, nausea and vomiting; Denies fever(s), hematuria and hematemesis Review of Systems General: Reports: 10 or more systems reviewed and unremarkable except in HPI and below Const: Denies: fever(s) GI: Reports: nausea, vomiting and hematochezia; Denies: hematemesis : Denies: hematuria PFSH ED PFSH: Medical History (Updated 01/01/23 @ 08:53 by Mac Nelson MD) Abdominal pain Anemia Bilateral lower extremity edema BPH loc w urin obs/LUTS Chronic low back pain Chronic pain of lower extremity, bilateral Colitis Colon polyps 12/05/[address] 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 and was in ICU for 10 days Hypertension Lumbar stenosis Morbid obesity due to excess calories Osteoarthritis of right knee Recurrent UTI Severe muscle deconditioning 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 chronic peripheral venous hypertension Urinary retention Surgical History Status post hernia repair Family History Father , IN HIS 60'S Cancer LUNG Mother , IN HER 60'S Heart attack Other CAD (coronary artery disease) Denies family history of Anesthesia complication Bleeding disorder Social History Smoking and tobacco status: former smoker Alcohol intake: never Substance/Drug Use: never Adopted: No Caregiver/support person: Yes Household members: spouse Marital status: Current occupational status: disabled Physical Exam Const: COMMON NORMALS: alert GENERAL APPEARANCE: cooperative and well developed HENMT: COMMON NORMALS: normocephalic and atraumatic HEAD & SCALP: normocephalic and atraumatic THROAT: posterior oropharynx normal Eye: COMMON NORMALS: conjunctivae normal CONJUNCTIVA: Yes conjunctivae normal SCLERA: sclerae normal Neck/C-Spine: COMMON NORMALS: supple GENERAL: Yes trachea midline Resp: COMMON NORMALS: clear to auscultation bilaterally EFFORT & INSPECTION: Yes able to speak in complete sentences AUSCULTATION: clear to auscultation bilaterally Cardio: COMMON NORMALS: regular rate and regular rhythm RATE: regular rate RHYTHM: regular rhythm GI: COMMON NORMALS: Soft to palpation PALPATION: Yes Soft to palpation, Yes Tenderness to palpation present (GI), No Guarding due to palpation present (GI) and No Rigid due to palpation : OTHER: Generalized dark red/purple skin moisture/pressure related changes about the buttocks, perineal region, and under skin folds on and abdomen. No evidence of Yovanny's gangrene on clinical exam. Extremity: GENERAL: Yes normal exam except as noted and No edema Neuro: COMMON NORMALS: moves all extremities SENSORIUM/ORIENTATION: Yes alert and No Orientation impaired Psych: COMMON NORMALS: mental status grossly normal and Normal thought process present THOUGHT PROCESS: Normal thought process present Course Vital Signs: Vital signs: Vital Signs Temperature 98.5 F 12/23/22 12:00 Pulse Rate 82 12/23/22 12:00 Respiratory Rate 17 12/23/22 12:00 Blood Pressure 150/81 12/23/22 12:00 Pulse Oximetry 92 12/23/22 12:00 Oxygen Delivery Me thod Room Air 12/23/22 12:00 MDM - Abdominal Pain Medical Decision Making 67-year-old gentleman on anticoagulation presenting with abdominal symptoms and blood in stool. Patient is mildly ill and mildly tachycardic on exam. Abdominal tenderness with no evidence of acute surgical abdomen. Patient is nontoxic. Labs notable for mild leukocytosis, normal hemoglobin and platelet count. Metabolic panel with minimally increased anion gap. Initial lactic acid is elevated with normalization on repeat. Urinalysis concerning for urinary tract infection. CT demonstrates bladder wall/bladder abnormality as well as likely colitis. Incidental findings noted. During ED course patient treated with fluids, analgesia, antiemetic and antibiotics. Most likely etiology of symptoms is multifactorial including colitis related to GI bleeding and recurrent UTI. The results of ED evaluation were discussed with the patient including plan for admission due to requirement for level of care not available if discharged to prevent significant worsening/deterioration. Patient agreeable with plan. Discussed with hospitalist service who was agreeable to admit patient. Medical Records I reviewed the patient's medical records. Lab Data I reviewed the patient's lab results. 12/23/22 04:17 12/22/22 02:12 Labs/Radiology: Radiology Impressions Abdomen/Pelvis CT 12/21/22 20:24 IMPRESSION: 1. 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 2. Enlarged prostate greater than or equal to 5.0 cm; correlation with PSA levels is recommended. 3. Mild bowel wall thickening in the descending colon consistent with mild infectious colitis, microvascular ischemic colitis or inflammatory bowel autoimmune colitis. ADDENDUM: 12/22/22 0274 Impression: 4. IVC filter in place. THIS REPORT CONTAINS FINDINGS THAT MAY BE CRITICAL TO PATIENT CARE. The findings were verbally communicated via telephone conference with Dr. Lea at 2:43 AM CDT on 12/22/2022. The findings were acknowledged and understood. Venous Duplex 12/22/22 23:36 IMPRESSION: 1. Occlusive DVT in the left superficial femoral vein which is probably acute DVT versus acute on chronic DVT. 2. Otherwise chronic nonocclusive DVT throughout the left lower extremity with narrow main venous channels with collateral vessels. 3. Small veins in the right lower extremity with poor augmentation suggesting sequela from chronic DVT with no obvious occlusive DVT at this time. ADDENDUM: 12/22/22 [id number] THIS REPORT CONTAINS FINDINGS THAT MAY BE CRITICAL TO PATIENT CARE. The findings were verbally communicated via telephone conference with ANUSHA MAYNARD at 2:22 AM CDT on 12/22/2022. The findings were acknowledged and understood. Laboratory Results WBC 13.1 10^3/uL (4.0-10.0) H 12/21/22 19:53 Corrected WBC Cancelled 12/21/22 18:30 RBC 4.82 10^6/uL (4.1-5.3) 12/21/22 19:53 Hgb 14.5 g/dL (11.7-16.6) 12/21/22 19:53 Hct 45.8 % (42.0-52.0) 12/21/22 19:53 MCV 95.0 fl (80-94) H 12/21/22 19:53 MCH 30.1 pg (28.0-34.0) 12/21/22 19:53 MCHC 31.7 g/dL (30.0-36.0) 12/21/22 19:53 RDW 14.0 % (12.1-15.1) 12/21/22 19:53 Plt Count 265 10^3/cmm (130-400) 12/21/22 19:53 MPV 8.6 fL (7.4-10.4) 12/21/22 19:53 Gran % Cancelled 12/21/22 18:30 Neut % (Auto) 78.9 % 12/21/22 19:53 Lymph % (Auto) 14.4 % 12/21/22 19:53 [place] % (Auto) 6.0 % 12/21/22 19:53 Eos % (Auto) 0.2 % 12/21/22 19:53 Baso % (Auto) 0.2 % 12/21/22 19:53 Neut # (Auto) 10.32 10^3/uL (1.8-7.7) H 12/21/22 19:53 Lymph # (Auto) 1.9 10^3/uL (0.8-4.8) 12/21/22 19:53 [place] # (Auto) 0.8 10^3/uL (0.2-0.9) 12/21/22 19:53 Eos # (Auto) 0.0 10^3/uL (0.0-0.8) 12/21/22 19:53 Baso # (Auto) 0.0 10^3/uL (0.0-0.1) 12/21/22 19:53 Absolute Gran (auto) Cancelled 12/21/22 18:30 Nucleated RBC % (auto) 0 % 12/21/22 19:53 Nucleated RBCs # 0.0 /100WBC 12/21/22 19:53 Sodium 139 mmol/L (136-145) 12/21/22 19:53 Potassium 3.5 mmol/L (3.5-5.1) 12/21/22 19:53 Chloride 98 mmol/L (98-107) 12/21/22 19:53 Carbon Dioxide 25 mmol/L (22-29) 12/21/22 19:53 Anion Gap 19.5 (5-19) H 12/21/22 19:53 BUN 22 mg/dL (8-23) 12/21/22 19:53 Creatinine 1.0 mg/dL (0.7-1.2) 12/21/22 19:53 GFR Calculation 74.3 mL/min (90-130) L 12/21/22 19:53 Glucose 157 mg/dL (65-115) H 12/21/22 19:53 Calculated Osmolality 295 mOsm/kg (285-295) 12/21/22 19:53 Lactic Acid 3.2 mmol/L (0.5-2.2) H 12/21/22 19:53 Calcium 8.8 mg/dL (8.5-10.5) 12/21/22 19:53 Total Bilirubin 0.6 mg/dL (0.15-1.2) 12/21/22 19:53 AST 13 U/L (0-40) 12/21/22 19:53 ALT 14 U/L (0-41) 12/21/22 19:53 Alkaline Phosphatase 108 U/L (40-130) 12/21/22 19:53 Total Protein 7.3 g/dL (6.6-8.7) 12/21/22 19:53 Albumin 3.7 g/dL (3.5-5.2) 12/21/22 19:53 Globulin 3.6 g/dL (1.3-4.6) 12/21/22 19:53 Lipase 22 U/L (13-60) 12/21/22 19:53 Urine Color Yellow (Yellow) 12/21/22 05:29 Urine Appearance Sl hazy (CLEAR) A 05/29/23 05:29 Urine pH 5 (5-7) 12/21/22 05:29 Ur Specific [place] 1.025 (1.005-1.030) 12/21/22 05:29 Urine Protein 1+ (Negative) H 12/21/22 05:29 Urine Glucose (UA) Norm (Normal) 12/21/22 05:29 Urine Ketones 1+ (Negative) H 12/21/22 05:29 Urine Blood 3+ (Negative) H 12/21/22 05:29 Urine Nitrate Negative (Negative) 12/21/22 05:29 Urine Bilirubin 1+ (Negative) H 12/21/22 05:29 Urine Urobilinogen Norm mg/dL (Negative) 12/21/22 05:29 Ur Leukocyte Esterase 2+ (Negative) H 12/21/22 05:29 Urine RBC 0-4 /hpf (0-2) H 12/21/22 05:29 Urine WBC >100 /hpf (0-5) H 12/21/22 05:29 Ur Squamous Epith Cells 10-15 /hpf (0-5) H 12/21/22 05:29 Amorphous Sediment Not Reportable 12/21/22 05:29 Urine Bacteria 1+ /hpf (NONE) H 12/21/22 05:29 Urine Mucus 1+ /hpf 12/21/22 05:29 Urine Yeast 4+ /hpf H 12/21/22 05:29 Discharge Plan Discharge Patient Disposition: Admitted As Inpatient Admit Provider: Anusha Maynard Clinical Impression: Colitis, Abdominal pain, Recurrent UTI, Leukocytosis Condition: Stable Discharge Diet: Cardiac Discharge Activity: Increase activity as tolerated and Use walker/crutches as instructed Coding Level of Care Code ED Forklift Picker for Mirag Frederic
[2022-12-21] MEDS: fentaNYL 50 mcg/mL INJ 2mL IVP (18:29)
[2022-12-21] MEDS: ondansetron 2 mg/ML SDV 2 mL 4 MG IVP (18:29)
[2022-12-21] MEDS: sodium chloride 0.9% 1,000 ML 999 ML IV (18:29)
--- NOTE | 2022-12-21 19:33 | PC.NURSE ---
PT BRIEF CHANGED. BRIGHT RED BLOOD NOTED. ALONG WITH BLANCHING DISCOLORATION NOTED TO MOST OF SACRAL AREA AND BOTH BUTTOX. PHYSICIAN NOTIFIED.
[2022-12-21 19:57] LABS: Basophils % 0.2 %; Eosinophils % 0.2 %; Hematocrit 45.8 % (42.0-52.0); Hemoglobin 14.5 g/dL (11.7-16.6); Lymphocytes # 1.9 10^3/uL (0.8-4.8); Lymphocytes % 14.4 %; Mean Corpuscular HGB Conc 31.7 g/dL (30.0-36.0); Mean Corpuscular Hemoglobin 30.1 pg (28.0-34.0); Mean Platelet Volume 8.6 fL (7.4-10.4); Monocytes # 0.8 10^3/uL (0.2-0.9); Neutrophils # 10.32 10^3/uL (1.8-7.7); Neutrophils % 78.9 %; Nucleated Red Blood Cells % 0 %; Platelet Count 265 10^3/cmm (130-400); Red Blood Count 4.82 10^6/uL (4.1-5.3); White Blood Count 13.1 10^3/uL (4.0-10.0)
[2022-12-21 20:14] LABS: Lactic Sepsis W/Reflex 3.2 mmol/L (0.5-2.2)
[2022-12-21 20:15] LABS: Alanine Aminotransferase 14 U/L (0-41); Albumin Level 3.7 g/dL (3.5-5.2); Alkaline Phosphatase 108 U/L (40-130); Anion Gap 19.5 (5-19); Aspartate Amino Transferase 13 U/L (0-40); Blood Urea Nitrogen 22 mg/dL (8-23); Calcium 8.8 mg/dL (8.5-10.5); Carbon Dioxide 25 mmol/L (22-29); Chloride 98 mmol/L (98-107); Globulin 3.6 g/dL (1.3-4.6); Glomerular Filtration Rate 74.3 mL/min (90-130); Glucose 157 mg/dL (65-115); Lipase 22 U/L (13-60); Osmolality Calculated 295 mOsm/kg (285-295); Potassium 3.5 mmol/L (3.5-5.1); Sodium 139 mmol/L (136-145); Total Bilirubin 0.6 mg/dL (0.15-1.2); Total Protein 7.3 g/dL (6.6-8.7)
--- NOTE | 2022-12-21 20:24 | CTR_ITS ---
PROCEDURE INFORMATION: Exam: CT Abdomen And Pelvis With Contrast Exam date and time: 12/21/2022 8:46 PM Age: 66 years old Clinical indication: Other: Blood in stools; Abdominal pain; Generalized; Additional info: Abd pain generalized, blood in stool TECHNIQUE: Imaging protocol: Computed tomography of the abdomen and pelvis with contrast. Radiation optimization: All CT scans at this facility use at least one of these dose optimization techniques: automated exposure control; mA and/or kV adjustment per patient size (includes targeted exams where dose is matched to clinical indication); or iterative reconstruction. Contrast material: OMNI 350; Contrast volume: 100 ml; Contrast route: INTRAVENOUS (IV); REPORTING DATA: Count of CT and Cardiac NM exams in prior 12 months: This patient has received [address] and 0 known cardiac nuclear medicine studies in the 12 months prior to the current study. COMPARISON: CT kidney stone [id number] 07/09/2021 1:21 PM RADIATION DOSE METRICS: Total DLP (mGy-cm): 1285.49 FINDINGS: Liver: Normal. No mass. Gallbladder and bile ducts: Normal. No calcified stones. No ductal dilation. Pancreas: Normal. No ductal dilation. Spleen: Normal. No splenomegaly. Adrenal glands: Normal. No mass. Kidneys and ureters: Normal. No hydronephrosis. Stomach and bowel: Moderate diverticulosis. Mild bowel wall thickening in the descending colon consistent with mild infectious colitis, microvascular ischemic colitis or inflammatory bowel autoimmune colitis. Appendix: No evidence of appendicitis. Intraperitoneal space: Unremarkable. No free air. No significant fluid collection. Vasculature: Unremarkable. No abdominal aortic aneurysm. Lymph nodes: Unremarkable. No enlarged lymph nodes. Urinary bladder: Possible 4.1 x 3.9 x 3.5 cm intramural cyst within the anterior superior urinary bladder wall most consistent with urachal cyst.. Reproductive: Nonspecific prostate calcifications. Enlarged prostate greater than or equal to 5.0 cm; correlation with PSA levels is recommended. Bones/joints: Unremarkable. No acute fracture. Soft tissues: Unremarkable. CT/CT abdomen pelvis w con* [id number] IMPRESSION: 1. 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 2. Enlarged prostate greater than or equal to 5.0 cm; correlation with PSA levels is recommended. 3. Mild bowel wall thickening in the descending colon consistent with mild infectious colitis, microvascular ischemic colitis or inflammatory bowel autoimmune colitis.
[2022-12-21] MEDS: iohexol 350 mg/mL 500 mL Btl (per mL) IV (20:49)
[2022-12-21 20:59] LABS: Add Urine Microscopic? YES; Bilirubin Urine 1+ (Negative); Blood Urine 3+ (Negative); Glucose Urine UA Norm (Normal); Ketones Urine 1+ (Negative); Leukocyte Esterase Urine 2+ (Negative); Nitrate Urine Negative (Negative); Protein Urine 1+ (Negative); Specific Gravity, Urine 1.025 (1.005-1.030); Urine Appearance SL Hazy (CLEAR); Urine Color Yellow (Yellow); Urobilinogen Urine Norm (Negative); pH Urine 5 (5-7)
[2022-12-21 21:00] LABS: Add Urine Culture? Yes; Bacteria Urine 1+ /hpf; Mucus Urine 1+ /hpf; RBC Urine 0-4 /hpf (0-2); WBC Urine >100 /hpf (0-5)
[2022-12-21] MEDS: morphine 4 mg/mL SDV 1 mL IVP (21:03)
[2022-12-21 21:42] LABS: Reflex Lactate Order REFLEX LACTIC ORDERD
[2022-12-21] MEDS: labetalol 5 mg/mL SDV 20mL 10 MG IVP (21:49)
[2022-12-21] MEDS: piperacillin-tazobactam 4.5 GM in sodium chloride 0.9% (plus) 50 ML IV (21:49)
[2022-12-21 22:45] LABS: Lactic Acid level (Lactate) 1.9 mmol/L (0.5-2.2)
--- NOTE | 2022-12-21 23:47 | PM.HP ---
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 pain is diffuse, does not appear to localize anywhere in abdomen, no diarrhea, bright red blood was noted on patient's underwear by him and his . Unable to quantify at this time. Patient is supposed to be on eliquis for chronic DVT but reports he has been out of refills and has not taken this medication in over 2 months. Denies any past h/o GI Bleed, last colonoscopy in 11/2021 showed transverse colon polyps , tubular adenoma on bx. other history notable for recurrent UTI, chronic cystitis, has not recently been on any abx apart from methanamine suppression. He is recommended to keep intermittent self cath however does not wish to do this, denies any voiding issues at this time. He has significant intertrigo for which he is applying diaper rash ointment and antibiotic ointment per but she is unsure which one. UA + WBC, LA. he denies any specific urinary symptoms today, endorses chronic dysuria without any new changes. ROs negative for fever Review of Systems General: Reports: 10 or more systems reviewed and unremarkable except in HPI and below Const: Denies: fever(s), chills or body aches Eyes: Denies: change in vision, blurry vision or photophobia ENMT: Reports: hoarseness; Denies: throat pain, enlarged tonsils, odynophagia or nasal congestion Card: Denies: chest pain, palpitations, irregular heart rhythm, edema, swelling of feet/ankles, lightheadedness, pre-syncope, dyspnea on exertion or orthopnea Resp: Denies: dyspnea, productive cough, non-productive cough, wheezing, stridor, pain on inspiration, change in phlegm color, hemoptysis or chest congestion GI: Denies: abdominal pain, nausea, vomiting, hematemesis, coffee ground emesis, dysphagia, heartburn, diarrhea, constipation, GI cramping, change in stool character, hematochezia or melena : Denies: flank pain, dysuria, urinary frequency, urinary urgency, urinary hesitancy or hematuria Musc: Denies: neck pain, back pain, extremity pain, joint swelling, joint warmth or deformity Neuro: Denies: headache(s), numbness in extremities, weakness in extremities, sensory changes, difficulty walking, frequent falls, dizziness, vertigo, behavioral changes, Slurred speech present or seizure-like activity Psych: Denies: anxiety, depression, suicidal ideation or homicidal ideation Endo: Denies: polyuria, polydipsia, tired all the time, cold intolerance or hot flashes [place]/Lymph: Denies: easy bruising or easy bleeding Medications/Allergies Home Medications Medication Instructions Recorded Confirmed Last Taken Type blood sugar diagnostic (Accu-Chek #50 ea 02/15/21 09/29/22 Unknown Rx Tawny Plus test strips) blood-glucose meter (Accu-Chek #1 ea 02/15/21 09/29/22 Unknown Rx Tawny Plus Meter) lancets (Accu-Chek Multiclix #100 ea 02/15/21 09/29/22 Unknown Rx Lancet) metformin 500 mg tablet 500 mg PO BID 30 days #60 tabs 02/15/21 09/29/22 11/04/21 Rx insulin glargine 100 unit/mL (3 10 unit SUBCUT BEDTIME 09/29/21 12/21/22 12/20/22 20:00 History mL) subcutaneous pen (Basaglar KwikPen U-100 Insulin) ascorbic acid (vitamin C) 1,000 mg 1 g PO BID 01/02/22 09/29/22 Unknown History tablet acetaminophen 500 mg tablet 500 mg PO Q6H PRN Pain 04/01/22 09/29/22 Unknown History (Tylenol Extra Strength) zinc oxide 40 % topical ointment 1 applic topical QID PRN skin 09/03/22 09/29/22 Unknown Rx irritation #397 grams ferrous sulfate 325 mg (65 mg 325 mg PO DAILY 09/17/22 09/29/22 Unknown History iron) tablet (iron) finasteride 5 mg tablet 5 mg PO DAILY 09/17/22 12/21/22 12/21/22 08:00 History insulin aspart U-100 100 unit/mL See Rx Instructions .Route .COMPLEX 09/17/22 12/21/22 Unknown History (3 mL) subcutaneous pen (Novolog FlexPen U-100 Insulin aspart) methenamine hippurate 1 gram tablet 1 g PO BID 09/17/22 12/21/22 12/21/22 08:00 History tizanidine 4 mg tablet 4 mg PO TID PRN Muscle Spasticity 09/17/22 09/29/22 Unknown History tramadol 50 mg tablet 50 mg PO PRN PRN pain 09/17/22 12/21/22 Unknown History triamcinolone acetonide 0.5 % 1 applic topical TID PRN unknown 09/17/22 09/29/22 Unknown History topical cream apixaban 5 mg tablet (Eliquis) 5 mg PO BID@0900,2100 #60 tabs 09/18/22 09/29/22 Unknown Rx bumetanide 0.5 mg tablet 0.5 mg PO DAILY #90 tabs 09/29/22 09/29/22 Unknown Rx amlodipine 5 mg tablet 5 mg PO DAILY high blood pressure 10/07/22 12/21/22 12/21/22 08:00 Rx #90 tabs pen needle, diabetic 32 gauge x #300 ea 10/27/22 Unknown Rx 5/16 (Comfort EZ Pen [place]) alcohol swabs (Alcohol Prep Pads) 1 pad topical QID #100 ea 11/24/22 Unknown Rx lisinopril 5 mg tablet 5 mg PO DAILY 12/21/22 12/21/22 08:00 History Allergies Allergy/AdvReac Type Severity Reaction Status Date / Time tamsulosin Allergy Intermediate Unknown Verified 12/21/22 17:24 atorvastatin Allergy Unknown Verified 12/21/22 17:24 cephalexin Allergy Unknown Verified 12/21/22 17:24 ciprofloxacin [From Cipro] Allergy Unknown Verified 12/21/22 23:30 cyclobenzaprine Allergy Unknown Verified 12/21/22 17:24 furosemide Allergy Unknown Verified 12/21/22 17:24 gabapentin Allergy numbness Verified 12/21/22 17:24 nitrofurantoin Allergy Unknown Verified 12/21/22 17:24 oxycodone Allergy Unknown Verified 12/21/22 17:24 pregabalin Allergy numbness Verified 12/21/22 17:24 spironolactone Allergy ADR-Nausea Verified 12/21/22 17:24 Sulfa (Sulfonamide Allergy Unknown Verified 12/21/22 17:24 Antibiotics) PFSH Acute PFSH: Medical History Acute kidney injury Anemia Bilateral hydronephrosis Bilateral lower extremity edema Bladder trabeculation BPH loc w urin obs/LUTS Anne glabrata infection Cellulitis of anterior lower leg Chronic low back pain Chronic pain of lower extremity, bilateral Colon polyps Dermatitis associated with moisture from stool incontinence Diabetes mellitus type 2 in obese Diverticula, bladder acquired DVT (deep venous thrombosis) DVT, bilateral lower limbs Encounter for screening colonoscopy 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 Hypertension Lumbar disc disease with radiculopathy Lumbar disc disease with radiculopathy Lumbar stenosis Morbid obesity due to excess calories Osteoarthritis of right knee Recurrent UTI Sepsis Severe muscle deconditioning 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 chronic peripheral venous hypertension Urinary retention Surgical History Status post hernia repair Family History Father , IN HIS 60'S Cancer LUNG Mother , IN HER 60'S Heart attack Other CAD (coronary artery disease) Denies family history of Anesthesia complication Bleeding disorder Social History Smoking and tobacco status: former smoker Alcohol intake: never Substance/Drug Use: never Adopted: No Caregiver/support person: Yes Household members: spouse Marital status: Current occupational status: disabled Vitals/I&O/Wt Last Vital Signs Temp 98.0 F 12/21/22 23:20 Pulse 83 12/21/22 23:20 Resp 18 12/21/22 23:20 BP 171/96 12/21/22 23:20 Pulse Ox 93 12/21/22 23:20 O2 Del Method Room Air 12/21/22 23:20 12/21/22 12/21/22 12/22/22 14:59 22:59 06:59 Intake Total 1050 / 1050 Balance 1050 / 1050 Weight last 48 hrs Weight 127.006 kg Physical Exam Narrative: General: No acute distress, AO x3 HEENT: PERRLA, pupils bilaterally equal and reactive, pallors not present Chest: Normal vesicular breath sounds, no added sounds, equal good air entry bilaterally CVS: S1-S2 regular, no murmurs, no tachycardia, no gallops, no rubs Abdomen: Soft, nontender, no organomegaly, bowel sounds present Neuro: No focal deficits, no facial deformity, AO x3, power 5/5 in all limbs Extremities: B/L LE pitting edema, intertrigo affecting B/L groin folds Data 12/21/22 19:53 12/21/22 19:53 Other data: Radiology Impressions Abdomen/Pelvis CT 12/21/22 20:24 IMPRESSION: 1. 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 2. Enlarged prostate greater than or equal to 5.0 cm; correlation with PSA levels is recommended. 3. Mild bowel wall thickening in the descending colon consistent with mild infectious colitis, microvascular ischemic colitis or inflammatory bowel autoimmune colitis. Laboratory Results WBC 13.1 10^3/uL (4.0-10.0) H 12/21/22 19:53 Corrected WBC Cancelled 12/21/22 18:30 RBC 4.82 10^6/uL (4.1-5.3) 12/21/22 19:53 Hgb 14.5 g/dL (11.7-16.6) 12/21/22 19:53 Hct 45.8 % (42.0-52.0) 12/21/22 19:53 MCV 95.0 fl (80-94) H 12/21/22 19:53 MCH 30.1 pg (28.0-34.0) 12/21/22 19:53 MCHC 31.7 g/dL (30.0-36.0) 12/21/22 19:53 RDW 14.0 % (12.1-15.1) 12/21/22 19:53 Plt Count 265 10^3/cmm (130-400) 12/21/22 19:53 MPV 8.6 fL (7.4-10.4) 12/21/22 19:53 Gran % Cancelled 12/21/22 18:30 Neut % (Auto) 78.9 % 12/21/22 19:53 Lymph % (Auto) 14.4 % 12/21/22 19:53 [place] % (Auto) 6.0 % 12/21/22 19:53 Eos % (Auto) 0.2 % 12/21/22 19:53 Baso % (Auto) 0.2 % 12/21/22 19:53 Neut # (Auto) 10.32 10^3/uL (1.8-7.7) H 12/21/22 19:53 Lymph # (Auto) 1.9 10^3/uL (0.8-4.8) 12/21/22 19:53 [place] # (Auto) 0.8 10^3/uL (0.2-0.9) 12/21/22 19:53 Eos # (Auto) 0.0 10^3/uL (0.0-0.8) 12/21/22 19:53 Baso # (Auto) 0.0 10^3/uL (0.0-0.1) 12/21/22 19:53 Absolute Gran (auto) Cancelled 12/21/22 18:30 Nucleated RBC % (auto) 0 % 12/21/22 19:53 Nucleated RBCs # 0.0 /100WBC 12/21/22 19:53 Sodium 139 mmol/L (136-145) 12/21/22 19:53 Potassium 3.5 mmol/L (3.5-5.1) 12/21/22 19:53 Chloride 98 mmol/L (98-107) 12/21/22 19:53 Carbon Dioxide 25 mmol/L (22-29) 12/21/22 19:53 Anion Gap 19.5 (5-19) H 12/21/22 19:53 BUN 22 mg/dL (8-23) 12/21/22 19:53 Creatinine 1.0 mg/dL (0.7-1.2) 12/21/22 19:53 GFR Calculation 74.3 mL/min (90-130) L 12/21/22 19:53 Glucose 157 mg/dL (65-115) H 12/21/22 19:53 Calculated Osmolality 295 mOsm/kg (285-295) 12/21/22 19:53 Lactic Acid 3.2 mmol/L (0.5-2.2) H 12/21/22 19:53 Lactic Acid (Sepsis) 1.9 mmol/L (0.5-2.2) 12/21/22 22:20 Calcium 8.8 mg/dL (8.5-10.5) 12/21/22 19:53 Total Bilirubin 0.6 mg/dL (0.15-1.2) 12/21/22 19:53 AST 13 U/L (0-40) 12/21/22 19:53 ALT 14 U/L (0-41) 12/21/22 19:53 Alkaline Phosphatase 108 U/L (40-130) 12/21/22 19:53 Total Protein 7.3 g/dL (6.6-8.7) 12/21/22 19:53 Albumin 3.7 g/dL (3.5-5.2) 12/21/22 19:53 Globulin 3.6 g/dL (1.3-4.6) 12/21/22 19:53 Lipase 22 U/L (13-60) 12/21/22 19:53 Urine Color Yellow (Yellow) 12/21/22 05:29 Urine Appearance Sl hazy (CLEAR) A 12/21/22 05:29 Urine pH 5 (5-7) 12/21/22 05:29 Ur Specific [place] 1.025 (1.005-1.030) 12/21/22 05:29 Urine Protein 1+ (Negative) H 12/21/22 05:29 Urine Glucose (UA) Norm (Normal) 12/21/22 05:29 Urine Ketones 1+ (Negative) H 12/21/22 05:29 Urine Blood 3+ (Negative) H 12/21/22 05:29 Urine Nitrate Negative (Negative) 12/21/22 05:29 Urine Bilirubin 1+ (Negative) H 12/21/22 05:29 Urine Urobilinogen Norm mg/dL (Negative) 12/21/22 05:29 Ur Leukocyte Esterase 2+ (Negative) H 12/21/22 05:29 Urine RBC 0-4 /hpf (0-2) H 12/21/22 05:29 Urine WBC >100 /hpf (0-5) H 12/21/22 05:29 Ur Squamous Epith Cells 10-15 /hpf (0-5) H 12/21/22 05:29 Amorphous Sediment Not Reportable 12/21/22 05:29 Urine Bacteria 1+ /hpf (NONE) H 12/21/22 05:29 Urine Mucus 1+ /hpf 12/21/22 05:29 Urine Yeast 4+ /hpf H 12/21/22 05:29 A&P Assessment and plan (1) Colitis: Presenting today with abdominal pain, vomiting and bright red blood per rectum Ct abdomen showing bowel wall thickening in the descending colon concerning for colitis Npo for bowel rest Check Stool c diff, enteric panel, parasite panel in joseph eof diarrhea, currently reports no BM Empiric piperacillin tazobactam for possibility of infectious colitis Elevtaed lactate 3.2 upon admission, trended down to normal 1.9 with hydration, lower suspicion for ischemic colitis, abdominal exam currently benign, monitor colosely for any changes last colonoscopy on 11/2021 showed transverse colon poyps and diverticulosis. Possible that he may be experiencing diverticular bleeding, but would expect this to be painless typically. Colon polyps were tubular adenoma on biopsy. (2) GI bleed: bright red rectal bleeding suspect related to diverticulosis vs colitis Bowel rest as above patient has not refilled eliquis in 2 months, will continue to hold off for now Hb currently stable at 14, check every 12 hrs (3) Recurrent UTI: h/o recurrent UTI with klebsiella, morganella and psuedomonas reports chronic dysuria does not feel his symptoms are worsened UA + LA, nitrate, WBC Ct abdomen without hydronephrosis Check bladder scan to evalute for urinary retention, though denies any voiding issues currently Empiric Zosyn as above will cover for possible UTI CT makes note of bladder cyst, of note reviewed multiple past CTs and urology notes, Patient has chronic cystitis and large bladder trabeculations which likely give appearnace of cyts. In the past, there was concern even for abscesses however no clinical correlate for abscess or focal collections was found on cytsoscopy. Abx regimen as above pendinr urine cx check blood cx, not yet drawn in ER (4) Hypertension: hydralazine prn (5) DVT, bilateral lower limbs: chronic DVT, supposed to be on eliquis but hasn't taken in2 months B/L LE swelling check LE duplex for interval increase in clot burden (6) Urinary retention: monitor urine output He is recommended intermittent self cath but does not follow this check bladder scan to assess for retention (7) Intertrigo: Involving groin folds clotrimazole ointment add fluconazole 400 mg daily higher dosing as priro h/o anne gladrata with SDD RG of 8 , needs higher dosing Past h/o candidemia and necrotizing fascitis in 01/2021 which appears to have been triggered by severe intertrigo at that time Needed svereal surgical debridements with wound care and 6 weeks of iv antifungals with patient ultimtely improving. (8) Lactate blood increased: improved with hydration Plan h/o recent cardiac cath in aug 2022 ,revealing no significant coronary stenosis. Gr 1 diastolic dysfunction : known CHF: check BNP . Does not appear to be taking Bumex at home currently. Le pitting edema, awaiting LE duplex. Attestations Medical Necessity Statement*: > 2 midnight admission anticipated for above defined care Coding Level of Care Code Acute Code for Chg Fwd Diagnoses Colitis K52.9 GI bleed K92.2 Recurrent UTI N39.0 Hypertension I10 DVT, bilateral lower limbs I82.403 Urinary retention R33.9 Intertrigo L30.4 Lactate blood increased R79.89
[2022-12-22] VITALS (7 sets, daily range): BP systolic 157–200; BP diastolic 82–118; PULSE 83–107; RESP 16–21; TEMP 36.7–37.3; O2SAT 91–93
[2022-12-22 02:25] LABS: Basophils % 0.2 %; Eosinophils # 0.1 10^3/uL (0.0-0.8); Eosinophils % 0.5 %; Hematocrit 39.4 % (42.0-52.0); Hemoglobin 12.8 g/dL (11.7-16.6); Lymphocytes # 2.3 10^3/uL (0.8-4.8); Lymphocytes % 20.4 %; Mean Corpuscular HGB Conc 32.5 g/dL (30.0-36.0); Mean Corpuscular Hemoglobin 30.8 pg (28.0-34.0); Mean Corpuscular Volume 94.9 fl (80-94); Mean Platelet Volume 8.7 fL (7.4-10.4); Monocytes # 0.7 10^3/uL (0.2-0.9); Monocytes % 6.2 %; Neutrophils # 8.24 10^3/uL (1.8-7.7); Neutrophils % 72.5 %; Nucleated Red Blood Cells % 0 %; Platelet Count 224 10^3/cmm (130-400); Red Blood Count 4.15 10^6/uL (4.1-5.3); Red Cell Distribution Width 14.3 % (12.1-15.1); White Blood Count 11.4 10^3/uL (4.0-10.0)
[2022-12-22] MEDS: TRAMadol 50 mg Tablet PO ×2 (02:42→19:31)
[2022-12-22 03:01] LABS: Alanine Aminotransferase 12 U/L (0-41); Albumin Level 3.3 g/dL (3.5-5.2); Alkaline Phosphatase 98 U/L (40-130); Anion Gap 14.6 (5-19); Aspartate Amino Transferase 11 U/L (0-40); Blood Urea Nitrogen 20 mg/dL (8-23); Calcium 8.2 mg/dL (8.5-10.5); Carbon Dioxide 26 mmol/L (22-29); Chloride 101 mmol/L (98-107); Glomerular Filtration Rate 96.1 mL/min (90-130); Glucose 147 mg/dL (65-115); NT Pro B Type Natriuretic Pept 836 pg/mL (0-125); Osmolality Calculated 291 mOsm/kg (285-295); Potassium 3.6 mmol/L (3.5-5.1); Sodium 138 mmol/L (136-145); Total Bilirubin 0.6 mg/dL (0.15-1.2); Total Protein 6.3 g/dL (6.6-8.7)
[2022-12-22] MEDS: hyDRALAzine 20 mg/mL INJ 1 mL 10 MG IVP (03:18)
[2022-12-22] MEDS: piperacillin-tazobactam 3.375 GM in sodium chloride 0.9% (plus) 50 ML IV ×3 (04:28→19:31)
[2022-12-22 06:31] LABS: Glucose Point of Care 149 mg/dL (70-110)
--- NOTE | 2022-12-22 08:35 | PC.PHAR ---
pt and pts akin verified pts medications-[facility] states the pt is not taking bumetanide 0.5mg daily filled 10/15/22 90d/b-liootpjboue-exjg 37.5-25mg daily filled 10/03/22 90d/s-or losartan 25mg daily filled 07/16/23 90d/s-pt and pts states the pt uses lantus solostar 12 units daily-pts states the pt hasnt taken eliquis 5mg bid for at least 2 months ext med history shows last filled 09/18/22 30d/s -notes are made in the pharmacy comments
[2022-12-22] MEDS: insulin lispro 100 unit/1 mL SUBCUT ×3 (10:16→17:47)
[2022-12-22] MEDS: clotrimazole 1% cream 30 gm 1 APPLIC TOPICAL ×2 (10:16→17:47)
[2022-12-22] MEDS: fluconazole 100 mg Tablet 400 MG PO (10:19)
[2022-12-22] MEDS: finasteride 5 mg Tablet PO (10:19)
[2022-12-22] MEDS: amlodipine 5 mg Tablet PO (10:20)
[2022-12-22] MEDS: pantoprazole DR 40 mg Tablet PO (10:20)
[2022-12-22 11:56] LABS: Glucose Point of Care 288 mg/dL (70-110)
--- NOTE | 2022-12-22 12:38 | P.PN_ITS ---
Subjective Subjective: Patient this morning does not complain abdominal pain Patient is stating that he has been noticing bleeding whenever he wipes himself Carries history of hemorrhoids He was getting medication for his intertrigo of groin area Nursing staff did report sacral ulcer I did offer Stovall catheter which patient refused Vitals/I&O/Wt Last Vital Signs Temp 98.0 F 12/22/22 11:39 Pulse 101 H 12/22/22 11:39 Resp 18 12/22/22 11:39 BP 167/87 12/22/22 11:39 Pulse Ox 91 12/22/22 11:39 O2 Del Method Room Air 12/22/22 11:39 12/21/22 12/22/22 12/22/22 22:59 06:59 14:59 Intake Total 1050 / 1050 50 / 50 Balance 1050 / 1050 50 / 50 Weight last 48 hrs Weight 127.006 kg Physical Exam Narrative: Awake and alert Laying supine No active discomfort Currently doing well on room air Intertrigo without signs of necrotizing fasciitis Low extremity 3+ edema Patient is bedbound Awake and alert Nonfocal neuro exam GCS 15 S1, S2 Data 12/22/22 02:12 12/22/22 02:12 Micro: Microbiology 12/22/22 02:14 Blood Culture - Preliminary Blood SPECIMEN COLLECTED 12/22/22 02:12 Blood Culture - Preliminary Blood SPECIMEN COLLECTED A&P Assessment and plan (1) GI bleed: (2) Colitis: (3) Abdominal pain: (4) 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 chronic peripheral venous hypertension: (5) Severe muscle deconditioning: (6) Bilateral lower extremity edema: (7) Chronic pain of lower extremity, bilateral: (8) Dermatitis associated with moisture from stool incontinence: (9) Morbid obesity due to excess calories: (10) Diabetes mellitus type 2 in obese: Plan Rectal bleed Internal hemorrhoids? High lactic acid with rectal bleed could be a sign of mesenteric ischemia Abdominal exam is benign Lactic acid improving Hemodynamically stable I will allow patient to eat at this point, hemoglobin stable Patient has sacral ulcer he has refused Stovall catheter placement At baseline he is wheelchair-bound, since necrotizing fasciitis surgery he has not been able to walk independently, has been leading a poor quality of life Intertrigo: Continue nystatin antimicrobial powder a no active signs of necrotizing fasciitis DVT worsening left femoral vein patient has an IVC filter Patient has not taken Eliquis in the last 2 months I am holding off on anticoagulation agent because of rectal bleed if he remains stable with normal hemodynamics and H&H then I will resume at the time of discharge Patient does have PT via home health at home Full code Consistent carb diet DVT prophylaxis on board Attestations Medical Necessity Statement*: Continue medical management Diagnoses GI bleed K92.2 Colitis K52.9 Abdominal pain R10.9 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 chronic peripheral venous hypertension I87.332; L97.929 Severe muscle deconditioning R29.898 Bilateral lower extremity edema R60.0 Chronic pain of lower extremity, bilateral M79.604; M79.605; G89.29 Dermatitis associated with moisture from stool incontinence L25.8; R15.9 Morbid obesity due to excess calories E66.01 Diabetes mellitus type 2 in obese E11.69; E66.9
[2022-12-22 16:18] LABS: Basophils % 0.4 %; Eosinophils # 0.1 10^3/uL (0.0-0.8); Eosinophils % 1.2 %; Hematocrit 40.3 % (42.0-52.0); Hemoglobin 12.9 g/dL (11.7-16.6); Lymphocytes % 18.1 %; Mean Corpuscular Hemoglobin 30.7 pg (28.0-34.0); Mean Platelet Volume 8.7 fL (7.4-10.4); Monocytes # 0.6 10^3/uL (0.2-0.9); Monocytes % 5.7 %; Neutrophils # 8.01 10^3/uL (1.8-7.7); Neutrophils % 74.2 %; Nucleated Red Blood Cells % 0 %; Platelet Count 224 10^3/cmm (130-400); Red Cell Distribution Width 14.2 % (12.1-15.1); White Blood Count 10.8 10^3/uL (4.0-10.0)
[2022-12-22 16:39] LABS: Glucose Point of Care 196 mg/dL (70-110)
[2022-12-22] MEDS: morphine 4 mg/mL SDV 1 mL 2 MG IVP (22:06)
[2022-12-22 22:58] LABS: Glucose Point of Care 146 mg/dL (70-110)
--- NOTE | 2022-12-22 23:36 | USR_ITS ---
PROCEDURE INFORMATION: Exam: US Duplex Lower Extremity Veins, Bilateral Exam date and time: 12/22/2022 12:54 AM Age: 66 years old Clinical indication: Edema, localized; Lower extremity, bilateral; Patient HX: Morbid obesity. Patient has a history of multiple bilateral dvts over several years, last one being in 2021. Bilateral severe gaiter zone pigmentation and calf edema. ; Additional info: Chronic dvt, off eliquis x 2 months, worsening swelling TECHNIQUE: Imaging protocol: Real-time duplex ultrasound of the bilateral extremities with 2-D maria scale, color Doppler flow and spectral waveform analysis including responses to compression and other maneuvers (when performed) with image documentation. Complete exam focused on the lower extremity veins. COMPARISON: [place] [id number] 07/10/2021 4:11 PM FINDINGS: Right deep veins: Small veins in the right lower extremity with poor augmentation suggesting sequela from chronic DVT with no obvious occlusive DVT at this time. Right superficial veins: Saphenofemoral junction is patent without thrombus. Left deep veins: Occlusive DVT in the left superficial femoral vein which is probably acute DVT versus acute on chronic DVT. Otherwise chronic nonocclusive DVT throughout the left lower extremity with narrow main venous channels with collateral vessels. Left superficial veins: Saphenofemoral junction is patent without thrombus. Soft tissues: Unremarkable. US/[place] [id number] IMPRESSION: 1. Occlusive DVT in the left superficial femoral vein which is probably acute DVT versus acute on chronic DVT. 2. Otherwise chronic nonocclusive DVT throughout the left lower extremity with narrow main venous channels with collateral vessels. 3. Small veins in the right lower extremity with poor augmentation suggesting sequela from chronic DVT with no obvious occlusive DVT at this time.
[2022-12-23] VITALS: BP 167/95; PULSE 98; RESP 21; TEMP 36.8; O2SAT 90
[2022-12-23 04:00] VITALS: BP 143/81; PULSE 99; RESP 19; TEMP 36.9; O2SAT 90
[2022-12-23] MEDS: piperacillin-tazobactam 3.375 GM in sodium chloride 0.9% (plus) 50 ML IV ×2 (04:13→11:25)
[2022-12-23 04:40] LABS: Basophils % 0.2 %; Eosinophils # 0.3 10^3/uL (0.0-0.8); Eosinophils % 2.6 %; Hematocrit 40.3 % (42.0-52.0); Hemoglobin 12.9 g/dL (11.7-16.6); Lymphocytes # 2.2 10^3/uL (0.8-4.8); Lymphocytes % 20.1 %; Mean Corpuscular Hemoglobin 31.2 pg (28.0-34.0); Mean Corpuscular Volume 97.3 fl (80-94); Mean Platelet Volume 8.5 fL (7.4-10.4); Monocytes # 0.7 10^3/uL (0.2-0.9); Monocytes % 6.7 %; Neutrophils # 7.58 10^3/uL (1.8-7.7); Nucleated Red Blood Cells % 0 %; Platelet Count 230 10^3/cmm (130-400); Red Blood Count 4.14 10^6/uL (4.1-5.3); Red Cell Distribution Width 14.3 % (12.1-15.1); White Blood Count 10.8 10^3/uL (4.0-10.0)
[2022-12-23 07:36] LABS: Glucose Point of Care 139 mg/dL (70-110)
[2022-12-23 08:00] VITALS: BP 150/80; PULSE 92; RESP 17; TEMP 37.2; O2SAT 92
[2022-12-23] MEDS: finasteride 5 mg Tablet PO (09:45)
[2022-12-23] MEDS: amlodipine 5 mg Tablet PO (09:45)
[2022-12-23] MEDS: pantoprazole DR 40 mg Tablet PO (09:45)
[2022-12-23] MEDS: fluconazole 100 mg Tablet 400 MG PO (09:48)
[2022-12-23] MEDS: clotrimazole 1% cream 30 gm 1 APPLIC TOPICAL (09:48)
--- NOTE | 2022-12-23 11:34 | PM.DCS ---
Discharge Providers Date of Admission: 12/21/22 22:10 Date of Discharge: December 23, 2022 Attending Provider at Admission: Anusha Maynard MD Attending Provider at Discharge: Paxton Dillard MD Primary Care Provider: Mac Nelson MD Diagnoses at Discharge Discharge Diagnosis (1) GI bleed: Status: Acute (2) Colitis: Status: Acute (3) Abdominal pain: Status: Acute (4) 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 chronic peripheral venous hypertension: Status: Acute (5) Severe muscle deconditioning: Status: Acute (6) Bilateral lower extremity edema: Status: Acute (7) Chronic pain of lower extremity, bilateral: Status: Acute (8) Dermatitis associated with moisture from stool incontinence: Status: Acute (9) Morbid obesity due to excess calories: Status: Acute (10) Diabetes mellitus type 2 in obese: Status: Acute Reason for Visit Reason for Visit: stomach pain Hospital Course Hospital Course Andrew Pabon is a 66 year old male with DM, gr1 diatsolic CHF, chronic DVT, h/o necrotizing fascitis of the groin, candidemia (2020) with recurrent UTI and chronic cytsitis presenitng with c/o abdominal pain, described as cramps, multiple episodes of nausea, vomiting and bright red blood per rectum which started 1 night before his presentation in the ER, there was concern for mesenteric ischemia because patient has not taken his Eliquis for last 2 months, his symptoms improved with IV fluid hydration and antibiotics, during hospitalization there was mild bleeding noticed in his stool, hemoglobin remained stable, he remained hemodynamically stable, he does have chronic sacral ulcer which were present on admission, pyuria, previous urine culture showed Klebsiella which was pansensitive, this time cultures remain negative, left leg acute on chronic DVT left superficial femoral vein, patient also has an IVC filter I have asked patient and his to start taking Eliquis because his hemoglobin has remained stable in case of further worsening of bleed per rectum they can stop using Eliquis, patient is leading a sedentary lifestyle, he is not able to ambulate because of his bilateral knee osteoarthritis he is dependent on his for most of the daily activities, he has stage I to stage II sacral ulcers, he did not allow us to place St[place] catheter. At the time of discharge she will get Levaquin and metronidazole for colitis and UTI. Instructions given to restart Eliquis Of note, recent cardiac cath 09/17 did not show any significant coronary stenosis he also has grade 1 diastolic dysfunction, For his necrotizing fasciitis he required 6 weeks of IV antifungal after surgical debridement by Dr. Moreau He still has significant intertrigo for which he will require fluconazole 400 mg daily Physical Exam Narrative: Morbid obese male Sacral ulcer present on admission Patient is full code S1, S2 Abdomen distended however soft Intertrigo without active cellulitis Left leg more swollen as compared to right Venous stasis dermatitis Currently on room air Discharge Data Studies Completed and Pending Completed Studies During Hospitalization Category Date Time Status CT abdomen pelvis w con* [id number] Stat Cat Scan 12/21/22 20:24 [place] [id number] Routine Ultrasound 12/22/22 23:36 Completed Pending at discharge Category Date Time Status Blood Culture AM LABS Lab 12/22/22 02:14 Results C DIFF [Clostridioides Difficile PCR] Routine Lab 12/21/22 23:54 Uncollected Complete Blood Count w/Auto Q12H Lab 12/23/22 16:00 Ordered Enteric Bacterial Panel by PCR Routine Lab 12/21/22 23:54 Uncollected Enteric Parasite Panel by PCR Routine Lab 12/21/22 23:54 Uncollected Radiology Impressions Abdomen/Pelvis CT 12/21/22 20:24 IMPRESSION: 1. 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 2. Enlarged prostate greater than or equal to 5.0 cm; correlation with PSA levels is recommended. 3. Mild bowel wall thickening in the descending colon consistent with mild infectious colitis, microvascular ischemic colitis or inflammatory bowel autoimmune colitis. ADDENDUM: 12/22/22 0244 Impression: 4. IVC filter in place. THIS REPORT CONTAINS FINDINGS THAT MAY BE CRITICAL TO PATIENT CARE. The findings were verbally communicated via telephone conference with Dr. Lea at 2:43 AM CDT on 12/22/2022. The findings were acknowledged and understood. Venous Duplex 12/22/22 23:36 IMPRESSION: 1. Occlusive DVT in the left superficial femoral vein which is probably acute DVT versus acute on chronic DVT. 2. Otherwise chronic nonocclusive DVT throughout the left lower extremity with narrow main venous channels with collateral vessels. 3. Small veins in the right lower extremity with poor augmentation suggesting sequela from chronic DVT with no obvious occlusive DVT at this time. ADDENDUM: 12/22/22 0224 THIS REPORT CONTAINS FINDINGS THAT MAY BE CRITICAL TO PATIENT CARE. The findings were verbally communicated via telephone conference with ANUSHA MAYNARD at 2:22 AM CDT on 12/22/2022. The findings were acknowledged and understood. Laboratory Results WBC 10.8 10^3/uL (4.0-10.0) H 12/23/22 04:17 Corrected WBC Cancelled 12/21/22 18:30 RBC 4.14 10^6/uL (4.1-5.3) 12/23/22 04:17 Hgb 12.9 g/dL (11.7-16.6) 12/23/22 04:17 Hct 40.3 % (42.0-52.0) L 12/23/22 04:17 MCV 97.3 fl (80-94) H 12/23/22 04:17 MCH 31.2 pg (28.0-34.0) 12/23/22 04:17 MCHC 32.0 g/dL (30.0-36.0) 12/23/22 04:17 RDW 14.3 % (12.1-15.1) 12/23/22 04:17 Plt Count 230 10^3/cmm (130-400) 12/23/22 04:17 MPV 8.5 fL (7.4-10.4) 12/23/22 04:17 Gran % Cancelled 12/21/22 18:30 Neut % (Auto) 70.0 % 12/23/22 04:17 Lymph % (Auto) 20.1 % 12/23/22 04:17 [place] % (Auto) 6.7 % 12/23/22 04:17 Eos % (Auto) 2.6 % 12/23/22 04:17 Baso % (Auto) 0.2 % 12/23/22 04:17 Neut # (Auto) 7.58 10^3/uL (1.8-7.7) 12/23/22 04:17 Lymph # (Auto) 2.2 10^3/uL (0.8-4.8) 12/23/22 04:17 [place] # (Auto) 0.7 10^3/uL (0.2-0.9) 12/23/22 04:17 Eos # (Auto) 0.3 10^3/uL (0.0-0.8) 12/23/22 04:17 Baso # (Auto) 0.0 10^3/uL (0.0-0.1) 12/23/22 04:17 Absolute Gran (auto) Cancelled 12/21/22 18:30 Nucleated RBC % (auto) 0 % 12/23/22 04:17 Nucleated RBCs # 0.0 /100WBC 12/23/22 04:17 Sodium 138 mmol/L (136-145) 12/22/22 02:12 Potassium 3.6 mmol/L (3.5-5.1) 12/22/22 02:12 Chloride 101 mmol/L (98-107) 12/22/22 02:12 Carbon Dioxide 26 mmol/L (22-29) 12/22/22 02:12 Anion Gap 14.6 (5-19) 12/22/22 02:12 BUN 20 mg/dL (8-23) 12/22/22 02:12 Creatinine 0.8 mg/dL (0.7-1.2) 12/22/22 02:12 GFR Calculation 96.1 mL/min (90-130) 12/22/22 02:12 Glucose 147 mg/dL (65-115) H 12/22/22 02:12 POC Glucose 139 mg/dL (70-110) H 12/23/22 07:27 Calculated Osmolality 291 mOsm/kg (285-295) 12/22/22 02:12 Lactic Acid 3.2 mmol/L (0.5-2.2) H 12/21/22 19:53 Lactic Acid (Sepsis) 1.9 mmol/L (0.5-2.2) 12/21/22 22:20 Calcium 8.2 mg/dL (8.5-10.5) L 12/22/22 02:12 Total Bilirubin 0.6 mg/dL (0.15-1.2) 12/22/22 02:12 AST 11 U/L (0-40) 12/22/22 02:12 ALT 12 U/L (0-41) 12/22/22 02:12 Alkaline Phosphatase 98 U/L (40-130) 12/22/22 02:12 NT-Pro-B Natriuret Pep 836 pg/mL (0-125) H 12/22/22 02:12 Total Protein 6.3 g/dL (6.6-8.7) L 12/22/22 02:12 Albumin 3.3 g/dL (3.5-5.2) L 12/22/22 02:12 Globulin 3.0 g/dL (1.3-4.6) 12/22/22 02:12 Lipase 22 U/L (13-60) 12/21/22 19:53 TSH 2.80 uIU/mL (0.27-4.20) 12/22/22 02:12 Urine Color Yellow (Yellow) 12/21/22 05:29 Urine Appearance Sl hazy (CLEAR) A 12/21/22 05:29 Urine pH 5 (5-7) 12/21/22 05:29 Ur Specific [place] 1.025 (1.005-1.030) 12/21/22 05:29 Urine Protein 1+ (Negative) H 12/21/22 05:29 Urine Glucose (UA) Norm (Normal) 12/21/22 05:29 Urine Ketones 1+ (Negative) H 12/21/22 05:29 Urine Blood 3+ (Negative) H 12/21/22 05:29 Urine Nitrate Negative (Negative) 12/21/22 05:29 Urine Bilirubin 1+ (Negative) H 12/21/22 05:29 Urine Urobilinogen Norm mg/dL (Negative) 12/21/22 05:29 Ur Leukocyte Esterase 2+ (Negative) H 12/21/22 05:29 Urine RBC 0-4 /hpf (0-2) H 12/21/22 05:29 Urine WBC >100 /hpf (0-5) H 12/21/22 05:29 Ur Squamous Epith Cells 10-15 /hpf (0-5) H 12/21/22 05:29 Amorphous Sediment Not Reportable 12/21/22 05:29 Urine Bacteria 1+ /hpf (NONE) H 12/21/22 05:29 Urine Mucus 1+ /hpf 12/21/22 05:29 Urine Yeast 4+ /hpf H 12/21/22 05:29 Vitals Last Vital Signs Temp 99.0 F 12/23/22 08:00 Pulse 92 12/23/22 08:00 Resp 17 12/23/22 08:00 BP 150/80 12/23/22 08:00 Pulse Ox 92 12/23/22 08:00 O2 Del Method Room Air 12/23/22 08:00 Discharge Plan Discharge Patient Disposition: Home Health Service Condition: Stable Prescriptions: New levofloxacin 750 mg tablet 750 mg PO DAILY 7 Days Qty: 7 0RF metronidazole 500 mg tablet 500 mg PO Q8H 7 Days Qty: 21 0RF Continued acetaminophen [Tylenol Extra Strength] 500 mg tablet 500 mg PO Q6H PRN (Reason: Pain) zinc oxide 40 % ointment 1 applic topical QID PRN (Reason: skin irritation) Qty: 397 5RF amlodipine 5 mg tablet 5 mg PO DAILY Qty: 90 0RF (DME) pen needle, diabetic [Comfort EZ Pen [place]] 32 gauge x 5/16 needle See Rx Instructions .Route Qty: 300 2RF Rx Instructions: As directed alcohol swabs [Alcohol Prep Pads] Pads, Medicated 1 pad topical QID Qty: 100 0RF (DME) blood-glucose meter [Accu-Chek [place] Plus Meter] Misc See Rx Instructions .Route Qty: 1 0RF Rx Instructions: As directed (DME) Accu-Chek [place] Plus test strp Strip See Rx Instructions .Route Qty: 50 2RF Rx Instructions: As directed (DME) lancets [Accu-Chek Multiclix Lancet] Misc See Rx Instructions .Route Qty: 100 0RF Rx Instructions: As directed metformin 500 mg Tablet 500 mg PO BID 30 Days Qty: 60 1RF tizanidine 4 mg tablet 4 mg PO TID PRN (Reason: Muscle Spasticity) tramadol 50 mg tablet 50 mg PO .EVERY 4-6 HOURS MDD 2 tabs PRN (Reason: pain ) methenamine hippurate 1 gram tablet 1 g PO BID Rx Instructions: *TAKE WITH 1 GRAM OF VITAMIN-C* finasteride 5 mg tablet 5 mg PO DAILY ferrous sulfate [iron] 325 mg (65 mg iron) Tablet 325 mg PO BID insulin aspart U-100 [Novolog FlexPen U-100 Insulin] 100 unit/mL (3 mL) Insulin Pen See Rx Instructions .ROUTE .COMPLEX Rx Instructions: sliding scale as needed triamcinolone acetonide 0.5 % cream 1 applic topical TID PRN (Reason: unknown) lisinopril 5 mg tablet 5 mg PO QAM Vitamin C 250 mg Tablet 250 mg PO DAILY Lantus Solostar U-100 Insulin 100 unit/mL (3 mL) insulin pen 12 unit SUBCUT DAILY Discharge Orders: Discharge Order (Routine); Ordered 12/23/22 Ordered By: Paxton Dillard Referrals: Mac Nelson MD [Primary Care Provider] - 01/01/23 8:15 am Discharge Diet: Cardiac Discharge Activity: Increase activity as tolerated and Use walker/crutches as instructed Patient Instructions: Opioid Safety Discharge Attestations Time Spent in Discharge Care*: greater than 30 min Status at Discharge: Cognitive status at discharge: cognitively intact, Behavioral status at discharge: cooperative, Quality Metrics Clinical Quality Measures [ No reported AMI, CVA or VTE this stay] Coding Level of Care Code Acute Code for Chg Fwd Diagnoses GI bleed K92.2 Colitis K52.9 Abdominal pain R10.9 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 chronic peripheral venous hypertension I87.332; L97.929 Severe muscle deconditioning R29.898 Bilateral lower extremity edema R60.0 Chronic pain of lower extremity, bilateral M79.604; M79.605; G89.29 Dermatitis associated with moisture from stool incontinence L25.8; R15.9 Morbid obesity due to excess calories E66.01 Diabetes mellitus type 2 in obese E11.69; E66.9
[2022-12-23 12:00] VITALS: BP 150/81; PULSE 82; RESP 17; TEMP 36.9; O2SAT 92
[2022-12-23 12:00] LABS: Glucose Point of Care 161 mg/dL (70-110)
[2022-12-23] MEDS: TRAMadol 50 mg Tablet PO (13:34)
[2022-12-23] MEDS: insulin lispro 100 unit/1 mL SUBCUT (13:35)
== END 2022-12-23 13:56 | disposition home health service (06) ==
LOC: ER 21:33 → MEDSURG 23:47
PROVIDERS: Admitting Provider Student in an Organized Health Care Education/Training Program; Emergency Provider Emergency Medicine; PCP Family Medicine Adult Medicine; Visit Provider Internal Medicine
DX: K52.9 Noninfective gastroenteritis and colitis, unspecified (principal); E11.9 Type 2 diabetes mellitus without complications; I11.0 Hypertensive heart disease with heart failure; I50.32 Chronic diastolic (congestive) heart failure; E66.9 Obesity, unspecified; Z68.41 Body mass index [BMI] 40.0-44.9, adult; Z87.440 Personal history of urinary (tract) infections; Z86.718 Personal history of other venous thrombosis and embolism; K92.1 Melena; N40.1 Benign prostatic hyperplasia with lower urinary tract symptoms; R33.8 Other retention of urine; G89.29 Other chronic pain; M48.061 Spinal stenosis, lumbar region without neurogenic claudication; L30.8 Other specified dermatitis; I87.2 Venous insufficiency (chronic) (peripheral); M72.6 Necrotizing fasciitis; Z79.4 Long term (current) use of insulin; Z79.84 Long term (current) use of oral hypoglycemic drugs; Z79.891 Long term (current) use of opiate analgesic; L89.152 Pressure ulcer of sacral region, stage 2; K57.31 Diverticulosis of large intestine without perforation or abscess with bleeding; L30.4 Erythema intertrigo; T45.516A Underdosing of anticoagulants, initial encounter; Z91.128 Patient's intentional underdosing of medication regimen for other reason; N30.20 Other chronic cystitis without hematuria; Z87.891 Personal history of nicotine dependence; I82.412 Acute embolism and thrombosis of left femoral vein
CPT/HCPCS: 36415; 36416; 51798; 74177; 80053; 81001; 82962; 83605; 83690; 83880; 84443; 85025; 87040; 87086; 93970; 96365; 96372; 96375; 96376; 99285; G0378; J0360; J1815; J2270; J2405; J2543; J3010; J3490; J7030; Q9967

== ENCOUNTER → 2024-08-18 12:06 | Outpatient (BNVA) | payer MEDICARE, MEDICAID, SELFPAY | PROVIDERS: PCP Family Medicine Adult Medicine; Visit Provider Family Medicine | DX: I10 Essential (primary) hypertension (principal); E11.69 Type 2 diabetes mellitus with other specified complication; E66.9 Obesity, unspecified; N39.0 Urinary tract infection, site not specified; D64.9 Anemia, unspecified; M79.604 Pain in right leg; M79.605 Pain in left leg; G89.29 Other chronic pain; Z86.718 Personal history of other venous thrombosis and embolism | CPT/HCPCS: 80053; 80061; 82043; 82607; 83036; 83540; 84439; 84443; 85025 ==

== ENCOUNTER → 2024-11-09 09:11 | Outpatient (BNVA) | payer MEDICARE, MEDICAID, SELFPAY | PROVIDERS: PCP Family Medicine; Visit Provider Family Medicine | DX: I10 Essential (primary) hypertension (principal); E11.69 Type 2 diabetes mellitus with other specified complication; E66.9 Obesity, unspecified; E78.5 Hyperlipidemia, unspecified | CPT/HCPCS: 80053; 80061; 83036 ==

== ENCOUNTER → 2025-05-18 10:58 | Outpatient (BNVA) | payer MEDICARE, MEDICAID, SELFPAY | PROVIDERS: PCP Family Medicine; Visit Provider Family Medicine | DX: E11.69 Type 2 diabetes mellitus with other specified complication (principal); E66.9 Obesity, unspecified | CPT/HCPCS: 83036 ==